=== PATIENT | female | born 1945 | race Caucasian/White ===

== ENCOUNTER → 2019-08-27 08:02 | Outpatient (BNVA) | payer MEDICARE, SELFPAY | PROVIDERS: Family Provider Family Medicine; PCP Family Medicine; Visit Provider Nurse Practitioner | DX: M54.9 Dorsalgia, unspecified (principal); M54.2 Cervicalgia; G90.50 Complex regional pain syndrome I, unspecified; F40.231 Fear of injections and transfusions; M96.1 Postlaminectomy syndrome, not elsewhere classified; G62.9 Polyneuropathy, unspecified; M79.651 Pain in right thigh; M79.652 Pain in left thigh; Z79.891 Long term (current) use of opiate analgesic | CPT/HCPCS: 99214 ==

== ENCOUNTER → 2019-09-23 08:16 | Outpatient (BNVA) | payer MEDICARE, SELFPAY | PROVIDERS: Family Provider Family Medicine; PCP Family Medicine; Referring Provider Licensed Practical Nurse; Visit Provider Psychiatry & Neurology Neurology | DX: M54.2 Cervicalgia (principal); M79.601 Pain in right arm; M79.602 Pain in left arm; Z87.891 Personal history of nicotine dependence | CPT/HCPCS: 95910 ==

== ENCOUNTER 2019-09-24 09:04 | Outpatient (CLI) | payer MEDICARE, SELFPAY ==
--- NOTE | 2019-09-24 09:25 | CT_ITS ---
WS: [id number] CT CERVICAL SPINE TECHNIQUE: Noncontrast CT of the cervical spine with coronal and sagittal reformatted images. 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 FINDINGS: Straightening of the normal cervical lordosis. Moderate spondylitic changes. Normal C1-C2 articulatio n. Disc space narrowing worse at C5-C6, C6-C7, and C7-T1. Prominent anterior hypertrophic changes at C5-6. C3-4: Mild disc osteophyte complex. Mild left and no significant right foraminal narrowing. Mild/mode rate facet arthropathy. Spinal canal is patent. C4-C5: Slight anterolisthesis. Tiny central disc osteophyte protrusion. Spinal canal is patent. Mild to moderate left and no significant right foraminal narrowing. Moderate left facet arthropathy. C5-6: Disc osteophyte complex with endplate ridging. Mild central canal stenosis. Moderate left and n o significant right foraminal narrowing. C6-7: Disc osteophyte complex eccentric to the left. Moderate to severe left bony foraminal narrowing . Right foramen is patent. Mild central canal stenosis. C7-T1: No significant disc bulging. Mild left and no significant right foraminal narrowing. Spinal ca nal is patent. Visualized posterior nasopharynx: Normal. Prevertebral soft tissues: Normal. CT/CT cervical spin wo con* [id number] IMPRESSION: 1. Straightening of the normal cervical lordosis with moderate spondylitic fide nges. 2. Mild central canal stenosis C5-C6 and C6-C7 due to disc osteophyte protrusi ons. 3. Multilevel bony foraminal narrowing worse at left C4-C5, left C5-C6, and le ft C6-C7. This is moderate to severe at left C6-7.
--- NOTE | 2019-09-24 09:25 | CT_ITS ---
WS: [id number] CT LUMBAR SPINE TECHNIQUE: Noncontrast CT of the lumbar spine with coronal and sagittal reformatted images. CLINICAL INFORMATION: S/P LUMBAR SPINAL FUSION COMPARISON: MRI February 18, 2015 DLP: 2533.[address] scans at [facility] use at least one of these dose optimization techniques: automat ed exposure control; mA and/or kV adjustment per patient size (includes targeted exams where dose is matched to clinical indication); or iterative reconstruction. FINDINGS: Mild lumbar curve. No acute compression. Prior postoperative changes interbody fusion hardware at L3- 4. Vacuum disc phenomenon T12-L1 and L1-L2. L1-L2: Central disc osteophyte complex with mild to moderate central canal stenosis. Narrowing of the right subarticular recess. Foramen are patent. Left L1-2 hemilaminectomy L2-L3: Disc osteophyte complex with endplate ridging. Moderate central canal stenosis. Moderate facet arthropathy. Mild left and no significant right foraminal narrowing. L3-L4: Prior postoperative changes interbody fusion. Disc osteophytic ridging with effacement of vent ral thecal sac. Laminectomy defects. Spinal canal is been decompressed. Foramen are patent. L4-L5: No significant disc bulging. Solid appearing dorsal lateral bony fusion. Spinal canal and fora men are patent. L5-S1: Dorsal lateral bony fusion appears solid. Mild disc bulging with osteophytic ridging. Spinal c anal and foramen are patent. Adrenal glands are normal. Visualized pelvic bony structures: Normal. Paravertebral soft tissues: Normal. CT/CT lumbar spine wo con* [id number] IMPRESSION: 1. Prior postoperative changes interbody fusion device L3-4 appears in good po sition. Subsidence along the fusion device. No apparent bridging bony fusion be tween the confines of the graft. 2. Solid appearing dorsal lateral bony fusion L4-L5 and L5-S1. 3. Laminectomy defects L3-4. Spinal canal has been decompressed. 4. Mild to moderate central canal stenosis L1-2 and moderate central canal fabiola nosis L2-3. 5. Prior left hemilaminectomy left L1-2.
--- NOTE | 2019-09-24 10:00 | XR_ITS ---
WS: [id number] XR cervical spine fl/ex [id number] REASON FOR EXAM: neck pain FINDINGS: Ankylosing changes anteriorly C5-C6. There is loss of the disc space C6-7, C7-T1. Limited f lexion changes are noted. XR/XR cervical spine fl/ex [id number] IMPRESSION: Ankylosing changes anteriorly C5-C6 Degenerated disc changes C6-7, C7-T1. Limited flexion changes noted.
== END 2019-09-24 09:05 | disposition home or self-care (01) ==
LOC: RAD 09:10
PROVIDERS: Family Provider Family Medicine; PCP Family Medicine; Visit Provider Licensed Practical Nurse
DX: M50.020 Cervical disc disorder with myelopathy, mid-cervical region, unspecified level (principal); M47.892 Other spondylosis, cervical region; M47.893 Other spondylosis, cervicothoracic region; Z98.1 Arthrodesis status; M48.061 Spinal stenosis, lumbar region without neurogenic claudication
CPT/HCPCS: 72040; 72125; 72131

== ENCOUNTER → 2019-10-29 08:31 | Outpatient (BNVA) | payer MEDICARE, SELFPAY | PROVIDERS: Family Provider Family Medicine; PCP Family Medicine; Visit Provider Nurse Practitioner | DX: Z76.89 Persons encountering health services in other specified circumstances (principal) | CPT/HCPCS: 99213 ==

== ENCOUNTER → 2020-01-21 07:55 | Outpatient (BNVA) | payer MEDICARE, SELFPAY | PROVIDERS: Family Provider Family Medicine; PCP Family Medicine; Visit Provider Anesthesiology | DX: M54.41 Lumbago with sciatica, right side (principal); M54.42 Lumbago with sciatica, left side; M51.26 Other intervertebral disc displacement, lumbar region; M96.1 Postlaminectomy syndrome, not elsewhere classified; M48.02 Spinal stenosis, cervical region; G62.9 Polyneuropathy, unspecified; G99.2 Myelopathy in diseases classified elsewhere; Z98.1 Arthrodesis status; Z79.891 Long term (current) use of opiate analgesic | CPT/HCPCS: 99214 ==

== ENCOUNTER → 2020-03-24 08:23 | Outpatient (BNVA) | payer MEDICARE, SELFPAY | PROVIDERS: Family Provider Family Medicine; PCP Family Medicine; Visit Provider Anesthesiology | DX: M51.26 Other intervertebral disc displacement, lumbar region (principal); M48.02 Spinal stenosis, cervical region; M50.020 Cervical disc disorder with myelopathy, mid-cervical region, unspecified level; M96.1 Postlaminectomy syndrome, not elsewhere classified; G62.9 Polyneuropathy, unspecified; Z98.1 Arthrodesis status; Z79.891 Long term (current) use of opiate analgesic | CPT/HCPCS: 99214 ==

== ENCOUNTER → 2020-05-26 08:49 | Outpatient (BNVA) | payer MEDICARE, SELFPAY | PROVIDERS: Family Provider Family Medicine; PCP Family Medicine; Visit Provider Anesthesiology | DX: M51.26 Other intervertebral disc displacement, lumbar region (principal); M96.1 Postlaminectomy syndrome, not elsewhere classified; M48.02 Spinal stenosis, cervical region; M50.020 Cervical disc disorder with myelopathy, mid-cervical region, unspecified level; Z98.1 Arthrodesis status; Z79.891 Long term (current) use of opiate analgesic | CPT/HCPCS: 99213; 99214 ==

== ENCOUNTER 2020-06-09 16:09 | Observation (INO) | payer MEDICARE, SELFPAY ==
[2020-06-09] VITALS (9 sets, daily range): BP systolic 130–198; BP diastolic 69–120; PULSE 66–93; RESP 14–20; TEMP 36.6–36.8; O2SAT 95–98; BMI 26.2
--- NOTE | 2020-06-09 16:43 | CTR_ITS ---
PROCEDURE INFORMATION: Exam: CT Abdomen And Pelvis With Contrast Exam date and time: 06/09/2020 5:52 PM Age: 74 years old Clinical indication: Abdominal pain; Acute; Prior surgery; Surgery date: 6+ months; Surgery type: Hyst tubal back bladder TECHNIQUE: Imaging protocol: Computed tomography of the abdomen and pelvis with intravenous contrast. Radiation optimization: All CT scans at this facility use at least one of these dose optimization techniques: automated exposure control; mA and/or kV adjustment per patient size (includes targeted exams where dose is matched to clinical indication); or iterative reconstruction. Contrast material: OMNI; Contrast volume: 95 ml; Contrast route: INTRAVENOUS (IV); COMPARISON: [facility] Abdomen 1 view 12/18/2018 9:38 AM RADIATION DOSE METRICS: Total DLP (mGy-cm): 657.71 FINDINGS: Lungs: Mild atelectasis versus fibrosis noted at the lung bases. Mediastinal space: There is a small hiatal hernia present. Liver: Decreased hepatic density is noted, consistent with hepatic steatosis. Gallbladder and bile ducts: Gallbladder is mildly distended. Multiple noncalcified gallstones are seen in the gallbladder. The gallbladder wall is not thickened. No pericholecystic fluid. No biliary dilatation. No calcified common duct calculus. Pancreas: The pancreas is normal in appearance. Spleen: Unremarkable. No splenomegaly. Adrenal glands: Unremarkable. No mass. Kidneys and ureters: 10 mm simple appearing left renal cyst. The kidneys are otherwise unremarkable. No hydronephrosis. Ureters are unremarkable. Stomach and bowel: No acute gastric abnormality demonstrated. The small bowel is unremarkable as demonstrated. Moderate retained stool in the colon. Mild diverticulosis. No inflammatory change of the colon. Appendix: No evidence of appendicitis. Normal appendix identified. Intraperitoneal space: No pneumoperitoneum. No significant fluid collection. Vasculature: The aorta is atherosclerotic. No aortic aneurysm. Lymph nodes: No pathologically enlarged lymph nodes. Urinary bladder: The urinary bladder is unremarkable in appearance. Reproductive: The uterus is not visualized, consistent with hysterectomy. Bones/joints: Bilateral hip prostheses noted. Postop and degenerative changes of the lumbar spine. Soft tissues: Unremarkable. CT/CT abdomen pelvis w con* [id number] IMPRESSION: 1. Decreased hepatic density is noted, consistent with hepatic steatosis. 2. Gallbladder is mildly distended. Multiple noncalcified gallstones are seen in the gallbladder. The gallbladder wall is not thickened. No pericholecystic fluid. No biliary dilatation. No calcified common duct calculus. Consider gallbladder/biliary ultrasound to further assess. COMMENTS: Consistent with the [place]'s Incidental Findings Committee white paper (J Am Brandee Radiol 2018): Any incidental renal lesion less than 1 cm or classified as too small to characterize, or any incidental cystic renal lesion characterized as simple-appearing, is likely benign. No follow-up imaging is recommended for these lesions per consensus recommendations based on imaging criteria. Radiation Dose CTDIVOL = (mGy): DLP = 657.71 (mGy-cm)
--- NOTE | 2020-06-09 16:44 | ECG_ITS ---
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
[2020-06-09] MEDS: sodium chloride 0.9% 1,000 ML 999 ML IV (16:53)
[2020-06-09 16:54] LABS: Basophils # 0.1 10^3/uL (0.0-0.1); Basophils % 0.6 %; Eosinophils # 0.2 10^3/uL (0.0-0.8); Eosinophils % 2.3 %; Hematocrit 50.4 % (37.0-47.0); Hemoglobin 16.5 g/dL (11.5-15.3); Lymphocytes # 2.1 10^3/uL (0.8-4.8); Lymphocytes % 26.9 %; Mean Corpuscular HGB Conc 32.7 g/dL (30.0-36.0); Mean Corpuscular Hemoglobin 28.6 pg (28.0-34.0); Mean Corpuscular Volume 87.3 fL (81-99); Mean Platelet Volume 10.9 fL (7.4-10.4); Monocytes # 0.5 10^3/uL (0.2-0.9); Monocytes % 6.7 %; Neutrophils % 63.2 %; Nucleated Red Blood Cells % 0 %; Platelet Count 331 10^3/cmm (130-400); Red Blood Count 5.77 10^6/uL (4.1-5.3); Red Cell Distribution Width 11.7 % (12.1-15.1); White Blood Count 7.9 10^3/uL (4.0-10.0)
[2020-06-09] MEDS: ondansetron 2 mg/ML SDV 2 mL 4 MG IVP ×2 (16:54→21:10)
[2020-06-09] MEDS: morphine 4 mg/mL SDV 1 mL IVP ×2 (16:54→21:10)
[2020-06-09 16:56] LABS: Add Urine Microscopic? NO
[2020-06-09 17:03] LABS: Bilirubin Urine Neg (Negative); Blood Urine Neg (Negative); Glucose Urine UA Norm (Normal); Ketones Urine Negative (Negative); Leukocyte Esterase Urine Negative (Negative); Nitrate Urine Negative (Negative); Protein Urine Neg (Negative); Specific Gravity, Urine 1.015 (1.005-1.030); Urine Appearance Clear (CLEAR); Urine Color Yellow (Yellow); Urobilinogen Urine Norm (Negative); pH Urine 7 (5-7)
[2020-06-09 17:19] LABS: Alanine Aminotransferase 17 U/L (0-33); Alkaline Phosphatase 99 IU/L (35-105); Anion Gap 15.8 (5-19); Aspartate Amino Transferase 24 U/L (0-32); Blood Urea Nitrogen 10 mg/dL (8-23); Calcium 9.6 mg/dL (8.5-10.5); Carbon Dioxide 26 mmol/L (22-29); Chloride 101 mmol/L (98-107); Globulin 3.2 g/dL (1.3-4.6); Glucose 121 mg/dL (65-115); Lipase 14 U/L (13-60); Osmolality Calculated 288 mOsm/kg (285-295); Potassium 3.8 mmol/L (3.5-5.1); Sodium 139 mmol/L (136-145); Total Bilirubin 0.8 mg/dL (0.15-1.2); Total Protein 8.2 g/dL (6.6-8.7)
--- NOTE | 2020-06-09 17:36 | W.ED.ABDPA2 ---
Documented by User: Lashanda Workman MD 06/19/20 17:09 HPI - Abdominal Pain General: Chief Complaint: Abdominal Pain Stated Complaint: N/V, WEAKNESS Time Seen by Provider: 06/09/20 16:30 History of Present Illness: HPI narrative: This patient is a 74-year-old female who presents with abdominal pain and vomiting. She reports that her pain started yesterday evening after dinner. It bothered her all night long. She started throwing up at about 4 AM. She threw up bile which she describes as green and terrible tasting. She has had a hysterectomy but no other abdominal surgeries. Most of her pain is on the right side. She does have chronic pain with neck and back problems. She takes oxycodone for pain but has not taken any since this morning because she was afraid she would throw it up. MD elicited complaint: abdominal pain Pertinent past history: none Onset (ago): day(s) (1) Pain Consistency: constant Location: Epigastric (Burning sensation), RUQ and RLQ Severity: moderate Quality: fullness, sharp and burning Radiation: R flank and chest Migration to: no migration Exacerbating factors: nothing Relieving factors: nothing Associated Symptoms: Reports nausea and vomiting; Denies chills and fever(s) Review of Systems General: Reports: 10 or more systems reviewed and unremarkable except in HPI and below Const: Denies: fever(s), chills, fatigue or malaise Eyes: Denies: change in vision ENMT: Denies: odynophagia Card: Denies: chest pain or swelling of feet/ankles Resp: Denies: dyspnea, productive cough or non-productive cough GI: Reports: abdominal pain, nausea and vomiting : Denies: flank pain or difficulty voiding Musc: Denies: neck pain or back pain Skin/Breast: Denies: rash Neuro: Denies: headache(s), numbness in extremities or weakness in extremities Darryn/Lymph: Denies: easy bruising or easy bleeding PFSH ED PFSH: Medical History (Updated 06/12/20 @ 00:00 by ) Cervical disc disorder with myelopathy of mid-cervical region CRPS (complex regional pain syndrome type I) last stellate ganglion block was in 2012. 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 S/P hip replacement BILATERAL - TOTAL S/P hysterectomy PARTIAL FOR DYSMENORRHEA S/P lumbar spinal fusion 2001 [place]. L2-L3, L3-L4, L4-L5, and L5-S1 fusion/fixation 1986 [facility] L4-L5, L5-S1 decompression 05/1977 L5-S1 decompression S/P reduction mammoplasty S/P thymectomy 1983 AGE 15 MYASTHENIA GRAVIS S/P tubal ligation Status post colonoscopy Status post laparoscopic cholecystectomy (06/10/20) Family History Father Hypertension Heart disease age 60 Diabetes Mother Heart disease age 50 Cancer lung Stroke Denies family history of Anesthesia complication Bleeding disorder Social History Smoking and tobacco status: former smoker Second hand smoke exposure: No Alcohol intake: never Lives independently: Yes Household members: none Marital status: service: No Current occupational status: employed 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 History of recent travel: No Physical Exam Const: COMMON NORMALS: patient oriented x3, no limitations and alert GENERAL APPEARANCE: cooperative HENMT: HEAD & SCALP: normal to inspection FACE & SINUS: normal facial exam Eye: GENERAL EYE: appearance normal, both eyes and all related structures Neck/C-Spine: COMMON NORMALS: supple, no meningeal signs and no JVD Chest: COMMONS NORMALS: normal inspection of the chest Resp: COMMON NORMALS: normal respiratory effort, No use of accessory muscles and clear to auscultation bilaterally AUSCULTATION: clear to auscultation bilaterally Cardio: COMMON NORMALS: no JVD, regular rate, regular rhythm and No murmurs present (Cardio) RATE: regular rate RHYTHM: regular rhythm GI: COMMON NORMALS: Normal to inspection, nondistended, normoactive bowel sounds present INSPECTION: Yes normal to inspection AUSCULTATION: Yes normoactive bowel sounds PALPATION: Yes Tenderness to palpation present (GI) Details: RLQ and RUQ and Yes Guarding due to palpation present (GI) Back/Pelvis: COMMON NORMALS: thoracic and lumbar spine normal to inspection Extremity: COMMON NORMALS: normal to inspection Neuro: COMMON NORMALS: patient oriented x3, moves all extremities, no focal motor deficits and no sensory deficits noted SENSORIUM/ORIENTATION: Yes alert MENINGEAL SIGNS: Yes no meningeal signs Psych: COMMON NORMALS: mental status grossly normal, cooperative and normal affect Skin: COMMON NORMALS: no rashes or lesions noted and turgor normal GENERAL SKIN EXAM: no rashes or lesions noted and turgor normal Course Vital Signs: Vital signs: Vital Signs Temperature 98.3 F 06/11/20 09:08 Pulse Rate 72 06/11/20 09:08 Respiratory Rate 18 06/11/20 09:08 Blood Pressure 162/61 06/11/20 09:08 Pulse Oximetry 93 06/11/20 09:08 MDM - Abdominal Pain Lab Data: Labs: Lab Results 06/09/20 06/09/20 06/09/20 Range/Units 16:41 16:41 16:41 WBC 7.9 (4.0-10.0) 10^3/ uL RBC 5.77 H (4.1-5.3) 10^6/u L Hgb 16.5 H (11.5-15.3) g/dL Hct 50.4 H (37.0-47.0) % MCV 87.3 (81-99) fL MCH 28.6 (28.0-34.0) pg MCHC 32.7 (30.0-36.0) g/dL RDW 11.7 L (12.1-15.1) % Plt Count 331 (130-400) 10^3/c mm MPV 10.9 H (7.4-10.4) fL Neut % (Auto) 63.2 % Lymph % (Auto) 26.9 % Bennett % (Auto) 6.7 % Eos % (Auto) 2.3 % Baso % (Auto) 0.6 % Neut # (Auto) 5.00 (1.8-7.7) 10^3/u L Lymph # (Auto) 2.1 (0.8-4.8) 10^3/u L Bennett # (Auto) 0.5 (0.2-0.9) 10^3/u L Eos # (Auto) 0.2 (0.0-0.8) 10^3/u L Baso # (Auto) 0.1 (0.0-0.1) 10^3/u L Nucleated RBC % (a uto) 0 % Nucleated RBCs # 0.0 /100WBC Sodium 139 (136-145) mmol/L Potassium 3.8 (3.5-5.1) mmol/L Chloride 101 (98-107) mmol/L Carbon Dioxide 26 (22-29) mmol/L Anion Gap 15.8 (5-19) BUN 10 (8-23) mg/dL Creatinine 0.7 (0.5-0.9) mg/dL GFR Calculation Not Reportable Glucose 121 H (65-115) mg/dL Calculated Osmolal ity 288 (285-295) mOsm/k g Calcium 9.6 (8.5-10.5) mg/dL Total Bilirubin 0.8 (0.15-1.2) mg/dL AST 24 (0-32) U/L ALT 17 (0-33) U/L Alkaline Phosphata se 99 (35-105) IU/L Troponin T Baselin e (0-10) ng/L Troponin T 120 Min [place] (0-10) ng/L Delta Troponin T (0-10) ABS# Total Protein 8.2 (6.6-8.7) g/dL Albumin 5.0 (3.5-5.2) g/dL Globulin 3.2 (1.3-4.6) g/dL Lipase 14 (13-60) U/L Urine Color Yellow (Yellow) Urine Appearance Clear (CLEAR) Urine pH 7 (5-7) Ur Specific Gravit y 1.015 (1.005-1.030) Urine Protein Neg (Negative) Urine Glucose (UA) Norm (Normal) Urine Ketones Negative (Negative) Urine Blood Neg (Negative) Urine Nitrate Negative (Negative) Urine Bilirubin Neg (Negative) Urine Urobilinogen Norm (Negative) mg/dL Ur Leukocyte Carolyn ase Negative (Negative) 06/09/20 06/09/20 Range/Units 16:41 19:09 WBC (4.0-10.0) 10^3/ uL RBC (4.1-5.3) 10^6/u L Hgb (11.5-15.3) g/dL Hct (37.0-47.0) % MCV (81-99) fL MCH (28.0-34.0) pg MCHC (30.0-36.0) g/dL RDW (12.1-15.1) % Plt Count (130-400) 10^3/c mm MPV (7.4-10.4) fL Neut % (Auto) % Lymph % (Auto) % Bennett % (Auto) % Eos % (Auto) % Baso % (Auto) % Neut # (Auto) (1.8-7.7) 10^3/u L Lymph # (Auto) (0.8-4.8) 10^3/u L Bennett # (Auto) (0.2-0.9) 10^3/u L Eos # (Auto) (0.0-0.8) 10^3/u L Baso # (Auto) (0.0-0.1) 10^3/u L Nucleated RBC % (a uto) % Nucleated RBCs # /100WBC Sodium (136-145) mmol/L Potassium (3.5-5.1) mmol/L Chloride (98-107) mmol/L Carbon Dioxide (22-29) mmol/L Anion Gap (5-19) BUN (8-23) mg/dL Creatinine (0.5-0.9) mg/dL GFR Calculation Glucose (65-115) mg/dL Calculated Osmolal ity (285-295) mOsm/k g Calcium (8.5-10.5) mg/dL Total Bilirubin (0.15-1.2) mg/dL AST (0-32) U/L ALT (0-33) U/L Alkaline Phosphata se (35-105) IU/L Troponin T Baselin e 15 H (0-10) ng/L Troponin T 120 Min [place] 14.90 H (0-10) ng/L Delta Troponin T -0.10 L (0-10) ABS# Total Protein (6.6-8.7) g/dL Albumin (3.5-5.2) g/dL Globulin (1.3-4.6) g/dL Lipase (13-60) U/L Urine Color (Yellow) Urine Appearance (CLEAR) Urine pH (5-7) Ur Specific Gravit y (1.005-1.030) Urine Protein (Negative) Urine Glucose (UA) (Normal) Urine Ketones (Negative) Urine Blood (Negative) Urine Nitrate (Negative) Urine Bilirubin (Negative) Urine Urobilinogen (Negative) mg/dL Ur Leukocyte Carolyn ase (Negative) Discharge Plan Discharge Patient Disposition: Placed in Observation Admit Provider: Jacob Jamison Clinical Impression: Acute cholecystitis Discharge Diet: Advance as tolerated Coding Level of Care Code ED Edge Bander Hand for Chg Fwd Exam Comprehensive Documented by User: Winter Do 06/09/20 21:21 HPI - Abdominal Pain General: Chief Complaint: Abdominal Pain Stated Complaint: N/V, WEAKNESS Time Seen by Provider: 06/09/20 16:30 PFSH ED PFSH: Medical History (Updated 06/12/20 @ 00:00 by ) Cervical disc disorder with myelopathy of mid-cervical region CRPS (complex regional pain syndrome type I) last stellate ganglion block was in 2012. 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 S/P hip replacement BILATERAL - TOTAL S/P hysterectomy PARTIAL FOR DYSMENORRHEA S/P lumbar spinal fusion 2001 [facility], [place]. L2-L3, L3-L4, L4-L5, and L5-S1 fusion/fixation 1986 [facility] L4-L5, L5-S1 decompression 05/1977 L5-S1 decompression S/P reduction mammoplasty S/P thymectomy 1983 AGE 15 MYASTHENIA GRAVIS S/P tubal ligation Status post colonoscopy Status post laparoscopic cholecystectomy (06/10/20) Family History Father Hypertension Heart disease age 60 Diabetes Mother Heart disease age 50 Cancer lung Stroke Denies family history of Anesthesia complication Bleeding disorder Social History Smoking and tobacco status: former smoker Second hand smoke exposure: No Alcohol intake: never Lives independently: Yes Household members: none Marital status: service: No Current occupational status: employed 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 Workman. Please see her note for history, physical exam and medical decision-making notes. Patient tells me her pain is better but she still having some pain at this time. She now describes the pain is more diffuse throughout her abdomen. She is no longer nauseated. Patient's CT scan shows a fatty liver and a distended gallbladder. On exam she is not focally tender in any area and her abdomen is soft. She agrees to go ahead and have a ultrasound of her gallbladder which would better image this than CT. This time she feels better. Her labs are unremarkable at this time. 2017 -patient still has pain primarily right upper quadrant. CT scan does not show any evidence of appendicitis. Ultrasound shows multiple gallstones with pericholecystic fluid present. Common bile duct was normal. Because the patient has continued pain, intractable vomiting and the findings on ultrasound I believe this is likely developing cholecystitis. I reviewed the case in full with Dr. Jamison is agreeable to admission for likely cholecystectomy in the morning. Differential Diagnosis: Differential diagnosis abdominal pain: Likely abdominal pain, acute appendicitis, calculus of kidney, constipation, diverticulitis, gastroenteritis, pancreatitis and small bowel obstruction Lab Data: Attestation: I reviewed the patient's lab results. Labs: Lab Results 06/09/20 06/09/20 06/09/20 Range/Units 16:41 16:41 16:41 WBC 7.9 (4.0-10.0) 10^3/ uL RBC 5.77 H (4.1-5.3) 10^6/u L Hgb 16.5 H (11.5-15.3) g/dL Hct 50.4 H (37.0-47.0) % MCV 87.3 (81-99) fL MCH 28.6 (28.0-34.0) pg MCHC 32.7 (30.0-36.0) g/dL RDW 11.7 L (12.1-15.1) % Plt Count 331 (130-400) 10^3/c mm MPV 10.9 H (7.4-10.4) fL Neut % (Auto) 63.2 % Lymph % (Auto) 26.9 % Bennett % (Auto) 6.7 % Eos % (Auto) 2.3 % Baso % (Auto) 0.6 % Neut # (Auto) 5.00 (1.8-7.7) 10^3/u L Lymph # (Auto) 2.1 (0.8-4.8) 10^3/u L Bennett # (Auto) 0.5 (0.2-0.9) 10^3/u L Eos # (Auto) 0.2 (0.0-0.8) 10^3/u L Baso # (Auto) 0.1 (0.0-0.1) 10^3/u L Nucleated RBC % (a uto) 0 % Nucleated RBCs # 0.0 /100WBC Sodium 139 (136-145) mmol/L Potassium 3.8 (3.5-5.1) mmol/L Chloride 101 (98-107) mmol/L Carbon Dioxide 26 (22-29) mmol/L Anion Gap 15.8 (5-19) BUN 10 (8-23) mg/dL Creatinine 0.7 (0.5-0.9) mg/dL GFR Calculation Not Reportable Glucose 121 H (65-115) mg/dL Calculated Osmolal ity 288 (285-295) mOsm/k g Calcium 9.6 (8.5-10.5) mg/dL Total Bilirubin 0.8 (0.15-1.2) mg/dL AST 24 (0-32) U/L ALT 17 (0-33) U/L Alkaline Phosphata se 99 (35-105) IU/L Troponin T Baselin e (0-10) ng/L Troponin T 120 Min [place] (0-10) ng/L Delta Troponin T (0-10) ABS# Total Protein 8.2 (6.6-8.7) g/dL Albumin 5.0 (3.5-5.2) g/dL Globulin 3.2 (1.3-4.6) g/dL Lipase 14 (13-60) U/L Urine Color Yellow (Yellow) Urine Appearance Clear (CLEAR) Urine pH 7 (5-7) Ur Specific Gravit y 1.015 (1.005-1.030) Urine Protein Neg (Negative) Urine Glucose (UA) Norm (Normal) Urine Ketones Negative (Negative) Urine Blood Neg (Negative) Urine Nitrate Negative (Negative) Urine Bilirubin Neg (Negative) Urine Urobilinogen Norm (Negative) mg/dL Ur Leukocyte Carolyn ase Negative (Negative) 06/09/20 06/09/20 Range/Units 16:41 19:09 WBC (4.0-10.0) 10^3/ uL RBC (4.1-5.3) 10^6/u L Hgb (11.5-15.3) g/dL Hct (37.0-47.0) % MCV (81-99) fL MCH (28.0-34.0) pg MCHC (30.0-36.0) g/dL RDW (12.1-15.1) % Plt Count (130-400) 10^3/c mm MPV (7.4-10.4) fL Neut % (Auto) % Lymph % (Auto) % Bennett % (Auto) % Eos % (Auto) % Baso % (Auto) % Neut # (Auto) (1.8-7.7) 10^3/u L Lymph # (Auto) (0.8-4.8) 10^3/u L Bennett # (Auto) (0.2-0.9) 10^3/u L Eos # (Auto) (0.0-0.8) 10^3/u L Baso # (Auto) (0.0-0.1) 10^3/u L Nucleated RBC % (a uto) % Nucleated RBCs # /100WBC Sodium (136-145) mmol/L Potassium (3.5-5.1) mmol/L Chloride (98-107) mmol/L Carbon Dioxide (22-29) mmol/L Anion Gap (5-19) BUN (8-23) mg/dL Creatinine (0.5-0.9) mg/dL GFR Calculation Glucose (65-115) mg/dL Calculated Osmolal ity (285-295) mOsm/k g Calcium (8.5-10.5) mg/dL Total Bilirubin (0.15-1.2) mg/dL AST (0-32) U/L ALT (0-33) U/L Alkaline Phosphata se (35-105) IU/L Troponin T Baselin e 15 H (0-10) ng/L Troponin T 120 Min [place] 14.90 H (0-10) ng/L Delta Troponin T -0.10 L (0-10) ABS# Total Protein (6.6-8.7) g/dL Albumin (3.5-5.2) g/dL Globulin (1.3-4.6) g/dL Lipase (13-60) U/L Urine Color (Yellow) Urine Appearance (CLEAR) Urine pH (5-7) Ur Specific Gravit y (1.005-1.030) Urine Protein (Negative) Urine Glucose (UA) (Normal) Urine Ketones (Negative) Urine Blood (Negative) Urine Nitrate (Negative) Urine Bilirubin (Negative) Urine Urobilinogen (Negative) mg/dL Ur Leukocyte Carolyn ase (Negative) Imaging Data ^: CT Abd/Pel: Radiologist's impression: [place] [address] CT Scan Report Signed Patient: Emma Navarrete Unit #: [id number] : 1945 Age/Sex: 74 / F ADM Date: 06/09/20 Loc: ER Room/Bed: Attending Dr: Ordering Provider/Ordering MD: Lashanda Workman MD Date of Service: 06/09/20 Procedure(s): CT abdomen pelvis w con* [id number] Accession Number(s): [id number] Report Number: [id number] PROCEDURE INFORMATION: Exam: CT Abdomen And Pelvis With Contrast Exam date and time: 06/09/2020 5:52 PM Age: 74 years old Clinical indication: Abdominal pain; Acute; Prior surgery; Surgery date: 6+ months; Surgery type: Hyst tubal back bladder TECHNIQUE: Imaging protocol: Computed tomography of the abdomen and pelvis with intravenous contrast. Radiation optimization: All CT scans at this facility use at least one of these dose optimization techniques: automated exposure control; mA and/or kV adjustment per patient size (includes targeted exams where dose is matched to clinical indication); or iterative reconstruction. Contrast material: OMNI; Contrast volume: 95 ml; Contrast route: INTRAVENOUS (IV); COMPARISON: CR [facility] Abdomen 1 view 12/18/2018 9:38 AM RADIATION DOSE METRICS: Total DLP (mGy-cm): 657.71 FINDINGS: Lungs: Mild atelectasis versus fibrosis noted at the lung bases. Mediastinal space: There is a small hiatal hernia present. Liver: Decreased hepatic density is noted, consistent with hepatic steatosis. Gallbladder and bile ducts: Gallbladder is mildly distended. Multiple noncalcified gallstones are seen in the gallbladder. The gallbladder wall is not thickened. No pericholecystic fluid. No biliary dilatation. No calcified common duct calculus. Pancreas: The pancreas is normal in appearance. Spleen: Unremarkable. No splenomegaly. Adrenal glands: Unremarkable. No mass. Kidneys and ureters: 10 mm simple appearing left renal cyst. The kidneys are otherwise unremarkable. No hydronephrosis. Ureters are unremarkable. Stomach and bowel: No acute gastric abnormality demonstrated. The small bowel is unremarkable as demonstrated. Moderate retained stool in the colon. Mild diverticulosis. No inflammatory change of the colon. Appendix: No evidence of appendicitis. Normal appendix identified. Intraperitoneal space: No pneumoperitoneum. No significant fluid collection. Vasculature: The aorta is atherosclerotic. No aortic aneurysm. Lymph nodes: No pathologically enlarged lymph nodes. Urinary bladder: The urinary bladder is unremarkable in appearance. Reproductive: The uterus is not visualized, consistent with hysterectomy. Bones/joints: Bilateral hip prostheses noted. Postop and degenerative changes of the lumbar spine. Soft tissues: Unremarkable. CT/CT abdomen pelvis w con* [id number] IMPRESSION: 1. Decreased hepatic density is noted, consistent with hepatic steatosis. 2. Gallbladder is mildly distended. Multiple noncalcified gallstones are seen in the gallbladder. The gallbladder wall is not thickened. No pericholecystic fluid. No biliary dilatation. No calcified common duct calculus. Consider gallbladder/biliary ultrasound to further assess. COMMENTS: Consistent with the [place] [employer]'s Incidental Findings Committee white paper (J Am Brandee Radiol 2018): Any incidental renal lesion less than 1 cm or classified as too small to characterize, or any incidental cystic renal lesion characterized as simple-appearing, is likely benign. No follow-up imaging is recommended for these lesions per consensus recommendations based on imaging criteria. Radiation Dose CTDIVOL = (mGy): DLP = 657.71 (mGy-cm) Dictated By: Carson Farfan MD Signed By: Carson Farfan MD Signed Date/Time: 06/09/201822 DD/ 21 US: My impression: Ultrasound gallbladder, tech interpretation -multiple stones present. Borderline wall thickening. Pericholecystic fluid present. CBD normal. Discharge Plan Discharge Patient Disposition: Placed in Observation Admit Provider: Jacob Jamison Clinical Impression: Acute cholecystitis Discharge Diet: Advance as tolerated Coding Level of Care Code ED Edge Bander Hand for Chg Fwd Exam Comprehensive
[2020-06-09] MEDS: iohexol 300 mg/mL 100 mL Btl IV (18:03)
--- NOTE | 2020-06-09 18:41 | US_ITS ---
WS: [id number] ULTRASOUND ABDOMEN LIMITED CLINICAL INFORMATION: Abdominal Pain COMPARISON: None. FINDINGS: Liver Size: Normal. Craniocaudal length: 14.4 cm. Echogenicity: Coarse echogenicity Surface nodularity: None. Mass (size and location): None. Bile ducts Intrahepatic ducts: Normal. Common bile duct diameter: 0.5 cm. Gallbladder Cholelithiasis Gallstones: Present Gallbladder sludge: None. Gallbladder wall thickening: None. Pericholecystic fluid: None. Sonographic Rincon sign: Absent. Pancreas Not well seen Right kidney: Normal. Hydronephrosis: None. Size: 10.4 cm x 4.0 cm x 4.4 cm. Abdominal aorta and IVC Visualized portions are normal. Ascites: None. US/US gall bladder [id number] IMPRESSION: 1. Coarse hepatic liver echogenicity. 2. Cholelithiasis with mild gallbladder wall thickening and small amount of ga llbladder wall edema. Gallbladder function could be further evaluated with HIDA scan. 3. Normal common bile duct. 4. No hydronephrosis in right kidney.
--- NOTE | 2020-06-09 18:55 | ECG_ITS ---
[facility] Test Date: 2020-06-09 Pat Name: Emma Navarrete Department: Room: Gender: Female Keysmith: : 1945 Requested By: Winter Lennon Order Number: [id number] Mahendra MD: BASSEM DOUGLASS Measurements Intervals [place] Rate: 59 P: 29 [place]: 170 QRS: -34 QRSD: 153 T: 150 QT: 543 QTc: 542 Interpretive Statements SINUS BRADYCARDIA LEFT AXIS DEVIATION [QRS AXIS < -30] LEFT BUNDLE BRANCH BLOCK [120+ ms QRS DURATION, 80+ ms Q/S IN V1/V2, 85+ ms R IN I/aVL/V5/V6] Compared to ECG 06/09/2020 16:50:53 Sinus rhythm no longer present Electronically Signed On 06-10-2020 19:29:33 CLASS A LINEMAN by BASSEM DOUGLASS [id number]
[2020-06-09 19:35] LABS: Troponin(5th) Baseline 15 ng/L (0-10)
--- NOTE | 2020-06-09 20:55 | ECG_ITS ---
[facility] Test Date: 2020-06-09 Pat Name: Emma Navarrete Department: Room: Gender: Female Family Specialist: : 1945 Requested By: Winter Lennon Order Number: [id number] Mahendra MD: BASSEM DOUGLASS Measurements Intervals [place] Rate: 60 P: 37 [place]: 165 QRS: -36 QRSD: 156 T: 140 QT: 535 QTc: 539 Interpretive Statements SINUS RHYTHM LEFT AXIS DEVIATION [QRS AXIS < -30] LEFT BUNDLE BRANCH BLOCK [120+ ms QRS DURATION, 80+ ms Q/S IN V1/V2, 85+ ms R IN I/aVL/V5/V6] Compared to ECG 06/09/2020 19:02:56 Sinus bradycardia no longer present Electronically Signed On 06-10-2020 19:33:53 ZIGZAG STITCHER by BASSEM DOUGLASS [email or web address]. c. [email or web address] memorial hospitalSWEEPiO.Decisiv/store/[id number]
[2020-06-09] MEDS: piperacillin-tazobactam 3.375 GM in sodium chloride 0.9% (plus) 50 ML IV (21:10)
[2020-06-10] VITALS (42 sets, daily range): BP systolic 153–211; BP diastolic 64–113; PULSE 60–88; RESP 12–24; TEMP 36.6–37; O2SAT 91–99
[2020-06-10] MEDS: dextrose 5%-sod chloride 0.45% 1,000 ML 100 ML IV ×2 (00:11→11:21)
[2020-06-10] MEDS: ondansetron 2 mg/ML SDV 2 mL 4 MG IVP ×5 (00:24→17:27)
[2020-06-10] MEDS: morphine 4 mg/mL SDV 1 mL IVP ×3 (00:24→09:16)
--- NOTE | 2020-06-10 00:55 | ECG_ITS ---
[facility] Test Date: 2020-06-10 Pat Name: Emma Navarrete Department: Room: 251 Gender: Female Grief Counselor: : 1945 Requested By: Winter Lennon Order Number: [id number] Mahendra MD: BASSEM DOUGLASS Measurements Intervals [place] Rate: 58 P: 61 [place]: 167 QRS: -34 QRSD: 161 T: 164 QT: 560 QTc: 551 Interpretive Statements SINUS BRADYCARDIA MARKED LEFT AXIS DEVIATION [QRS AXIS < -30] LEFT BUNDLE BRANCH BLOCK [120+ ms QRS DURATION, 80+ ms Q/S IN V1/V2, 85+ ms R IN I/aVL/V5/V6] Compared to ECG 06/09/2020 20:57:54 Sinus rhythm no longer present Electronically Signed On 06-10-2020 19:33:29 AIRCRAFT PAINTER APPRENTICE by BASSEM DOUGLASS [id number]
[2020-06-10 02:39] LABS: Basophils % 0.5 %; Eosinophils # 0.2 10^3/uL (0.0-0.8); Eosinophils % 1.8 %; Hematocrit 44.8 % (37.0-47.0); Hemoglobin 14.6 g/dL (11.5-15.3); Lymphocytes # 2.3 10^3/uL (0.8-4.8); Lymphocytes % 26.6 %; Mean Corpuscular HGB Conc 32.6 g/dL (30.0-36.0); Mean Corpuscular Hemoglobin 28.7 pg (28.0-34.0); Mean Corpuscular Volume 88.2 fL (81-99); Monocytes # 0.8 10^3/uL (0.2-0.9); Monocytes % 9.3 %; Neutrophils % 61.4 %; Nucleated Red Blood Cells % 0 %; Platelet Count 287 10^3/cmm (130-400); Red Blood Count 5.08 10^6/uL (4.1-5.3); Red Cell Distribution Width 11.6 % (12.1-15.1); White Blood Count 8.5 10^3/uL (4.0-10.0)
[2020-06-10 02:45] LABS: Alanine Aminotransferase 15 U/L (0-33); Albumin Level 4.1 g/dL (3.5-5.2); Alkaline Phosphatase 77 IU/L (35-105); Anion Gap 15.5 (5-19); Aspartate Amino Transferase 21 U/L (0-32); Blood Urea Nitrogen 9 mg/dL (8-23); Calcium 8.8 mg/dL (8.5-10.5); Carbon Dioxide 23 mmol/L (22-29); Chloride 104 mmol/L (98-107); Globulin 2.8 g/dL (1.3-4.6); Glucose 125 mg/dL (65-115); Osmolality Calculated 288 mOsm/kg (285-295); Potassium 3.5 mmol/L (3.5-5.1); Sodium 139 mmol/L (136-145); Total Bilirubin 0.7 mg/dL (0.15-1.2); Total Protein 6.9 g/dL (6.6-8.7)
[2020-06-10 02:47] LABS: Troponin 5 6HR 14.37 ng/L (0-10)
--- NOTE | 2020-06-10 05:29 | NUR.SHIFT ---
Patient has had bouts of pain and nausea. Patient had not slept for most of the night. Patient had voided twice.
--- NOTE | 2020-06-10 08:03 | PM.HP ---
Providers/Chief Complaint Admitting Physician: Jacob Jamison MD Primary Care Provider: Raven Peres MD Chief Complaint: N/V, WEAKNESS History of Present Illness Emma Navarrete is a 74 year old female who presented to the ER last night with complaints of right upper quadrant and right lower quadrant pain associated nausea and vomiting of 48 hours duration. The patient states that the pain started after she had dinner 2 days ago and persisted. The pain does not radiate, no aggravating or relieving factors. The pain is constant, sharp. She had an EGD last year and was diagnosed with a hiatal hernia. Her last colonoscopy was 6 years ago. she denies any fevers chills or jaundice Review of Systems General: Reports: 10 or more systems reviewed and unremarkable except in HPI and below Medications/Allergies Home Medications Medication Instructions Recorded Confirmed Last Taken Type atorvastatin 20 mg tablet 20 mg PO .BEDTIME tab 08/13/19 06/09/20 06/07/20 History carvedilol 25 mg tablet 25 mg PO BID 08/13/19 06/09/20 06/08/20 History nitroglycerin 0.4 mg sublingual 0.4 mg SUBLINGUAL Q5M PRN 08/13/19 06/09/20 Unknown History tablet pantoprazole 40 mg tablet,delayed 40 mg PO DAILY 08/13/19 06/09/20 06/08/20 History release topiramate 50 mg capsule,extended 50 mg PO ONCE 08/13/19 06/09/20 06/09/20 History release 24 hr lisinopril 20 mg tablet 20 mg PO BID 08/27/19 06/09/20 06/08/20 History baclofen 10 mg tablet 5 - 10 mg PO QID PRN #120 tab 10/29/19 06/09/20 06/08/20 Rx oxycodone 30 mg tablet 30 mg PO TID PRN 30 Days #90 tab 05/26/20 06/09/20 06/09/20 Rx MDD 3 tablets Allergies Allergy/AdvReac Type Severity Reaction Status Date / Time No Known Allergies Allergy Verified 06/09/20 16:18 PFSH Acute PFSH: Medical History Cervical disc disorder with myelopathy of mid-cervical region CRPS (complex regional pain syndrome type I) last stellate ganglion block was in 2013. 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 S/P hip replacement BILATERAL - TOTAL S/P hysterectomy PARTIAL FOR DYSMENORRHEA S/P lumbar spinal fusion 2001 [place], [place]. L2-L3, L3-L4, L4-L5, and L5-S1 fusion/fixation 1986 [facility] L4-L5, L5-S1 decompression 05/1977 L5-S1 decompression S/P reduction mammoplasty S/P thymectomy 1983 AGE 15 MYASTHENIA GRAVIS S/P tubal ligation Status post colonoscopy Family History Father Hypertension Heart disease age 60 Diabetes Mother Heart disease age 50 Cancer lung Stroke Denies family history of Anesthesia complication Bleeding disorder Social History Smoking and tobacco status: former smoker Second hand smoke exposure: No Alcohol intake: never Lives independently: Yes Household members: none Marital status: service: No Current occupational status: employed 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 History of recent travel: No Vitals/I&O/Wt Last Vital Signs Temp 98.1 F 06/10/20 07:53 Pulse 64 06/10/20 07:53 Resp 16 06/10/20 07:53 BP 189/89 06/10/20 07:53 Pulse Ox 97 06/10/20 07:53 06/09/20 06/10/20 06/10/20 22:59 06:59 14:59 Intake Total 50 / 50 Output Total 100 / 100 Balance -50 / -50 Weight last 48 hrs Weight 148 lb Physical Exam Narrative: EXAM NARRATIVE: HEENT: Normocephalic Eye: Sclera /conjunctiva normal Abdomen: Soft to palpation, tender right upper quadrant, Rincon sign positive, no guarding or rigidity Neurological: Oriented to place person and time Skin: Intact, no lesions appreciated on gross exam Data : 06/10/20 02:11 06/10/20 02:11 A&P Assessment and plan (1) Acute cholecystitis: 74-year-old female with right upper quadrant pain, Rincon sign positive with ultrasound showing cholelithiasis without evidence of cholecystitis. Her white count and LFTs are normal. Plan for laparoscopic possible open cholecystectomy Procedure, risks, benefits and alternatives have been discussed with the patient who wishes to proceed with surgery. Status: Acute Attestations Medical Necessity Statement*: Acute cholecystitis Coding Level of Care Code Acute Internal Controls Specialist for [facility]n Diagnoses Acute cholecystitis K81.0
--- NOTE | 2020-06-10 12:18 | PC.CHAP ---
Pastoral Care Encounter/Spiritual Assessment Type of Contact [] Declined body builder visit [] Patient/Family/Request visit [] Outpatient visit [] Follow-up visit [] Physician referral [] Code/Alert [] Routine visit [] Staff referral [] Actively dying [] Patient sleeping [] Family support [] [] Out of room [] Palliative care [] [] Receiving care in room [] Pre-surgical visit [] Trauma [] Long length of stay [] ICU visit [xx] Other: out of room for testing Relational/Emotional Strength [] Patient feels connected with others/family/visitors/staff [] Distress [] Loneliness/isolation [] Abandonment Spirituality of Patient [] Person of Candis [] Attends Caodaism of their Candis [] Believes in Prayer [] Reads Bible or Catholic materials [] There are Spiritual issues to be addressed Filling And Packing Supervisor 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 [] Prayer [] Active listening [] Non-anxious presence [] Spiritual/emotional support [] Crisis/trauma care [] Spiritual counseling [] Bereavement support [] Provided bereavement packet [] Provided Bible/devotional materials [] Provided toy/stuffed animal, coloring book to patient or family member [] Provided Communion [] Anointing/[place] [] Salvation [] Completed spiritual assessment [] Other: Impact on Illness or Injury [] Angry [] Fearful [] Anxious [] Often cries [] Exhaustion [] Unable to work [] Unable to attend temple [] Unable to walk/stand [] Unable to read [] Unable to drive [] Unable to eat/drink [] Unable to sleep [] Unable to be with family [] Patient intubated [] Other: Summary Follow up needed Time spent with patient 2 minutes Filling And Packing Supervisor Isabel Marcial
--- NOTE | 2020-06-10 13:02 | ANES.PREANE2 ---
Pre-Anesthetic Assessment Pre-Anesthetic Assessment: Height/Weight: Height 1.6 m Weight 67.132 kg Temp Pulse Resp BP Pulse Ox 98.3 F 64 16 196/87 95 06/10/20 11:29 06/10/20 11:29 06/10/20 11:29 06/10/20 11:29 06/10/20 11:29 Preop Diagnosis: acute cholecystitis Proposed Procedure: Operation Date: 06/10/20 13:00 Proposed Procedures p Laparoscopic Cholecystectomy(Not Applicable) - Jacob Jamison MD Familial anesthetic complications: None Was Beta Dangelo taken within 24 hours: N/A Last intake: NPO > 8 hrs Social: Social History: No alcohol and No tobacco Exam: Pre-Anes Outpt Exam: alert, oriented x 3, clear to auscultation bilaterally and regular rate & rhythm Airway: Cervical ROM: WNL MP: 3 Dentition: False CV/HEM: CV/HEM: HTN GI: GI: GERD Comments: hx gastroparesis Metabolic: Metabolic: Hyperlipidemia Musc/skel: Comments: failed back syndrome Neuropsych: Comments: CPRPS Anesthetic Plan: ASA status: 2 Anesthesia: General Meds/Allergies Current Medications: Current Medications Generic Name Dose Route Start Last Admin Trade Name Freq PRN Reason Stop Dose Admin Dextrose/Sodium Ch loride 1,000 mls @ 100 m ls/hr 06/09/20 23:45 06/10/20 11:21 Dextrose 5%-Sod Chloride 0.45% IV 100 mls/hr .Q10H MARIA Administration Piperacillin Sod/T azobactam 50 mls @ 12.5 mls /hr 06/10/20 05:00 06/10/20 08:37 Sod 3.375 gm/ So dium Chloride IV Not Given Q8H MARIA Protocol Morphine Sulfate 4 mg 06/09/20 23:45 06/10/20 09:16 Morphine IVP 4 mg Q4H PRN Administration SEVERE PAIN Ondansetron HCl 4 mg 06/09/20 23:45 06/10/20 09:18 Zofran IVP 4 mg Q6H PRN Administration NAUSEA AND VOMITI NG PFSH Anesthesia PFSH: Medical History Cervical disc disorder with myelopathy of mid-cervical region CRPS (complex regional pain syndrome type I) last stellate ganglion block was in 2012. 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 S/P hip replacement BILATERAL - TOTAL S/P hysterectomy PARTIAL FOR DYSMENORRHEA S/P lumbar spinal fusion 2001 [place], [place]. L2-L3, L3-L4, L4-L5, and L5-S1 fusion/fixation 1986 [facility] L4-L5, L5-S1 decompression 05/1977 L5-S1 decompression S/P reduction mammoplasty S/P thymectomy 1983 AGE 15 MYASTHENIA GRAVIS S/P tubal ligation Status post colonoscopy Family History Father Hypertension Heart disease age 60 Diabetes Mother Heart disease age 50 Cancer lung Stroke Denies family history of Anesthesia complication Bleeding disorder Social History Smoking and tobacco status: former smoker Second hand smoke exposure: No Alcohol intake: never Lives independently: Yes Household members: none Marital status: service: No Current occupational status: employed 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 History of recent travel: No Data Anesthesia CBC & Chem 7: 06/10/20 02:11 06/10/20 02:11 Other Labs: Laboratory Results - last 48 hr 06/09/20 06/09/20 06/09/20 16:41 16:41 16:41 WBC 7.9 RBC 5.77 H Hgb 16.5 H Hct 50.4 H MCV 87.3 MCH 28.6 MCHC 32.7 RDW 11.7 L Plt Count 331 MPV 10.9 H Neut % (Auto) 63.2 Lymph % (Auto) 26.9 [place] % (Auto) 6.7 Eos % (Auto) 2.3 Baso % (Auto) 0.6 Neut # (Auto) 5.00 Lymph # (Auto) 2.1 [place] # (Auto) 0.5 Eos # (Auto) 0.2 Baso # (Auto) 0.1 Nucleated RBC % (auto) 0 Nucleated RBCs # 0.0 Sodium 139 Potassium 3.8 Chloride 101 Carbon Dioxide 26 Anion Gap 15.8 BUN 10 Creatinine 0.7 GFR Calculation Not Reportable Glucose 121 H Calculated Osmolality 288 Calcium 9.6 Total Bilirubin 0.8 AST 24 ALT 17 Alkaline Phosphatase 99 Troponin T Baseline Troponin T 120 Minute Delta Troponin T Troponin T Hi Sens 6Hr Troponin T Hi Sens 6Hr Delta Total Protein 8.2 Albumin 5.0 Globulin 3.2 Lipase 14 Urine Color Yellow Urine Appearance Clear Urine pH 7 Ur Specific [place] 1.015 Urine Protein Neg Urine Glucose (UA) Norm Urine Ketones Negative Urine Blood Neg Urine Nitrate Negative Urine Bilirubin Neg Urine Urobilinogen Norm Ur Leukocyte Esterase Negative 06/09/20 06/09/20 06/10/20 16:41 19:09 02:11 WBC 8.5 RBC 5.08 Hgb 14.6 Hct 44.8 MCV 88.2 MCH 28.7 MCHC 32.6 RDW 11.6 L Plt Count 287 MPV 11.0 H Neut % (Auto) 61.4 Lymph % (Auto) 26.6 [place] % (Auto) 9.3 Eos % (Auto) 1.8 Baso % (Auto) 0.5 Neut # (Auto) 5.20 Lymph # (Auto) 2.3 [place] # (Auto) 0.8 Eos # (Auto) 0.2 Baso # (Auto) 0.0 Nucleated RBC % (auto) 0 Nucleated RBCs # 0.0 Sodium Potassium Chloride Carbon Dioxide Anion Gap BUN Creatinine GFR Calculation Glucose Calculated Osmolality Calcium Total Bilirubin AST ALT Alkaline Phosphatase Troponin T Baseline 15 H Troponin T 120 Minute 14.90 H Delta Troponin T -0.10 L Troponin T Hi Sens 6Hr Troponin T Hi Sens 6Hr Delta Total Protein Albumin Globulin Lipase Urine Color Urine Appearance Urine pH Ur Specific [place] Urine Protein Urine Glucose (UA) Urine Ketones Urine Blood Urine Nitrate Urine Bilirubin Urine Urobilinogen Ur Leukocyte Esterase 06/10/20 06/10/20 02:11 02:11 WBC RBC Hgb Hct MCV MCH MCHC RDW Plt Count MPV Neut % (Auto) Lymph % (Auto) [place] % (Auto) Eos % (Auto) Baso % (Auto) Neut # (Auto) Lymph # (Auto) [place] # (Auto) Eos # (Auto) Baso # (Auto) Nucleated RBC % (auto) Nucleated RBCs # Sodium 139 Potassium 3.5 Chloride 104 Carbon Dioxide 23 Anion Gap 15.5 BUN 9 Creatinine 0.5 GFR Calculation Not Reportable Glucose 125 H Calculated Osmolality 288 Calcium 8.8 Total Bilirubin 0.7 AST 21 ALT 15 Alkaline Phosphatase 77 Troponin T Baseline Troponin T 120 Minute Delta Troponin T Troponin T Hi Sens 6Hr 14.37 H Troponin T Hi Sens 6Hr Delta Not Reportable Total Protein 6.9 Albumin 4.1 Globulin 2.8 Lipase Urine Color Urine Appearance Urine pH Ur Specific [place] Urine Protein Urine Glucose (UA) Urine Ketones Urine Blood Urine Nitrate Urine Bilirubin Urine Urobilinogen Ur Leukocyte Esterase Cardiac Studies: No Data to Display
[2020-06-10] MEDS: sodium chloride 0.9% 1,000 ML 30 ML IV (13:32)
--- NOTE | 2020-06-10 15:50 | PM.OP ---
Operative Report Date of procedure: June 10, 2020 Pre-op Diagnosis: acute cholecystitis Post-op Diagnosis: Acute calculus cholecystitis Procedure Done: Laparoscopic cholecystectomy Specimens removed/disposition: Gallbladder Surgeon: Jacob Jamison Anesthesia: General Condition: stable Disposition: PACU Procedure: The patient was taken to the operating room and was intubated under general anesthesia. After the antibiotic had been administered, the abdomen was prepped and draped in a sterile manner. Using a #15 blade, a 1 centimeter infraumbilical curvilinear incision was made and using an open Corinne technique the peritoneal cavity was entered. A 10 millimeter port was placed and 15 millimeters of pneumoperitoneum was created. A 10 millimeter, 30 degrees scope was then introduced. Three 5 millimeter ports were placed in the epigastric, midclavicular and the anterior axillary line two fingerbreadths below the costal margin on the right side under the direct visualization. The gallbladder was acutely inflamed and decompressed using an aspirating needle. Ratcheted forceps were introduced into the lateral most port and was used to retract the fundus of the gallbladder cephalad and using forceps the infundibulum of the gallbladder was retracted laterally. Using L-hook cautery the peritoneum overlying the Calot's triangle was opened medially and laterally until the cystic duct and the cystic artery were skeletonized. Dissection was carried along the body of the gallbladder and after ensuring critical view of safety, 4 clips applied on the cystic duct and 3 clips applied on the cystic artery and cut leaving, 3 clips on the remaining portion of the duct and 2 clips on the remaining portion of the artery. The rest of the gallbladder was dissected off the liver using L-hook cautery. There was no bleeding or bile leaking noted from the gallbladder fossa and the clips appeared to be in place. An EndoCatch bag was introduced to remove the gallbladder. All the ports were removed under direct visualization and there was no bleeding noted from the port sites. The fascia of the umbilicus was closed using [id number] Vicryl sutures and the subcutaneous tissue was approximated using 3-0 Vicryl sutures. The skin at all four ports were closed using 4-0 Monocryl and Dermabond. A total of 10 millimeters of 0.5% Marcaine was infiltrated around the port sites. The patient was stable throughout the procedure.
--- NOTE | 2020-06-10 15:52 | PM.DCS ---
Discharge Providers Date of Admission: 06/09/20 20:15 Date of Discharge: June 10, 2020 Attending Provider at Admission: Jacob Jamison MD Attending Provider at Discharge: Jacob Jamison MD Primary Care Provider: Raven Peres MD Diagnoses at Discharge Discharge Diagnosis (1) Acute cholecystitis: Status: Resolved Reason for Visit Reason for Visit: N/V, WEAKNESS Hospital Course Discharge Summary: This is a 74-year-old female who presented to the ER yesterday with right-sided abdominal pain associated with nausea and vomiting with CT scan showing acute calculus cholecystitis. Patient was admitted overnight, received IV antibiotics and underwent laparoscopic cholecystectomy. At time of discharge patient was tolerating a clear liquid diet, vital signs are stable and she was ambulating. Discharge Data Data Completed and Pending: Completed Studies During Hospitalization Category Date Time Status CT abdomen pelvis w con* [id number] Urge nt Cat Scan 06/09/20 16:43 Completed US gall bladder 7 [id number] Urgent Ultrasound 06/09/20 18:41 Completed Pending at discharge Category Date Time Status ES surgery / GI i mages Routine Exams 06/10/20 14:41 Taken Pathology: Surgic al [PTH] Routine Pth 06/10/20 15:38 Ordered Labs from last 24 hours 06/10/20 06/10/20 06/10/20 02:11 02:11 02:11 WBC 8.5 RBC 5.08 Hgb 14.6 Hct 44.8 MCV 88.2 MCH 28.7 MCHC 32.6 RDW 11.6 L Plt Count 287 MPV 11.0 H Neut % (Auto) 61.4 Lymph % (Auto) 26.6 [place] % (Auto) 9.3 Eos % (Auto) 1.8 Baso % (Auto) 0.5 Neut # (Auto) 5.20 Lymph # (Auto) 2.3 [place] # (Auto) 0.8 Eos # (Auto) 0.2 Baso # (Auto) 0.0 Nucleated RBC % (a uto) 0 Nucleated RBCs # 0.0 Sodium 139 Potassium 3.5 Chloride 104 Carbon Dioxide 23 Anion Gap 15.5 BUN 9 Creatinine 0.5 GFR Calculation Not Reportable Glucose 125 H Calculated Osmolal ity 288 Calcium 8.8 Total Bilirubin 0.7 AST 21 ALT 15 Alkaline Phosphata se 77 Troponin T Baselin e Troponin T 120 Min luna Delta Troponin T Troponin T Hi Sens 6Hr 14.37 H Troponin T Hi Sens 6Hr Delta Not Reportable Total Protein 6.9 Albumin 4.1 Globulin 2.8 Lipase Urine Color Urine Appearance Urine pH Ur Specific Gravit y Urine Protein Urine Glucose (UA) Urine Ketones Urine Blood Urine Nitrate Urine Bilirubin Urine Urobilinogen Ur Leukocyte Carolyn ase 06/09/20 06/09/20 06/09/20 19:09 16:41 16:41 WBC RBC Hgb Hct MCV MCH MCHC RDW Plt Count MPV Neut % (Auto) Lymph % (Auto) [place] % (Auto) Eos % (Auto) Baso % (Auto) Neut # (Auto) Lymph # (Auto) [place] # (Auto) Eos # (Auto) Baso # (Auto) Nucleated RBC % (a uto) Nucleated RBCs # Sodium Potassium Chloride Carbon Dioxide Anion Gap BUN Creatinine GFR Calculation Glucose Calculated Osmolal ity Calcium Total Bilirubin AST ALT Alkaline Phosphata se Troponin T Baselin e 15 H Troponin T 120 Min luna 14.90 H Delta Troponin T -0.10 L Troponin T Hi Sens 6Hr Troponin T Hi Sens 6Hr Delta Total Protein Albumin Globulin Lipase Urine Color Yellow Urine Appearance Clear Urine pH 7 Ur Specific Gravit y 1.015 Urine Protein Neg Urine Glucose (UA) Norm Urine Ketones Negative Urine Blood Neg Urine Nitrate Negative Urine Bilirubin Neg Urine Urobilinogen Norm Ur Leukocyte Carolyn ase Negative 06/09/20 06/09/20 16:41 16:41 WBC 7.9 RBC 5.77 H Hgb 16.5 H Hct 50.4 H MCV 87.3 MCH 28.6 MCHC 32.7 RDW 11.7 L Plt Count 331 MPV 10.9 H Neut % (Auto) 63.2 Lymph % (Auto) 26.9 [place] % (Auto) 6.7 Eos % (Auto) 2.3 Baso % (Auto) 0.6 Neut # (Auto) 5.00 Lymph # (Auto) 2.1 [place] # (Auto) 0.5 Eos # (Auto) 0.2 Baso # (Auto) 0.1 Nucleated RBC % (a uto) 0 Nucleated RBCs # 0.0 Sodium 139 Potassium 3.8 Chloride 101 Carbon Dioxide 26 Anion Gap 15.8 BUN 10 Creatinine 0.7 GFR Calculation Not Reportable Glucose 121 H Calculated Osmolal ity 288 Calcium 9.6 Total Bilirubin 0.8 AST 24 ALT 17 Alkaline Phosphata se 99 Troponin T Baselin e Troponin T 120 Min luna Delta Troponin T Troponin T Hi Sens 6Hr Troponin T Hi Sens 6Hr Delta Total Protein 8.2 Albumin 5.0 Globulin 3.2 Lipase 14 Urine Color Urine Appearance Urine pH Ur Specific Gravit y Urine Protein Urine Glucose (UA) Urine Ketones Urine Blood Urine Nitrate Urine Bilirubin Urine Urobilinogen Ur Leukocyte Carolyn ase Vitals: Last Vital Signs Temp 98.1 F 06/10/20 13:09 Pulse 71 06/10/20 13:09 Resp 18 06/10/20 13:09 BP 198/67 06/10/20 13:09 Pulse Ox 95 06/10/20 13:09 Discharge Plan Discharge Patient Disposition: Home Condition: Stable Prescriptions: New ondansetron HCl [Zofran] 4 mg tablet 4 mg PO Q6H PRN (Reason: nausea and vomiting) Qty: 20 RF: 0 docusate sodium [Colace] 100 mg capsule 100 mg PO BID Qty: 30 RF: 0 Continued lisinopril 20 mg tablet 20 mg PO BID RF: 0 nitroglycerin 0.4 mg tablet, sublingual 0.4 mg SUBLINGUAL Q5M PRN (Reason: CHEST PAINS) RF: 0 topiramate 50 mg capsule,extended release 24hr 50 mg PO ONCE RF: 0 atorvastatin 20 mg tablet 20 mg PO .BEDTIME RF: 0 carvedilol 25 mg tablet 25 mg PO BID RF: 0 pantoprazole [Protonix] 40 mg tablet,delayed release (DR/EC) 40 mg PO DAILY RF: 0 baclofen 10 mg tablet 5 - 10 mg PO QID PRN (Reason: muscle spasm) Qty: 120 RF: 0 oxycodone 30 mg tablet 30 mg PO TID MDD 3 tablets PRN (Reason: pain) 30 Days Qty: 90 RF: 0 Discharge Orders: Discharge Order (Routine); Ordered 06/10/20 Ordered By: Jacob Jamison Referrals: Raven Peres MD [Primary Care Provider] - Jacob Jamison MD [Physician] - 2 weeks Discharge Diet: Advance as tolerated Activity Restrictions/Additional Instructions: 1. Up and walking as tolerated. 2. Ok to shower in 48 hours after surgery. 3. Remove Dermabond dressing in 7-10 days. 4. Do not lift more than 10 pounds. 5. Do not operate heavy machinery or drive while using pain medications. 6. Advised to return to ER or contact my office if there are any signs of infection like, increasing pain, fevers, chills, redness or drainage of pus. Discharge Attestations Time Spent in Discharge Care*: less than 30 min Quality Metrics Clinical Quality Measures During this hospital stay, did patient experience: None Coding Level of Care Code Acute Drafter Heating And Ventilating for [facility]dy Diagnoses Acute cholecystitis K81.0
[2020-06-10] MEDS: fentaNYL 50 mcg/mL INJ 2mL IVP ×2 (15:57→16:02)
[2020-06-10] MEDS: morphine 4 mg/mL SDV 1 mL 2 MG IVP ×2 (16:07→16:09)
[2020-06-10] MEDS: labetalol 5 mg/mL SDV 20mL IVP (16:08)
[2020-06-10] MEDS: HYDROmorphone 1 mg/mL INJ 1 mL 0.5 MG IVP ×2 (16:37→16:47)
[2020-06-10] MEDS: HYDROmorphone 1 mg/mL INJ 1 mL 0.25 MG IVP ×3 (17:08→17:28)
[2020-06-10] MEDS: hyDRALAzine 20 mg/mL INJ 1 mL 5 MG IVP ×3 (17:38→17:58)
--- NOTE | 2020-06-10 18:20 | PM.PACU ---
PACU note Post-Anesthesia Exam: awake and vital signs stable Disposition: back to floor
[2020-06-10] MEDS: HYDROcodone-acetaminophen 5-325 mg Tablet 1 TAB PO (20:35)
[2020-06-10] MEDS: lactated ringers 1,000 ML 100 ML IV (23:00)
[2020-06-11 01:55] VITALS: BP 177/76; PULSE 74; RESP 16; TEMP 36.8; O2SAT 96
[2020-06-11] MEDS: hyDRALAzine 20 mg/mL INJ 1 mL 5 MG IVP (02:18)
[2020-06-11] MEDS: ondansetron 2 mg/ML SDV 2 mL 4 MG IVP (02:27)
[2020-06-11 02:29] VITALS: BP 167/64; PULSE 78; RESP 17; TEMP 36.7; O2SAT 96
[2020-06-11] MEDS: HYDROcodone-acetaminophen 5-325 mg Tablet 1 TAB PO (06:26)
[2020-06-11] MEDS: lactated ringers 1,000 ML 100 ML IV (06:46)
[2020-06-11 07:10] VITALS: BP 162/61; PULSE 72; RESP 18; TEMP 36.8; O2SAT 93
--- NOTE | 2020-06-11 08:06 | ANE.PACU2 ---
Inpatient post-anesthesia follow up: Airway intact: Yes Vital signs: Temperature 98.3 F Pulse Rate [Monito r] 90 Pulse Rate 72 Respiratory Rate 18 Blood Pressure [Ri ght Arm] 184/120 Blood Pressure 162/61 Pulse Oximetry 93 Oxygen Delivery Me thod [ Nasal Cannula Current Rate & Del omid] Oxygen Delivery Me thod Room Air Oxygen Flow Rate [ Current Rate 2 & Delivery] Oxygen Flow Rate 1 Fraction of Inspir ed Oxygen Hydration adequate: Yes Nausea and vomiting: No Pain level: 2 Mental status: Baseline
[2020-06-11 09:08] VITALS: BP 162/61; PULSE 72; RESP 18; TEMP 36.8; O2SAT 93
--- NOTE | 2020-06-11 09:26 | PM.PN ---
Subjective Subjective: Interval history: Patient is admitted overnight due to hypertension after surgery this morning she feels a lot better and she is tolerating clear liquid diet though she is keen to go home Vitals/I&O/Wt Last Vital Signs Temp 98.3 F 06/11/20 09:08 Pulse 72 06/11/20 09:08 Resp 18 06/11/20 09:08 BP 162/61 06/11/20 09:08 Pulse Ox 93 06/11/20 09:08 06/10/20 06/11/20 06/11/20 22:59 06:59 14:59 Intake Total 50 / 1826.667 776.667 / 1826.667 Output Total 820 / 1620 800 / 1620 Balance -770 / 206.667 -23.333 / 206.667 Weight last 48 hrs Weight 148 lb Physical Exam Narrative: EXAM NARRATIVE: Abdomen: Soft, tender, nondistended, incision clean dry and intact Data : 06/10/20 02:11 06/10/20 02:11 A&P Assessment and plan (1) Status post laparoscopic cholecystectomy: Doing well DC home today Follow-up in 2 weeks Status: Acute Attestations Medical Necessity Statement*: Status post laparoscopic cholecystectomy Coding Level of Care Code Acute Clinical Rehabilitation Liaison for [facility] Diagnoses Status post laparoscopic cholecystectomy Z90.49
--- NOTE | 2020-06-11 10:19 | PC.NURSE ---
Discharge instructions given to patient voiced full understanding, IV DC'd cath intact bleeding controlled with 2x2 and coban, patient to main entrance via wheelchair to private vehicle with zero difficulties
== END 2020-06-11 09:20 | disposition home or self-care (01) ==
LOC: ER 21:31 → MEDSURG 22:54
PROVIDERS: Emergency Medicine; Admitting Provider Surgery; Emergency Provider Emergency Medicine; Family Provider Family Medicine; PCP Family Medicine; Visit Provider Surgery
PROC: 0FT44ZZ Resection of Gallbladder, Percutaneous Endoscopic Approach (ICD-10-PCS; CPT 47562; principal; 2020-06-10 13:00)
DX: K81.0 Acute cholecystitis (principal); K21.9 Gastro-esophageal reflux disease without esophagitis; I10 Essential (primary) hypertension; E78.5 Hyperlipidemia, unspecified; Z87.891 Personal history of nicotine dependence
CPT/HCPCS: 47562; 12345; 36415; 74177; 76705; 80053; 81003; 83690; 84484; 85025; 88304; 93005; 96361; 96365; 96366; 96375; 96376; 99283; 99285; G0378; J0131; J0330; J0360; J0690; J1100; J1170; J2270; J2370; J2405; J2543; J2704; J2710; J3010; J3490; J7030; J7799; Q9967

== ENCOUNTER → 2020-07-21 08:46 | Outpatient (BNVA) | payer MEDICARE, SELFPAY | PROVIDERS: Family Provider Family Medicine; PCP Family Medicine; Visit Provider Anesthesiology | DX: M48.02 Spinal stenosis, cervical region (principal); M50.020 Cervical disc disorder with myelopathy, mid-cervical region, unspecified level; M51.26 Other intervertebral disc displacement, lumbar region; M96.1 Postlaminectomy syndrome, not elsewhere classified; G62.9 Polyneuropathy, unspecified; Z98.1 Arthrodesis status; Z79.891 Long term (current) use of opiate analgesic; Z79.899 Other long term (current) drug therapy | CPT/HCPCS: 99214 ==

== ENCOUNTER 2020-08-03 10:42 | Emergency (ER) | payer MEDICARE, SELFPAY ==
[2020-08-03 11:04] VITALS: BP 119/76; PULSE 77; RESP 16; TEMP 36.7; O2SAT 95; BMI 25.7
--- NOTE | 2020-08-03 11:45 | ED_ITS ---
HPI - Neck Pain/Injury General: Chief Complaint: Neck Pain/Injury Stated Complaint: acute on chronic neck pain Time Seen by Provider: 08/03/20 10:47 History of Present Illness: HPI Narrative: 74-year-old female complaining of neck pain with left arm radicular pain radiating to the shoulder down to the hand. She denies any recent trauma. She has seen Dr. Ma in the past and had an MRI has been following through pain management as well has not had anyone to follow with since Dr. Ma left his practice. MD complaint: neck pain Onset (ago): day(s) Place: home Radiation: left shoulder and left upper extremity Severity: severe Duration: constant and progressively worsening Relieving factors: none Exacerbating factors: movement of extremity, movement of neck and swallowing Associated symptoms: Reports dysphagia and weakness; Denies difficulty walking, dizziness, fevers/chills, headache(s), nausea, swollen glands or tingling Treatments prior to arrival: none and prescription analgesic Review of Systems Const: Denies: fever(s), chills, body aches, change in appetite, fatigue or malaise ENMT: Denies: throat pain, ear or mastoid pain, nasal discharge or nasal congestion Card: Denies: chest pain, edema, dyspnea on exertion or orthopnea Resp: Denies: dyspnea, productive cough or non-productive cough GI: Reports: dysphagia; Denies: nausea : Denies: flank pain, difficulty voiding, dysuria, urinary frequency or urinary urgency Skin/Breast: Denies: rash or pruritus Neuro: Denies: headache(s), difficulty walking or dizziness PFSH ED PFSH: Medical History Cervical disc disorder with myelopathy of mid-cervical region CRPS (complex regional pain syndrome type I) last stellate ganglion block was in 2012. 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. S/P hip replacement BILATERAL - TOTAL S/P hysterectomy PARTIAL FOR DYSMENORRHEA S/P lumbar spinal fusion 2001 [facility], [place]. L2-L3, L3-L4, L4-L5, and L5-S1 fusion/fixation 1986 [facility] L4-L5, L5-S1 decompression 05/1977 L5-S1 decompression S/P reduction mammoplasty S/P thymectomy 1983 AGE 15 MYASTHENIA GRAVIS S/P tubal ligation Status post colonoscopy Status post laparoscopic cholecystectomy (06/10/20) Family History Father Hypertension Heart disease age 60 Diabetes Mother Heart disease age 50 Cancer lung Stroke Denies family history of Anesthesia complication Bleeding disorder Social History Smoking and tobacco status: former smoker Second hand smoke exposure: No Alcohol intake: never Substance/Drug Use: never Lives independently: Yes Household members: none Marital status: service: No Current occupational status: employed 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 [employer] History of recent travel: No Physical Exam Const: COMMON NORMALS: no acute distress ORIENTATION/CONSCIOUSNESS: Yes awake, Yes oriented to person, Yes oriented to place and Yes oriented to time HENMT: COMMON NORMALS: normocephalic, atraumatic and hearing grossly normal bilaterally HEAD & SCALP: normocephalic and atraumatic Neck/C-Spine: COMMON NORMALS: no JVD Resp: COMMON NORMALS: normal respiratory effort, No retractions, No use of accessory muscles and clear to auscultation bilaterally AUSCULTATION: clear to auscultation bilaterally Cardio: COMMON NORMALS: no JVD, regular rate, regular rhythm and No murmurs present (Cardio) RATE: regular rate RHYTHM: regular rhythm GI: COMMON NORMALS: Soft to palpation and No hepatosplenomegaly present AUSCULTATION: Yes normoactive bowel sounds PALPATION: Yes Soft to palpation, No Tenderness to palpation present (GI), No Guarding due to palpation present (GI) and Yes No hepatosplenomegaly present Extremity: COMMON NORMALS: normal to inspection, capillary refill normal, no clubbing, cyanosis or edema, no calf tenderness and no pedal edema Neuro: SENSORIUM/ORIENTATION: Yes oriented to person, Yes oriented to place and Yes oriented to time Skin: COMMON NORMALS: no rashes or lesions noted GENERAL SKIN EXAM: no rashes or lesions noted Course Vital Signs: Vital signs: Vital Signs Temperature 98.1 F 08/03/20 11:04 Pulse Rate 77 08/03/20 11:04 Respiratory Rate 16 08/03/20 11:04 Blood Pressure 119/76 08/03/20 11:04 Pulse Oximetry 95 08/03/20 11:04 MDM - Neck Pain/Injury MDM Narrative: Medical decision making narrative: Proved was injected medicines given here. Continue regular home meds stop the baclofen and replaced with tizanidine also gave her diclofenac Medrol Dosepak and Lyrica. We will get her referred for an outpatient MRI of the neck and referral to Dr. Barahona. Discharge Plan Discharge Patient Disposition: Home Clinical Impression: Cervical disc disorder with myelopathy of mid-cervical region Condition: Stable Prescriptions: New tizanidine 2 mg capsule 2 mg PO Q8H PRN (Reason: muscle spasticity) Qty: 20 RF: 0 Medrol (Aron) 4 mg tablets,dose pack See Rx Instructions PO .COMPLEX Qty: 21 RF: 0 Lyrica 75 mg capsule 75 mg PO BID Qty: 60 RF: 0 Held baclofen 10 mg tablet 5 - 10 mg PO QID PRN (Reason: muscle spasm) Qty: 120 RF: 0 Hold Instructions: Resume on 08/13/20. No Action lisinopril 20 mg tablet 20 mg PO BID RF: 0 nitroglycerin 0.4 mg tablet, sublingual 0.4 mg SUBLINGUAL Q5M PRN (Reason: CHEST PAINS) RF: 0 topiramate 50 mg capsule,extended release 24hr 50 mg PO ONCE RF: 0 atorvastatin 20 mg tablet 20 mg PO .BEDTIME RF: 0 carvedilol 25 mg tablet 25 mg PO BID RF: 0 pantoprazole [Protonix] 40 mg tablet,delayed release (DR/EC) 40 mg PO DAILY RF: 0 hydrocortisone 1 % cream 1 applic topical BID PRN (Reason: skin irritation) Qty: 30 RF: 1 oxycodone 30 mg tablet 30 mg PO TID PRN (Reason: pain) 30 Days Qty: 90 RF: 0 oxycodone 30 mg tablet 30 mg PO TID MDD 3 tablets PRN (Reason: pain) 30 Days Qty: 90 RF: 0 Zofran 4 mg tablet 4 mg PO Q6H PRN (Reason: nausea and vomiting) Qty: 20 RF: 0 Colace 100 mg capsule 100 mg PO BID Qty: 30 RF: 0 Discharge Orders: Discharge ED (Routine); Ordered 08/03/20 Ordered By: Adonay Arrington Referrals: Raven Peres MD [Primary Care Provider] - Discharge Diet: Usual diet Discharge Activity: Increase activity as tolerated Coding Level of Care Code ED Flame Hardener for Chg Fwd Exam Comprehensive
[2020-08-03] MEDS: morphine 4 mg/mL SDV 1 mL IM (12:33)
[2020-08-03] MEDS: ketorolac 30 mg/mL INJ IM (12:33)
[2020-08-03] MEDS: dexamethasone 4 mg/mL INJ 10 MG IM (12:34)
[2020-08-03] MEDS: orphenadrine 30 mg/mL Inj 2 mL 60 MG IM (12:34)
[2020-08-03 13:15] VITALS: BP 133/57; PULSE 67; RESP 16; O2SAT 94
--- NOTE | 2020-08-04 15:40 | DCPLANNER ---
dealer development manager had message to schedule an out patient MRI for patient. dealer development manager faxed order to centralized scheduling. dealer development manager will call for appointment information.
--- NOTE | 2020-08-23 07:41 | DCPLANNER ---
Addendum entered by Nicole Burrell 08/23/20 09:49: printing manager called the ortho clinic to refer patient to the clinic, a follow up appointment needs to be scheduled for patient with Dr. Barahona. printing manager spoke with Candi, gave clinic patients information, and the date of the MRI so a follow up appointment could be scheduled. Original Note: Patient has an outpatient MRI scheduled for Sunday, August 23, 2020 at 1:00. printing manager will call the ortho clinic and get a follow up appointment after the MRI with Dr. Barahona.
--- NOTE | 2020-08-24 09:47 | DCPLANNER ---
Patient has a follow up appointment scheduled for , August 25, 2020 at 1:[address] Barahona at [facility]. Clinic will call patient with appointment information.
--- NOTE | 2020-09-08 14:28 | DCPLANNER ---
Patient had a follow up appointment scheduled for 08.23.20 for an MRI - patient did attend appointment. Patient had a follow up appointment scheduled for 08.25.20 with ortho - patient did attend appointment.
== END 2020-08-03 13:15 | disposition home or self-care (01) ==
PROVIDERS: Emergency Provider Family Medicine; PCP Family Medicine
DX: M50.020 Cervical disc disorder with myelopathy, mid-cervical region, unspecified level (principal); I10 Essential (primary) hypertension; E78.5 Hyperlipidemia, unspecified; Z87.891 Personal history of nicotine dependence
CPT/HCPCS: 12345; 96372; 99281; 99283; J1100; J1885; J2270; J2360

== ENCOUNTER 2020-08-23 12:44 | Outpatient (CLI) | payer MEDICARE, SELFPAY ==
--- NOTE | 2020-08-23 12:52 | MR_ITS ---
WS: [id number] MRI CERVICAL SPINE HISTORY: NECK Pain; cervical RADICULOPATHY COMPARISON: 06/18/[address] 09/24/2019 Straightening of the normal cervical lordosis. Focal reversal centered at C5-6. Multilevel disc osteo phyte disease throughout the cervical spine. No significant contact on the cord is at C3-4 and C5-6. Mild anterior wedging of C5. No acute fracture. No cord atrophy or enlargement. No definite edema or myelomalacia seen. Craniocervical junction, C1 and C2 relationship, odontoid process and soft tissues are normal. C2-C3: Normal. C3-C4: Mild osteophytic ridging with mild bilateral foraminal stenosis. Mild contact on the ventral t hecal sac by a annular disc bulging. C4-C5: Central disc protrusion with mild osteophytic ridging. Mild contact on the ventral cervical co rd but no displacement. Mild central and bilateral foraminal stenosis. C5-C6: Mild annular disc bulging and osteophytic ridging. Moderate-sized disc osteophyte complex in t he LEFT foramen causing moderate stenosis. Mild central stenosis. C6-C7: Diffuse annular disc bulging with osteophyte ridging is most significant into the LEFT foramen but there is moderate stenosis. C7-T1: Mild annular disc bulging and osteophytic ridging. Disc osteophyte extending into the foramen. Mild bilateral foraminal stenosis. Paraspinal soft tissue are normal. MR/MR cervical spin wo con* [id number] IMPRESSION: 1. Mild progression of spondylitic changes in the cervical spine since the young or MRI of 06/18/2019. 2. Moderate multilevel spondylitic changes with reversal the normal cervical l ordosis. 3. Moderate bilateral foraminal stenosis on the LEFT at C5-6 and C6-7 due to d isc osteophyte disease. 4. Mild central and bilateral foraminal stenosis at C3-4 and C4-5.
== END 2020-08-23 12:45 | disposition home or self-care (01) ==
PROVIDERS: PCP Family Medicine; Visit Provider Family Medicine
DX: M54.12 Radiculopathy, cervical region (principal); M48.02 Spinal stenosis, cervical region
CPT/HCPCS: 72141

== ENCOUNTER → 2020-09-15 08:12 | Outpatient (BNVA) | payer MEDICARE, SELFPAY | PROVIDERS: PCP Family Medicine; Visit Provider Anesthesiology | DX: G89.29 Other chronic pain (principal); M96.1 Postlaminectomy syndrome, not elsewhere classified; M48.02 Spinal stenosis, cervical region; M50.020 Cervical disc disorder with myelopathy, mid-cervical region, unspecified level; M51.26 Other intervertebral disc displacement, lumbar region; Z98.1 Arthrodesis status; Z79.891 Long term (current) use of opiate analgesic; Z79.899 Other long term (current) drug therapy | CPT/HCPCS: 99214 ==

== ENCOUNTER 2020-10-11 06:55 | Outpatient (CLI) | payer MEDICARE, SELFPAY ==
--- NOTE | 2020-10-11 07:15 | USCV_ITS ---
Emma Navarrete Age: 74 Gender: F : 1945 Exam Date: 10/11/2020 07:32 Ordering Phys: Jennifer Edwards MD ([email or web address]) Technologist: Brandy Hidalgo Exam Location: [facility] [place] Indication: SOB BP: / HR: 62 Rhythm: Sinus Technical Quality: Fair MEASUREMENTS (Male / Female) Normal Values 2D ECHO LV Diastolic Diameter PLAX 4.7 cm 4.2 - 5.9 / 3.9 - 5.3 cm LV Systolic Diameter PLAX 3.7 cm LV Chamber Size 5.7 cm IVS Diastolic Thickness 1.6 cm 0.6 - 1.0 / 0.6 - 0.9 cm IVS Systolic Thickness 2.0 cm LVPW Diastolic Thickness 1.1 cm 0.6 - 1.0 / 0.6 - 0.9 cm LVPW Systolic Thickness 1.2 cm RV Chamber Size 4.0 cm LVOT Diameter 2.0 cm LV Ejection Fraction 2D Teich 41.7 % LA Diameter 3.9 cm LA Width 3.6 cm LA Height 5.0 cm RA Width 3.8 cm RA Height 3.8 cm M-MODE LV Diastolic Diameter MM 6.5 cm 4.2 - 5.9 / 3.9 - 5.3 cm LV Systolic Diameter MM 4.8 cm LV Ejection Fraction MM Teich 49.6 % IVS Diastolic Thickness MM 1.0 cm 0.6 - 1.0 / 0.6 - 0.9 cm IVS Systolic Thickness MM 1.3 cm LVPW Diastolic Thickness MM 1.0 cm 0.6 - 1.0 / 0.6 - 0.9 cm LVPW Systolic Thickness MM 1.4 cm Aortic Annulus Diameter 3.1 cm LA Ao Ratio MM 1.3 MV E Point Septal Separation 0.3 cm DOPPLER AV Peak Velocity 126.0 cm/s LVOT Peak Velocity 82.7 cm/s AV Area Cont Eq vti 2.1 cm squared AV Area Cont Eq pk 2.1 cm squared MV Area PHT 5.0 cm squared Mitral E to A Ratio 0.5 MV E' Velocity 24.0 cm/s Mitral E to MV E' Ratio 8.8 Mitral E to LV E' Lateral Ratio 9.4 Mitral E to LV E' Septal Ratio 8.3 TR Peak Velocity 206.0 cm/s TR Peak Gradient 17.0 mmHg TV Peak E Velocity 46.0 cm/s Right Atrial Pressure 3.0 mmHg Pulmonary Artery Systolic Pressu 20.0 mmHg PV Peak Velocity 76.0 cm/s FINDINGS Left Ventricle Mildly increased left ventricular cavity size. Moderately decreased left ventricular systolic function. Left ventricular ejection fraction is estimated at 49 %. Global left ventricular hypokinesis. Right Ventricle The right ventricle is normal in size and function. Right Atrium The right atrium is normal in size. Left Atrium Moderately increased left atrial size. Mitral Valve Moderately thickened mitral valve. No mitral valve stenosis. Mild mitral valve regurgitation. Aortic Valve Aortic valve sclerosis without stenosis. Trace aortic valve regurgitation. Tricuspid Valve Structurally normal tricuspid valve without significant stenosis or regurgitation. Pulmonary artery systolic pressure is normal. Pulmonic Valve Structurally normal pulmonic valve without significant stenosis. There is no pulmonic regurgitation. Pericardium Normal pericardium without effusion. Aorta Normal ascending aorta dimension. CONCLUSIONS 1-Mildly increased left ventricular cavity size. Moderately decreased left ventricular systolic function. Left ventricular ejection fraction is estimated at 49 %. Global left ventricular hypokinesis. 2-Moderately increased left atrial size. 4-Aortic valve sclerosis without stenosis. Trace aortic valve regurgitation. 5-There is no pericardial effusion. 6-Right atrial pressure is around 5 mm of mercury. 7-When compared to the prior echocardiogram dated 18 January 2016 left neck ejection fraction has reduced from normal 60% to mild 50% now Jennifer Edwards MD (Electronically Signed) Final Date: 12 October 2020 18:26 S
== END 2020-10-11 06:56 | disposition home or self-care (01) ==
LOC: RAD 06:58
PROVIDERS: PCP Family Medicine; Visit Provider Internal Medicine Cardiovascular Disease
DX: I35.8 Other nonrheumatic aortic valve disorders (principal); I35.1 Nonrheumatic aortic (valve) insufficiency; R06.02 Shortness of breath; I51.7 Cardiomegaly; R07.9 Chest pain, unspecified
CPT/HCPCS: 93306

== ENCOUNTER → 2020-11-01 10:51 | Outpatient (BNVA) | payer MEDICARE, SELFPAY | PROVIDERS: PCP Family Medicine; Visit Provider Nurse Practitioner | DX: M50.020 Cervical disc disorder with myelopathy, mid-cervical region, unspecified level (principal); M48.02 Spinal stenosis, cervical region; M96.1 Postlaminectomy syndrome, not elsewhere classified; G56.21 Lesion of ulnar nerve, right upper limb; G90.50 Complex regional pain syndrome I, unspecified; Z98.1 Arthrodesis status; Z79.891 Long term (current) use of opiate analgesic | CPT/HCPCS: 99214 ==

== ENCOUNTER → 2021-01-17 08:27 | Outpatient (BNVA) | payer MEDICARE, SELFPAY | PROVIDERS: PCP Family Medicine; Visit Provider Nurse Practitioner | DX: M51.26 Other intervertebral disc displacement, lumbar region (principal); M48.02 Spinal stenosis, cervical region; M50.020 Cervical disc disorder with myelopathy, mid-cervical region, unspecified level; G56.21 Lesion of ulnar nerve, right upper limb; G90.50 Complex regional pain syndrome I, unspecified; M96.1 Postlaminectomy syndrome, not elsewhere classified; G62.9 Polyneuropathy, unspecified; Z98.1 Arthrodesis status; Z79.891 Long term (current) use of opiate analgesic; Z87.891 Personal history of nicotine dependence | CPT/HCPCS: 99214 ==

== ENCOUNTER → 2021-02-14 08:56 | Outpatient (BNVA) | payer MEDICARE, SELFPAY | PROVIDERS: PCP Family Medicine; Visit Provider Nurse Practitioner | DX: M51.26 Other intervertebral disc displacement, lumbar region (principal); M50.020 Cervical disc disorder with myelopathy, mid-cervical region, unspecified level; M48.02 Spinal stenosis, cervical region; M96.1 Postlaminectomy syndrome, not elsewhere classified; G62.9 Polyneuropathy, unspecified; G56.21 Lesion of ulnar nerve, right upper limb; G90.50 Complex regional pain syndrome I, unspecified; Z98.1 Arthrodesis status; Z87.891 Personal history of nicotine dependence; Z79.891 Long term (current) use of opiate analgesic | CPT/HCPCS: 99213 ==

== ENCOUNTER → 2021-04-11 09:17 | Outpatient (BNVA) | payer MEDICARE, SELFPAY | PROVIDERS: PCP Family Medicine; Visit Provider Nurse Practitioner | DX: M48.02 Spinal stenosis, cervical region (principal); M50.020 Cervical disc disorder with myelopathy, mid-cervical region, unspecified level; M96.1 Postlaminectomy syndrome, not elsewhere classified; G90.50 Complex regional pain syndrome I, unspecified; G62.9 Polyneuropathy, unspecified; Z98.1 Arthrodesis status; Z79.891 Long term (current) use of opiate analgesic | CPT/HCPCS: 99213 ==

== ENCOUNTER 2021-05-09 09:38 | Outpatient (CLI) | payer MEDICARE, SELFPAY ==
--- NOTE | 2021-05-09 09:45 | FL_ITS ---
WS: [id number] Barium swallow and esophagram, upper GI series with air, 05/09/2021 Clinical Data: R13.10 - Dysphagia, unspecified Comparison: Upper GI series, 12/16/2018. Fluoroscopy time: 1.3 minutes. Findings: The patient swallowed the thick and thin barium, and it flowed to the hypopharynx without hesitation. No stricture, mass, polyp or erosion was seen. The barium into the esophagus and there were tertiary contractions in the distal esophagus. There is a sliding hiatal hernia with narrowing of the junction between the distal esophagus and superior aspe ct of the hiatal hernia. No erosion, polyp, mass, stricture or polyp was seen. There was gastroesopha geal reflux which extended to the junction of the hypopharynx and esophagus.. The barium passed into the stomach which was well distended. No erosion, polyp, mass or deformity cou ld be seen. No gastric ulcer was present. Barium then passed into the duodenal bulb which distended normally without ulceration. The proximal small bowel is normal. FL/FL upper GI w air* [id number] Impression: 1. Moderate sliding hiatal hernia with gastroesophageal reflux unchanged from b efore. 2. Negative stomach and proximal small bowel.
== END 2021-05-09 09:39 | disposition home or self-care (01) ==
PROVIDERS: PCP Family Medicine; Visit Provider Surgery
DX: R13.10 Dysphagia, unspecified (principal); K44.9 Diaphragmatic hernia without obstruction or gangrene
CPT/HCPCS: 74246

== ENCOUNTER → 2021-06-15 08:36 | Outpatient (BNVA) | payer MEDICARE, SELFPAY | PROVIDERS: PCP Family Medicine; Visit Provider Anesthesiology | DX: G89.29 Other chronic pain (principal); M51.26 Other intervertebral disc displacement, lumbar region; M96.1 Postlaminectomy syndrome, not elsewhere classified; M48.02 Spinal stenosis, cervical region; M50.020 Cervical disc disorder with myelopathy, mid-cervical region, unspecified level; Z98.1 Arthrodesis status; Z79.891 Long term (current) use of opiate analgesic; Z79.899 Other long term (current) drug therapy | CPT/HCPCS: 99214 ==

== ENCOUNTER → 2021-08-17 08:45 | Outpatient (BNVA) | payer MEDICARE, SELFPAY | PROVIDERS: PCP Family Medicine; Visit Provider Anesthesiology | DX: M51.26 Other intervertebral disc displacement, lumbar region (principal); M96.1 Postlaminectomy syndrome, not elsewhere classified; M48.02 Spinal stenosis, cervical region; M50.020 Cervical disc disorder with myelopathy, mid-cervical region, unspecified level; G62.9 Polyneuropathy, unspecified; Z98.1 Arthrodesis status; Z79.899 Other long term (current) drug therapy; Z79.891 Long term (current) use of opiate analgesic; Z87.891 Personal history of nicotine dependence | CPT/HCPCS: 99214 ==

== ENCOUNTER 2021-09-17 21:16 | Emergency (ER) | payer MEDICARE, SELFPAY ==
[2021-09-17 21:29] VITALS: BP 177/96; PULSE 97; RESP 18; TEMP 36.3; O2SAT 95; BMI 25.3
--- NOTE | 2021-09-17 22:27 | ED_ITS ---
Documented by User: JAYA Rosa 09/18/21 00:45 HPI - Back Pain/Injury General: Chief Complaint: Back Pain/Injury Stated Complaint: low back pain Time Seen by Provider: 09/17/21 21:21 History of Present Illness: Patient is a 75-year-old female who comes to the ED with lower back pain. Patient has chronic back pain and is currently on oxycodone 30 mg at home to help with pain. She sees pain management for pain. Denies any falls or trauma to cause worsening back pain. She states that she has had this back pain for many years and every now and then it flares up gets a little worse like the episode she is currently having. Pain starts and lower back and then radiates down both right and left legs. Pain going down right leg is worse than going down left leg. Patient also has some peripheral neuropathy in her legs bilaterally and says that it is flaring up worse now as well. Denies any bladder or bowel incontinence, pelvic anesthesia or any weakness to lower extremities. She is also having some spasms in her right leg because of worsening pain rating up into the lower back. She rates her pain currently a 7 out of 10. Patient has appointment with pain management clinic this coming Saturday, September 20. Associated symptoms: Deny abdominal pain, chills, dysuria, fatigue, fever(s), hematuria, nausea or vomiting Review of Systems Const: Denies: fever(s), chills or fatigue Eyes: Denies: change in vision or eye discomfort ENMT: Denies: throat pain, odynophagia, nasal discharge or nasal congestion Card: Denies: chest pain, palpitations, edema, swelling of feet/ankles, dyspnea on exertion or orthopnea Resp: Denies: dyspnea, productive cough or non-productive cough GI: Denies: abdominal pain, nausea, vomiting, diarrhea, constipation or hematochezia : Denies: flank pain, dysuria or hematuria Musc: Reports: back pain; Denies: neck pain or extremity swelling Skin/Breast: Denies: rash or new lesions Neuro: Denies: headache(s), numbness in extremities or weakness in extremities PFS ED PFSH: Medical History Cervical disc disorder with myelopathy of mid-cervical region CRPS (complex regional pain syndrome type I) last stellate ganglion block was in 2012. 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 S/P hip replacement BILATERAL - TOTAL S/P hysterectomy PARTIAL FOR DYSMENORRHEA S/P lumbar spinal fusion 2001 [place]. L2-L3, L3-L4, L4-L5, and L5-S1 fusion/fixation 1986 [facility] L4-L5, L5-S1 decompression 05/1977 L5-S1 decompression S/P reduction mammoplasty S/P thymectomy 1983 AGE 15 MYASTHENIA GRAVIS S/P tubal ligation Status post colonoscopy Status post laparoscopic cholecystectomy (06/10/20) Family History Father Hypertension Heart disease age 60 Diabetes Mother Heart disease age 50 Cancer lung Stroke Denies family history of Anesthesia complication Bleeding disorder Social History Smoking and tobacco status: former smoker Second hand smoke exposure: No Alcohol intake: never Lives independently: Yes Household members: none Marital status: service: No Current occupational status: employed 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 [employer] History of recent travel: No Physical Exam Const: COMMON NORMALS: no acute distress, patient oriented x3 and alert GENERAL APPEARANCE: cooperative HENMT: COMMON NORMALS: normocephalic HEAD & SCALP: normocephalic MOUTH: Normal oral and palatal mucosa present THROAT: posterior oropharynx normal and uvula midline Eye: COMMON NORMALS: Equal, round and reactive pupils present PUPIL: Yes Equal, round and reactive pupils present Neck/C-Spine: COMMON NORMALS: supple GENERAL: Yes normal visual inspection Resp: COMMON NORMALS: normal respiratory effort, No retractions, No use of accessory muscles and clear to auscultation bilaterally AUSCULTATION: clear to auscultation bilaterally Cardio: COMMON NORMALS: regular rate, regular rhythm, S1 normal heart sound present, S2 normal heart sound present, No gallops present (Cardio), No clicks present (Cardio), No murmurs present (Cardio) and Peripheral pulses 2+ throughout RATE: regular rate RHYTHM: regular rhythm HEART SOUNDS: S1 normal heart sound present and S2 normal heart sound present PERIPHERAL PULSES: Peripheral pulses 2+ throughout GI: COMMON NORMALS: Normal to inspection, nondistended, normoactive bowel sounds present, Soft to palpation, non-tender and no masses PALPATION: Yes Soft to palpation : COMMON NORMALS: Yes no CVA tenderness BLADDER/KIDNEY EXAM: Yes no CVA tenderness Back/Pelvis: COMMON NORMALS: no CVA tenderness LUMBAR SPINE/LOWER BACK: Yes paraspinal muscle tenderness Lumbar paraspinal muscle tenderness: bilateral, Yes straight leg raise positive right and Yes straight leg raise positive left Extremity: COMMON NORMALS: normal to inspection OTHER: Patient is having episodes of spasms in right leg. Neuro: COMMON NORMALS: patient oriented x3 and moves all extremities SENSORIUM/ORIENTATION: Yes alert Skin: GENERAL SKIN EXAM: dry skin Course Vital Signs: Vital signs: Vital Signs Temperature 97.4 F L 09/17/21 21:29 Pulse Rate 85 09/17/21 23:32 Respiratory Rate 18 09/17/21 23:32 Blood Pressure 177/96 09/17/21 21:29 Pulse Oximetry 97 09/17/21 23:32 MDM - Back Pain/Injury Medical Decision Making Patient is a 75-year-old female comes to the ED with chronic lower back pain and bilateral radiculopathy. Patient sees pain management clinic and currently is on oxycodone at home. She is having worsening lower back pain that radiates down into her legs and denies any injury or trauma to cause worsening pain. She says she has had these episodes before. Denies any cauda equina symptoms. Vitals are stable. Patient was given Dilaudid, Norflex and then discharged home with tab of Valium to use for muscle spasms later tonight and a prescription for prednisone. Patient has an appointment with pain management on Saturday, September 20 for follow-up and further pain management. Return to ED precautions given. Patient understood agree with plan. Discharge Plan Discharge Patient Disposition: Home Clinical Impression: Chronic lower back pain Qualifiers: Back pain laterality: bilateral Sciatica presence: with sciatica Sciatica laterality: bilateral sciatica Qualified Code(s): M54.42 - Lumbago with sciatica, left side Condition: Stable Prescriptions: New prednisone 20 mg tablet 20 mg PO BID 5 Days Qty: 10 0RF No Action lisinopril 20 mg tablet 20 mg PO DIRECTED 0RF Rx Instructions: 30mg in AM and 20mg in PM atorvastatin 20 mg tablet 20 mg PO .BEDTIME 0RF topiramate 50 mg capsule,extended release 24hr 50 mg PO DAILY 0RF carvedilol 25 mg tablet 25 mg PO DIRECTED 0RF Rx Instructions: 1/2 TAB IN THE AM AND 1 TAB IN THE PM hydrocortisone 1 % cream 1 applic topical BID PRN (Reason: skin irritation) Qty: 30 1RF Colace 100 mg capsule 100 mg PO BID PRN0RF nitroglycerin 0.4 mg tablet, sublingual 0.4 mg SUBLINGUAL Q5M PRN (Reason: CHEST PAINS) Qty: 25 3RF oxycodone 30 mg tablet 30 mg PO TID PRN (Reason: pain) 30 Days Qty: 90 0RF Rx Instructions: fill on or after 08/20/21 oxycodone 30 mg tablet 30 mg PO TID PRN (Reason: pain) 30 Days Qty: 90 0RF Rx Instructions: fill on or after 09/19/21 isosorbide mononitrate 30 mg tablet extended release 24 hr 15 mg PO BID Qty: 90 3RF Discharge Orders: Discharge ED (Routine); Ordered 09/17/21 Ordered By: Axel Kat Referrals: Raven Peres MD [Primary Care Provider] - Discharge Diet: Regular Discharge Activity: Increase activity as tolerated Patient Instructions: Chronic Back Pain (DC), Opioid Safety Activity Restrictions/Additional Instructions: Follow-up with Pain Management Clinic at your next scheduled appointment on this coming September 20. Continue taking all home meds as previously prescribed. Return to the ER or your medical provider if condition worsens. Please read and understand discharge instructions. Thank you for choosing [facility] for your healthcare needs today. Please realize this is an emergency room and that we are providing you with a medical screening exam and this may not be complete and all inclusive of all the testing and or work up that you may need to determine your ailment or severity of your illness. It is very important that you follow up as instructed or that you return to the Emergency Department should you have concerns or if your condition changes or worsens in any way. Coding Level of Care Code ED Computer Networking Instructor for Chg Fwd Exam Comprehensive Documented by User: Bird Bennett DO 09/18/21 01:11 HPI - Back Pain/Injury General: Chief Complaint: Back Pain/Injury Stated Complaint: low back pain Time Seen by Provider: 09/17/21 21:21 PFSH ED PFSH: Medical History Cervical disc disorder with myelopathy of mid-cervical region CRPS (complex regional pain syndrome type I) last stellate ganglion block was in 2012. 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 S/P hip replacement BILATERAL - TOTAL S/P hysterectomy PARTIAL FOR DYSMENORRHEA S/P lumbar spinal fusion 2001 [place], [place]. L2-L3, L3-L4, L4-L5, and L5-S1 fusion/fixation 1986 [facility] L4-L5, L5-S1 decompression 05/1977 L5-S1 decompression S/P reduction mammoplasty S/P thymectomy 1984 AGE 15 MYASTHENIA GRAVIS S/P tubal ligation Status post colonoscopy Status post laparoscopic cholecystectomy (06/10/20) Family History Father Hypertension Heart disease age 60 Diabetes Mother Heart disease age 50 Cancer lung Stroke Denies family history of Anesthesia complication Bleeding disorder Social History Smoking and tobacco status: former smoker Second hand smoke exposure: No Alcohol intake: never Lives independently: Yes Household members: none Marital status: service: No Current occupational status: employed 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 Patient sees pain management clinic and currently is on oxycodone at home. She is having worsening lower back pain that radiates down into her legs and denies any injury or trauma to cause worsening pain. She says she has had these episodes before. Denies any cauda equina symptoms. Vitals are stable. Patient was given Dilaudid, Norflex and then discharged home with tab of Valium to use for muscle spasms later tonight and a prescription for prednisone. Patient has an appointment with pain management on Saturday, September 20 for follow-up and further pain management. Return to ED precautions given. Patient understood agree with plan. This patient was originally seen by Mr. Shey PA-C.? I agree with his history, evaluation, and treatment. Discharge Plan Discharge Patient Disposition: Home Clinical Impression: Chronic lower back pain Qualifiers: Back pain laterality: bilateral Sciatica presence: with sciatica Sciatica laterality: bilateral sciatica Qualified Code(s): M54.42 - Lumbago with sciatica, left side Condition: Stable Prescriptions: New prednisone 20 mg tablet 20 mg PO BID 5 Days Qty: 10 0RF No Action lisinopril 20 mg tablet 20 mg PO DIRECTED 0RF Rx Instructions: 30mg in AM and 20mg in PM atorvastatin 20 mg tablet 20 mg PO .BEDTIME 0RF topiramate 50 mg capsule,extended release 24hr 50 mg PO DAILY 0RF carvedilol 25 mg tablet 25 mg PO DIRECTED 0RF Rx Instructions: 1/2 TAB IN THE AM AND 1 TAB IN THE PM hydrocortisone 1 % cream 1 applic topical BID PRN (Reason: skin irritation) Qty: 30 1RF Colace 100 mg capsule 100 mg PO BID PRN0RF nitroglycerin 0.4 mg tablet, sublingual 0.4 mg SUBLINGUAL Q5M PRN (Reason: CHEST PAINS) Qty: 25 3RF oxycodone 30 mg tablet 30 mg PO TID PRN (Reason: pain) 30 Days Qty: 90 0RF Rx Instructions: fill on or after 08/20/21 oxycodone 30 mg tablet 30 mg PO TID PRN (Reason: pain) 30 Days Qty: 90 0RF Rx Instructions: fill on or after 09/19/21 isosorbide mononitrate 30 mg tablet extended release 24 hr 15 mg PO BID Qty: 90 3RF Discharge Orders: Discharge ED (Routine); Ordered 09/17/21 Ordered By: Axel Kat Referrals: Raven Peres MD [Primary Care Provider] - Discharge Diet: Regular Discharge Activity: Increase activity as tolerated Patient Instructions: Chronic Back Pain (DC), Opioid Safety Activity Restrictions/Additional Instructions: Follow-up with Pain Management Clinic at your next scheduled appointment on this coming September 20. Continue taking all home meds as previously prescribed. Return to the ER or your medical provider if condition worsens. Please read and understand discharge instructions. Thank you for choosing [facility] for your healthcare needs today. Please realize this is an emergency room and that we are providing you with a medical screening exam and this may not be complete and all inclusive of all the testing and or work up that you may need to determine your ailment or severity of your illness. It is very important that you follow up as instructed or that you return to the Emergency Department should you have concerns or if your condition changes or worsens in any way. Coding Level of Care Code ED Computer Networking Instructor for Michaelg Fwd Exam Comprehensive
[2021-09-17 22:46] VITALS: RESP 18
[2021-09-17] MEDS: orphenadrine 30 mg/mL Inj 2 mL 60 MG IVP (22:46)
[2021-09-17] MEDS: HYDROmorphone 1 mg/mL INJ 1 mL IVP (22:46)
[2021-09-17 23:32] VITALS: PULSE 85; RESP 18; O2SAT 97
== END 2021-09-17 23:32 | disposition home or self-care (01) ==
PROVIDERS: Emergency Provider Physician Assistant; PCP Family Medicine
DX: M54.42 Lumbago with sciatica, left side (principal); G89.29 Other chronic pain; I10 Essential (primary) hypertension; E78.5 Hyperlipidemia, unspecified; Z87.891 Personal history of nicotine dependence
CPT/HCPCS: 96374; 96375; 99283; J1170; J2360

== ENCOUNTER → 2021-10-05 09:09 | Outpatient (BNVA) | payer MEDICARE, SELFPAY | PROVIDERS: PCP Family Medicine; Visit Provider Orthopaedic Surgery | DX: M19.012 Primary osteoarthritis, left shoulder (principal); Z98.1 Arthrodesis status; M47.816 Spondylosis without myelopathy or radiculopathy, lumbar region | CPT/HCPCS: 72110; 73030 ==

== ENCOUNTER 2021-10-12 15:13 | Outpatient (RCR) | payer MEDICARE, SELFPAY | END 2021-11-02 23:59 | disposition home or self-care (01) | LOC: SPT 15:13 | PROVIDERS: PCP Family Medicine; Referring Provider Orthopaedic Surgery; Visit Provider Orthopaedic Surgery | DX: M54.50 Low back pain, unspecified (principal); M54.2 Cervicalgia; M25.512 Pain in left shoulder | CPT/HCPCS: 97161 ==

== ENCOUNTER → 2021-10-16 14:11 | Outpatient (BNVA) | payer MEDICARE, SELFPAY | PROVIDERS: PCP Family Medicine; Visit Provider Nurse Practitioner Family | DX: R07.2 Precordial pain (principal); I10 Essential (primary) hypertension; Z87.891 Personal history of nicotine dependence | CPT/HCPCS: 99214 ==

== ENCOUNTER 2021-11-16 10:00 | Outpatient (RCR) | payer MEDICARE, SELFPAY | END 2021-12-02 23:59 | disposition home or self-care (01) | LOC: SPT 10:00 | PROVIDERS: PCP Family Medicine; Referring Provider Orthopaedic Surgery; Visit Provider Orthopaedic Surgery | DX: M54.50 Low back pain, unspecified (principal); M54.2 Cervicalgia; M25.512 Pain in left shoulder | CPT/HCPCS: 97110 ==

== ENCOUNTER 2021-11-23 07:58 | Outpatient (CLI) | payer MEDICARE, SELFPAY ==
--- NOTE | 2021-11-23 08:45 | MR_ITS ---
WS: [id number] MRI LEFT SHOULDER HISTORY: M25.512 - Pain in left shoulder COMPARISON: Radiograph 10/05/2021 TECHNIQUE: Multiplanar sequences of the shoulder joint are submitted. Mild AC joint arthritis. Hypertrophic osteophytes with mild joint capsule thickening. Osteophyte from the distal undersurface of the acromion causing mild subacromial impingement. Biceps tendon remains at the bicipital groove. No os acromion. Advanced degenerative changes at the glenohumeral joint. Hypertrophic osteophytic ridging around the humeral head extending into the joint space. Mild atrophy of the supraspinatus muscle. Tendinopathy in the distal 3 to 4 cm of the supraspinatus t endon. No full-thickness tear is identified. No retraction of the tendon. Infraspinatus and subscapul suri tendons are intact. No tear. Increased fluid noted at the rotator cuff interval. There is marked fraying and intrasubstance degeneration within the labrum. MR/MR shoulder LT wo con* [id number] IMPRESSION: 1. Moderate tendinopathy distal supraspinatus tendon without tear. 2. Mild atrophy supraspinatus muscle. 3. Advanced degenerative changes in the internal derangement throughout the la mitchell. 4. AC joint arthritis with mild encroachment upon the supraspinatus. 5. Distal undersurface acromial osteophyte causing mild subacromial impingemen t. The subacromial impingement is at the site of greatest supraspinatus tendino mar. 6. Osteophytic ridging surrounding the humeral head with moderate glenohumeral joint space narrowing and arthritis.
--- NOTE | 2021-11-23 09:30 | MR_ITS ---
WS: [id number] MRI LUMBAR SPINE NONCONTRAST HISTORY: Z98.1 - Arthrodesis status COMPARISON: 02/18/2015 TECHNIQUE: Sagittal and axial multisequence imaging is submitted. Cervical osteophyte at C5 encroaching upon the cervical cord. Marked straightening of the normal lumbar lordosis. Slight reversal at L1-2. Disc spaces are moderately narrowed and desiccated throughout. Most significant disc desiccation at L 1-2 and L2-3. Conus terminates normally at L1. No fracture or marrow edema. L1-L2: Mild osteophytic ridging and annular disc bulging. There is encroachment upon the ventral thec al sac and deformity. Central disc protrusion with osteophytes causing mild central and bilateral sub articular recess and foraminal narrowing. Slightly greater narrowing and encroachment upon the RIGHT traversing L2 nerve root. L2-L3: Diffuse annular disc bulging and osteophytic ridging. Mild ligamentum flavum hypertrophy. Disc and osteophyte encroachment into the lateral recesses and foramina and central canal. Most significa nt stenosis involves the RIGHT subarticular recess and traversing L3 nerve root. L3-L4: Marked diffuse osteophytic ridging and annular disc bulging. Mild central, bilateral subarticu lar recess and foraminal stenosis. Posterior laminectomies with bone grafting. Disc cage causing mild artifact in the vertebral bodies. L4-L5: No significant stenosis. Posterior laminectomy with bone grafting. L5-S1: No significant stenosis. Cortical cyst LEFT kidney measures 7 mm. MR/MR lumbar spine wo con* [id number] IMPRESSION: 1. Status post laminectomies with bone grafting from L3 to L5. Bone grafting a ppears fused. No signal abnormality. 2. Moderate multilevel lumbar spondylosis. 3. Encroachment and stenosis most significant on the RIGHT involving the L2 an d L3 traversing nerve roots. 4. Mild central, bilateral subarticular recess and foraminal stenosis at L1-2 and L3-4. 5. L3-4 disc space or maintaining the disc space. No retropulsion.
== END 2021-11-23 07:59 | disposition home or self-care (01) ==
PROVIDERS: PCP Family Medicine; Visit Provider Orthopaedic Surgery
DX: M25.512 Pain in left shoulder (principal); Z98.1 Arthrodesis status; M96.1 Postlaminectomy syndrome, not elsewhere classified; M47.816 Spondylosis without myelopathy or radiculopathy, lumbar region; M48.061 Spinal stenosis, lumbar region without neurogenic claudication; M62.512 Muscle wasting and atrophy, not elsewhere classified, left shoulder
CPT/HCPCS: 72148; 73221

== ENCOUNTER → 2021-11-30 13:01 | Outpatient (BNVA) | payer MEDICARE, SELFPAY | PROVIDERS: PCP Family Medicine; Visit Provider Orthopaedic Surgery | DX: M48.062 Spinal stenosis, lumbar region with neurogenic claudication (principal); N28.1 Cyst of kidney, acquired | CPT/HCPCS: 99214 ==

== ENCOUNTER 2021-12-03 | Outpatient (RCR) | payer MEDICARE, SELFPAY | END 2022-01-02 23:59 | disposition home or self-care (01) | LOC: SPT | PROVIDERS: PCP Family Medicine; Referring Provider Orthopaedic Surgery; Visit Provider Orthopaedic Surgery | DX: M54.50 Low back pain, unspecified (principal); M54.2 Cervicalgia; M25.512 Pain in left shoulder | CPT/HCPCS: 97110; L0174 ==

== ENCOUNTER → 2021-12-11 13:25 | Outpatient (BNVA) | payer MEDICARE, SELFPAY | PROVIDERS: PCP Family Medicine; Visit Provider Internal Medicine Cardiovascular Disease | DX: R07.2 Precordial pain (principal); I10 Essential (primary) hypertension; Z87.891 Personal history of nicotine dependence | CPT/HCPCS: 99214 ==

== ENCOUNTER 2022-01-03 06:00 | Outpatient (RCR) | payer MEDICARE, SELFPAY | END 2022-02-01 23:59 | disposition home or self-care (01) | LOC: SPT 06:00 | PROVIDERS: PCP Family Medicine; Referring Provider Orthopaedic Surgery; Visit Provider Orthopaedic Surgery | DX: M54.50 Low back pain, unspecified (principal); M54.2 Cervicalgia; M25.512 Pain in left shoulder | CPT/HCPCS: 97110 ==

== ENCOUNTER 2022-02-02 06:00 | Outpatient (RCR) | payer MEDICARE, SELFPAY | END 2022-03-04 23:59 | disposition home or self-care (01) | LOC: SPT 06:00 | PROVIDERS: PCP Family Medicine; Referring Provider Orthopaedic Surgery; Visit Provider Orthopaedic Surgery | DX: M54.50 Low back pain, unspecified (principal); M54.2 Cervicalgia; M25.512 Pain in left shoulder | CPT/HCPCS: 97110 ==

== ENCOUNTER → 2022-02-06 08:28 | Outpatient (BNVA) | payer MEDICARE, SELFPAY | PROVIDERS: PCP Family Medicine; Visit Provider Urology | DX: N28.1 Cyst of kidney, acquired (principal) | CPT/HCPCS: 81003; 99202 ==

== ENCOUNTER 2022-03-22 09:33 | Outpatient (CLI) | payer MEDICARE, SELFPAY ==
--- NOTE | 2022-03-22 09:51 | CT_ITS ---
WS: [id number] CT HEAD TECHNIQUE: Noncontrast CT of the head obtained from the skullbase to the vertex. CLINICAL INFORMATION: WORSENING HEADACHE COMPARISON: None. DLP: 1138.[address] scans at [facility] use at least one of these dose optimization techniques: automated e xposure control; mA and/or kV adjustment per patient size (includes targeted exams where dose is matc hed to clinical indication); or iterative reconstruction. FINDINGS: No evidence of intracranial hemorrhage or mass effect. Ventricular system and basal cisterns are carnes nt. Mild small vessel changes with mild parenchymal volume loss. No extra-axial fluid collections. No evidence of mass or mass effect. Cavernous carotid calcification. Paranasal sinuses and mastoid air cells are well aerated. .Normal visualized soft tissues. CT/CT head wo con* [id number] IMPRESSION: 1. No evidence of intracranial hemorrhage or mass effect. 2. Mild small vessel changes with mild parenchymal volume loss 3. No acute intracranial findings.
== END 2022-03-22 09:34 | disposition home or self-care (01) ==
PROVIDERS: PCP Family Medicine; Visit Provider Family Medicine
DX: R51.9 Headache, unspecified (principal)
CPT/HCPCS: 70450

== ENCOUNTER 2022-04-08 17:00 | Emergency (ER) | payer MEDICARE, SELFPAY ==
[2022-04-08 18:07] VITALS: BP 198/109; PULSE 79; RESP 16; TEMP 36.8; O2SAT 97; BMI 23.9
[2022-04-08 18:11] VITALS: BP 198/91; PULSE 89; RESP 20; O2SAT 98
[2022-04-08 18:38] LABS: Add Urine Microscopic? NO; Charge for UA Resulting for Rev
[2022-04-08 18:47] LABS: Bilirubin Urine Neg (Negative); Blood Urine Neg (Negative); Glucose Urine UA Norm (Normal); Ketones Urine Negative (Negative); Leukocyte Esterase Urine Negative (Negative); Nitrate Urine Negative (Negative); Protein Urine Neg (Negative); Specific Gravity, Urine 1.015 (1.005-1.030); Urine Appearance Clear (CLEAR); Urine Color Yellow (Yellow); Urobilinogen Urine Norm (Negative); pH Urine 5 (5-7)
--- NOTE | 2022-04-08 21:47 | CTR_ITS ---
PROCEDURE INFORMATION: Exam: CT Lumbar Spine Without Contrast Exam date and time: 04/08/2022 9:54 PM Age: 76 years old Clinical indication: Low back pain; Prior surgery; Surgery date: 6+ months; Surgery type: 3 separate lumbar surgeries, both hips TECHNIQUE: Imaging protocol: Computed tomography of the lumbar spine without contrast. Radiation optimization: All CT scans at this facility use at least one of these dose optimization techniques: automated exposure control; mA and/or kV adjustment per patient size (includes targeted exams where dose is matched to clinical indication); or iterative reconstruction. COMPARISON: MR lumbar spine wo con* [id number] 11/23/2021 8:26 AM RADIATION DOSE METRICS: Total DLP (mGy-cm): 675.55 FINDINGS: Bones/joints: There are marked degenerative changes present. Surgical changes consistent with lower lumbosacral fusion, bilateral L3 and left L1 decompressive laminectomies, and L3-L4 intervertebral spacers. Normal alignment. No acute fractures. There are disc osteophyte complexes and bilateral facet hypertrophy at L1-L2, L2-L3 which cause severe spinal canal narrowing Gallbladder and bile ducts: The patient has had a cholecystectomy. Vasculature: There is severe aortoiliac atherosclerosis. Soft tissues: Unremarkable. CT/CT lumbar spine wo con* [id number] IMPRESSION: Severe degenerative changes and surgical changes as described above. No acute injury.
[2022-04-08 22:11] VITALS: RESP 19
[2022-04-08] MEDS: HYDROmorphone 1 mg/mL INJ 1 mL 0.5 MG IM (22:11)
[2022-04-08 23:31] VITALS: RESP 19; O2SAT 98
[2022-04-08] MEDS: gabapentin 100 mg Capsule 200 MG PO (23:31)
--- NOTE | 2022-04-10 09:59 | ED_ITS ---
HPI - Back Pain/Injury General: Chief Complaint: Back Pain/Injury Stated Complaint: Lower back pain Time Seen by Provider: 04/08/22 20:40 History of Present Illness: 76-year-old female patient presents to the emergency department with right sciatica pain. Patient states this is been ongoing. Patient states she was put on steroids and muscle relaxer with no relief. Patient has had an MRI and other imaging of back with no acute findings. Patient states her sciatica remains flared up and she is unable to sleep. Patient denies any red flag findings such as loss of bowel or bladder perianal numbness or tingling decreased motor patient denies any fever. Patient denies any history of IV drug abuse or cancer Associated symptoms: Deny abdominal pain, chills, change in bowel habits, difficulty walking, dysuria, fatigue, fever(s), hematuria, nausea, syncope, urinary urgency or vomiting Review of Systems Const: Denies: fever(s), chills, body aches, change in appetite, change in weight, fatigue, malaise or diaphoresis Eyes: Denies: change in vision, blurry vision, blind spots, photophobia, eye discomfort, eye discharge, eye redness, floaters or seeing flashes ENMT: Denies: throat pain, uvular edema, enlarged tonsils, odynophagia, hoarseness, mouth pain, swelling of lips/tongue, oral sores, bleeding gums, dental pain, dry mouth, ear or mastoid pain, ear discharge, change in hearing, tinnitus, disequilibrium, nasal discharge, nasal congestion, post nasal drip or sinus pain Card: Denies: chest pain, palpitations, irregular heart rhythm, edema, swelling of feet/ankles, lightheadedness, syncope, pre-syncope, dyspnea on exertion, orthopnea, leg pain with exertion or acrocyanosis Resp: Denies: dyspnea, productive cough, non-productive cough, wheezing, stridor, pain on inspiration, change in phlegm color, hemoptysis or chest congestion GI: Denies: abdominal pain, nausea, vomiting, hematemesis, dysphagia, diarrhea, constipation, GI cramping, change in bowel habits or rectal pain : Denies: flank pain, difficulty voiding, dysuria, urinary frequency, urinary urgency, urinary hesitancy or hematuria Musc: Reports: extremity pain; Denies: neck pain, back pain, extremity swelling, joint pain, joint swelling, joint redness, joint warmth or deformity Skin/Breast: Denies: rash, pruritus, erythema, sores, new lesions, changes in skin color or dry skin Neuro: Denies: headache(s), numbness in extremities, weakness in extremities, sensory changes, lack of coordination, difficulty walking, frequent falls, dizziness, vertigo, confusion, behavioral changes, Slurred speech present, difficulty communicating thoughts or seizure-like activity Psych: Denies: anxiety, depression, suicidal ideation or homicidal ideation Endo: Denies: polyuria, polydipsia, tired all the time, cold intolerance, excessive sweating, flushing, hot flashes or heat intolerance Darryn/Lymph: Denies: easy bruising, easy bleeding, petechiae, purpura, enlarged lymph nodes or tender lymph nodes All/Imm: Denies: urticaria, throat swelling, tongue swelling, facial swelling, acute wheezing or itchy eyes PFSH ED PFSH: Medical History Cervical disc disorder with myelopathy of mid-cervical region CRPS (complex regional pain syndrome type I) last stellate ganglion block was in 2012. 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. S/P hip replacement BILATERAL - TOTAL S/P hysterectomy PARTIAL FOR DYSMENORRHEA S/P lumbar spinal fusion 2001 [place], [place]. L2-L3, L3-L4, L4-L5, and L5-S1 fusion/fixation 1986 [facility] L4-L5, L5-S1 decompression 05/1977 L5-S1 decompression S/P reduction mammoplasty S/P thymectomy 1983 AGE 15 MYASTHENIA GRAVIS S/P tubal ligation Status post colonoscopy Status post laparoscopic cholecystectomy (06/10/20) Family History Father Hypertension Heart disease age 60 Diabetes Mother Heart disease age 50 Cancer lung Stroke Denies family history of Anesthesia complication Bleeding disorder Social History (Updated 02/06/22 @ 08:44 by Reema Mcgill LPN) Smoking and tobacco status: former smoker Alcohol intake: never Marital status: Current occupational status: employed 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 [employer] History of recent travel: No Physical Exam Const: COMMON NORMALS: no acute distress, patient oriented x3, healthy appearing, alert and well nourished GENERAL APPEARANCE: cooperative, comfortable, well kempt and well developed; not ill appearing ORIENTATION/CONSCIOUSNESS: Yes awake, Yes oriented to person, Yes oriented to place and Yes oriented to time HENMT: COMMON NORMALS: normocephalic, atraumatic, hearing grossly normal bilaterally, external ears normal, EAC's normal, TM's normal bilaterally, Normal external nose present, Normal nasal mucous membranes and turbinates present and moist oral mucous membranes HEAD & SCALP: normal to inspection, normocephalic and atraumatic FACE & SINUS: normal facial exam, sinuses nontender and face symmetric NOSE: Normal external nose present, Normal nares present, Normal nasal mucous membranes and turbinates present, No nasal discharge present and Abnormal external nose present EXTERNAL EAR: Yes external ears normal and Yes mastoids normal EXTERNAL AUDITORY CANAL: EAC's normal TYMPANIC MEMBRANE: TM's normal bilaterally MOUTH: Normal oral and palatal mucosa present, lip normal, tongue normal and Normal salivary glands and ducts present THROAT: no uvular edema Eye: GENERAL EYE: appearance normal, both eyes and all related structures EYELID: eyelids normal SCLERA: sclerae normal CORNEA: Yes corneas normal Neck/C-Spine: COMMON NORMALS: full ROM, no lymphadenopathy, supple, no meningeal signs, no JVD and Thyroid normal GENERAL: Yes normal visual inspection and Yes trachea midline THYROID: Thyroid normal CERVICAL SPINE: Yes cervical ROM normal Lymph: LYMPHATIC: no lymphadenopathy noted and no lymphedema noted Chest: COMMONS NORMALS: normal inspection of the chest and normal palpation of entire chest wall Resp: COMMON NORMALS: normal respiratory effort, No retractions, No use of accessory muscles and clear to auscultation bilaterally EFFORT & INSPECTION: Yes able to speak in complete sentences and Yes symmetric chest movement AUSCULTATION: clear to auscultation bilaterally Cardio: COMMON NORMALS: no JVD, regular rate and regular rhythm RATE: regular rate RHYTHM: regular rhythm GI: COMMON NORMALS: Normal to inspection, nondistended, normoactive bowel sounds present, Soft to palpation, non-tender, No hepatosplenomegaly present, no masses and no bruits INSPECTION: Yes normal to inspection AUSCULTATION: Yes normoactive bowel sounds PALPATION: Yes Soft to palpation and Yes No hepatosplenomegaly present PERCUSSION: normal to percussion RECTAL EXAM: deferred : COMMON NORMALS: Yes no CVA tenderness, Yes normal external appearance, Yes normal appearance of the vagina, Yes normal appearance of the cervix, Yes No adnexal tenderness and Yes no masses BLADDER/KIDNEY EXAM: Yes no CVA tenderness Back/Pelvis: COMMON NORMALS: no CVA tenderness, thoracic and lumbar spine normal to inspection, no thoracic nor lumbar tenderness, thoraco-lumbar ROM normal and straight leg raise negative bilaterally THORACIC SPINE/UPPER BACK: Yes normal to inspection LUMBAR SPINE/LOWER BACK: Yes normal to inspection Extremity: COMMON NORMALS: normal to inspection, full ROM and capillary refill normal GENERAL: Yes normal exam except as noted Neuro: COMMON NORMALS: patient oriented x3, CN's II-XII intact bilaterally, moves all extremities, no focal motor deficits, no sensory deficits noted, deep tendon reflexes 2+ bilaterally and gait normal SENSORIUM/ORIENTATION: Yes alert, Yes oriented to person, Yes oriented to place and Yes oriented to time MENINGEAL SIGNS: Yes no meningeal signs CRANIAL NERVES: Yes CN normal except as noted SPEECH: speech normal GAIT: Yes Normal gait present SENSORY EXAM: Yes extremities MOTOR EXAM: 5/5 motor strength present throughout Psych: COMMON NORMALS: mental status grossly normal, Normal thought process present, cooperative, normal affect, speech normal, activity/motor behavior normal, denies hallucinations, denies homicidal ideation and denies suicidal ideation APPEARANCE: Yes grossly normal and Yes well kempt ATTITUDE: Yes calm ACTIVITY/MOTOR BEHAVIOR: Yes appropriate eye contact SPEECH: Yes normal speech THOUGHT PROCESS: Normal thought process present THOUGHT CONTENT: Yes Normal thought content present ATTENTION/CONCENTRATION: Yes attention grossly intact MEMORY/COGNITION: Yes memory grossly intact INSIGHT: Good insight present (Psych) JUDGEMENT: Good judgement present (Psych) Skin: COMMON NORMALS: no rashes or lesions noted, no wounds, turgor normal, no jaundice, no petechiae and no mottling GENERAL SKIN EXAM: no rashes or lesions noted and turgor normal Course Vital Signs: Vital signs: Vital Signs Temperature 98.2 F 04/08/22 18:07 Pulse Rate 89 04/08/22 18:11 Respiratory Rate 19 H 04/08/22 23:31 Blood Pressure 198/91 04/08/22 18:11 Pulse Oximetry 98 04/08/22 23:31 Oxygen Delivery Me thod 04/08/22 18:07 MDM - Back Pain/Injury Medical Decision Making Patient is well-appearing nontoxic and in no acute distress. Patient ambulates without difficulty. Patient was given pain meds while here in the emergency departmentto sleep. Patient denies any red flag findings such as loss of bowel or bladder perianal numbness or tingling decreased motor patient denies any fever. Patient denies any history of IV drug abuse or cancer Patient's findings are consistent with sciatica I discussed with patient stretches that will help relieve the pain. Given patient's lack of response to pain meds and steroids I will give patient a short supply of gabapentin for nerve pain. Patient is neurovascularly intact. Patient does not have any decreased motor sensation DTRs are intact bilaterally patient does not have any new loss of bowel or bladder. Patient sees pain management for therapy. Patient is scheduled to see physician this week for follow-up Labs Radiology Impressions Lumbar Spine CT 04/08/22 21:47 IMPRESSION: Severe degenerative changes and surgical changes as described above. No acute injury. Laboratory Results Urine Color Yellow (Yellow) 04/08/22 18:30 Urine Appearance Clear (CLEAR) 04/08/22 18:30 Urine pH 5 (5-7) 04/08/22 18:30 Ur Specific Caret 1.015 (1.005-1.030) 04/08/22 18:30 Urine Protein Neg (Negative) 04/08/22 18:30 Urine Glucose (UA) Norm (Normal) 04/08/22 18:30 Urine Ketones Negative (Negative) 04/08/22 18:30 Urine Blood Neg (Negative) 04/08/22 18:30 Urine Nitrate Negative (Negative) 04/08/22 18:30 Urine Bilirubin Neg (Negative) 04/08/22 18:30 Urine Urobilinogen Norm mg/dL (Negative) 04/08/22 18:30 Ur Leukocyte Esterase Negative (Negative) 04/08/22 18:30 Discharge Plan Discharge Patient Disposition: Home Clinical Impression: Sciatica Condition: Stable Prescriptions: New gabapentin 100 mg capsule 100 mg PO Q8H Qty: 20 0RF No Action atorvastatin 20 mg tablet 20 mg PO .BEDTIME topiramate 50 mg capsule,extended release 24hr 50 mg PO DAILY carvedilol 25 mg tablet 25 mg PO DIRECTED Rx Instructions: 1/2 TAB IN THE AM AND 1 TAB IN THE PM hydrocortisone 1 % cream 1 applic topical BID PRN (Reason: skin irritation) Qty: 30 1RF Colace 100 mg capsule 100 mg PO BID PRN nitroglycerin 0.4 mg tablet, sublingual 0.4 mg SUBLINGUAL Q5M PRN (Reason: CHEST PAINS) Qty: 25 3RF valsartan-hydrochlorothiazide 160-25 mg tablet 0.5 tab PO DAILY Qty: 45 3RF oxycodone 15 mg tablet 15 mg PO QID PRN (DME) Tricia Joy See Rx Instructions .Route .MEDSUPPLY Qty: 1 0RF Rx Instructions: As directed isosorbide mononitrate 30 mg tablet extended release 24 hr 30 mg PO BID Qty: 180 3RF Discharge Orders: Discharge ED (Routine); Ordered 04/08/22 Ordered By: Berna Baeza Referrals: Raven Peres MD [Primary Care Provider] - Discharge Diet: Advance as tolerated Discharge Activity: Increase activity as tolerated Patient Instructions: Opioid Safety Activity Restrictions/Additional Instructions: Take medications as prescribed Please perform stretches as demonstrated Return to ER with any worsening of symptoms or loss of bowel or bladder or fever Coding Level of Care Code ED Motion Picture Scene 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
== END 2022-04-08 23:37 | disposition home or self-care (01) ==
PROVIDERS: Emergency Provider Registered Nurse; PCP Family Medicine
DX: M54.30 Sciatica, unspecified side (principal); Z87.891 Personal history of nicotine dependence; I10 Essential (primary) hypertension; E78.5 Hyperlipidemia, unspecified
CPT/HCPCS: 72131; 81003; 96372; 99285; J1170

== ENCOUNTER 2022-05-24 12:58 | Outpatient (CLI) | payer MEDICARE, SELFPAY ==
--- NOTE | 2022-05-24 13:11 | MM_ITS ---
WS: [email or web address] BILATERAL 3D TOMOSYNTHESIS DIGITAL SCREENING MAMMOGRAPHY WITH CAD CLINICAL INFORMATION: SCREENING HISTORY: Screening mammogram. No current complaints. COMPARISON: 2019 TECHNIQUE: Bilateral CC and MLO views. FINDINGS: History of breast reduction. Scattered fibroglandular densities bilaterally. No suspicious focal mass, asymmetry, calcifications, or architectural distortion. No evidence of malignancy. Vascular calcifications. A few incidental panda cifications. MM/[place] [id number] IMPRESSION: BI-RADS: 2-Benign FOLLOW UP: 1 Year Follow-up Recommend return to annual screening mammography.
== END 2022-05-24 12:59 | disposition home or self-care (01) ==
LOC: RAD 12:59
PROVIDERS: PCP Family Medicine; Visit Provider Family Medicine
DX: Z12.31 Encounter for screening mammogram for malignant neoplasm of breast (principal)
CPT/HCPCS: 77063; 77067

== ENCOUNTER → 2022-06-11 15:04 | Outpatient (BNVA) | payer MEDICARE, SELFPAY | PROVIDERS: PCP Family Medicine; Visit Provider Internal Medicine Cardiovascular Disease | DX: I10 Essential (primary) hypertension (principal); I34.0 Nonrheumatic mitral (valve) insufficiency; I36.1 Nonrheumatic tricuspid (valve) insufficiency; E78.5 Hyperlipidemia, unspecified; M48.062 Spinal stenosis, lumbar region with neurogenic claudication; Z87.891 Personal history of nicotine dependence | CPT/HCPCS: 99214 ==

== ENCOUNTER 2023-09-13 14:04 | Outpatient (CLI) | payer MEDICARE, SELFPAY ==
--- NOTE | 2023-09-13 14:23 | MR_ITS ---
WS: [id number] MRI RIGHT SHOULDER, with and without contrast. HISTORY: R SHOULDER PAIN COMPARISON: None available. TECHNIQUE: Multiplanar sequences of the shoulder joint are submitted. Mild AC joint arthritis with encroachment upon the myotendinous supraspinatus. Moderate amount of flu id in the subacromial and subdeltoid bursa. There is subacromial encroachment upon the supraspinatus by an osteophyte. No os acromion. Biceps tendon is positioned in the bicipital groove with a small am ount of increased fluid in the tendon sheath. Additional osteophytes with loss of cortex surrounding the humeral head. Mild atrophy of the supraspinatus muscle. No edema. There is marked fraying and thinning of the dista l supraspinatus tendon. No rotator cuff tendon tear is identified although there is significant frayi ng along the surfaces. There is mild tendinopathy in the distal tendons. Small amount of fluid in the axillary pouch. Intrasubstance degeneration throughout the labrum. No labral tears. On the postcontrast imaging there is no enhancing mass. Mild thickening of the synovium. There are sm all osteophytes encasing the humeral head encroaching into the joint effusion. IMPRESSION: 1. Mild AC joint arthritis. 2. Marked subacromial impingement by an osteophyte upon the supraspinatus tendon. 3. Thinning and fraying of the supraspinatus tendon but no full-thickness tear. 4. Mild supraspinatus muscle atrophy. 5. Glenohumeral joint arthritis with loss of cartilage surrounding the humeral head and osteophytosi s. 6. No enhancing mass. 7. Moderate subacromial and subdeltoid bursal fluid.
[2023-09-13] MEDS: gadobenate dimeglumine 20 mL vial IV (15:20)
== END 2023-09-13 14:05 | disposition home or self-care (01) ==
LOC: RAD 14:05
PROVIDERS: PCP Family Medicine; Visit Provider Family Medicine
DX: M25.511 Pain in right shoulder (principal); M19.011 Primary osteoarthritis, right shoulder
CPT/HCPCS: 73223; A9577

== ENCOUNTER 2023-09-20 12:12 | Outpatient (CLI) | payer MEDICARE, SELFPAY ==
--- NOTE | 2023-09-20 12:19 | MR_ITS ---
WS: [id number] MRI SOFT TISSUE NECK WITH CONTRAST TECHNIQUE: Noncontrast axial T1, axial T2 FSE fat sat, coronal T2 fat sat, coronal T1, coronal T1 fat sat, sagittal T2 fat sat, plus contrast enhanced coronal, sagittal, and axial T1 fat sat images obta ined. CLINICAL INFORMATION: NECK PAIN COMPARISON: None. FINDINGS: Normal visualized posterior fossa. Parotid glands and submandibular glands are normal where visualize d. Normal posterior nasopharynx. Normal parapharyngeal fat. No evidence of supraglottic or glottic ma ss. Normal subglottic airway. No cervical lymphadenopathy. Tongue base appears normal. Straightening of the normal cervical lordosis with moderate spondylitic changes. Small disc protrusio ns C3-C4 C4-C5 C5-C6 and C6-C7 with mild central canal stenosis. This could be further evaluated with cervical spine MRI. A few small disc protrusions in the upper thoracic spine. Multilevel facet arthr opathy. Thyroid gland appears normal. No other acute findings. IMPRESSION: 1. Visualized salivary glands are normal in appearance. 2. No evidence of supraglottic or glottic mass. Normal tongue base. Normal subglottic airway. 3. No cervical lymphadenopathy. 4. No evidence of soft tissue cystic or solid mass. 5. Moderate spondylitic changes with small disc protrusions in the cervical and upper thoracic spine described above. This be further evaluated with dedicated cervical and thoracic spine MRI.
--- NOTE | 2023-09-20 12:19 | XR_ITS ---
WS: [email or web address] SCREENING DEXA SCAN [employer] CLINICAL INFORMATION: POSTMENOPAUSAL COMPARISON: 2019 FINDINGS: The LEFT forearm bone mineral density measures 0.63. This corresponds to a T score score of -2.7 and Z score of -0.3. RIGHT forearm bone mineral density measures 0.63. This corresponds to a T score of -2.7 and Z score o f -0.3. IMPRESSION: Osteoporosis LEFT forearm. Osteoporosis RIGHT forearm. Bone mineral density LEFT forearm decreased -7.2% Bone mineral density RIGHT forearm decreased -2.2%
[2023-09-20] MEDS: gadobenate dimeglumine 20 mL vial IV (12:58)
== END 2023-09-20 12:13 | disposition home or self-care (01) ==
LOC: RAD 12:14
PROVIDERS: PCP Family Medicine; Visit Provider Family Medicine
DX: Z13.820 Encounter for screening for osteoporosis (principal); Z78.0 Asymptomatic menopausal state; M50.23 Other cervical disc displacement, cervicothoracic region
CPT/HCPCS: 70543; 77080; A9577

== ENCOUNTER 2023-10-24 14:53 | Outpatient (CLI) | payer MEDICARE, SELFPAY ==
--- NOTE | 2023-10-24 15:03 | MR_ITS ---
WS: [id number] MRI THORACIC SPINE WITH CONTRAST TECHNIQUE: Sagittal T1, T2 and STIR imaging. Axial T2 imaging. Post gadolinium imaging was obtained. CLINICAL INFORMATION: CHRONIC BACK PAIN COMPARISON: None. FINDINGS: Mild thoracic curve. No acute compression fractures. No high-grade central canal stenosis. No abnorma l gadolinium enhancement. Small disc protrusions in the mid and lower thoracic spine. A few Schmorl's nodes in the midthoracic spine. Adrenal glands are normal. Normal caliber thoracic aorta. Shallow disc protrusions worse at T8-T9 ,T9-T10, T10-T11 and L1-2. Mild central canal stenosis at T9- 10 and T10-11 with slight contact of the thoracic cord. Mild central canal stenosis L1-L2. Moderate f acet arthropathy lower thoracic spine. IMPRESSION: 1. Mild thoracic curve. No acute compression fractures. 2. Cord signal is normal. 3. No abnormal gadolinium enhancement. 4. Shallow disc protrusions more prominent at T9-T10 and T10-11 with mild central canal stenosis. Sl ight indentation on the thoracic cord at these levels. 5. Prominent central protrusion L1-2 with mild central canal stenosis. 6. Moderate facet arthropathy lower thoracic spine.
--- NOTE | 2023-10-24 15:03 | MR_ITS ---
WS: [email or web address] MRI CERVICAL SPINE NONCONTRAST AND CONTRAST TECHNIQUE: Sagittal T1, T2 and STIR imaging. Axial T2, gradient, and fiesta imaging. Post gadolinium imaging was obtained. CLINICAL INFORMATION: NECK PAIN COMPARISON: MRI 2020. FINDINGS: Straightening of the normal cervical lordosis. Slight anterolisthesis C4 on C5. Disc space narrowing worse at C5-C6 and C6-C7. Cord signal is normal. No abnormal gadolinium enhancement. C2-C3: Mild facet arthropathy. Spinal canal and foramen are patent. C3-C4: Mild disc osteophytic ridging. Mild facet arthropathy. Spinal canal and foramen are patent. C4-C5: Mild disc osteophyte complex with endplate ridging. Moderate facet arthropathy. Mild LEFT fora eric narrowing. Spinal canal is patent. C5-C6: Disc osteophyte complex with endplate ridging. Uncovertebral joint hypertrophy. Moderate LEFT and mild RIGHT bony foraminal narrowing. Slight indentation on the cervical cord with mild central ca nal stenosis. C6-C7: Disc osteophyte complex with endplate ridging eccentric to the LEFT. Slight contact of the LEF T ventral cervical cord. Spinal canal is patent. Moderate LEFT bony foraminal narrowing. Moderate fac et arthropathy. C7-T1: Mild LEFT and no significant RIGHT foraminal narrowing. Mild facet arthropathy. Visualized brain stem structures: Normal. Prevertebral soft tissues: Normal. IMPRESSION: Overall no significant changes since 08/23/2020. 1. Straightening of the normal cervical lordosis with moderate spondylitic changes. 2. Disc osteophyte complex worse at C5-C6 with slight contact of the cervical cord and mild central canal stenosis. 3. Moderate LEFT C5-C6 and LEFT C6-C7 bony foraminal narrowing. 4. No abnormal gadolinium enhancement. 5. Moderate facet arthropathy worse at bilateral C3-4, LEFT C4-C5, and bilateral C5-C6. 6. Otherwise mild foraminal narrowing described above.
[2023-10-24] MEDS: gadobenate dimeglumine 20 mL vial IV (16:07)
== END 2023-10-24 14:54 | disposition home or self-care (01) ==
LOC: RAD 14:54
PROVIDERS: PCP Family Medicine; Visit Provider Family Medicine
DX: M54.2 Cervicalgia (principal); M48.02 Spinal stenosis, cervical region; M47.812 Spondylosis without myelopathy or radiculopathy, cervical region; M48.07 Spinal stenosis, lumbosacral region; M47.814 Spondylosis without myelopathy or radiculopathy, thoracic region
CPT/HCPCS: 72156; 72157; A9577

== ENCOUNTER → 2023-10-31 08:00 | Outpatient (BNVA) | payer MEDICARE, SELFPAY | PROVIDERS: PCP Family Medicine; Referring Provider Family Medicine; Visit Provider Orthopaedic Surgery | DX: M54.2 Cervicalgia (principal) | CPT/HCPCS: 72050; 99214 ==

== ENCOUNTER 2024-01-17 07:58 | Emergency (ER) | payer MEDICARE, SELFPAY ==
[2024-01-17 08:07] VITALS: BP 183/83; PULSE 89; RESP 18; TEMP 36.9; O2SAT 93
[2024-01-17] MEDS: ketorolac 30 mg/mL INJ IVP (08:29)
[2024-01-17] MEDS: dexamethasone 10 mg/mL INJ IM (08:29)
[2024-01-17] MEDS: orphenadrine 30 mg/mL Inj 2 mL 60 MG IM (08:30)
--- NOTE | 2024-01-17 08:37 | ED_ITS ---
HPI - Neck Pain/Injury General: Chief Complaint: Neck Pain/Injury Stated Complaint: neck pain Time Seen by Provider: 01/17/24 08:14 Source: patient Mode of arrival: ambulatory History of Present Illness: 78-year-old female presents emergency ro om complaining of neck pain. She has a history of chronic neck pain she has seen pain clinic she is also seen orthopedic spine surgery she has had MRI there is some stenosis foraminal stenosis and central canal stenosis but not thought to be at the level that would require surgical intervention at this time she has had follow-ups at pain clinic they are considering injections. She has pain directly in the neck no radicular arm pain at this time. No difficulty with speech swallowing vision balance no lateralizing symptoms. complaint: neck pain Onset (ago): day(s) Place: home Severity scale (1-10): 6 Quality: sharp and spasming Relieving factors: none Exacerbating factors: none Associated symptoms: Denies dysphagia, difficulty walking, dizziness, fevers/chills, headache(s), nausea, swollen glands, tingling or weakness Treatments prior to arrival: none Review of Systems Const: Denies: fever(s) or chills Card: Denies: chest pain Resp: Denies: dyspnea GI: Denies: nausea or dysphagia : Denies: dysuria, urinary frequency or urinary urgency Musc: Denies: neck pain or back pain Skin/Breast: Denies: rash Neuro: Denies: headache(s), difficulty walking or dizziness PFSH ED PFSH: Medical History Cervical disc disorder with myelopathy of mid-cervical region CRPS (complex regional pain syndrome type I) last stellate ganglion block was in 2012. 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 S/P hip replacement BILATERAL - TOTAL S/P hysterectomy PARTIAL FOR DYSMENORRHEA S/P lumbar spinal [place] L2-L3, L3-L4, L4-L5, and L5-S1 fusion/fixation 1986 [facility] L4-L5, L5-S1 decompression 05/1977 L5-S1 decompression S/P reduction mammoplasty S/P thymectomy 1984 AGE 15 MYASTHENIA GRAVIS S/P tubal ligation Status post colonoscopy Status post laparoscopic cholecystectomy (06/10/20) Family History Father Hypertension Heart disease age 60 Diabetes Mother Heart disease age 50 Cancer lung Stroke Denies family history of Anesthesia complication Bleeding disorder Social History Smoking and tobacco/nicotine status: former use of tobacco/nicotine Alcohol intake: never Substance/Drug Use: never Marital status: Current occupational status: employed 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 Physical Exam Const: GENERAL APPEARANCE: cooperative and comfortable ORIENTATION/CONSCIOUSNESS: Yes awake, Yes oriented to person, Yes oriented to place and Yes oriented to time HENMT: COMMON NORMALS: normocephalic, atraumatic and hearing grossly normal bilaterally HEAD & SCALP: normocephalic and atraumatic Resp: COMMON NORMALS: normal respiratory effort, No retractions, No use of accessory muscles and clear to auscultation bilaterally AUSCULTATION: clear to auscultation bilaterally Cardio: COMMON NORMALS: regular rate, regular rhythm and No murmurs present (Cardio) RATE: regular rate RHYTHM: regular rhythm Extremity: COMMON NORMALS: normal to inspection, capillary refill normal, no clubbing, cyanosis or edema, no calf tenderness and no pedal edema OTHER: Neurovascular intact in both upper extremities sensation strength normal Neuro: SENSORIUM/ORIENTATION: Yes oriented to person, Yes oriented to place and Yes oriented to time Skin: COMMON NORMALS: no rashes or lesions noted GENERAL SKIN EXAM: no rashes or lesions noted Course Vital Signs: Vital signs: Vital Signs Temperature 98.5 F 01/17/24 08:07 Pulse Rate 85 01/17/24 10:31 Respiratory Rate 17 01/17/24 10:20 Blood Pressure 159/76 01/17/24 10:31 Pulse Oximetry 93 01/17/24 10:31 Oxygen Delivery Me thod Room Air 01/17/24 08:07 MDM - Neck Pain/Injury Medical Decision Making No acute trauma no red flag symptoms. Patient given steroids muscle relaxer and NSAIDs along with morphine did have improvement of pain continue oxycodone at home discharged home with steroid taper to begin tomorrow as well as tizanidine and diclofenac. Follow-up with her pain clinic. Medical Records I reviewed the patient's medical records. Lab Data I reviewed the patient's lab results. No radiology studies performed this visit Discharge Plan Discharge Patient Disposition: Home Clinical Impression: Chronic neck pain Condition: Stable Prescriptions: New tizanidine 4 mg tablet 4 mg PO Q6H PRN (Reason: muscle spasticity) Qty: 20 0RF Rx Instructions: do not exceed 3 doses per 24 hrs prednisone 20 mg tablet 20 mg PO TID Qty: 15 0RF Rx Instructions: 1 p.o. 3 times daily x3 days, 1 p.o. twice daily x2 days, 1 p.o. daily x2 days diclofenac sodium 75 mg tablet,delayed release (DR/EC) 75 mg PO Q12H PRN (Reason: pain) Qty: 20 0RF No Action atorvastatin 20 mg tablet 20 mg PO .BEDTIME topiramate 50 mg capsule,extended release 24hr 50 mg PO DAILY carvedilol 25 mg tablet 25 mg PO DIRECTED Rx Instructions: 1/2 TAB IN THE AM AND 1 TAB IN THE PM Colace 100 mg capsule 100 mg PO BID PRN nitroglycerin 0.4 mg tablet, sublingual 0.4 mg SUBLINGUAL Q5M PRN (Reason: CHEST PAINS) Qty: 25 3RF oxycodone 15 mg tablet 15 mg PO QID PRN (DME) Tricia Joy See Rx Instructions .Route .MEDSUPPLY Rx Instructions: As directed lisinopril 20 mg tablet 20 mg PO BID amlodipine 5 mg tablet 5 mg PO DAILY Qty: 90 3RF isosorbide mononitrate 30 mg tablet extended release 24 hr 30 mg PO BID Qty: 180 3RF Discharge Orders: Discharge ED (Routine); Ordered 01/17/24 Ordered By: Adonay Arrington Referrals: Raven Peres MD [Primary Care Provider] - Discharge Diet: Usual diet Discharge Activity: Limit activity as instructed Patient Instructions: Opioid Safety, Pain Management Activity Restrictions/Additional Instructions: Thank you for choosing [facility] for your healthcare needs today. It is very important that you follow up as instructed or that you return to the Emergency Department should you have concerns or if your condition changes or worsens in any way. You are seen today for worsening of your chronic neck pain. Recommend you continue the prescription medications you have been given by the pain clinic in addition to this you are given a shot of steroids in the emergency room you can start the oral steroid taper tomorrow. You were also given tizanidine to use as needed and diclofenac to use as needed. Do not take any ibuprofen or Aleve whi le taking the diclofenac as they are very similar medications. Follow-up with your pain clinic for further treatment options for long-term management of your chronic neck pain Coding Level of Care Code ED Helicopter Specialist for Papi Brody
[2024-01-17 09:45] VITALS: RESP 20; O2SAT 93
[2024-01-17] MEDS: morphine 4 mg/mL SDV 1 mL IVP (09:45)
[2024-01-17 10:20] VITALS: RESP 17; O2SAT 92
[2024-01-17] MEDS: morphine 4 mg/mL SDV 1 mL 2 MG IVP (10:20)
[2024-01-17 10:31] VITALS: BP 159/76; PULSE 85; O2SAT 93
== END 2024-01-17 10:33 | disposition home or self-care (01) ==
PROVIDERS: Emergency Provider Family Medicine; PCP Family Medicine
DX: G89.29 Other chronic pain (principal); M54.2 Cervicalgia; Z87.891 Personal history of nicotine dependence; I10 Essential (primary) hypertension; E78.5 Hyperlipidemia, unspecified
CPT/HCPCS: 96372; 96374; 96375; 96376; 99284; J1100; J1885; J2270; J2360

== ENCOUNTER 2024-01-19 01:44 | Inpatient (IN) | payer MEDICARE, SELFPAY ==
[2024-01-19] VITALS (20 sets, daily range): BP systolic 92–205; BP diastolic 48–105; PULSE 66–120; RESP 16–34; TEMP 36.5–36.7; O2SAT 91–99; BMI 26.7
--- NOTE | 2024-01-19 02:04 | ECG_ITS ---
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 Measurements Intervals [place] Rate: 111 P: 52 TX: 132 QRS: 10 QRSD: 152 T: 112 QT: 342 QTc: 467 Interpretive Statements SINUS TACHYCARDIA WITH OCCASIONAL VENTRICULAR PREMATURE COMPLEXES POSSIBLE LEFT ATRIAL ENLARGEMENT [-0.1mV P-WAVE IN V1/V2] LEFT BUNDLE BRANCH BLOCK [120+ ms QRS DURATION, 80+ ms Q/S IN V1/V2, 85+ ms R IN I/aVL/V5/V6] Compared to ECG 06/10/2020 02:18:02 Ventricular premature complex(es) now present Sinus bradycardia no longer present Left-axis deviation no longer present Electronically Signed On 01-19-2024 15:25:04 CDT by Linwood Chung M.D. [email or web address]
--- NOTE | 2024-01-19 02:32 | XRR_ITS ---
PROCEDURE INFORMATION: Exam: XR Chest Exam date and time: 01/19/2024 2:44 AM Age: 78 years old Clinical indication: Shortness of breath and other: Tachycardia; Patient HX: SOB with tachycardia TECHNIQUE: Imaging protocol: Radiologic exam of the chest. Views: 1 view. COMPARISON: CR XR ribs RT mn 3V w CXR1V [id number] 12/24/2022 9:17 AM FINDINGS: Lungs: Unremarkable. No consolidation. Pleural spaces: Unremarkable. No pleural effusion. No pneumothorax. Heart/Mediastinum: Unremarkable. No cardiomegaly. Bones/joints: Median sternotomy wires are present. Negative for thoracic fracture. XR/XR chest 1V portable [id number] IMPRESSION: Negative for focal acute pulmonary disease.
[2024-01-19 02:40] LABS: Basophils % 0.1 %; Hematocrit 43.9 % (36-47); Lymphocytes # 0.7 10^3/uL (0.8-4.8); Lymphocytes % 7.7 %; Mean Corpuscular HGB Conc 32.6 g/dL (30-55); Mean Platelet Volume 11.6 fL (7.4-10.4); Monocytes # 0.3 10^3/uL (0.2-0.9); Monocytes % 3.3 %; Neutrophils # 8.23 10^3/uL (1.8-7.7); Neutrophils % 88.6 %; Nucleated Red Blood Cells % 0 %; Platelet Count 172 10^3/cmm (157-399); Red Blood Count 4.93 10^6/uL (3.85-5.65); Red Cell Distribution Width 12.1 % (12.1-15.1)
[2024-01-19] MEDS: orphenadrine 30 mg/mL Inj 2 mL 60 MG IVP (02:41)
[2024-01-19] MEDS: ondansetron 2 mg/ML SDV 2 mL 4 MG IVP (02:41)
[2024-01-19] MEDS: metoprolol tartrate 1 mg/1 mL SDV 5 mL 5 MG IVP (02:41)
[2024-01-19] MEDS: HYDROmorphone 1 mg/mL INJ 1 mL IVP ×2 (02:41→06:22)
[2024-01-19 03:02] LABS: Troponin(5th) Baseline 26 ng/L (0-10)
[2024-01-19 03:03] LABS: D Dimer 8.79 ug/mLFEU (0-0.59)
--- NOTE | 2024-01-19 03:06 | CTR_ITS ---
PROCEDURE INFORMATION: Exam: CTA Head With Contrast, Arteriography Exam date and time: 01/19/2024 3:46 AM Age: 78 years old Clinical indication: Other: Hypertensive; Patient HX: C/O severe neck pain with hypertension over 200 systolic. ; Additional info: Neck pain, tachycardia, elevated d dimer. TECHNIQUE: Imaging protocol: Computed tomographic angiography of the head with contrast. Exam focused on the arteries. 3D rendering (Not supervised by radiologist): MIP and/or 3D reconstructed images were created by the technologist. Radiation optimization: All CT scans at this facility use at least one of these dose optimization techniques: automated exposure control; mA and/or kV adjustment per patient size (includes targeted exams where dose is matched to clinical indication); or iterative reconstruction. Contrast material: OMNI 350; Contrast volume: 100 ml; Contrast route: INTRAVENOUS (IV); COMPARISON: CT head wo con* [id number] 03/22/2022 10:10 AM RADIATION DOSE METRICS: Total DLP (mGy-cm): 1045.29 FINDINGS: ANTERIOR CIRCULATION: Right internal carotid artery: Intracranial segment is patent with no significant stenosis. No aneurysm. Right middle cerebral artery: No occlusion or significant stenosis. No aneurysm. Right anterior cerebral artery: No occlusion or significant stenosis. No aneurysm. Left internal carotid artery: Intracranial segment is patent with no significant stenosis. No aneurysm. Left middle cerebral artery: No occlusion or significant stenosis. No aneurysm. Left anterior cerebral artery: No occlusion or significant stenosis. No aneurysm. POSTERIOR CIRCULATION: Right vertebral artery: No occlusion or significant stenosis. No aneurysm. Left vertebral artery: No occlusion or significant stenosis. No aneurysm. Basilar artery: No occlusion or significant stenosis. No aneurysm. Right posterior cerebral artery: No occlusion or significant stenosis. No aneurysm. Left posterior cerebral artery: No occlusion or significant stenosis. No aneurysm. Brain: There is mild cerebral atrophy. There is moderate diffuse heterogeneity of the white matter attenuation, consistent with chronic white matter ischemic changes. Negative for intracranial hemorrhage. Negative for intracranial mass. No visible acute brain ischemia. Negative for midline shift of the brain. Negative for mass effect on the brain. Cerebral ventricles: No ventriculomegaly. Bones/joints: Unremarkable. No acute fracture. Soft tissues: Unremarkable. PROCEDURE INFORMATION: Exam: CTA Neck With Contrast Exam date and time: 01/19/2024 3:46 AM Age: 78 years old Clinical indication: Other: Hypertensive; Patient HX: C/O severe neck pain with hypertension over 200 systolic. ; Additional info: Neck pain, tachycardia, elevated d dimer. TECHNIQUE: Imaging protocol: Computed tomographic angiography of the neck with contrast. Exam focused on the cervical segments of the vasculature. 3D rendering (Not supervised by radiologist): MIP and/or 3D reconstructed images were created by the technologist. Radiation optimization: All CT scans at this facility use at least one of these dose optimization techniques: automated exposure control; mA and/or kV adjustment per patient size (includes targeted exams where dose is matched to clinical indication); or iterative reconstruction. Contrast material: OMNI 350; Contrast volume: 100 ml; Contrast route: INTRAVENOUS (IV); COMPARISON: MR orbit face neck wo/w* [id number] 09/20/2023 12:26 PM RADIATION DOSE METRICS: Total DLP (mGy-cm): 1045.29 FINDINGS: Right common carotid artery: No stenosis. No dissection or occlusion. Right internal carotid artery: Small volume focal mixed plaque proximal right ICA. Minimal stenosis. Right external carotid artery: No occlusion or stenosis of the origin. Left common carotid artery: No stenosis. No dissection or occlusion. Left internal carotid artery: Moderate to large volume calcified plaque left ICA origin. Mild severity stenosis. Left external carotid artery: No occlusion or stenosis of the origin. Right vertebral artery: No stenosis. No dissection or occlusion. Left vertebral artery: No stenosis. No dissection or occlusion. Soft tissues: Normal. No significant soft tissue swelling. Bones/joints: No acute fracture. CT/CT angio headneck* [id number] IMPRESSION: 1. Negative for intracranial large arterial vessel occlusion. 2. Negative for acute intracranial pathology. IMPRESSION: 1. Mild severity bilateral carotid artery stenosis estimated less than 50%. 2. Negative for vascular occlusion in the neck. REFERENCES: NASCET CRITERIA. The degree of stenosis in the cervical segment of the internal carotid artery is based on NASCET criteria. Normal is no stenosis. Mild is less than 50% stenosis. Moderate is 50-69% stenosis. Severe is 70% to 99% stenosis. Total occlusion is no detectable patent lumen.
--- NOTE | 2024-01-19 03:06 | CTR_ITS ---
PROCEDURE INFORMATION: Exam: CTA Chest With Contrast Exam date and time: 01/19/2024 3:53 AM Age: 78 years old Clinical indication: Abnormal findings; Abnormal diagnostic tests; Elevated d-dimer; Shortness of breath and other: Tachycardia; Prior surgery; Surgery date: 6+ months; Surgery type: Thymectomy. Gb; Patient HX: SOB with tachycardia. Dimer 8.8; Additional info: Chest pain, neck pain, tachycardia, elevated d dimer TECHNIQUE: Imaging protocol: Computed tomographic angiography of the chest with contrast. Exam focused on the arteries. 3D rendering (Not supervised by radiologist): MIP and/or 3D reconstructed images were created by the technologist. Radiation optimization: All CT scans at this facility use at least one of these dose optimization techniques: automated exposure control; mA and/or kV adjustment per patient size (includes targeted exams where dose is matched to clinical indication); or iterative reconstruction. Contrast material: OMNI 350; Contrast volume: 63 ml; Contrast route: INTRAVENOUS (IV); COMPARISON: CR (CHEST, ) 01/19/2024 2:44 AM RADIATION DOSE METRICS: Total DLP (mGy-cm): 344.06 FINDINGS: Pulmonary arteries: There are small scattered subsegmental emboli present. Thrombus burden is very low. Aorta: Unremarkable. No aortic aneurysm. No aortic dissection. Lungs: Unremarkable. No consolidation. No masses. Pleural spaces: Unremarkable. No pneumothorax. No pleural effusion. Heart: Unremarkable. No cardiomegaly. No pericardial effusion. Heart RV/LV ratio: RV LV ratio is less than 1. Lymph nodes: Visible central lymph nodes are not pathologically enlarged. Diaphragm: Small hiatal hernia. Bones/joints: Unremarkable. No acute fracture. Soft tissues: Unremarkable. Other findings: Small calcified granuloma on the right side. CT/CT angio chest PE protcl [id number] IMPRESSION: Small scattered bilateral pulmonary emboli.
[2024-01-19 03:11] LABS: NT Pro B Type Natriuretic Pept 4818 pg/mL (0-450)
--- NOTE | 2024-01-19 03:22 | ED_ITS ---
HPI - Neck Pain/Injury 2 General: Chief Complaint: Neck Pain/Injury Stated Complaint: neck pain Time Seen by Provider: 01/19/24 02:24 History of Present Illness: 78-year-old female with chronic neck chaparro n. She presents with worsening of her chronic neck pain for the last 3 to 4 days. She was seen once at urgent care, and wants 2 days ago here in the emergency department for the same neck pain. She experiences significant pain with turning her head. She has headache. This is despite pain medication, muscle relaxers, and anti-inflammatories. She is also complaining of the pain radiating into the top of her chest, with some shortness of breath as well. She is noted in triage to be tachycardic, and requiring oxygen. Associated symptoms: Reports nausea; Denies dizziness or headache(s) Review of Systems 2 Const: Denies: fever(s), chills or body aches Eyes: Denies: change in vision Card: Reports: chest pain and palpitations Resp: Reports: dyspnea; Denies: productive cough, non-productive cough or wheezing GI: Reports: nausea; Denies: abdominal pain, vomiting, diarrhea or hematochezia : Denies: difficulty voiding Musc: Reports: neck pain Skin/Breast: Denies: rash Neuro: Denies: headache(s), weakness in extremities, dizziness or confusion PFSH ED 2 PFSH: Medical History Renal cyst, left Tricuspid valve regurgitation Mitral valve regurgitation Shortness of breath HTN (hypertension), benign Hyperlipidemia GERD (gastroesophageal reflux disease) Cervical disc disorder with myelopathy of mid-cervical region CRPS (complex regional pain syndrome type I) last stellate ganglion block was in 2012. 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. S/P hip replacement BILATERAL - TOTAL S/P hysterectomy PARTIAL FOR DYSMENORRHEA S/P lumbar spinal fusion 2001 [place], [place] L2-L3, L3-L4, L4-L5, and L5-S1 fusion/fixation 1986 [facility] L4-L5, L5-S1 decompression 05/1977 L5-S1 decompression S/P reduction mammoplasty S/P thymectomy 1984 AGE 15 MYASTHENIA GRAVIS S/P tubal ligation Status post colonoscopy Status post laparoscopic cholecystectomy (06/10/20) Family History Father Hypertension Heart disease age 60 Diabetes Mother Heart disease age 50 Cancer lung Stroke Denies family history of Anesthesia complication Bleeding disorder Social History Smoking and tobacco/nicotine status: former use of tobacco/nicotine Alcohol intake: never Substance/Drug Use: never Marital status: Current occupational status: employed 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 No significant muscle spasm or torticollis. She does have increased pain with head turn. No deformity. Pain is nonradicular. Chest: CHEST: Yes Symmetrical chest wall rise Resp: COMMON NORMALS: clear to auscultation bilaterally EFFORT & INSPECTION: Yes tachypneic AUSCULTATION: clear to auscultation bilaterally Cardio: COMMON NORMALS: regular rhythm RATE: tachycardic RHYTHM: regular rhythm GI: COMMON NORMALS: Normal to inspection, nondistended, normoactive bowel sounds present Extremity: COMMON NORMALS: no pedal edema Neuro: [place]OOD COMA SCALE: document GCS findings [place] coma scale eye opening: Spontaneous Masood coma scale verbal response: Orientated [place] coma scale motor response: Obey commands [place] coma scale total score: 15 S ENSORY EXAM: Yes extremities (intact) Psych: COMMON NORMALS: speech normal SPEECH: Yes normal speech Skin: COMMON NORMALS: no rashes or lesions noted GENERAL SKIN EXAM: no rashes or lesions noted Course 2 Vital Signs: Vital signs: Vital Signs Temperature 98 F 01/19/24 01:58 Pulse Rate 73 01/19/24 05:32 Respiratory Rate 17 01/19/24 05:32 Blood Pressure 125/66 01/19/24 05:19 Pulse Oximetry 97 01/19/24 05:32 Oxygen Delivery Me thod Nasal Cannula 01/19/24 05:19 Oxygen Flow Rate 3 01/19/24 05:19 MDM - Neck Pain/Injury Medical Decision Making 78-year-old female with neck pain, now in her upper chest, shortness of breath. She is tachycardic and requiring oxygen on arrival. On 2 L, saturations are 98%. She is no longer tachycardic after metoprolol. She was quite hypertensive on arrival, normotensive now. Chest x-ray is negative. CBC is normal. EKG showed tachycardia without acute ST wave changes. Sodium is 130. BUN is 28. Her first troponin is elevated, delta troponin is 39. D-dimer is 8.8, so CTA of the chest was ordered along with CTA of the head and neck. There is no arterial dissection present in the neck. There is however subsegmental small PEs bilaterally in this patient. She has been given Lovenox. She will go to the [facility]. Hospitalist agrees to admit. Lab Data 01/19/24 02:14 01/19/24 04:06 Radiology Impressions Chest X-Ray 01/19/24 02:32 IMPRESSION: Negative for focal acute pulmonary disease. Chest CTA 01/19/24 03:06 IMPRESSION: Small scattered bilateral pulmonary emboli. ADDENDUM: 01/19/24 0556 THIS REPORT CONTAINS FINDINGS THAT MAY BE CRITICAL TO PATIENT CARE. The findings were verbally communicated via telephone conference with BIRD REYES at 5:54 AM CDT on 01/19/2024. The findings were acknowledged and understood. Head/Neck CTA 01/19/24 03:06 IMPRESSION: 1. Negative for intracranial large arterial vessel occlusion. 2. Negative for acute intracranial pathology. IMPRESSION: 1. Mild severity bilateral carotid artery stenosis estimated less than 50%. 2. Negative for vascular occlusion in the neck. REFERENCES: NASCET CRITERIA. The degree of stenosis in the cervical segment of the internal carotid artery is based on NASCET criteria. Normal is no stenosis. Mild is less than 50% stenosis. Moderate is 50-69% stenosis. Severe is 70% to 99% stenosis. Total occlusion is no detectable patent lumen. Laboratory Results WBC 9.30 10^3/uL (3.29-11.43) 01/19/24 02:14 RBC 4.93 10^6/uL (3.85-5.65) 01/19/24 02:14 Hgb 14.30 g/dL (11.27-16.99) 01/19/24 02:14 Hct 43.9 % (36-47) 01/19/24 02:14 MCV 89.0 fl (85-98) 01/19/24 02:14 MCH 29.0 pg (27-33) 01/19/24 02:14 MCHC 32.6 g/dL (30-55) 01/19/24 02:14 RDW 12.1 % (12.1-15.1) 01/19/24 02:14 Plt Count 172 10^3/cmm (157-399) 01/19/24 02:14 MPV 11.6 fL (7.4-10.4) H 01/19/24 02:14 Neut % (Auto) 88.6 % 01/19/24 02:14 Lymph % (Auto) 7.7 % 01/19/24 02:14 Lewis % (Auto) 3.3 % 01/19/24 02:14 Eos % (Auto) 0.0 % 01/19/24 02:14 Baso % (Auto) 0.1 % 01/19/24 02:14 Neut # (Auto) 8.23 10^3/uL (1.8-7.7) H 01/19/24 02:14 Lymph # (Auto) 0.7 10^3/uL (0.8-4.8) L 01/19/24 02:14 Lewis # (Auto) 0.3 10^3/uL (0.2-0.9) 01/19/24 02:14 Eos # (Auto) 0.0 10^3/uL (0.0-0.8) 01/19/24 02:14 Baso # (Auto) 0.0 10^3/uL (0.0-0.1) 01/19/24 02:14 Nucleated RBC % (auto) 0 % 01/19/24 02:14 Nucleated RBCs # 0.0 /100WBC 01/19/24 02:14 D-Dimer 8.79 ug/mLFEU (0-0.59) H 01/19/24 02:14 Sodium 130 mmol/L (136-145) L 01/19/24 04:06 Potassium 3.6 mmol/L (3.5-5.1) 01/19/24 04:06 Chloride 96 mmol/L (98-107) L 01/19/24 04:06 Carbon Dioxide 23 mmol/L (22-29) 01/19/24 04:06 Anion Gap 14.6 (5-19) 01/19/24 04:06 BUN 28 mg/dL (8-23) H 01/19/24 04:06 Creatinine 0.7 mg/dL (0.5-0.9) 01/19/24 04:06 GFR Calculation Not Reportable 01/19/24 04:06 Glucose 97 mg/dL (65-115) 01/19/24 04:06 Calculated Osmolality 275 mOsm/kg (285-295) L 01/19/24 04:06 Calcium 7.5 mg/dL (8.5-10.5) L 01/19/24 04:06 Total Bilirubin 0.5 mg/dL (0.15-1.2) 01/19/24 04:06 AST 15 U/L (0-32) 01/19/24 04:06 ALT 13 U/L (0-33) 01/19/24 04:06 Alkaline Phosphatase 56 U/L (35-105) 01/19/24 04:06 Troponin T Baseline 26 ng/L (0-10) H 01/19/24 02:14 Troponin T 120 Minute 64.67 ng/L (0-10) H 01/19/24 04:06 Delta Troponin T 38.67 ABS# (0-10) H* 01/19/24 04:06 NT-Pro-B Natriuret Pep 4818 pg/mL (0-450) H 01/19/24 02:14 Total Protein 5.1 g/dL (6.6-8.7) L 01/19/24 04:06 Albumin 2.7 g/dL (3.5-5.2) L 01/19/24 04:06 Globulin 2.4 g/dL (1.3-4.6) 01/19/24 04:06 All radiology interpretation(s) finalized by discharge Discharge Plan Discharge Patient Disposition: Admitted As Inpatient Clinical Impression: Pulmonary embolism, Chest pain, Chronic neck pain, Non-STEMI (non-ST elevated myocardial infarction) Condition: Fair Prescriptions: No Action atorvastatin 20 mg tablet 20 mg PO .BEDTIME topiramate 50 mg capsule,extended release 24hr 50 mg PO DAILY carvedilol 25 mg tablet 25 mg PO DIRECTED Rx Instructions: 1/2 TAB IN THE AM AND 1 TAB IN THE PM Colace 100 mg capsule 100 mg PO BID PRN nitroglycerin 0.4 mg tablet, sublingual 0.4 mg SUBLINGUAL Q5M PRN (Reason: CHEST PAINS) Qty: 25 3RF oxycodone 15 mg tablet 15 mg PO QID PRN (DME) Tricia Joy See Rx Instructions .Route .MEDSUPPLY Rx Instructions: As directed lisinopril 20 mg tablet 20 mg PO BID amlodipine 5 mg tablet 5 mg PO DAILY Qty: 90 3RF isosorbide mononitrate 30 mg tablet extended release 24 hr 30 mg PO BID Qty: 180 3RF tizanidine 4 mg tablet 4 mg PO Q6H PRN (Reason: muscle spasticity) Qty: 20 0RF Rx Instructions: do not exceed 3 doses per 24 hrs prednisone 20 mg tablet 20 mg PO TID Qty: 15 0RF Rx Instructions: 1 p.o. 3 times daily x3 days, 1 p.o. twice daily x2 days, 1 p.o. daily x2 days diclofenac sodium 75 mg tablet,delayed release (DR/EC) 75 mg PO Q12H PRN (Reason: pain) Qty: 20 0RF Referrals: Raven Peres MD [Primary Care Provider] - Coding Level of Care Code ED Breeding Technician for Papi Brody
[2024-01-19] MEDS: iohexol 350 mg/mL 500 mL Btl (per mL) IV (04:05)
--- NOTE | 2024-01-19 04:32 | ECG_ITS ---
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 Measurements Intervals [place] Rate: 63 P: 40 IA: 166 QRS: 44 QRSD: 153 T: 241 QT: 477 QTc: 489 Interpretive Statements SINUS RHYTHM LEFT BUNDLE BRANCH BLOCK [120+ ms QRS DURATION, 80+ ms Q/S IN V1/V2, 85+ ms R IN I/aVL/V5/V6] Compared to ECG 01/19/2024 09:10:29 No significant changes Electronically Signed On 01-19-2024 15:25:24 CDT by Linwood Chung M.D. [id number]
[2024-01-19 04:55] LABS: Troponin 5 2HR 64.67 ng/L (0-10)
[2024-01-19 04:57] LABS: Alanine Aminotransferase 13 U/L (0-33); Albumin Level 2.7 g/dL (3.5-5.2); Alkaline Phosphatase 56 U/L (35-105); Anion Gap 14.6 (5-19); Aspartate Amino Transferase 15 U/L (0-32); Blood Urea Nitrogen 28 mg/dL (8-23); Calcium 7.5 mg/dL (8.5-10.5); Carbon Dioxide 23 mmol/L (22-29); Chloride 96 mmol/L (98-107); Creatinine Clr Calc Pharmacy 54.6998; Globulin 2.4 g/dL (1.3-4.6); Glucose 97 mg/dL (65-115); Osmolality Calculated 275 mOsm/kg (285-295); Potassium 3.6 mmol/L (3.5-5.1); Sodium 130 mmol/L (136-145); Total Bilirubin 0.5 mg/dL (0.15-1.2); Total Protein 5.1 g/dL (6.6-8.7)
[2024-01-19 05:00] LABS: Troponin 5 2HR Delta 38.67 ABS# (0-10)
[2024-01-19] MEDS: enoxaparin 80 mg/0.8 mL Syringe 70 MG SUBCUT (06:22)
--- NOTE | 2024-01-19 07:26 | USCV_ITS ---
Emma Navarrete Age: 78 Gender: F : 1945 Exam Date: 01/19/2024 11:53 Ordering Phys: Geovanna Cheung MD Technologist: Renzo Smyth Exam Location: [facility] – [place] Indication: PE BP: 177 / 88 HR: 63 Rhythm: Sinus Technical Quality: Adequate MEASUREMENTS (Male / Female) Normal Values 2D ECHO LV Diastolic Diameter PLAX 4.0 cm 4.2 - 5.9 / 3.9 - 5.3 cm IVS Diastolic Thickness 1.4 cm 0.6 - 1.0 / 0.6 - 0.9 cm IVS Systolic Thickness 1.6 cm LVPW Diastolic Thickness 2.0 cm 0.6 - 1.0 / 0.6 - 0.9 cm LVPW Systolic Thickness 2.3 cm LVOT Diameter 2.0 cm LV Ejection Fraction 2D Teich 62.5 % LV Ejection Fraction MOD 2C 47.9 % LV Ejection Fraction 2C AL 50.6 % LA Diameter 3.5 cm RA Systolic Volume 4C AL 36.2 ml RA Systolic Volume 4C MOD 37.9 ml LA Sys Volume AL 49.8 cm cubed LA Sys Volume Index AL 28.3 cm cubed/m squared Aorta at Sinotubular Diameter 1.9 cm IVC Diameter 1.9 cm M-MODE LA Ao Ratio MM 1.6 AV Cusp Separation MM 1.9 cm DOPPLER AV Peak Velocity 142.0 cm/s LVOT Peak Velocity 92.0 cm/s AV Area Cont Eq vti 2.8 cm squared AV Area Cont Eq pk 2.1 cm squared MV Peak Velocity 120.0 cm/s MV Area PHT 3.8 cm squared Mitral E to A Ratio 0.6 TV Peak Velocity 285.0 cm/s TR Peak Velocity 290.0 cm/s TR Peak Gradient 33.6 mmHg TR Mean Velocity 227.0 cm/s TR Mean Gradient 22.5 mmHg TR Velocity Time Integral 70.5 cm PV Peak Velocity 100.3 cm/s RV Ejection Time 0.3 s FINDINGS Left Ventricle Left ventricle is normal in size. LV systolic function is mildly reduced with EF of 45 to 50%. Mild global hypokinesis. Grade 1 diastolic dysfunction. Right Ventricle Normal in size and function Right Atrium Normal in size Left Atrium Normal in size Mitral Valve Mild mitral annular calcification. Mild to moderate mitral regurgitation. Aortic Valve Grossly normal. No significant stenosis or regurgitation. Tricuspid Valve Mild tricuspid regurgitation. Pulmonary artery systolic pressure is normal. Pulmonic Valve Not well visualized Pericardium Normal Aorta Normal in size IVC Appears to be normal CONCLUSIONS LV systolic fucntion is normal with EF of 45-50% Grade 1 diastolic dysfunction Mild to moderate mitral regurgitation Mild tricuspid regurgitation Compared to prior echocardiogram from 2020, patient now has mild to moderate mitral regurgitation. LV systolic function is the same as before. Linwood Chung MD (Electronically Signed) Final Date: 19 January 2024 21:49 S
--- NOTE | 2024-01-19 09:10 | ECG_ITS ---
[facility] Test Date: 2024-01-19 Pat Name: Emma Navarrete Department: Room: 104 Gender: Female Designer Writer: : 1945 Requested By: Bird Reyna Order Number: [id number] Mahendra MD: Linwood Chung M.D. Measurements Intervals [place] Rate: 72 P: 64 WV: 162 QRS: 14 QRSD: 158 T: 124 QT: 468 QTc: 513 Interpretive Statements SINUS RHYTHM POSSIBLE LEFT ATRIAL ENLARGEMENT [-0.1mV P-WAVE IN V1/V2] LEFT BUNDLE BRANCH BLOCK [120+ ms QRS DURATION, 80+ ms Q/S IN V1/V2, 85+ ms R IN I/aVL/V5/V6] Compared to ECG 01/19/2024 02:03:52 Sinus tachycardia no longer present Ventricular premature complex(es) no longer present Electronically Signed On 01-19-2024 15:25:31 CDT by Linwood Chung M.D. [id number]
[2024-01-19] MEDS: aspirin 81 mg Chew Tablet 324 MG PO (09:22)
[2024-01-19] MEDS: morphine 4 mg/mL SDV 1 mL 2 MG IVP (09:57)
[2024-01-19] MEDS: enoxaparin 40 mg/0.4 mL Syringe 70 MG SUBCUT ×2 (10:00→21:39)
[2024-01-19] MEDS: acetaminophen 325 mg Tablet 650 MG PO (10:03)
[2024-01-19] MEDS: pantoprazole DR 40 mg Tablet PO (10:03)
--- NOTE | 2024-01-19 10:04 | PM.HP ---
Providers/Chief Complaint Admitting Physician: Geovanna Cheung MD Primary Care Provider: Raven Peres MD Chief Complaint: neck pain History of Present Illness Emma Navarrete is a 78 year old female with past medical history of hypertension, hyperlipidemia, moderate mitral valve regurgitation, mild to moderate tricuspid regurgitation, history of blood clot in the past, being followed up with orthopedic surgery for neck pain initially came to the ER because of neck pain along with difficulty in breathing which has been getting worse over last 2 to 3 days. In the ER she was found to have scattered pulmonary embolism hence hospital service was consulted for further management. Patient currently denies any difficulty in breathing, nausea or vomiting. Saturating more than 95% on 1.5 L of oxygen supplementation. She also complains of chest pressure and chest pain on exertion which gets better with rest. Review of Systems General: Reports: 10 or more systems reviewed and unremarkable except in HPI and below Const: Denies: fever(s), chills, body aches, change in appetite, change in weight, malaise, night sweats, diaphoresis, change in sleep pattern, daytime sleepiness or snoring Eyes: Denies: change in vision, blurry vision, photophobia, eye discomfort or eye discharge ENMT: Denies: throat pain, enlarged tonsils, hoarseness, mouth pain, oral sores, dry mouth, tinnitus, nasal congestion or post nasal drip Card: Denies: chest pain, palpitations, irregular heart rhythm, edema, swelling of feet/ankles, lightheadedness, syncope, pre-syncope, dyspnea on exertion, orthopnea, leg pain with exertion or acrocyanosis Resp: Denies: dyspnea, productive cough, non-productive cough, wheezing, stridor, pain on inspiration, change in phlegm color, hemoptysis or chest congestion GI: Denies: abdominal pain, nausea, vomiting, hematemesis, coffee ground emesis, dysphagia, heartburn, diarrhea, constipation, bloating, GI cramping, change in bowel habits, pain on defecation, hematochezia or melena : Denies: flank pain, dysuria, urinary frequency, urinary urgency, urinary hesitancy, nocturia or hematuria Musc: Denies: neck pain, back pain, extremity pain, joint pain, joint swelling, joint redness, joint stiffness or limited range of motion Neuro: Denies: headache(s), numbness in extremities, weakness in extremities, sensory changes, lack of coordination, difficulty walking, frequent falls, dizziness, vertigo, confusion, Slurred speech present, difficulty communicating thoughts or seizure-like activity Psych: Denies: anxiety, depression, mood swings, panic attacks, hopelessness or irritability Endo: Denies: polyuria, polydipsia, tired all the time, cold intolerance, excessive sweating, flushing or heat intolerance Darryn/Lymph: Denies: easy bruising or easy bleeding All/Imm: Denies: tongue swelling, facial swelling or acute wheezing Medications/Allergies Home Medications Medication Instructions Recorded Confirmed Last Taken Type atorvastatin 20 mg tablet 20 mg PO .BEDTIME 08/13/19 10/31/23 06/07/20 History docusate sodium 100 mg capsule 100 mg PO BID PRN 09/09/20 10/31/23 Unknown History (Colace) nitroglycerin 0.4 mg sublingual 0.4 mg sublingual Q5M PRN CHEST 09/09/20 10/31/23 Unknown Rx tablet PAINS #25 tabs topiramate 50 mg capsule,extended 50 mg PO DAILY 09/09/20 10/31/23 Unknown History release 24 hr carvedilol 25 mg tablet 25 mg PO DIRECTED 03/10/21 10/31/23 Unknown History oxycodone 15 mg tablet 15 mg PO QID PRN 11/30/21 02/06/22 Unknown History Winslow J 06/11/22 Unknown History amlodipine 5 mg tablet 5 mg PO DAILY #90 tabs 06/11/22 10/31/23 Unknown Rx lisinopril 20 mg tablet 20 mg PO BID 06/11/22 10/31/23 Unknown History isosorbide mononitrate 30 mg 30 mg PO BID #180 tabs 10/29/22 10/31/23 Unknown Rx tablet,extended release 24 hr diclofenac sodium 75 mg 75 mg PO Q12H PRN pain #20 tabs 01/17/24 Unknown Rx tablet,delayed release prednisone 20 mg tablet 20 mg PO TID #15 tabs 01/17/24 Unknown Rx tizanidine 4 mg tablet 4 mg PO Q6H PRN muscle spasticity 01/17/24 Unknown Rx #20 tabs Allergies Allergy/AdvReac Type Severity Reaction Status Date / Time oxycodone [From [facility] ER] Allergy bad taste Verified 01/17/24 08:14 in mouth PFSH Acute PFSH: Medical History (Updated 01/19/24 @ 13:27 by Mateus Hart MD) Stenosis of cervical spine with myelopathy Renal cyst, left Tricuspid valve regurgitation Mitral valve regurgitation Shortness of breath HTN (hypertension), benign Hyperlipidemia GERD (gastroesophageal reflux disease) Cervical disc disorder with myelopathy of mid-cervical region CRPS (complex regional pain syndrome type I) last stellate ganglion block was in 2012. 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 L2-L3, L3-L4, L4-L5, and L5-S1 fusion/fixation 1986 [facility] L4-L5, L5-S1 decompression 05/1977 L5-S1 decompression S/P thymectomy 1983 AGE 15 MYASTHENIA GRAVIS S/P bladder repair ANTERIOR VAG REPAIR WITH ELEVATE VAG MESH, POSTERIOR REPAIR AND CYSTOSCOPY DR SYLVIA HOWELL [facility]. 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 [employer] Vitals/I&O/Wt Last Vital Signs Temp 98.0 F 01/19/24 09:41 Pulse 71 01/19/24 09:41 Resp 20 H 01/19/24 09:57 BP 177/88 01/19/24 09:41 Pulse Ox 99 01/19/24 09:57 O2 Del Method Nasal Cannula 01/19/24 09:41 O2 Flow Rate 3 01/19/24 06:28 Weight last 48 hrs Weight 68.492 kg Physical Exam Narrative: General: No acute distress, AO x3, anxious, in mild distress because of neck pain on nasal cannula HEENT: PERRLA, pupils bilaterally equal and reactive Chest: Normal vesicular breath sounds, no added sounds, equal good air entry bilaterally CVS: S1-S2 regular, soft pansystolic murmur at apex radiating to anterior midline, fourth intercostal space left retrosternal radiating to pericardium 2/6, no tachycardia, no gallops, no rubs Abdomen: Soft, nontender, no organomegaly, bowel sounds present Neuro: No focal deficits, no facial deformity, AO x3, power 5/5 in all limbs Data 01/19/24 02:14 01/19/24 04:06 A&P Assessment and plan (1) Pulmonary embolism: Seen on CTA. Bilateral scattered. Check echocardiogram to rule out right heart strain. Start on anticoagulation with Lovenox 1 mg/kg body weight every 12 hourly. Oxygen supplementation keeping saturation over 92%. (2) Chest pain: Does complain of exertional chest pain in the past. Currently chest heaviness. Found to have elevated cycle of troponin. Already on full dose Lovenox as above. 325 mg aspirin one-time followed by 81 mg daily. Continue with home dose of atorvastatin. Check lipid panel and A1c. Echocardiogram as above. Patient is chest pain-free for now. Patient would benefit from further ACS workup with cardiac stress test. She is agreeable. (3) Non-STEMI (non-ST elevated myocardial infarction): (4) Mitral valve regurgitation: Past history. Currently euvolemic. Echocardiogram as above. Qualifiers: Cardiac valve disease etiology: nonrheumatic Qualified Code(s): I34.0 - Nonrheumatic mitral (valve) insufficiency (5) HTN (hypertension), benign: Goal blood pressure less than 140/90 mmHg. Continue with home dose of amlodipine, Coreg, Imdur, lisinopril. Uptitrate as for goal blood pressure. (6) Cervical disc disorder with myelopathy of mid-cervical region: Follows up with orthopedic surgery as an outpatient. Was recommended surgical correction but patient has been hesitant. Continue with home pain medication of oral morphine. Add fentanyl patch. Patient would benefit with outpatient physical therapy. Plan Full code Cardiac diet, n.p.o. after midnight. Full dose Lovenox will be sufficient for DVT prophylaxis Protonix for PUD prophylaxis Attestations Medical Necessity Statement*: Admission for more than 2 midnights for management of pulmonary embolism, non-ST elevation [place] Diagnoses Pulmonary embolism I26.99 Chest pain R07.9 Non-STEMI (non-ST elevated myocardial infarction) I21.4 Nonrheumatic mitral valve regurgitation I34.0 Cardiac valve disease etiology: nonrheumatic HTN (hypertension), benign I10 Cervical disc disorder with myelopathy of mid-cervical region M50.020
[2024-01-19 10:50] LABS: Estmated Average Glucose 123; Hemoglobin A1C 5.9 % (4.0-6.0)
[2024-01-19 11:03] LABS: Procalcitonin 0.29 ng/mL (0-0.5); Thyroid Stimulating Hormone 3.32 uIU/mL (0.27-4.20); Vitamin B12 202 pg/mL (232-1245)
[2024-01-19] MEDS: cyclobenzaprine 10 mg Tablet 5 MG PO (11:03)
[2024-01-19] MEDS: lisinopril 20 mg Tablet PO (11:04)
[2024-01-19 11:15] LABS: Iron 15 ug/dL (37-145); Percent Saturation 8.6 % (20-50); Total Iron Binding Capacity 174 mcg/dl; Unsaturated Iron Binding 159 ug/dL (112-347)
[2024-01-19] MEDS: fentaNYL 25 mcg Patch 1 PATCH TRANSDERMA (12:11)
[2024-01-19] MEDS: carvedilol 12.5 mg Tablet PO (12:16)
--- NOTE | 2024-01-19 13:31 | ECG_ITS ---
[facility] Test Date: 2024-01-20 Pat Name: Emma Navarrete Department: Room: 104 Gender: Female [place]: : 1945 Requested By: Mateus Hart Order Number: [id number] Mahendra MD: BASSEM DOUGLASS Interpretive Statements NAME OF STUDY: LEXISCAN SESTAMIBI STRESS TEST INDICATION: Chest Pain NOTE: Please note that this is the electrocardiogram portion of the Lexiscan/Sestamibi stress test. The perfusion scan will be documented separately. DATA: Baseline heart rate was 87 beats per minute. Baseline blood pressure was 82/37 millimeters of mercury. Maximum heart rate achieved was 80. which was 57% of the predicted target heart rate. Maximum blood pressure was 86/44 millimeters of mercury. The reason for ending the test was completion of the protocol. The patient did not experience any symptoms. ELECTROCARDIOGRAM: BASELINE: Sinus rhythm. Left axis. Left bundle branch block. EXERCISE: After Lexiscan injection, no ST-T changes suggestive of ischemic noted. No arrhythmia noted. CONCLUSION: Please note due to baseline abnormality of the EKG specificity and sensitivity of the EKG portion of LexiScan MIBI stress test will be low 1. EKG not suggestive of ischemia 2. Lexiscan injection unremarkable. 3. Perfusion scan will be documented separately. Electronically Signed On 01-21-2024 21:51:51 CDT by BASSEM DOUGLASS [id number]
[2024-01-19] MEDS: morphine IR 15 mg Tablet PO (16:17)
[2024-01-19] MEDS: cyanocobalamin 1,000 mcg/mL SDV 1000 MCG IM (16:22)
[2024-01-19] MEDS: tizanidine 4 mg Tablet PO (17:27)
--- NOTE | 2024-01-19 18:16 | PC.NURSE ---
Addendum entered by Tony Brennan RN 01/19/24 18:19: Shift summary: patient rested in bed for most of the day. up occasionally to use the restroom. Continues to complain of severe pain to the right shoulder and neck. Fentanyl patch applied to right shoulder with tegaderm overtop to secure, home morphine dose started, prn muscle relaxants available. NPO at midnight. Stress test tommorow Original Note: Shift summary: patient rested in bed for most of the day. up occasionally to use the restroom. Continues to complain of severe pain to the right shoulder and neck. Fentanyl patch applied to right shoulder with tegaderm overtop to secure, home morphine dose started, prn muscle relaxants available.
[2024-01-19] MEDS: carvedilol 25 mg Tablet PO (21:42)
[2024-01-19] MEDS: atorvastatin 40 mg Tablet 20 MG PO (21:42)
[2024-01-20] VITALS (90 sets, daily range): BP systolic 72–137; BP diastolic 36–70; PULSE 60–91; RESP 10–75; TEMP 36.4–38.1; O2SAT 86–96
[2024-01-20] MEDS: oxyCODONE 5 mg IR Tab/Cap 15 MG PO ×2 (03:43→09:27)
[2024-01-20] MEDS: tizanidine 4 mg Tablet PO (03:43)
[2024-01-20 05:32] LABS: Basophils % 0.2 %; Hematocrit 38.2 % (36-47); Lymphocytes # 0.5 10^3/uL (0.8-4.8); Lymphocytes % 5.5 %; Mean Corpuscular HGB Conc 31.7 g/dL (30-55); Mean Corpuscular Hemoglobin 28.8 pg (27-33); Mean Platelet Volume 12.1 fL (7.4-10.4); Monocytes # 0.5 10^3/uL (0.2-0.9); Monocytes % 5.9 %; Neutrophils # 7.76 10^3/uL (1.8-7.7); Neutrophils % 87.8 %; Nucleated Red Blood Cells % 0 %; Platelet Count 147 10^3/cmm (157-399); Red Cell Distribution Width 12.6 % (12.1-15.1); White Blood Count 8.84 10^3/uL (3.29-11.43)
[2024-01-20 05:52] LABS: Alanine Aminotransferase 19 U/L (0-33); Albumin Level 2.9 g/dL (3.5-5.2); Alkaline Phosphatase 70 U/L (35-105); Aspartate Amino Transferase 22 U/L (0-32); Blood Urea Nitrogen 36 mg/dL (8-23); Calcium 8.2 mg/dL (8.5-10.5); Carbon Dioxide 23 mmol/L (22-29); Chloride 100 mmol/L (98-107); Creatinine Clr Calc Pharmacy 39.9659; Glucose 131 mg/dL (65-115); Osmolality Calculated 288 mOsm/kg (285-295); Sodium 134 mmol/L (136-145); Total Bilirubin 0.6 mg/dL (0.15-1.2); Total Protein 5.9 g/dL (6.6-8.7)
[2024-01-20 05:55] LABS: Chol HDL Ratio 4.13 mg/dL (0.0-4.40); Cholesterol 128 mg/dL (0-200); HDL Cholesterol 31 mg/dL (60-100); LDL Cholesterol Calculated 73 mg/dL (50-129); Triglycerides 118 mg/dL (0-150); VLDL Cholestrol Calculation 24 mg/dL (0-30)
[2024-01-20] MEDS: morphine 4 mg/mL SDV 1 mL 2 MG IVP (07:11)
[2024-01-20] MEDS: regadenoson 0.4 Mg/5 ml Syringe 0.400000000000000022 MG IVP (08:15)
[2024-01-20] MEDS: cyclobenzaprine 10 mg Tablet 5 MG PO (09:28)
[2024-01-20] MEDS: lisinopril 20 mg Tablet PO (09:36)
[2024-01-20] MEDS: carvedilol 12.5 mg Tablet PO (09:36)
[2024-01-20] MEDS: isosorbide mononitrate ER 30 mg Tablet PO (09:38)
[2024-01-20] MEDS: cyanocobalamin 1,000 mcg/mL SDV 1000 MCG IM (09:39)
[2024-01-20] MEDS: pantoprazole DR 40 mg Tablet PO (09:39)
[2024-01-20] MEDS: enoxaparin 40 mg/0.4 mL Syringe 70 MG SUBCUT ×2 (09:41→20:46)
--- NOTE | 2024-01-20 09:55 | PC.PHAR ---
PT ADMITTED TO [facility] SATURDAY AFTER DISCHARGE FROM HOSPITAL. PT LEFT AMA AND THEY ONLY HAVE PT HOSPITAL LIST. PHONED PHARMACY TO VERIFY CURRENT MEDICATIONS. 01/20/24
--- NOTE | 2024-01-20 10:00 | PC.PHAR ---
VERIFIED MEDICATIONS WITH [facility].
[2024-01-20] MEDS: acetaminophen 325 mg Tablet 650 MG PO ×2 (12:14→19:54)
--- NOTE | 2024-01-20 12:37 | P.PN_ITS ---
Subjective 2 Subjective: complains of neck pain has known cervical disease, was offered surgical management which pt declined. Pain injections were declined as well however pt now interested if possible Her concerns are having blood clots when stopping blood thinners, she says this has happened in past would like to discuss with spine surgery for other possible options says she is very weak and cannot walk currently on fentanyl patch Vitals/I&O/Wt Last Vital Signs Temp 100.5 F H 01/20/24 11:51 Pulse 76 01/20/24 11:51 Resp 21 H 01/20/24 11:51 BP 124/49 01/20/24 11:51 Pulse Ox 93 01/20/24 11:51 O2 Del Method Nasal Cannula 01/20/24 11:51 O2 Flow Rate 2 01/20/24 09:00 01/19/24 01/20/24 01/20/24 22:59 06:59 14:59 Intake Total 222 / 222 630 / 852 Balance 222 / 222 630 / 852 Weight last 48 hrs Weight 69.173 kg Weight 69.4 kg Weight 68.492 kg Physical Exam 2 Narrative: General: No acute distress, AO x3, anxious, in mild distress because of neck pain on nasal cannula HEENT: PERRLA, pupils bilaterally equal and reactive Chest: Normal vesicular breath sounds, no added sounds, equal good air entry bilaterally CVS: S1-S2 regular, soft pansystolic murmur at apex radiating to anterior midline, fourth intercostal space left retrosternal radiating to pericardium 2/6, no tachycardia, no gallops, no rubs Abdomen: Soft, nontender, no organomegaly, bowel sounds present Neuro: No focal deficits Data 01/20/24 04:48 01/20/24 04:48 A&P Assessment and plan (1) Pulmonary embolism: Seen on CTA. Bilateral scattered. Check echocardiogram to rule out right heart strain. Start on anticoagulation with Lovenox 1 mg/kg body weight every 12 hourly. Oxygen supplementation keeping saturation over 92%. (2) Chest pain: Does complain of exertional chest pain in the past. Currently chest heaviness. Found to have elevated cycle of troponin. Already on full dose Lovenox as above. 325 mg aspirin one-time followed by 81 mg daily. Continue with home dose of atorvastatin. Check lipid panel and A1c. Echocardiogram as above. Patient is chest pain-free for now. Patient would benefit from further ACS workup with cardiac stress test. She is agreeable. (3) Non-STEMI (non-ST elevated myocardial infarction): (4) Mitral valve regurgitation: Past history. Currently euvolemic. Echocardiogram as above. Qualifiers: Cardiac valve disease etiology: nonrheumatic Qualified Code(s): I34.0 - Nonrheumatic mitral (valve) insufficiency (5) HTN (hypertension), benign: Goal blood pressure less than 140/90 mmHg. Continue with home dose of amlodipine, Coreg, Imdur, lisinopril. Uptitrate as for goal blood pressure. (6) Cervical disc disorder with myelopathy of mid-cervical region: Follows up with orthopedic surgery as an outpatient. Was recommended surgical correction but patient has been hesitant. Continue with home pain medication of oral morphine. Add fentanyl patch. Patient would benefit with outpatient physical therapy. Plan Full code Cardiac diet, n.p.o. after midnight. Full dose Lovenox will be sufficient for DVT prophylaxis Protonix for PUD prophylaxis Todays plan 01/19 - check ct cervical spine, will discuss with dr. perez after results available - continue pain management - ortho referral outpatient - continue home moprhine, fentanyl patch - Will try dexamethasone 6 mg IV q8H - continue lovenox for PE. At nd transition to eliquis. - Stress this am, results pending. - lives alone at home. order PT, OT Attestations 2 Medical Necessity Statement*: Admission for more than 2 midnights for management of pulmonary embolism, non-ST elevation DE Diagnoses Pulmonary embolism I26.99 Chest pain R07.9 Non-STEMI (non-ST elevated myocardial infarction) I21.4 Nonrheumatic mitral valve regurgitation I34.0 Cardiac valve disease etiology: nonrheumatic HTN (hypertension), benign I10 Cervical disc disorder with myelopathy of mid-cervical region M50.020
--- NOTE | 2024-01-20 13:18 | CT_ITS ---
WS: [id number] CT CERVICAL SPINE HISTORY: neck pain TECHNIQUE: Contiguous 2.0 mm axial imaging performed through the entire cervical spine. Sagittal and coronal reformats also performed. All CT scans at [facility] use at least one of these dose o ptimization techniques: automated exposure control; mA and/or kV adjustment per patient size (include s targeted exams where dose is matched to clinical indication); or iterative reconstruction. DLP: 184.37 mGy.cm COMPARISON: 09/24/2019 Straightening of the normal cervical lordosis. C4 anterolisthesis by 2 mm. Advanced degenerative disc disease at C5-6, C6-7 and C7-T1. No fractures. Marked narrowing of the predental space. Lateral mass es of C1 and C2 are aligned. The odontoid is intact. C2-C3: No stenosis. Moderate RIGHT facet arthritis. C3-C4: Osteophytic ridging and bilateral facet arthritis. C4-C5: Bilateral osteophytic ridging and facet joint arthritis. Moderate LEFT foraminal stenosis. C5-C6: Osteophytic ridging encroaching upon the ventral thecal sac and the foramina. Moderate central and bilateral foraminal stenosis. C6-C7: Moderate LEFT foraminal stenosis due to osteophyte disease. C7-T1: Mild bilateral facet arthritis and foraminal narrowing. Severe emphysematous changes and scarring at the lung apices. Small bilateral cervical chain lymph no shila. CT/CT cervical spin wo con* [id number] IMPRESSION: 1. No cervical spine fracture. 2. Multilevel facet joint arthropathy and foraminal stenoses. Most significant stenosis at C4-5 through C6-7. 3. Mild straightening of the normal cervical lordosis. 4. Mild progression of degenerative spondylosis since 2019.
[2024-01-20] MEDS: sodium chloride 0.9% 500 ML IV (13:25)
--- NOTE | 2024-01-20 13:31 | NMCV_ITS ---
NM bryson perf SPECT r/s* [id number] Emma Navarrete Age: 78 Gender: F : 1945 Exam Date: 01/20/2024 07:04 Ordering Phys: Mateus Hart MD Technologist: BETO Giron Exam Location: [facility] Indications: Back and neck pain STRESS TEST [facility] IMAGE PROTOCOL Rest/Stress 1 Day Radiopharmaceutical Dose (mCi) Administration Site Administered by Rest: Tc-99m 10.8 IV BETO Giron Sestamibi Stress:Tc-99m 32.6 IV BETO Giron Sestamibi Rest: 20-Jan-2024 60 Discovery 630 Stress: 20-Jan-2024 30 Discovery 630 0.4mg Lexiscan. Supine position only as patient was unable to lay prone. SPECT RESULTS Technical Quality: Good Raw Data Analysis: Subdiaphragmatic activity Image Corrections: No attenuation or motion correction applied Summed Stress Score: 14 Summed Rest Score: 17 Summed Difference Score: 2 PERFUSION FINDINGS There is a large sized, mostly fixed perfusion defect noted in the apical, inferior and inferolateral alford. 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 Small area of prior infarct seen in LAD territory. FUNCTIONAL RESULTS (calculated via Gated SPECT) Stress Image LV EF (%): 45 Stress EDV (mL):85 TID: 1.02 Stress ESV (mL):47 FUNCTIONAL FINDINGS: LV systolic function is mildly reduced with EF of 45% IMPRESSIONS 1. 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 2. Small sized area of prior infarct in the LAD territory. 3. LV systolic function is mildly reduced with EF of 45% Linwood Chung MD (Electronically Signed) Final Date: 20 January 2024 13:08 S
[2024-01-20] MEDS: dexamethasone 10 mg/mL INJ 6 MG IVP ×2 (14:15→19:54)
[2024-01-20] MEDS: norepinephrine 4 MG/250 ML BAG 7.5 MG IV (15:25)
[2024-01-20 15:39] LABS: C Reactive Protein 324.9 mg/L (0.0-4.9)
--- NOTE | 2024-01-20 16:10 | P.CONIM_ITS ---
Providers/Reason For Consult 2 Consulting Physician/Specialty*: Hospitalist Reason for Consult*: Neck pain Attending Physician: Jasmyne Best MD Primary Care Provider: Raven Peres MD History of Present Illness History of Present Illness Emma Navarrete is a 78 year old female seen in the clinic is having right arm pain. In neck pain. She is to see Dr. Prince this week. At this point she does not want to have surgery. I recommended that she continues her plan to see Dr. Prince if she can get out of the hospital by then. Review of Systems 2 General: Reports: 10 or more systems reviewed and unremarkable except in HPI and below Const: Denies: fever(s), chills, body aches, change in appetite, change in weight, malaise, night sweats, diaphoresis, change in sleep pattern, daytime sleepiness or snoring Eyes: Denies: change in vision, blurry vision, photophobia, eye discomfort or eye discharge ENMT: Denies: throat pain, enlarged tonsils, hoarseness, mouth pain, oral sores, dry mouth, tinnitus, nasal congestion or post nasal drip Card: Denies: chest pain, palpitations, irregular heart rhythm, edema, swelling of feet/ankles, lightheadedness, syncope, pre-syncope, dyspnea on exertion, orthopnea, leg pain with exertion or acrocyanosis Resp: Denies: dyspnea, productive cough, non-productive cough, wheezing, stridor, pain on inspiration, change in phlegm color, hemoptysis or chest congestion GI: Denies: abdominal pain, nausea, vomiting, hematemesis, coffee ground emesis, dysphagia, heartburn, diarrhea, constipation, bloating, GI cramping, change in bowel habits, pain on defecation, hematochezia or melena : Denies: flank pain, dysuria, urinary frequency, urinary urgency, urinary hesitancy, nocturia or hematuria Musc: Denies: neck pain, back pain, extremity pain, joint pain, joint swelling, joint redness, joint stiffness or limited range of motion Neuro: Denies: headache(s), numbness in extremities, weakness in extremities, sensory changes, lack of coordination, difficulty walking, frequent falls, dizziness, vertigo, confusion, Slurred speech present, difficulty communicating thoughts or seizure-like activity Psych: Denies: anxiety, depression, mood swings, panic attacks, hopelessness or irritability Endo: Denies: polyuria, polydipsia, tired all the time, cold intolerance, excessive sweating, flushing or heat intolerance Darryn/Lymph: Denies: easy bruising or easy bleeding All/Imm: Denies: tongue swelling, facial swelling or acute wheezing Medications/Allergies Home Medications Medication Instructions Recorded Confirmed Last Taken Type docusate sodium 100 mg capsule 100 mg PO BID PRN Constipation 09/09/20 01/20/24 Unknown History (Colace) [place] 06/11/22 01/20/24 Unknown History isosorbide mononitrate 30 mg 30 mg PO BID #180 tabs 10/29/22 01/20/24 Unknown Rx tablet,extended release 24 hr diclofenac sodium 75 mg 75 mg PO Q12H PRN pain #20 tabs 01/17/24 01/20/24 Unknown Rx tablet,delayed release prednisone 20 mg tablet 20 mg PO TID #15 tabs 01/17/24 01/20/24 Unknown Rx tizanidine 4 mg tablet 4 mg PO Q6H PRN muscle spasticity 01/17/24 01/20/24 Unknown Rx #20 tabs morphine 15 mg immediate release 15 mg PO Q8H PRN Pain 01/19/24 01/19/24 Unknown History tablet cyclobenzaprine 5 mg tablet 5 mg PO TID PRN MUSCLE SPASMS 01/20/24 01/20/24 Unknown History Allergies Allergy/AdvReac Type Severity Reaction Status Date / Time oxycodone [From Xtampza ER] Allergy bad taste Verified 01/17/24 08:14 in mouth Current Medications Generic Name Dose Route Start Last Admin Trade Name Gabrielq PRN Reason Stop Dose Admin Acetaminophen 650 mg 01/19/24 09:41 01/20/24 12:14 Acetaminophen 325 Mg Tablet PO 650 mg Q6H PRN Administration Mild/Mod Pain Or Temp >/= 101 Atorvastatin Calcium 20 mg 01/19/24 21:00 01/19/24 21:42 Atorvastatin 40 Mg Tablet PO 20 mg BEDTIME MARIA Administration Carvedilol 12.5 mg 01/19/24 10:30 01/20/24 09:36 Carvedilol 12.5 Mg Tablet PO 12.5 mg DAILY MARIA Administration Carvedilol 25 mg 01/19/24 21:00 01/19/24 21:42 Carvedilol 25 Mg Tablet PO 25 mg BEDTIME MARIA Administration Cyanocobalamin 1,000 mcg 01/19/24 13:40 01/20/24 09:39 Cyanocobalamin 1,000 Mcg/Ml Sdv IM 1,000 mcg DAILY MARIA Administration Cyclobenzaprine HCl 5 mg 01/19/24 10:49 01/20/24 09:28 Cyclobenzaprine 10 Mg Tablet PO 5 mg TID PRN Administration MUSCLE SPASMS Dexamethasone 6 mg 01/20/24 12:45 01/20/24 14:15 Dexamethasone 10 Mg/Ml Inj IVP 6 mg Q8H MARIA Administration Enoxaparin Sodium 70 mg 01/19/24 09:41 01/20/24 09:41 Enoxaparin 40 Mg/0.4 Ml Syringe SUBCUT 70 mg Q12H MARIA Administration Fentanyl 1 patch 01/19/24 11:00 01/19/24 12:11 Fentanyl 25 Mcg Patch TRANSDERMA 1 patch Q72H MARIA Administration Norepinephrine Bitartrate 4 mg in 250 mls @ 0 mls/hr 01/20/24 14:45 01/20/24 15:50 Levophed IV 4 mcg/min .Q0M MARIA 15 mls/hr Titration Protocol Per Protocol Isosorbide Mononitrate 30 mg 01/19/24 18:00 01/20/24 09:38 Isosorbide Mononitrate Er 30 Mg Tablet PO 30 mg BID MARIA Administration Lisinopril 20 mg 01/19/24 10:05 01/20/24 09:36 Lisinopril 20 Mg Tablet PO 20 mg DAILY MARIA Administration Morphine Sulfate 2 mg 01/19/24 09:41 01/20/24 07:11 Morphine 4 Mg/Ml Sdv 1 Ml IVP 2 mg Q4H PRN Administration SEVERE PAIN Morphine Sulfate 15 mg 01/19/24 13:25 01/19/24 16:17 Morphine Ir 15 Mg Tablet PO 15 mg Q8H PRN Administration SEVERE PAIN Non-Formulary Medication 50 mg 01/20/24 09:00 01/20/24 09:50 Topiramate PO Not Given DAILY MARIA Oxycodone HCl 15 mg 01/19/24 10:22 01/20/24 09:27 Oxycodone 5 Mg Ir Tab/Cap PO 15 mg QID PRN Administration pain scale 6-10 Pantoprazole Sodium 40 mg 01/19/24 09:41 01/20/24 09:[address] 40 Mg Tablet PO 40 mg DAILY MARIA Administration Tizanidine HCl 4 mg 01/19/24 10:04 01/20/24 03:43 Tizanidine 4 Mg Tablet PO 4 mg Q6H PRN Administration muscle spasticity PFSH Acute 2 PFSH: Medical History (Updated 01/20/24 @ 16:12 by Musa Barahona DO) Stenosis of cervical spine with myelopathy Renal cyst, left Tricuspid valve regurgitation Mitral valve regurgitation Shortness of breath HTN (hypertension), benign Hyperlipidemia GERD (gastroesophageal reflux disease) Cervical disc disorder with myelopathy of mid-cervical region CRPS (complex regional pain syndrome type I) last stellate ganglion block was in 2012. 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 L2-L3, L3-L4, L4-L5, and L5-S1 fusion/fixation 1986 [facility] L4-L5, L5-S1 decompression 05/1977 L5-S1 decompression S/P thymectomy 1983 AGE 15 MYASTHENIA GRAVIS S/P bladder repair ANTERIOR VAG REPAIR WITH ELEVATE VAG MESH, POSTERIOR REPAIR AND CYSTOSCOPY DR SYLVIA [facility]. 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 Data 01/20/24 04:48 01/20/24 04:48 A&P Assessment and plan (1) Cervical spondylosis with radiculopathy: At this point patient does not want to have any surgery. Recommend that she follows up with Dr. Prince if she can get there this week. Coding Level of Care Code Acute Code for g Fwd Diagnoses Cervical spondylosis with radiculopathy M47.22
[2024-01-20 16:22] LABS: Erythrocyte Sedimentation Rate 33 mm/hr (0-15)
[2024-01-20 16:28] LABS: Lactic Sepsis W/Reflex 1.3 mmol/L (0.5-2.2)
--- NOTE | 2024-01-20 17:01 | PC.NURSE ---
Both Velvet dhillon and Annie were called and informed patient was transferred to ICU. Annie did not answer. Also spoke with Aly, a nephew, to let him know patient had been transferred to ICU.
--- NOTE | 2024-01-20 18:04 | PC.NURSE ---
Evening dose of isosorbide held. Patient transferred to ICU for low blood pressure.
[2024-01-20] MEDS: atorvastatin 40 mg Tablet 20 MG PO (20:02)
[2024-01-20] MEDS: piperacillin-tazobactam 3.375 GM in sodium chloride 0.9% (plus) 50 ML IV (22:56)
[2024-01-20] MEDS: vancomycin 1,500 MG/300 ML PIGGYBACK 200 MG IV (22:56)
[2024-01-21] VITALS (83 sets, daily range): BP systolic 116–178; BP diastolic 55–108; PULSE 61–92; RESP 13–27; TEMP 36.4–36.6; O2SAT 85–95; BMI 29.0
[2024-01-21] MEDS: cyclobenzaprine 10 mg Tablet 5 MG PO ×2 (02:39→20:46)
[2024-01-21] MEDS: morphine IR 15 mg Tablet PO ×3 (02:40→18:33)
[2024-01-21] MEDS: acetaminophen 325 mg Tablet 650 MG PO ×4 (03:18→23:08)
[2024-01-21] MEDS: dexamethasone 10 mg/mL INJ 6 MG IVP ×3 (04:17→19:48)
[2024-01-21 04:51] LABS: Basophils % 0.5 %; Eosinophils % 0.1 %; Hematocrit 38.6 % (36-47); Lymphocytes # 0.6 10^3/uL (0.8-4.8); Mean Corpuscular HGB Conc 31.9 g/dL (30-55); Mean Corpuscular Hemoglobin 28.9 pg (27-33); Mean Corpuscular Volume 90.6 fl (85-98); Mean Platelet Volume 11.7 fL (7.4-10.4); Monocytes # 0.4 10^3/uL (0.2-0.9); Monocytes % 4.4 %; Neutrophils # 7.39 10^3/uL (1.8-7.7); Nucleated Red Blood Cells % 0 %; Platelet Count 156 10^3/cmm (157-399); Red Blood Count 4.26 10^6/uL (3.85-5.65); Red Cell Distribution Width 12.5 % (12.1-15.1)
[2024-01-21 05:16] LABS: Anion Gap 17.9 (5-19); Blood Urea Nitrogen 49 mg/dL (8-23); Calcium 8.5 mg/dL (8.5-10.5); Carbon Dioxide 24 mmol/L (22-29); Chloride 93 mmol/L (98-107); Glucose 145 mg/dL (65-115); Osmolality Calculated 286 mOsm/kg (285-295); Potassium 4.9 mmol/L (3.5-5.1); Sodium 130 mmol/L (136-145)
[2024-01-21 05:19] LABS: Magnesium 2.3 mg/dL (1.7-2.3)
[2024-01-21 05:23] LABS: Creatinine Clr Calc Pharmacy 29.3083
[2024-01-21 05:32] LABS: Slide Review Slide Review Perform
[2024-01-21] MEDS: piperacillin-tazobactam 3.375 GM in sodium chloride 0.9% (plus) 50 ML IV ×3 (06:44→23:09)
--- NOTE | 2024-01-21 08:00 | XRR_ITS ---
PROCEDURE INFORMATION: Exam: XR Chest Exam date and time: 01/21/2024 8:01 AM Age: 78 years old Clinical indication: Condition or disease; Lung condition and disease; Pulmonary edema; Status not specified; Additional info: F/u pulm edema TECHNIQUE: Imaging protocol: Radiologic exam of the chest. Views: 1 view. COMPARISON: CT angio chest PE protcl [id number] 01/19/2024 3:53 AM FINDINGS: Lungs: Right basilar subsegmental atelectasis with corresponding elevation of the right hemidiaphragm. Pleural spaces: Questionable right pleural effusion. No distinct pneumothorax. Heart/Mediastinum: Cardiomediastinal silhouette is midline and stable in size. Bones/joints: Osseous structures are unchanged. Faint median sternotomy wires, unchanged. XR/XR chest 1V portable [id number] IMPRESSION: 1. Right basilar subsegmental atelectasis with corresponding elevation of the right hemidiaphragm. 2. Questionable right pleural effusion.
[2024-01-21] MEDS: pantoprazole DR 40 mg Tablet PO (09:11)
[2024-01-21] MEDS: aspirin 81 mg EC Tablet PO (09:11)
[2024-01-21] MEDS: cyanocobalamin 1,000 mcg/mL SDV 1000 MCG IM (09:12)
[2024-01-21] MEDS: enoxaparin 40 mg/0.4 mL Syringe 70 MG SUBCUT (09:12)
[2024-01-21] MEDS: morphine 4 mg/mL SDV 1 mL 2 MG IVP ×2 (12:02→16:42)
--- NOTE | 2024-01-21 12:02 | MR_ITS ---
WS: [id number] MRI LUMBAR SPINE NONCONTRAST TECHNIQUE: Sagittal T1, T2 and STIR imaging. Axial T1 and T2 imaging. CLINICAL INFORMATION: [facility]EREM[facility] COMPARISON: 2021 CT and MRI FINDINGS: Straightening of the normal cervical lordosis. Mild cervical curve. Disc bulging worse at L1-L2 and L 2-L3. Prior interbody fusion L3-4. No evidence of discitis or osteomyelitis. No evidence of epidural abscess. Visualized psoas normal in appearance. L1-L2: Mild disc bulge with mild central canal stenosis. Impingement RIGHT subarticular recess. Mild RIGHT and no significant LEFT foraminal narrowing. Mild facet arthropathy. L2-L3: Disc osteophyte complex with endplate ridging. Mild to moderate central canal stenosis. Narrow ing of the RIGHT greater than LEFT subarticular recess. Moderate facet arthropathy. Mild foraminal na rrowing. L3-L4: Prior interbody fusion. Spinal canal and foramen are patent. Laminectomy defects. L4-L5: No significant disc bulging. Dorsal bone graft fusion. Spinal canal and foramen are patent. L5-S1: Dorsal bone graft fusion. Spinal canal is patent. Partial ankylosis across the disc space. For amen are patent. Visualized pelvic bony structures: Normal. Paravertebral soft tissues: Normal. MR/MR lumbar spine wo con* [id number] IMPRESSION: 1. No evidence of epidural abscess. 2. No evidence of discitis or osteomyelitis. 3. Chronic spondylitic changes described above similar to the prior studies.
--- NOTE | 2024-01-21 12:02 | MR_ITS ---
WS: [id number] MRI CERVICAL SPINE NONCONTRAST TECHNIQUE: Sagittal T1, T2 and STIR imaging. Axial T2, gradient, and fiesta imaging. CLINICAL INFORMATION: [facility] COMPARISON: MRI 10/24/2023 FINDINGS: Some images degraded by patient motion. Straightening of the normal cervical lordosis with moderate spondylitic changes. Disc bulging worse a t C4-C6. This is similar to previous. Cord signal is normal. Soft tissue edema in the upper cervical paravertebral and intraspinous soft tissues. Suspected RIGHT C2-3 RIGHT C3-C4 and RIGHT C4-5 facet sy novitis with facet effusions and periarticular edema. No visualized epidural abscess or drainable flu id collection. No evidence of discitis. C2-C3: RIGHT facet synovitis with periarticular edema. Moderate facet arthropathy. Moderate RIGHT for aminal narrowing. Spinal canal is patent. C3-C4: RIGHT facet synovitis with moderate RIGHT facet arthropathy. Periarticular edema. Mild bilater al foraminal narrowing. Minimal disc bulging. C4-C5: Mild disc osteophyte complex. Slight RIGHT facet synovitis with facet edema. Mild LEFT greater than RIGHT foraminal narrowing. Spinal canal is patent. C5-C6: Moderate to severe LEFT and mild RIGHT bony foraminal narrowing. Uncovertebral joint hypertrop hy. Mild disc osteophyte complex. C6-C7: Disc osteophyte complex with endplate ridging. Moderate to severe LEFT and no significant RIGH T foraminal narrowing. Tiny LEFT paracentral protrusion with slight contact of the cervical cord. C7-T1: Mild to moderate LEFT and no significant RIGHT foraminal narrowing. Moderate facet arthropathy . MR/MR cervical spin wo con* [id number] IMPRESSION: Some images are limited due to patient motion 1. RIGHT C2-3, RIGHT C3-C4 and RIGHT C4-C5 facet synovitis with jesenia-articular edema. This is likely infectious or inflammatory. 2. Additional edema in the dorsal interspinous soft tissues in the upper cervi panda spine. Recommend correlation with recent trauma. 3. No evidence of epidural abscess however recommend short interval follow-up with gadolinium to exclude developing abscess or fluid collection. 4. No evidence of discitis or osteomyelitis. 5. Moderate stable spondylitic changes
[2024-01-21] MEDS: polyethylene glycol 3350 Pkt 17 gm PO (12:03)
--- NOTE | 2024-01-21 12:07 | CTR_ITS ---
PROCEDURE INFORMATION: Exam: CT Abdomen And Pelvis Without Contrast Exam date and time: 01/21/2024 6:03 PM Age: 78 years old Clinical indication: Condition or disease; Other: Staph bacteremia TECHNIQUE: Imaging protocol: Computed tomography of the abdomen and pelvis without contrast. Radiation optimization: All CT scans at this facility use at least one of these dose optimization techniques: automated exposure control; mA and/or kV adjustment per patient size (includes targeted exams where dose is matched to clinical indication); or iterative reconstruction. COMPARISON: CT abdomen pelvis w con* [id number] 12/14/2019 18:00 RADIATION DOSE METRICS: Total DLP (mGy-cm): 752 FINDINGS: Lungs: Right lower lobe consolidation that may represent atelectasis or in the appropriate clinical setting, pneumonia. Pleural spaces: There are small bilateral pleural fluid collections. Diaphragm: There is a small sliding hiatal hernia. Liver: Normal size and homogeneous density. No liver mass is seen. Gallbladder and bile ducts: There has been a cholecystectomy. There is a mild, expected degree of common bile duct and intrahepatic ductal dilation. Pancreas: Normal size and homogeneous density. No ductal dilation. Spleen: Normal. No splenomegaly. Adrenal glands: Normal. No mass. Kidneys and ureters: No hydronephrosis. There are vascular calcifications in the bilateral renal alesia. A small nonobstructive renal calculus would be difficult to exclude. Stomach and bowel: There is no evidence of small bowel or colonic obstruction. Appendix: The appendix is not identified. There are no pericecal inflammatory changes. Intraperitoneal space: No free air. No significant fluid collection. Vasculature: There is moderate atherosclerotic calcification of the abdominal aorta and its branches without aneurysm. Lymph nodes: No enlarged retroperitoneal or mesenteric lymph nodes. Urinary bladder: The bladder is decompressed by Lovett catheter. Reproductive: Unremarkable as visualized. Bones/joints: No acute fracture. Postoperative changes of discectomy at L3-L4, laminectomy at L3 and posterior fusion. Soft tissues: Small gas bubbles are seen scattered through the subcutaneous adipose tissue of the ventral abdominal wall suggestive of injection sites. CT/CT abdomen pelvis wo con [id number] IMPRESSION: 1. Right lower lobe consolidation that may represent atelectasis or in the appropriate clinical setting, pneumonia. 2. Small bilateral pleural fluid collections. 3. No acute intra-abdominal finding. 4. Small gas bubbles scattered through the subcutaneous adipose tissue of the ventral abdominal wall suggestive of injection sites.
[2024-01-21 12:24] LABS: Anti-Double Strand DNA AB <1 IU/mL; Jo-1 Antibody <1.0 NEG AI (<1.0 NEG); SS-B/LA IGG <1.0 NEG AI (<1.0 NEG); Scleroderma Ab(Scl-70) Ab <1.0 NEG AI (<1.0 NEG); Ss-A/Ro Igg <1.0 NEG AI (<1.0 NEG)
[2024-01-21] MEDS: sodium chloride 0.9% 1,000 ML 100 ML IV ×2 (12:36→23:09)
--- NOTE | 2024-01-21 13:13 | P.PN_ITS ---
Subjective 2 Subjective: seen this morning no skin rashes BCX positive 2/4 bottles staph aureus urine culture positive for staph aureus complains of acute on chronic right lower back pain prior to admission. 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 complains of neck pain as well talked with radiology for diff imaging modalities cr 1.5 this am, baseline 0.7 Vitals/I&O/Wt Last Vital Signs Temp 97.7 F 01/21/24 03:26 Pulse 77 01/21/24 12:15 Resp 19 H 01/21/24 12:15 BP 162/75 01/21/24 12:15 Pulse Ox 91 01/21/24 12:00 O2 Del Method Nasal Cannula 01/21/24 09:53 O2 Flow Rate 2 01/21/24 09:53 01/20/24 01/21/24 01/21/24 22:59 06:59 14:59 Intake Total 226.125 / 726.125 550 / 1276.125 350 / 350 Output Total 400 / 400 500 / 900 Balance -173.875 / 326.125 50 / 376.125 350 / 350 Weight last 48 hrs Weight 74.446 kg Weight 69.173 kg Physical Exam 2 Narrative: General: No acute distress, AO x3, on 2L NC HEENT: PERRLA, pupils bilaterally equal and reactive Chest: Normal vesicular breath sounds, no added sounds, equal good air entry bilaterally CVS: S1-S2 regular, soft pansystolic murmur at apex radiating to anterior midline, fourth intercostal space left retrosternal radiating to pericardium 2/6, Abdomen: Soft, nontender, no organomegaly, bowel sounds present Neuro: No focal deficits MSK: no paraspinal muscle tenderness, ROM back limited to pain, no pain on palpation of neck, c-spine c4 area tender to palpation, no fluctuance noted on spine, skin: no visible skin lesions, no rashes Data 01/21/24 04:17 01/21/24 04:17 Micro: Microbiology 01/21/24 12:40 Blood Culture - Preliminary Blood SPECIMEN COLLECTED 01/21/24 12:35 Blood Culture - Preliminary Blood SPECIMEN COLLECTED 01/20/24 15:38 Blood Culture - Preliminary Blood 01/20/24 15:30 Urine Culture - Preliminary Urine Catheterized Coag positive Staphylococcus 01/20/24 15:38 Blood Culture - Preliminary Blood A&P Assessment and plan (1) Pulmonary embolism: Seen on CTA. Bilateral scattered. Check echocardiogram to rule out right heart strain. Start on anticoagulation with Lovenox 1 mg/kg body weight every 12 hourly. Oxygen supplementation keeping saturation over 92%. (2) Chest pain: Does complain of exertional chest pain in the past. Currently chest heaviness. Found to have elevated cycle of troponin. Already on full dose Lovenox as above. 325 mg aspirin one-time followed by 81 mg daily. Continue with home dose of atorvastatin. Check lipid panel and A1c. Echocardiogram as above. Patient is chest pain-free for now. Patient would benefit from further ACS workup with cardiac stress test. She is agreeable. (3) Non-STEMI (non-ST elevated myocardial infarction): (4) Mitral valve regurgitation: Past history. Currently euvolemic. Echocardiogram as above. Qualifiers: Cardiac valve disease etiology: nonrheumatic Qualified Code(s): I34.0 - Nonrheumatic mitral (valve) insufficiency (5) HTN (hypertension), benign: Goal blood pressure less than 140/90 mmHg. Continue with home dose of amlodipine, Coreg, Imdur, lisinopril. Uptitrate as for goal blood pressure. (6) Cervical disc disorder with myelopathy of mid-cervical region: Follows up with orthopedic surgery as an outpatient. Was recommended surgical correction but patient has been hesitant. Continue with home pain medication of oral morphine. Add fentanyl patch. Patient would benefit with outpatient physical therapy. Plan Full code Cardiac diet, n.p.o. after midnight. Full dose Lovenox will be sufficient for DVT prophylaxis Protonix for PUD prophylaxis Todays plan 01/20 reviewed - continue pain management - ortho recs appreciated - continue home moprhine, fentanyl patch - Will try dexamethasone 6 mg IV q8H - continue lovenox for PE. [facility]. - Stresstest done this admit shows jesenia-infarct ischemia, no active chest pain - lives alone at home. order PT, OT - off pressors now - check mri c-spine, lumbar to r/o infection - ns @100 cc /hr - cr 1.5 today, baseline normal - staph aureus bacteremia. ucx positive staph ureus - repeat bcx today - tte reviewed - will consider yandy if no clear source - source unclear at this point Attestations 2 Medical Necessity Statement*: Admission for more than 2 midnights for management of pulmonary embolism, non-ST elevation [place] Diagnoses Pulmonary embolism I26.99 Chest pain R07.9 Non-STEMI (non-ST elevated myocardial infarction) I21.4 Nonrheumatic mitral valve regurgitation I34.0 Cardiac valve disease etiology: nonrheumatic HTN (hypertension), benign I10 Cervical disc disorder with myelopathy of mid-cervical region M50.020
--- NOTE | 2024-01-21 16:18 | P.PN_ITS ---
Subjective 2 Subjective: Patient is currently in the ICU. She was transferred there for blood pressure issues. At this point sure to discuss surgery I discussed with her what anterior cervical discectomy and fusion was. And how long to take and how long she would be down. Vitals/I&O/Wt Last Vital Signs Temp 97.7 F 01/21/24 03:26 Pulse 79 01/21/24 14:00 Resp 19 H 01/21/24 12:15 BP 162/75 01/21/24 12:15 Pulse Ox 91 01/21/24 12:00 O2 Del Method Nasal Cannula 01/21/24 09:53 O2 Flow Rate 2 01/21/24 09:53 01/21/24 01/21/24 01/21/24 06:59 14:59 22:59 Intake Total 550 / 1276.125 350 / 350 Output Total 500 / 900 925 / 925 Balance 50 / 376.125 350 / 350 -925 / -575 Weight last 48 hrs Weight 164 lb 2 oz Weight 152 lb 8 oz Physical Exam 2 Narrative: Patient is currently in pain in bed with pain rating down her arms. Data 01/21/24 04:17 01/21/24 04:17 Micro: Microbiology 01/20/24 15:38 Blood Culture - Preliminary Blood 01/20/24 15:38 Blood Culture - Preliminary Blood 01/21/24 12:40 Blood Culture - Preliminary Blood SPECIMEN COLLECTED 01/21/24 12:35 Blood Culture - Preliminary Blood SPECIMEN COLLECTED 01/20/24 15:30 Urine Culture - Preliminary Urine Catheterized Coag positive Staphylococcus A&P Assessment and plan (1) Cervical spondylosis with radiculopathy: Patient is possible wanting surgery. This point with her blood pressure history at this time will wait till she is more stable to consider any type of surgery. She does have an MRI of the cervical spine ordered. Attestations 2 Medical Necessity Statement*: Per primary service Coding Level of Care Code Acute Code for [facility] Diagnoses Cervical spondylosis with radiculopathy M47.22
[2024-01-21] MEDS: sennosides-docusate Tablet 1 TAB PO (18:30)
[2024-01-21] MEDS: enoxaparin 80 mg/0.8 mL Syringe 70 MG SUBCUT (20:46)
[2024-01-21] MEDS: atorvastatin 40 mg Tablet 20 MG PO (20:46)
[2024-01-21] MEDS: vancomycin 1,000 MG in sodium chloride 0.9% 250 ML 250 MG IV (23:08)
[2024-01-22] VITALS (34 sets, daily range): BP systolic 138–197; BP diastolic 67–117; PULSE 70–99; RESP 13–25; TEMP 36.2–36.8; O2SAT 90–93
[2024-01-22] MEDS: dexamethasone 10 mg/mL INJ 6 MG IVP ×2 (04:16→14:03)
[2024-01-22 06:16] LABS: Basophils # 0.1 10^3/uL (0.0-0.1); Basophils % 0.8 %; Eosinophils % 0.3 %; Lymphocytes # 0.8 10^3/uL (0.8-4.8); Lymphocytes % 6.1 %; Mean Corpuscular HGB Conc 32.6 g/dL (30-55); Mean Corpuscular Hemoglobin 29.5 pg (27-33); Mean Corpuscular Volume 90.3 fl (85-98); Mean Platelet Volume 12.2 fL (7.4-10.4); Monocytes # 0.5 10^3/uL (0.2-0.9); Monocytes % 3.6 %; Neutrophils # 11.37 10^3/uL (1.8-7.7); Nucleated Red Blood Cells % 0 %; Platelet Count 135 10^3/cmm (157-399); Red Blood Count 4.21 10^6/uL (3.85-5.65); Red Cell Distribution Width 12.7 % (12.1-15.1); White Blood Count 12.92 10^3/uL (3.29-11.43)
[2024-01-22 06:45] LABS: Alanine Aminotransferase 19 U/L (0-33); Albumin Level 2.6 g/dL (3.5-5.2); Alkaline Phosphatase 81 U/L (35-105); Blood Urea Nitrogen 45 mg/dL (8-23); Calcium 8.2 mg/dL (8.5-10.5); Carbon Dioxide 23 mmol/L (22-29); Chloride 100 mmol/L (98-107); Creatinine Clr Calc Pharmacy 50.4815; Globulin 3.3 g/dL (1.3-4.6); Glucose 142 mg/dL (65-115); Magnesium 2.5 mg/dL (1.7-2.3); Osmolality Calculated 294 mOsm/kg (285-295); Sodium 135 mmol/L (136-145); Total Bilirubin 0.4 mg/dL (0.15-1.2); Total Protein 5.9 g/dL (6.6-8.7)
[2024-01-22 07:07] LABS: Anion Gap 16.5 (5-19); Aspartate Amino Transferase 24 U/L (0-32); Potassium 4.5 mmol/L (3.5-5.1)
[2024-01-22 07:21] LABS: Slide Review Slide Review Perform
[2024-01-22] MEDS: piperacillin-tazobactam 3.375 GM in sodium chloride 0.9% (plus) 50 ML IV ×3 (07:40→23:27)
[2024-01-22] MEDS: sennosides-docusate Tablet 1 TAB PO ×2 (08:07→17:13)
[2024-01-22] MEDS: aspirin 81 mg EC Tablet PO (08:07)
[2024-01-22] MEDS: pantoprazole DR 40 mg Tablet PO (08:07)
[2024-01-22] MEDS: isosorbide mononitrate ER 30 mg Tablet PO ×2 (08:07→17:13)
[2024-01-22] MEDS: cyanocobalamin 1,000 mcg/mL SDV 1000 MCG IM (08:07)
[2024-01-22] MEDS: polyethylene glycol 3350 Pkt 17 gm PO (08:07)
[2024-01-22] MEDS: morphine IR 15 mg Tablet PO ×2 (08:08→19:32)
[2024-01-22] MEDS: enoxaparin 80 mg/0.8 mL Syringe 70 MG SUBCUT ×2 (09:37→21:10)
[2024-01-22] MEDS: cyclobenzaprine 10 mg Tablet 5 MG PO ×2 (09:38→21:09)
[2024-01-22] MEDS: fentaNYL 25 mcg Patch 1 PATCH TRANSDERMA (10:10)
[2024-01-22] MEDS: morphine 4 mg/mL SDV 1 mL 2 MG IVP ×2 (10:13→16:11)
[2024-01-22] MEDS: sodium chloride 0.9% 1,000 ML 100 ML IV ×2 (10:15→21:07)
--- NOTE | 2024-01-22 12:23 | P.PN_ITS ---
Subjective 2 Subjective: seen today vitals stable Vitals/I&O/Wt Last Vital Signs Temp 97.5 F L 01/22/24 07:55 Pulse 83 01/22/24 10:04 Resp 14 01/22/24 08:08 BP 169/75 01/22/24 05:00 Pulse Ox 90 01/22/24 10:04 O2 Del Method Nasal Cannula 01/22/24 10:04 O2 Flow Rate 2 01/22/24 10:04 01/21/24 01/22/24 01/22/24 22:59 06:59 14:59 Intake Total 1050 / 1400 300 / 1700 1240 / 1240 Output Total 925 / 925 700 / 1625 Balance 125 / 475 -400 / 75 1240 / 1240 Weight last 48 hrs Weight 74.117 kg Weight 74.446 kg Physical Exam 2 Narrative: General: No acute distress, AO x3, on 2L NC HEENT: PERRLA, pupils bilaterally equal and reactive Chest: Normal vesicular breath sounds, no added sounds, equal good air entry bilaterally CVS: S1-S2 regular, soft pansystolic murmur at apex radiating to anterior midline, fourth intercostal space left retrosternal radiating to pericardium /, Abdomen: Soft, nontender, no organomegaly, bowel sounds present Neuro: No focal deficits MSK: no paraspinal muscle tenderness, ROM back limited to pain, no pain on palpation of neck, c-spine c4 area tender to palpation, no fluctuance noted on spine, skin: no visible skin lesions, no rashes Data 01/22/24 05:45 01/22/24 05:45 Micro: Microbiology 01/20/24 15:38 Blood Culture - Preliminary Blood 01/20/24 15:38 Blood Culture - Preliminary Blood 01/21/24 12:40 Blood Culture - Preliminary Blood SPECIMEN COLLECTED 01/21/24 12:35 Blood Culture - Preliminary Blood SPECIMEN COLLECTED 01/20/24 15:30 Urine Culture - Preliminary Urine Catheterized Coag positive Staphylococcus A&P Assessment and plan (1) Pulmonary embolism: Seen on CTA. Bilateral scattered. Check echocardiogram to rule out right heart strain. Start on anticoagulation with Lovenox 1 mg/kg body weight every 12 hourly. Oxygen supplementation keeping saturation over 92%. (2) Chest pain: Does complain of exertional chest pain in the past. Currently chest heaviness. Found to have elevated cycle of troponin. Already on full dose Lovenox as above. 325 mg aspirin one-time followed by 81 mg daily. Continue with home dose of atorvastatin. Check lipid panel and A1c. Echocardiogram as above. Patient is chest pain-free for now. Patient would benefit from further ACS workup with cardiac stress test. She is agreeable. (3) Non-STEMI (non-ST elevated myocardial infarction): (4) Mitral valve regurgitation: Past history. Currently euvolemic. Echocardiogram as above. Qualifiers: Cardiac valve disease etiology: nonrheumatic Qualified Code(s): I34.0 - Nonrheumatic mitral (valve) insufficiency (5) HTN (hypertension), benign: Goal blood pressure less than 140/90 mmHg. Continue with home dose of amlodipine, Coreg, Imdur, lisinopril. Uptitrate as for goal blood pressure. (6) Cervical disc disorder with myelopathy of mid-cervical region: Follows up with orthopedic surgery as an outpatient. Was recommended surgical correction but patient has been hesitant. Continue with home pain medication of oral morphine. Add fentanyl patch. Patient would benefit with outpatient physical therapy. Plan Full code Cardiac diet, n.p.o. after midnight. Full dose Lovenox will be sufficient for DVT prophylaxis Protonix for PUD prophylaxis Todays plan 01/21 - continue pain management - ortho recs appreciated - continue home moprhine, fentanyl patch - continue lovenox for PE. [facility]. - Stresstest done this admit shows jesenia-infarct ischemia, no active chest pain - lives alone at home. order PT, OT - check mri c-spine, lumbar to r/o infection - ns @100 cc /hr - staph aureus bacteremia. ucx positive staph aureus - repeat bcx 01/20 - tte reviewed - will consider yandy if no clear source - 1. RIGHT C2-3, RIGHT C3-C4 and RIGHT C4-C5 facet synovitis with jesenia- articular edema. This is likely infectious or inflammatory. 2. Additional edema in the dorsal interspinous soft tissues in the upper cervical spine. Recommend correlation with recent trauma. 3. No evidence of epidural abscess however recommend short interval follow-up with gadolinium to exclude developing abscess or fluid collection. 4. No evidence of discitis or osteomyelitis. 5. Moderate stable spondylitic changes. - Discussed with radiology in detail. There may be a developing abscess. They recommend to repeat MRI with contrast in the next 48 hours. Discussed with the patient and she is okay with it. She would like to be a full code She would like to appoint her granddaughter for DPOA. YOLETTE has resolved. Creatinine back to baseline 0.7. Initial blood culture still pending. Preliminarily positive for Staph aureus. Cut down dexamethasone to 6 daily. Complete 7 days of Zosyn at this time. Continue vancomycin. Patient will need 6 weeks of IV antibiotics from last negative blood culture. Discussed with Dr. Barahona. Patient does have an abscess in C-spine area, most likely will have to drain Continue to monitor in ICU for another day. Patient complains of mild swelling in neck area. Patient may benefit from senior care facility at discharge. Attestations 2 Medical Necessity Statement*: Admission for more than 2 midnights for management of pulmonary embolism, non-ST elevation [place] Diagnoses Pulmonary embolism I26.99 Chest pain R07.9 Non-STEMI (non-ST elevated myocardial infarction) I21.4 Nonrheumatic mitral valve regurgitation I34.0 Cardiac valve disease etiology: nonrheumatic HTN (hypertension), benign I10 Cervical disc disorder with myelopathy of mid-cervical region M50.020
--- NOTE | 2024-01-22 13:14 | PC.SOCIAL ---
IMM Updated Updated pt on IMM. No questions voiced. Provided pt a copy. Initialed, dated, & timed copy in chart.
--- NOTE | 2024-01-22 13:20 | P.PN_ITS ---
Subjective 2 Subjective: Patient was sleeping when I walked in the room. Vitals/I&O/Wt Last Vital Signs Temp 97.1 F L 01/22/24 12:00 Pulse 83 01/22/24 10:04 Resp 14 01/22/24 08:08 BP 169/75 01/22/24 05:00 Pulse Ox 90 01/22/24 10:04 O2 Del Method Nasal Cannula 01/22/24 10:04 O2 Flow Rate 2 01/22/24 10:04 01/21/24 01/22/24 01/22/24 22:59 06:59 14:59 Intake Total 1050 / 1400 300 / 1700 1290 / 1290 Output Total 925 / 925 700 / 1625 Balance 125 / 475 -400 / 75 1290 / 1290 Weight last 48 hrs Weight 163 lb 6.4 oz Weight 164 lb 2 oz Physical Exam 2 Narrative: Resting comfortably Data 01/22/24 05:45 01/22/24 05:45 Micro: Microbiology 01/21/24 12:40 Blood Culture - Preliminary Blood NEGATIVE TO DATE 01/21/24 12:35 Blood Culture - Preliminary Blood NEGATIVE TO DATE 01/20/24 15:38 Blood Culture - Preliminary Blood Coag positive Staphylococcus 01/20/24 15:38 Blood Culture - Preliminary Blood Coag positive Staphylococcus A&P Assessment and plan (1) Neck pain: Patient is MRI is reviewed looks like she has facet inflammation. Discussed with Dr. Best. Discussed the case with radiology. At this point we will continue to monitor and get a new MRI in a couple days to see if there is any progression of the inflammation. Attestations 2 Medical Necessity Statement*: Per primary service Coding Level of Care Code Acute Code for [facility] Diagnoses Neck pain M54.2
--- NOTE | 2024-01-22 20:58 | PC.NURSE ---
Increased BP: Notified Dr. Reddy of increased BP @2053. New order for Hydralazine 10mg IVP ONCE NOW and Hydralazine 10mg IVP Q6H PRN for SBP greater than 160, DBP greater than 100.
[2024-01-22] MEDS: atorvastatin 40 mg Tablet 20 MG PO (21:09)
[2024-01-22] MEDS: hyDRALAzine 20 mg/mL INJ 1 mL 10 MG IVP (21:25)
[2024-01-22] MEDS: vancomycin 1,000 MG in sodium chloride 0.9% 250 ML 250 MG IV (21:44)
[2024-01-23] VITALS (62 sets, daily range): BP systolic 135–244; BP diastolic 66–123; PULSE 79–120; RESP 13–35; TEMP 36.6–37; O2SAT 90–97
[2024-01-23] MEDS: hyDRALAzine 20 mg/mL INJ 1 mL 10 MG IVP (00:11)
--- NOTE | 2024-01-23 00:59 | PC.NURSE ---
Elevated BP: Notified Dr. Reddy of elevated BP/current vitals @7355. New order for Labetalol 10mg IVP ONCE NOW.
[2024-01-23] MEDS: labetalol 5 mg/mL SDV 20mL 10 MG IVP (01:14)
[2024-01-23] MEDS: nicardipine 20 MG/200 ML PREMIX 50 MG IV (04:00)
[2024-01-23] MEDS: polyethylene glycol 3350 Pkt 17 gm PO ×2 (04:07→09:25)
--- NOTE | 2024-01-23 04:08 | PC.NURSE ---
Addendum entered by Liz Leiva RN 01/23/24 04:25: Notified Dr. Reddy of SOB and change in lung sounds- new order for RT assess and treat. Original Note: Increased BP: Notified Dr. Reddy of BP 244/126, New order for Nicardipine titratable drip and Miralax 17g ONCE NOW.
[2024-01-23] MEDS: albuterol 2.5 mg/3 mL Neb INHALATION (05:09)
[2024-01-23] MEDS: morphine IR 15 mg Tablet PO (05:27)
[2024-01-23] MEDS: nicardipine 20 MG/200 ML PREMIX 125 MG IV (06:02)
--- NOTE | 2024-01-23 06:13 | PC.NURSE ---
Enema: Pt reporting abdominal pain that she believes is related to constipation. Pt is insistent that she needs an enema. Dr. Reddy notified, new order for tap water enema- fluid instilled as tolerated.
[2024-01-23] MEDS: sodium chloride 0.9% 1,000 ML 100 ML IV (07:47)
[2024-01-23] MEDS: piperacillin-tazobactam 3.375 GM in sodium chloride 0.9% (plus) 50 ML IV ×2 (07:48→16:08)
[2024-01-23 08:32] LABS: Basophils # 0.1 10^3/uL (0.0-0.1); Basophils % 0.4 %; Eosinophils % 0.1 %; Hematocrit 40.4 % (36-47); Lymphocytes # 1.3 10^3/uL (0.8-4.8); Lymphocytes % 6.3 %; Mean Corpuscular HGB Conc 32.7 g/dL (30-55); Mean Corpuscular Hemoglobin 28.9 pg (27-33); Mean Corpuscular Volume 88.4 fl (85-98); Mean Platelet Volume 11.5 fL (7.4-10.4); Monocytes # 1.2 10^3/uL (0.2-0.9); Monocytes % 5.8 %; Neutrophils # 16.84 10^3/uL (1.8-7.7); Neutrophils % 82.4 %; Nucleated Red Blood Cells % 0.1 %; Platelet Count 145 10^3/cmm (157-399); Red Blood Count 4.57 10^6/uL (3.85-5.65); White Blood Count 20.45 10^3/uL (3.29-11.43)
[2024-01-23 08:48] LABS: Blood Urea Nitrogen 28 mg/dL (8-23); Carbon Dioxide 25 mmol/L (22-29); Chloride 105 mmol/L (98-107); Creatinine Clr Calc Pharmacy 55.2904; Glucose 130 mg/dL (65-115); Magnesium 1.9 mg/dL (1.7-2.3); Osmolality Calculated 297 mOsm/kg (285-295); Sodium 140 mmol/L (136-145)
[2024-01-23 08:55] LABS: Anion Gap 13.9 (5-19); Potassium 3.9 mmol/L (3.5-5.1)
[2024-01-23] MEDS: nicardipine 20 MG/200 ML PREMIX 75 MG IV (09:13)
[2024-01-23] MEDS: sennosides-docusate Tablet 1 TAB PO ×2 (09:21→18:20)
[2024-01-23] MEDS: isosorbide mononitrate ER 30 mg Tablet PO ×2 (09:21→18:20)
[2024-01-23] MEDS: pantoprazole DR 40 mg Tablet PO (09:21)
[2024-01-23] MEDS: aspirin 81 mg EC Tablet PO (09:22)
[2024-01-23] MEDS: cyanocobalamin 1,000 mcg/mL SDV 1000 MCG IM (09:29)
--- NOTE | 2024-01-23 09:46 | XR_ITS ---
WS: [id number] Exam: XR chest 1V portable [id number] Date/Time of Exam: 01/23/2024 10:25 AM Reason For Exam: shortness of breath Comparison 01/21/2024. There is cardiac enlargement with increased pulmonary vascularity. Chronic plaque atelectasis in the RIGHT base with chronic elevation of the RIGHT diaphragm. No pneumothorax or pleural effusion. Bony s tructures are intact. Monitoring leads superimpose the chest. Signs of median sternotomy. XR/XR chest 1V portable [id number] IMPRESSION: 1. Cardiac enlargement with increased pulmonary vascularity. 2. Chronic plaque atelectasis in the RIGHT base.
--- NOTE | 2024-01-23 09:50 | PC.NURSE ---
per Dr. Estephania pollock to admin Oxycodone for pain, this nurse asked pt if she wanted Oxycodone despite allergy on chart, pt confirmed she wanted to take it.
[2024-01-23] MEDS: oxyCODONE 5 mg IR Tab/Cap 15 MG PO ×2 (09:57→23:23)
[2024-01-23] MEDS: enoxaparin 80 mg/0.8 mL Syringe 70 MG SUBCUT ×2 (09:58→21:47)
[2024-01-23] MEDS: amlodipine 10 mg Tablet PO (09:58)
--- NOTE | 2024-01-23 10:27 | PC.CHAP ---
Pastoral Care Encounter/Spiritual Assessment Type of Contact [] Declined birth certificate clerk visit [] Patient/Family/Request visit [] Outpatient visit [] Follow-up visit [] Physician referral [] Code/Alert [x] Routine visit [] Staff referral [] Actively dying [] Patient sleeping [] Family support [] [] Out of room [] Palliative care [] [] Receiving care in room [] Pre-surgical visit [] Trauma [] Long length of stay [x] ICU visit [] Other: Relational/Emotional Strength [] Patient feels connected with others/family/visitors/staff [] Distress [] Loneliness/isolation [] Abandonment Spirituality of Patient [] Person of Candis [] Attends Jew of their Candis [] Believes in Prayer [] Reads Bible or Religion materials [] There are Spiritual issues to be addressed 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 [] Prayer [] Active listening [] Non-anxious presence [] Spiritual/emotional support [] Crisis/trauma care [] Spiritual counseling [] Bereavement support [] Provided bereavement packet [] Provided Bible/devotional materials [] Provided toy/stuffed animal, coloring book to patient or family member [] Provided Communion [] Anointing/[place] [] Salvation [] Completed spiritual assessment [] Other: Impact on Illness or Injury [] Angry [] Fearful [] Anxious [] Often cries [] Exhaustion [] Unable to work [] Unable to attend confucianism [] Unable to walk/stand [] Unable to read [] Unable to drive [] Unable to eat/drink [] Unable to sleep [] Unable to be with family [] Patient intubated [] Other: Summary Time spent with patient
--- NOTE | 2024-01-23 12:41 | PM.PN ---
Subjective Subjective: Since this morning. White count 20,000 today. Patient complains of neck pain. Does not think that she is better at all. Afebrile overnight. On 3 L nasal cannula. Also says she had some difficulty breathing this morning. Chest x-ray shows cardiac enlargement with increased pulmonary vascularity, chronic plaque atelectasis in right base. Overnight blood pressure was quite high and she was started on nicardipine drip. Currently on drip blood pressure 130s over 80s. Vitals/I&O/Wt Last Vital Signs Temp 98.1 F 01/23/24 05:28 Pulse 93 01/23/24 12:30 Resp 25 H 01/23/24 12:30 BP 136/75 01/23/24 12:36 Pulse Ox 92 01/23/24 12:30 O2 Del Method Nasal Cannula 01/23/24 10:00 O2 Flow Rate 3 01/23/24 10:00 01/22/24 01/23/24 01/23/24 22:59 06:59 14:59 Intake Total 1300 / 2590 1162.084 / 3752.084 723.749 / 723.749 Output Total 1250 / 1250 1550 / 2800 600 / 600 Balance 50 / 1340 -387.916 / 952.084 123.749 / 123.749 Weight last 48 hrs Weight 70.08 kg Weight 74.117 kg Physical Exam Narrative: General: No acute distress, AO x3, on 3L NC HEENT: PERRLA, pupils bilaterally equal and reactive Chest: Normal vesicular breath sounds, no added sounds, equal good air entry bilaterally CVS: S1-S2 regular, soft pansystolic murmur at apex Abdomen: Soft, nontender, no organomegaly, bowel sounds present Neuro: No focal deficits MSK: no paraspinal muscle tenderness, ROM back limited to pain, no pain on palpation of neck, c-spine c4 area tender to palpation, no fluctuance noted on spine, skin: no visible skin lesions, no rashes Data 01/23/24 08:21 01/23/24 08:21 Micro: Microbiology 01/20/24 15:38 Blood Culture - Final Blood Staphylococcus aureus 01/20/24 15:30 Urine Culture - Final Urine Catheterized Staphylococcus aureus 01/21/24 12:40 Blood Culture - Preliminary Blood NEGATIVE TO DATE 01/21/24 12:35 Blood Culture - Preliminary Blood NEGATIVE TO DATE 01/20/24 15:38 Blood Culture - Preliminary Blood Coag positive Staphylococcus A&P Assessment and plan (1) Pulmonary embolism: Seen on CTA. Bilateral scattered. Check echocardiogram to rule out right heart strain. Start on anticoagulation with Lovenox 1 mg/kg body weight every 12 hourly. Oxygen supplementation keeping saturation over 92%. (2) Chest pain: Does complain of exertional chest pain in the past. Currently chest heaviness. Found to have elevated cycle of troponin. Already on full dose Lovenox as above. 325 mg aspirin one-time followed by 81 mg daily. Continue with home dose of atorvastatin. Check lipid panel and A1c. Echocardiogram as above. Patient is chest pain-free for now. Patient would benefit from further ACS workup with cardiac stress test. She is agreeable. (3) Non-STEMI (non-ST elevated myocardial infarction): (4) Mitral valve regurgitation: Past history. Currently euvolemic. Echocardiogram as above. Qualifiers: Cardiac valve disease etiology: nonrheumatic Qualified Code(s): I34.0 - Nonrheumatic mitral (valve) insufficiency (5) HTN (hypertension), benign: Goal blood pressure less than 140/90 mmHg. Continue with home dose of amlodipine, Coreg, Imdur, lisinopril. Uptitrate as for goal blood pressure. (6) Cervical disc disorder with myelopathy of mid-cervical region: Follows up with orthopedic surgery as an outpatient. Was recommended surgical correction but patient has been hesitant. Continue with home pain medication of oral morphine. Add fentanyl patch. Patient would benefit with outpatient physical therapy. (7) Systolic and diastolic CHF, acute: (8) Hypertension: Plan Full code Cardiac diet, n.p.o. after midnight. Full dose Lovenox will be sufficient for DVT prophylaxis Protonix for PUD prophylaxis Todays plan 01/21 - continue pain management - ortho recs appreciated - continue home moprhine, fentanyl patch - continue lovenox for PE. [facility] [place] [facility] - Stresstest done this admit shows jesenia-infarct ischemia, no active chest pain - lives alone at home. order PT, OT - check mri c-spine, lumbar to r/o infection?complete - ns @100 cc /hr - staph aureus bacteremia. ucx positive staph aureus - repeat bcx 01/20 - tte reviewed - will consider yandy if no clear source - 1. RIGHT C2-3, RIGHT C3-C4 and RIGHT C4-C5 facet synovitis with jesenia-articular edema. This is likely infectious or inflammatory. 2. Additional edema in the dorsal interspinous soft tissues in the upper cervical spine. Recommend correlation with recent trauma. 3. No evidence of epidural abscess however recommend short interval follow-up with gadolinium to exclude developing abscess or fluid collection. 4. No evidence of discitis or osteomyelitis. 5. Moderate stable spondylitic changes. - Discussed with radiology in detail. There may be a developing abscess. They recommend to repeat MRI with contrast in the next 48 hours. Discussed with the patient and she is okay with it. She would like to be a full code She would like to appoint her granddaughter for DPOA. YOLETTE has resolved. Creatinine back to baseline 0.7. Initial blood culture still pending. Preliminarily positive for Staph aureus. Cut down dexamethasone to 6 daily. Complete 7 days of Zosyn at this time. Continue vancomycin. Patient will need 6 weeks of IV antibiotics from last negative blood culture. Discussed with Dr. Barahona. Patient does have an abscess in C-spine area, most likely will have to drain Continue to monitor in ICU for another day. Patient complains of mild swelling in neck area. Patient may benefit from half-way facility at discharge. Today's plan 01/22 -Order repeat MRI with contrast C-spine in a.m. ? Chest x-ray today shows increased pulmonary vascularity. Will stop IV fluids. Will give Lasix 20 IV x 1. Patient does complain of mild shortness of breath. She is on 3 L nasal cannula and previously was on 2 L. - wean off cardene drip - add amlodipine 10 daily ? Repeat cultures so far negative have not finalized yet. ? Cultures from admission 4 out of 4 bottles positive for Staph aureus methicillin sensitive ? Complete 7 days of Zosyn at this time. Continue vancomycin. Sensitivity on culture from admission has not resulted completely therefore we will continue on vancomycin for now. If completely methicillin sensitive we will switch to oxacillin. ? Orthopedic surgery following ? Will attempt to reach out to ID, service not available till Saturday. -Patient will require ID consultation. Plan for discharge Saturday versus Saturday. -Chest pain has resolved. Stress test results reviewed. Jesenia-infarct ischemia. Aspirin, therapeutic Lovenox, atorvastatin. Add metoprolol 12.5 twice daily today. - Consult cardiology. EF mildly reduced 45%. - Continue lovenox for b/l PE. Will need lifelong AC. Transition to eliquis at discharge. Attestations Medical Necessity Statement*: Admission for more than 2 midnights for management of pulmonary embolism, non-ST elevation DC Diagnoses Pulmonary embolism I26.99 Chest pain R07.9 Non-STEMI (non-ST elevated myocardial infarction) I21.4 Nonrheumatic mitral valve regurgitation I34.0 Cardiac valve disease etiology: nonrheumatic HTN (hypertension), benign I10 Cervical disc disorder with myelopathy of mid-cervical region M50.020 Systolic and diastolic CHF, acute I50.41 Hypertension I10
[2024-01-23] MEDS: dexamethasone 10 mg/mL INJ 6 MG IVP (13:36)
[2024-01-23] MEDS: FUROsemide 10 mg/mL SDV 2mL 20 MG IVP (13:36)
[2024-01-23] MEDS: hyDRALAzine 25 mg Tablet PO ×2 (14:11→20:47)
--- NOTE | 2024-01-23 17:27 | PC.NURSE ---
report called to Kat[facility] on Med-Surg, no further questions or concerns addressed upon end of report.
--- NOTE | 2024-01-23 18:03 | PM.CONSULT ---
Providers/Reason For Consult Consulting Physician/Specialty*: Cardiology Reason for Consult*: Persistent bacteremia rule out endocarditis Abnormal stress test Pulmonary embolism Requesting Physician: Hugo Best Attending Physician: Jasmyne Best MD Primary Care Provider: Raven Peres MD History of Present Illness History of Present Illness Emma Navarrete is a 78 year old female past medical history significant for history of non-ST elevation DE coronary artery disease mitral valve regurgitation cervical spondylosis and CHeEF with moderately depressed left ventricle ejection fraction was admitted and diagnosed with pulmonary embolism neck pain and cervical possible infection with persistent bacteremia. She underwent stress test for atypical chest pain which showed old inferior lateral anterior myocardial infarction with mild jesenia-infarct ischemia. Due to gram-positive bacteremia we have been asked to assist for transfers electrocardiogram. Currently chest pain-free denies shortness of breath PND orthopnea. Medications/Allergies Home Medications Medication Instructions Recorded Confirmed Last Taken Type docusate sodium 100 mg capsule 100 mg PO BID PRN Constipation 09/09/20 01/20/24 Unknown History (Colace) [facility]amount J 06/11/22 01/20/24 Unknown History isosorbide mononitrate 30 mg 30 mg PO BID #180 tabs 10/29/22 01/20/24 Unknown Rx tablet,extended release 24 hr diclofenac sodium 75 mg 75 mg PO Q12H PRN pain #20 tabs 01/17/24 01/20/24 Unknown Rx tablet,delayed release prednisone 20 mg tablet 20 mg PO TID #15 tabs 01/17/24 01/20/24 Unknown Rx tizanidine 4 mg tablet 4 mg PO Q6H PRN muscle spasticity 01/17/24 01/20/24 Unknown Rx #20 tabs morphine 15 mg immediate release 15 mg PO Q8H PRN Pain 01/19/24 01/19/24 Unknown History tablet cyclobenzaprine 5 mg tablet 5 mg PO TID PRN MUSCLE SPASMS 01/20/24 01/20/24 Unknown History Allergies Allergy/AdvReac Type Severity Reaction Status Date / Time oxycodone [From Xt[facility]] Allergy bad taste Verified 01/17/24 08:14 in mouth Current Medications Generic Name Dose Route Start Last Admin Trade Name Freq PRN Reason Stop Dose Admin Acetaminophen 650 mg 01/19/24 09:41 01/21/24 23:08 Acetaminophen 325 Mg Tablet PO 650 mg Q6H PRN Administration Mild/Mod Pain Or Temp >/= 101 Albuterol Sulfate 2.5 mg 01/23/24 04:45 01/23/24 05:09 Albuterol 2.5 Mg/3 Ml Neb INHALATION 2.5 mg Q6H.RESP PRN Administration SHORTNESS OF BREATH Amlodipine Besylate 10 mg 01/23/24 09:45 01/23/24 09:58 Amlodipine 10 Mg Tablet PO 10 mg DAILY MARIA Administration Aspirin 81 mg 01/21/24 09:00 01/23/24 09:22 Aspirin 81 Mg Ec Tablet PO 81 mg DAILY MARIA Administration Atorvastatin Calcium 20 mg 01/19/24 21:00 01/22/24 21:09 Atorvastatin 40 Mg Tablet PO 20 mg BEDTIME MARIA Administration Cyanocobalamin 1,000 mcg 01/19/24 13:40 01/23/24 09:29 Cyanocobalamin 1,000 Mcg/Ml Sdv IM 1,000 mcg DAILY MARIA Administration Cyclobenzaprine HCl 5 mg 01/19/24 10:49 01/22/24 21:09 Cyclobenzaprine 10 Mg Tablet PO 5 mg TID PRN Administration MUSCLE SPASMS Dexamethasone 6 mg 01/22/24 12:31 01/23/24 13:36 Dexamethasone 10 Mg/Ml Inj IVP 6 mg Q24H MARIA Administration Enoxaparin Sodium 70 mg 01/21/24 21:41 01/23/24 09:58 Enoxaparin 80 Mg/0.8 Ml Syringe SUBCUT 70 mg Q12H MARIA Administration Hydralazine HCl 25 mg 01/23/24 14:15 01/23/24 14:11 Hydralazine 25 Mg Tablet PO 25 mg TID MARIA Administration Piperacillin Sod/Tazobactam 50 mls @ 12.5 mls/hr 01/20/24 23:30 01/23/24 16:08 Sod 3.375 gm/ Sodium Chloride IV 12.5 mls/hr Q8H MARIA Administration Vancomycin HCl 1,000 mg/ 250 mls @ 250 mls/hr 01/21/24 22:30 01/22/24 22:45 Sodium Chloride IV Infused Q24H MARIA Infusion Isosorbide Mononitrate 30 mg 01/19/24 18:00 01/23/24 09:21 Isosorbide Mononitrate Er 30 Mg Tablet PO 30 mg BID MARIA Administration Lisinopril 20 mg 01/19/24 10:05 01/21/24 09:28 Lisinopril 20 Mg Tablet PO Not Given DAILY [facility] Non-Formulary Medication 50 mg 01/20/24 09:00 01/23/24 10:04 Topiramate PO Not Given DAILY MARIA Oxycodone HCl 15 mg 01/19/24 10:22 01/23/24 09:57 Oxycodone 5 Mg Ir Tab/Cap PO 15 mg QID PRN Administration pain scale 6-10 Pantoprazole Sodium 40 mg 01/19/24 09:41 01/23/24 09:[address] 40 Mg Tablet PO 40 mg DAILY MARIA Administration Polyethylene Glycol 17 gm 01/21/24 11:00 01/23/24 09:25 Polyethylene Glycol 3350 Pkt 17 Gm PO 17 gm DAILY MARIA Administration Senna/Docusate Sodium 1 tab 01/21/24 18:00 01/23/24 09:21 Sennosides-Docusate Tablet PO 1 tab BID MARIA Administration Tizanidine HCl 4 mg 01/19/24 10:04 01/20/24 03:43 Tizanidine 4 Mg Tablet PO 4 mg Q6H PRN Administration muscle spasticity PFSH Acute PFSH: Medical History (Updated 01/23/24 @ 18:12 by Jennifer Edwards MD) Stenosis of cervical spine with myelopathy Renal cyst, left Tricuspid valve regurgitation Mitral valve regurgitation Shortness of breath HTN (hypertension), benign Hyperlipidemia GERD (gastroesophageal reflux disease) Cervical disc disorder with myelopathy of mid-cervical region CRPS (complex regional pain syndrome type I) last stellate ganglion block was in 2012. 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 L2-L3, L3-L4, L4-L5, and L5-S1 fusion/fixation 1986 [facility] L4-L5, L5-S1 decompression 05/1977 L5-S1 decompression S/P thymectomy 1984 AGE 15 MYASTHENIA GRAVIS S/P bladder repair ANTERIOR VAG REPAIR WITH ELEVATE VAG MESH, POSTERIOR REPAIR AND CYSTOSCOPY DR SYLVIA CORREA - [facility]. 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 HEART: Regular S1 and S2. No murmur, rub or gallop. LUNGS: Decreased breath sounds bilaterally. CENTRAL NERVOUS SYSTEM: Grossly nonfocal. Data 01/23/24 08:21 01/23/24 08:21 Micro: Microbiology 01/20/24 15:38 Blood Culture - Final Blood Staphylococcus aureus 01/20/24 15:30 Urine Culture - Final Urine Catheterized Staphylococcus aureus A&P Assessment and plan (1) Systolic and diastolic CHF, acute: Patient appears doing well compensated continue current regimen, if needed patient can be diuresed currently does not appear to be volume overloaded (2) Pulmonary embolism: On anticoagulation, echocardiogram did not reveal right heart strain. Left ventricular ejection fraction appeared to be moderate at 45%. (3) Hypertension: Well-controlled continue medicine (4) Chest pain: Stress test shows mild jesenia-infarct ischemia which in the presence of prior coronary artery disease and in the absence of typical chest pain does not warrant any invasive strategy (5) Bacteremia: Transthoracic echo did not reveal any obvious source for bacteremia, MRI was suggested for the spine however if needed transesophageal echocardiogram is a better modality to rule out endocarditis which may can happen early next week due to logistics or in urgent care scenario over the weekend, cardiology can be contacted at that time provided anesthesia available. Continue antibiotics. Coding Level of Care Code Acute Code for [facility] Diagnoses Systolic and diastolic CHF, acute I50.41 Pulmonary embolism I26.99 Hypertension I10 Chest pain R07.9 Bacteremia R78.81
[2024-01-23] MEDS: atorvastatin 40 mg Tablet 20 MG PO (20:47)
[2024-01-23] MEDS: metoprolol tartrate 25 mg Tablet 12.5 MG PO (20:48)
[2024-01-23] MEDS: vancomycin 1,000 MG in sodium chloride 0.9% 250 ML 250 MG IV (23:47)
[2024-01-24] VITALS (9 sets, daily range): BP systolic 138–181; BP diastolic 63–91; PULSE 66–86; RESP 16–20; TEMP 36.3–37.2; O2SAT 93–97
[2024-01-24] MEDS: piperacillin-tazobactam 3.375 GM in sodium chloride 0.9% (plus) 50 ML IV ×3 (01:01→17:43)
[2024-01-24] MEDS: tizanidine 4 mg Tablet PO ×2 (01:07→13:18)
[2024-01-24 05:23] LABS: Basophils # 0.1 10^3/uL (0.0-0.1); Basophils % 0.4 %; Hematocrit 37.2 % (36-47); Lymphocytes # 1.4 10^3/uL (0.8-4.8); Mean Corpuscular HGB Conc 32.5 g/dL (30-55); Mean Corpuscular Hemoglobin 28.9 pg (27-33); Mean Platelet Volume 11.7 fL (7.4-10.4); Monocytes # 0.9 10^3/uL (0.2-0.9); Monocytes % 6.3 %; Neutrophils # 10.74 10^3/uL (1.8-7.7); Neutrophils % 78.6 %; Nucleated Red Blood Cells % 0 %; Platelet Count 158 10^3/cmm (157-399); Red Blood Count 4.18 10^6/uL (3.85-5.65); White Blood Count 13.65 10^3/uL (3.29-11.43)
[2024-01-24 05:41] LABS: Alanine Aminotransferase 29 U/L (0-33); Albumin Level 2.4 g/dL (3.5-5.2); Alkaline Phosphatase 78 U/L (35-105); Anion Gap 14.1 (5-19); Aspartate Amino Transferase 36 U/L (0-32); Blood Urea Nitrogen 27 mg/dL (8-23); Calcium 7.8 mg/dL (8.5-10.5); Carbon Dioxide 31 mmol/L (22-29); Chloride 98 mmol/L (98-107); Creatinine Clr Calc Pharmacy 56.4499; Globulin 2.8 g/dL (1.3-4.6); Glucose 126 mg/dL (65-115); Magnesium 1.7 mg/dL (1.7-2.3); Osmolality Calculated 295 mOsm/kg (285-295); Potassium 4.1 mmol/L (3.5-5.1); Sodium 139 mmol/L (136-145); Total Bilirubin 0.4 mg/dL (0.15-1.2); Total Protein 5.2 g/dL (6.6-8.7)
[2024-01-24] MEDS: oxyCODONE 5 mg IR Tab/Cap 15 MG PO ×2 (07:57→16:34)
--- NOTE | 2024-01-24 08:00 | MR_ITS ---
WS: [id number] MR CERVICAL SPINE WITH GADOLINIUM ENHANCEMENT ONLY COMPARISON: MRI 01/21/2024 HISTORY: staph aureus bacteremia - check for abscess TECHNIQUE: Post gadolinium only with sagittal and axial T1 imaging with fat saturation technique. Tung e images degraded by motion. FINDINGS: Follow-up cervical spine MRI with gadolinium only. Comparison recent MRI 01/21/2024 No evidence of epidural abscess or drainable fluid collection. Periarticular and soft tissue enhancem ent about the RIGHT C2-3, C3-4, and C4-5 facets compatible with infectious or inflammatory synovitis as seen on the recent MRI. Small amount of associated epidural enhancement. No drainable fluid collec tions. No evidence of discitis. No other significant changes. MR/MR cervical spine w con [id number] IMPRESSION: Some images are limited due to motion. 1. No evidence of drainable abscess or fluid collection. No evidence of epidur al abscess. Small amount of epidural enhancement in the upper cervical spine. R ecommend continued surveillance. 2. No evidence of discitis. 3. Alicia-articular enhancement about the RIGHT C2-3 C3-4 and C4-5 facets compat ible with infectious or inflammatory synovitis as seen on the recent MRI. 4. No other new findings.
[2024-01-24] MEDS: hyDRALAzine 25 mg Tablet PO (09:40)
[2024-01-24] MEDS: sennosides-docusate Tablet 1 TAB PO ×2 (09:40→17:44)
[2024-01-24] MEDS: cyanocobalamin 1,000 mcg/mL SDV 1000 MCG IM (09:40)
[2024-01-24] MEDS: amlodipine 10 mg Tablet PO (09:40)
[2024-01-24] MEDS: polyethylene glycol 3350 Pkt 17 gm PO (09:40)
[2024-01-24] MEDS: aspirin 81 mg EC Tablet PO (09:40)
[2024-01-24] MEDS: isosorbide mononitrate ER 30 mg Tablet PO ×2 (09:40→17:44)
[2024-01-24] MEDS: pantoprazole DR 40 mg Tablet PO (09:40)
[2024-01-24] MEDS: enoxaparin 80 mg/0.8 mL Syringe 70 MG SUBCUT ×2 (09:49→21:11)
[2024-01-24] MEDS: metoprolol tartrate 25 mg Tablet 12.5 MG PO ×2 (09:49→21:12)
[2024-01-24] MEDS: cyclobenzaprine 10 mg Tablet 5 MG PO ×2 (10:34→18:51)
--- NOTE | 2024-01-24 12:49 | P.PN_ITS ---
Subjective 2 Subjective: Seen this morning. Patient awaiting MRI. White count down to 13,000. She says she is starting to feel better in terms of neck pain. Therefore she was able to get out of bed today and use the bathroom and had a bowel movement. Vitals/I&O/Wt Last Vital Signs Temp 97.5 F L 01/24/24 12:22 Pulse 70 01/24/24 12:22 Resp 19 H 01/24/24 12:22 BP 181/91 01/24/24 12:22 Pulse Ox 95 01/24/24 12:22 O2 Del Method Nasal Cannula 01/24/24 12:22 O2 Flow Rate 3 01/24/24 07:53 01/23/24 01/24/24 01/24/24 22:59 06:59 14:59 Intake Total 170 / 1080.249 420 / 1500.249 360 / 360 Output Total 2800 / 4400 1400 / 5800 575 / 575 Balance -2630 / -3319.751 -980 / -4299.751 -215 / -215 Weight last 48 hrs Weight 73.198 kg Weight 70.08 kg Physical Exam 2 Narrative: General: No acute distress, AO x3, on 3L NC HEENT: PERRLA, pupils bilaterally equal and reactive Chest: Normal vesicular breath sounds, no added sounds, equal good air entry bilaterally CVS: S1-S2 regular, soft pansystolic murmur at apex Abdomen: Soft, nontender, no organomegaly, bowel sounds present Neuro: No focal deficits Data 01/24/24 04:42 01/24/24 04:42 Micro: Microbiology 01/20/24 15:38 Blood Culture - Final Blood Staphylococcus aureus A&P Assessment and plan (1) Pulmonary embolism: Seen on CTA. Bilateral scattered. Check echocardiogram to rule out right heart strain. Start on anticoagulation with Lovenox 1 mg/kg body weight every 12 hourly. Oxygen supplementation keeping saturation over 92%. (2) Chest pain: Does complain of exertional chest pain in the past. Currently chest heaviness. Found to have elevated cycle of troponin. Already on full dose Lovenox as above. 325 mg aspirin one-time followed by 81 mg daily. Continue with home dose of atorvastatin. Check lipid panel and A1c. Echocardiogram as above. Patient is chest pain-free for now. Patient would benefit from further ACS workup with cardiac stress test. She is agreeable. (3) Non-STEMI (non-ST elevated myocardial infarction): (4) Mitral valve regurgitation: Past history. Currently euvolemic. Echocardiogram as above. Qualifiers: Cardiac valve disease etiology: nonrheumatic Qualified Code(s): I34.0 - Nonrheumatic mitral (valve) insufficiency (5) HTN (hypertension), benign: Goal blood pressure less than 140/90 mmHg. Continue with home dose of amlodipine, Coreg, Imdur, lisinopril. Uptitrate as for goal blood pressure. (6) Cervical disc disorder with myelopathy of mid-cervical region: Follows up with orthopedic surgery as an outpatient. Was recommended surgical correction but patient has been hesitant. Continue with home pain medication of oral morphine. Add fentanyl patch. Patient would benefit with outpatient physical therapy. (7) Systolic and diastolic CHF, acute: (8) Hypertension: Plan Full code Cardiac diet, n.p.o. after midnight. Full dose Lovenox will be sufficient for DVT prophylaxis Protonix for PUD prophylaxis Todays plan 01/21 - continue pain management - ortho recs appreciated - continue home moprhine, fentanyl patch - continue lovenox for PE. At dc transition to eliquis. - Stresstest done this admit shows alicia-infarct ischemia, no active chest pain - lives alone at home. order PT, OT - check mri c-spine, lumbar to r/o infection?complete - ns @100 cc /hr - staph aureus bacteremia. ucx positive staph aureus - repeat bcx 01/20 - tte reviewed - will consider yandy if no clear source - 1. RIGHT C2-3, RIGHT C3-C4 and RIGHT C4-C5 facet synovitis with alicia- articular edema. This is likely infectious or inflammatory. 2. Additional edema in the dorsal interspinous soft tissues in the upper cervical spine. Recommend correlation with recent trauma. 3. No evidence of epidural abscess however recommend short interval follow-up with gadolinium to exclude developing abscess or fluid collection. 4. No evidence of discitis or osteomyelitis. 5. Moderate stable spondylitic changes. - Discussed with radiology in detail. There may be a developing abscess. They recommend to repeat MRI with contrast in the next 48 hours. Discussed with the patient and she is okay with it. She would like to be a full code She would like to appoint her granddaughter for DPOA. YOLETTE has resolved. Creatinine back to baseline 0.7. Initial blood culture still pending. Preliminarily positive for Staph aureus. Cut down dexamethasone to 6 daily. Complete 7 days of Zosyn at this time. Continue vancomycin. Patient will need 6 weeks of IV antibiotics from last negative blood culture. Discussed with Dr. Barahona. Patient does have an abscess in C-spine area, most likely will have to drain Continue to monitor in ICU for another day. Patient complains of mild swelling in neck area. Patient may benefit from senior care facility at discharge. Today's plan 01/22 -Order repeat MRI with contrast C-spine in a.m. ? Chest x-ray today shows increased pulmonary vascularity. Will stop IV fluids. Will give Lasix 20 IV x 1. Patient does complain of mild shortness of breath. She is on 3 L nasal cannula and previously was on 2 L. - wean off cardene drip - add amlodipine 10 daily ? Repeat cultures so far negative have not finalized yet. ? Cultures from admission 4 out of 4 bottles positive for Staph aureus methicillin sensitive ? Complete 7 days of Zosyn at this time. Continue vancomycin. Sensitivity on culture from admission has not resulted completely therefore we will continue on vancomycin for now. If completely methicillin sensitive we will switch to oxacillin. ? Orthopedic surgery following ? Will attempt to reach out to ID, service not available till Saturday. -Patient will require ID consultation. Plan for discharge Saturday versus Saturday. -Chest pain has resolved. Stress test results reviewed. Alicia-infarct ischemia. Aspirin, therapeutic Lovenox, atorvastatin. Add metoprolol 12.5 twice daily today. - Consult cardiology. EF mildly reduced 45%. - Continue lovenox for b/l PE. Will need lifelong AC. Transition to eliquis at discharge. 01/23 ?Awaiting C-spine MRI ? Continue amlodipine 10 daily ? Increase hydralazine to 75 3 times daily ? Repeat blood cultures negative so far ? Plan for cefazolin 2 g every 8 hours x 4-6 weeks at discharge ? Continue Vanco and Zosyn for now. ? Will consult ID. ? Continue metoprolol 12.5 twice daily ? Cardiology recommendations appreciated. ? Plan for [facility] on Saturday. ? Continue therapeutic Lovenox for now will transition to Eliquis at discharge ? Continue dexamethasone 6 every 24 hours for now Attestations 2 Medical Necessity Statement*: Admission for more than 2 midnights for management of pulmonary embolism, non-ST elevation OR, Staph aureus bacteremia Diagnoses Pulmonary embolism I26.99 Chest pain R07.9 Non-STEMI (non-ST elevated myocardial infarction) I21.4 Nonrheumatic mitral valve regurgitation I34.0 Cardiac valve disease etiology: nonrheumatic HTN (hypertension), benign I10 Cervical disc disorder with myelopathy of mid-cervical region M50.020 Systolic and diastolic CHF, acute I50.41 Hypertension I10
[2024-01-24] MEDS: acetaminophen 325 mg Tablet 650 MG PO (13:18)
[2024-01-24] MEDS: dexamethasone 10 mg/mL INJ 6 MG IVP (13:18)
[2024-01-24] MEDS: hyDRALAzine 25 mg Tablet 75 MG PO ×2 (16:33→21:12)
[2024-01-24] MEDS: vancomycin 1,250 MG/250 ML PIGGYBACK 250 MG IV (16:34)
[2024-01-24] MEDS: atorvastatin 40 mg Tablet 20 MG PO (21:12)
[2024-01-25] VITALS (16 sets, daily range): BP systolic 105–170; BP diastolic 21–89; PULSE 56–91; RESP 16–22; TEMP 36.3–37.6; O2SAT 93–97; BMI 27.6
[2024-01-25] MEDS: oxyCODONE 5 mg IR Tab/Cap 15 MG PO ×5 (00:18→22:02)
[2024-01-25] MEDS: piperacillin-tazobactam 3.375 GM in sodium chloride 0.9% (plus) 50 ML IV ×3 (00:21→16:33)
[2024-01-25] MEDS: acetaminophen 325 mg Tablet 650 MG PO (01:15)
[2024-01-25] MEDS: tizanidine 4 mg Tablet PO ×2 (01:16→22:47)
[2024-01-25] MEDS: polyethylene glycol 3350 Pkt 17 gm PO (09:50)
[2024-01-25] MEDS: hyDRALAzine 25 mg Tablet 75 MG PO ×3 (09:50→20:51)
[2024-01-25] MEDS: pantoprazole DR 40 mg Tablet PO (09:51)
[2024-01-25] MEDS: cyanocobalamin 1,000 mcg/mL SDV 1000 MCG IM (09:51)
[2024-01-25] MEDS: isosorbide mononitrate ER 30 mg Tablet PO ×2 (09:51→17:31)
[2024-01-25] MEDS: amlodipine 10 mg Tablet PO (09:51)
[2024-01-25] MEDS: aspirin 81 mg EC Tablet PO (09:51)
[2024-01-25] MEDS: sennosides-docusate Tablet 1 TAB PO ×2 (09:51→17:31)
[2024-01-25] MEDS: enoxaparin 80 mg/0.8 mL Syringe 70 MG SUBCUT (09:52)
[2024-01-25] MEDS: vancomycin 1,250 MG/250 ML PIGGYBACK 250 MG IV (09:53)
[2024-01-25] MEDS: metoprolol tartrate 25 mg Tablet 12.5 MG PO ×2 (10:11→20:51)
--- NOTE | 2024-01-25 11:50 | PC.NURSE ---
Provider is notified that patient is still in 9/10 pain, she had her last pain medication at 1009. Provider ordered morphine 2mg IVP once. Order entered.
[2024-01-25] MEDS: morphine 4 mg/mL SDV 1 mL 2 MG IVP (11:55)
[2024-01-25] MEDS: dexamethasone 10 mg/mL INJ 6 MG IVP (12:50)
--- NOTE | 2024-01-25 15:20 | P.PN_ITS ---
Subjective 2 Subjective: seen this am pt lost IV access morning labs unable to be obtained mri cervical spine reviewed, no defined abscess Vitals/I&O/Wt Last Vital Signs Temp 99.6 F 01/25/24 12:00 Pulse 91 01/25/24 12:00 Resp 17 01/25/24 12:00 BP 159/65 01/25/24 12:00 Pulse Ox 96 01/25/24 12:00 O2 Del Method Nasal Cannula 01/25/24 07:30 O2 Flow Rate 3 01/25/24 07:30 01/25/24 01/25/24 01/25/24 06:59 14:59 22:59 Intake Total 290 / 1240 540 / 540 Output Total 650 / 2625 950 / 950 Balance -360 / -1385 -410 / -410 Weight last 48 hrs Weight 70.931 kg Weight 73.198 kg Physical Exam 2 Narrative: General: No acute distress, AO x3, on 3L NC HEENT: PERRLA, pupils bilaterally equal and reactive Chest: Normal vesicular breath sounds, no added sounds, equal good air entry bilaterally CVS: S1-S2 regular, soft pansystolic murmur at apex Abdomen: Soft, nontender, no organomegaly, bowel sounds present Neuro: No focal deficits Data 01/24/24 04:42 01/24/24 04:42 A&P Assessment and plan (1) Pulmonary embolism: Seen on CTA. Bilateral scattered. Check echocardiogram to rule out right heart strain. Start on anticoagulation with Lovenox 1 mg/kg body weight every 12 hourly. Oxygen supplementation keeping saturation over 92%. (2) Chest pain: Does complain of exertional chest pain in the past. Currently chest heaviness. Found to have elevated cycle of troponin. Already on full dose Lovenox as above. 325 mg aspirin one-time followed by 81 mg daily. Continue with home dose of atorvastatin. Check lipid panel and A1c. Echocardiogram as above. Patient is chest pain-free for now. Patient would benefit from further ACS workup with cardiac stress test. She is agreeable. (3) Non-STEMI (non-ST elevated myocardial infarction): (4) Mitral valve regurgitation: Past history. Currently euvolemic. Echocardiogram as above. Qualifiers: Cardiac valve disease etiology: nonrheumatic Qualified Code(s): I34.0 - Nonrheumatic mitral (valve) insufficiency (5) HTN (hypertension), benign: Goal blood pressure less than 140/90 mmHg. Continue with home dose of amlodipine, Coreg, Imdur, lisinopril. Uptitrate as for goal blood pressure. (6) Cervical disc disorder with myelopathy of mid-cervical region: Follows up with orthopedic surgery as an outpatient. Was recommended surgical correction but patient has been hesitant. Continue with home pain medication of oral morphine. Add fentanyl patch. Patient would benefit with outpatient physical therapy. (7) Systolic and diastolic CHF, acute: (8) Hypertension: Plan Full code Cardiac diet, n.p.o. after midnight. Full dose Lovenox will be sufficient for DVT prophylaxis Protonix for PUD prophylaxis Todays plan 01/21 - continue pain management - ortho recs appreciated - continue home moprhine, fentanyl patch - continue lovenox for PE. At dc transition to eliquis. - Stresstest done this admit shows alicia-infarct ischemia, no active chest pain - lives alone at home. order PT, OT - check mri c-spine, lumbar to r/o infection?complete - ns @100 cc /hr - staph aureus bacteremia. ucx positive staph aureus - repeat bcx 01/20 - tte reviewed - will consider yandy if no clear source - 1. RIGHT C2-3, RIGHT C3-C4 and RIGHT C4-C5 facet synovitis with alicia- articular edema. This is likely infectious or inflammatory. 2. Additional edema in the dorsal interspinous soft tissues in the upper cervical spine. Recommend correlation with recent trauma. 3. No evidence of epidural abscess however recommend short interval follow-up with gadolinium to exclude developing abscess or fluid collection. 4. No evidence of discitis or osteomyelitis. 5. Moderate stable spondylitic changes. - Discussed with radiology in detail. There may be a developing abscess. They recommend to repeat MRI with contrast in the next 48 hours. Discussed with the patient and she is okay with it. She would like to be a full code She would like to appoint her granddaughter for DPOA. YOLETTE has resolved. Creatinine back to baseline 0.7. Initial blood culture still pending. Preliminarily positive for Staph aureus. Cut down dexamethasone to 6 daily. Complete 7 days of Zosyn at this time. Continue vancomycin. Patient will need 6 weeks of IV antibiotics from last negative blood culture. Discussed with Dr. Barahona. Patient does have an abscess in C-spine area, most likely will have to drain Continue to monitor in ICU for another day. Patient complains of mild swelling in neck area. Patient may benefit from nursing home facility at discharge. Today's plan 01/22 -Order repeat MRI with contrast C-spine in a.m. ? Chest x-ray today shows increased pulmonary vascularity. Will stop IV fluids. Will give Lasix 20 IV x 1. Patient does complain of mild shortness of breath. She is on 3 L nasal cannula and previously was on 2 L. - wean off cardene drip - add amlodipine 10 daily ? Repeat cultures so far negative have not finalized yet. ? Cultures from admission 4 out of 4 bottles positive for Staph aureus methicillin sensitive ? Complete 7 days of Zosyn at this time. Continue vancomycin. Sensitivity on culture from admission has not resulted completely therefore we will continue on vancomycin for now. If completely methicillin sensitive we will switch to oxacillin. ? Orthopedic surgery following ? Will attempt to reach out to ID, service not available till Saturday. -Patient will require ID consultation. Plan for discharge Saturday versus Saturday. -Chest pain has resolved. Stress test results reviewed. Alicia-infarct ischemia. Aspirin, therapeutic Lovenox, atorvastatin. Add metoprolol 12.5 twice daily today. - Consult cardiology. EF mildly reduced 45%. - Continue lovenox for b/l PE. Will need lifelong AC. Transition to eliquis at discharge. 01/24 ? C-spine MRI reviewed. ? Continue amlodipine 10 daily ? Increase hydralazine to 75 3 times daily ? Repeat blood cultures negative so far ? Plan for cefazolin 2 g every 8 hours x 4-6 weeks at discharge ? Continue Vanco and Zosyn for now. ? Will consult ID. ? Continue metoprolol 12.5 twice daily ? Cardiology recommendations appreciated. ? Plan for [facility] on Saturday. ? Continue therapeutic Lovenox for now will transition to Eliquis at discharge ? Continue dexamethasone 6 every 24 hours for now Attestations 2 Medical Necessity Statement*: Admission for more than 2 midnights for management of pulmonary embolism, non-ST elevation PR, Staph aureus bacteremia Diagnoses Pulmonary embolism I26.99 Chest pain R07.9 Non-STEMI (non-ST elevated myocardial infarction) I21.4 Nonrheumatic mitral valve regurgitation I34.0 Cardiac valve disease etiology: nonrheumatic HTN (hypertension), benign I10 Cervical disc disorder with myelopathy of mid-cervical region M50.020 Systolic and diastolic CHF, acute I50.41 Hypertension I10
[2024-01-25 19:03] LABS: Basophils # 0.1 10^3/uL (0.0-0.1); Basophils % 0.3 %; Eosinophils % 0.1 %; Hematocrit 43.3 % (36-47); Lymphocytes % 4.7 %; Mean Corpuscular HGB Conc 31.4 g/dL (30-55); Mean Corpuscular Hemoglobin 28.8 pg (27-33); Mean Corpuscular Volume 91.5 fl (85-98); Monocytes # 0.7 10^3/uL (0.2-0.9); Monocytes % 3.3 %; Neutrophils # 17.85 10^3/uL (1.8-7.7); Neutrophils % 87.2 %; Nucleated Red Blood Cells % 0 %; Platelet Count 139 10^3/cmm (157-399); Red Blood Count 4.73 10^6/uL (3.85-5.65); Red Cell Distribution Width 13.1 % (12.1-15.1); White Blood Count 20.49 10^3/uL (3.29-11.43)
[2024-01-25 19:19] LABS: Blood Urea Nitrogen 22 mg/dL (8-23); Calcium 7.9 mg/dL (8.5-10.5); Carbon Dioxide 28 mmol/L (22-29); Chloride 95 mmol/L (98-107); Creatinine Clr Calc Pharmacy 55.6068; Glucose 165 mg/dL (65-115); Magnesium 1.7 mg/dL (1.7-2.3); Osmolality Calculated 285 mOsm/kg (285-295); Sodium 134 mmol/L (136-145)
[2024-01-25 19:22] LABS: Anion Gap 15.4 (5-19); Potassium 4.4 mmol/L (3.5-5.1)
[2024-01-25] MEDS: apixaban 5 mg Tablet PO (20:51)
[2024-01-25] MEDS: atorvastatin 40 mg Tablet 20 MG PO (20:52)
[2024-01-25] MEDS: morphine 4 mg/mL SDV 1 mL 1 MG IVP (22:05)
--- NOTE | 2024-01-25 22:40 | PM.CONSULT ---
Providers/Reason For Consult Consulting Physician/Specialty*: MD Skye/Infectious Disease Reason for Consult*: MSSA bactermia Requesting Physician: Dr. Best Attending Physician: Jasmyne Best MD Primary Care Provider: Raven Peres MD History of Present Illness History of Present Illness Emma Navarrete is a 78 year old female with past medical history of hypertension, hyperlipidemia, moderate mitral valve regurgitation, mild to moderate tricuspid regurgitation, history of blood clot in the past, currently admitted to the hospital since 01/19/24 with c/o worsening neck pain and new dyspnea. She had new 02 requirement. She was found to have B/L scattered PE and elevated troponins. Echocardiogram showed known MR and dimished EF for which she underwent stress test for ischemic evaluation. She has long standing cervical neck pain from known cervical stenosis, has declined surgical intervention. She also has a h/o lumbar decompression surgeries with instrumentation several years ago. During admission she has been found to have MSSA bacteremia. Currently on treatment with Zosyn + vancomycin. MRi of the spine initially on 01/20 w/o contrast showed RIGHT C2-3, RIGHT C3-C4 and RIGHT C4-C5 facet synovitis with jesenia-articular edema. This is likely infectious or inflammatory. Additional edema in the dorsal interspinous soft tissues in the upper cervical spine. Repeat MRI with contrast on 01/23 : No evidence of drainable abscess or fluid collection. No evidence of epidural abscess. Small amount of epidural enhancement in the upper cervical spine.Jesenia-articular enhancement about the RIGHT C2-3 C3-4 and C4-5 facets compatible with infectious or inflammatory synovitis. CRP elevated at 324. Review of Systems General: Reports: 10 or more systems reviewed and unremarkable except in HPI and below Const: Denies: fever(s), chills or body aches Eyes: Denies: change in vision, blurry vision or photophobia ENMT: Reports: hoarseness; Denies: throat pain, enlarged tonsils, odynophagia or nasal congestion Card: Denies: chest pain, palpitations, irregular heart rhythm, edema, swelling of feet/ankles, lightheadedness, pre-syncope, dyspnea on exertion or orthopnea Resp: Denies: dyspnea, productive cough, non-productive cough, wheezing, stridor, pain on inspiration, change in phlegm color, hemoptysis or chest congestion GI: Denies: abdominal pain, nausea, vomiting, hematemesis, coffee ground emesis, dysphagia, heartburn, diarrhea, constipation, GI cramping, change in stool character, hematochezia or melena : Denies: flank pain, difficulty voiding, dysuria, urinary frequency, urinary urgency, urinary hesitancy or hematuria Musc: Denies: neck pain, back pain, extremity pain, joint swelling, joint warmth or deformity Neuro: Denies: headache(s), numbness in extremities, weakness in extremities, sensory changes, difficulty walking, frequent falls, dizziness, vertigo, behavioral changes, Slurred speech present or seizure-like activity Psych: Denies: anxiety, depression, suicidal ideation or homicidal ideation Endo: Denies: polyuria, polydipsia, tired all the time, cold intolerance or hot flashes Darryn/Lymph: Denies: easy bruising or easy bleeding Medications/Allergies Home Medications Medication Instructions Recorded Confirmed Last Taken Type docusate sodium 100 mg capsule 100 mg PO BID PRN Constipation 09/09/20 01/20/24 Unknown History (Colace) [place] J 06/11/22 01/20/24 Unknown History isosorbide mononitrate 30 mg 30 mg PO BID #180 tabs 10/29/22 01/20/24 Unknown Rx tablet,extended release 24 hr diclofenac sodium 75 mg 75 mg PO Q12H PRN pain #20 tabs 01/17/24 01/20/24 Unknown Rx tablet,delayed release prednisone 20 mg tablet 20 mg PO TID #15 tabs 01/17/24 01/20/24 Unknown Rx tizanidine 4 mg tablet 4 mg PO Q6H PRN muscle spasticity 01/17/24 01/20/24 Unknown Rx #20 tabs morphine 15 mg immediate release 15 mg PO Q8H PRN Pain 01/19/24 01/19/24 Unknown History tablet cyclobenzaprine 5 mg tablet 5 mg PO TID PRN MUSCLE SPASMS 01/20/24 01/20/24 Unknown History Allergies Allergy/AdvReac Type Severity Reaction Status Date / Time oxycodone [From Xtamp[facility] ER] Allergy bad taste Verified 01/17/24 08:14 in mouth Current Medications Generic Name Dose Route Start Last Admin Trade Name Freq PRN Reason Stop Dose Admin Acetaminophen 650 mg 01/19/24 09:41 01/25/24 01:15 Acetaminophen 325 Mg Tablet PO 650 mg Q6H PRN Administration Mild/Mod Pain Or Temp >/= 101 Albuterol Sulfate 2.5 mg 01/23/24 04:45 01/23/24 05:09 Albuterol 2.5 Mg/3 Ml Neb INHALATION 2.5 mg Q6H.RESP PRN Administration SHORTNESS OF BREATH Amlodipine Besylate 10 mg 01/23/24 09:45 01/25/24 09:51 Amlodipine 10 Mg Tablet PO 10 mg DAILY MARIA Administration Apixaban 5 mg 01/25/24 21:00 01/25/24 20:51 Apixaban 5 Mg Tablet PO 5 mg BID@0900,2100 MARIA Administration Aspirin 81 mg 01/21/24 09:00 01/25/24 09:51 Aspirin 81 Mg Ec Tablet PO 81 mg DAILY MARIA Administration Atorvastatin Calcium 20 mg 01/19/24 21:00 01/25/24 20:52 Atorvastatin 40 Mg Tablet PO 20 mg BEDTIME MARIA Administration Cyanocobalamin 1,000 mcg 01/19/24 13:40 01/25/24 09:51 Cyanocobalamin 1,000 Mcg/Ml Sdv IM 1,000 mcg DAILY MARIA Administration Cyclobenzaprine HCl 5 mg 01/19/24 10:49 01/24/24 18:51 Cyclobenzaprine 10 Mg Tablet PO 5 mg TID PRN Administration MUSCLE SPASMS Dexamethasone 6 mg 01/22/24 12:31 01/25/24 12:50 Dexamethasone 10 Mg/Ml Inj IVP 6 mg Q24H MARIA Administration Hydralazine HCl 75 mg 01/24/24 15:00 01/25/24 20:51 Hydralazine 25 Mg Tablet PO 75 mg TID MARIA Administration Piperacillin Sod/Tazobactam 50 mls @ 12.5 mls/hr 01/20/24 23:30 01/25/24 20:13 Sod 3.375 gm/ Sodium Chloride IV Infused Q8H MARIA Infusion Vancomycin/PEG/NADA/Lysine/Water 1,250 mg in 250 mls @ 250 mls/hr 01/24/24 16:00 01/25/24 11:35 Vancocin IV Infused Q18H MARIA Infusion Isosorbide Mononitrate 30 mg 01/19/24 18:00 01/25/24 17:31 Isosorbide Mononitrate Er 30 Mg Tablet PO 30 mg BID MARIA Administration Lisinopril 20 mg 01/19/24 10:05 01/21/24 09:28 Lisinopril 20 Mg Tablet PO Not Given DAILY MARIA Metoprolol Tartrate 12.5 mg 01/23/24 21:00 01/25/24 20:51 Metoprolol Tartrate 25 Mg Tablet PO 12.5 mg BID@0900,2100 MARIA Administration Morphine Sulfate 1 mg 01/25/24 21:17 01/25/24 22:05 Morphine 4 Mg/Ml Sdv 1 Ml IVP 1 mg Q3H PRN Administration SEVERE PAIN Non-Formulary Medication 50 mg 01/20/24 09:00 01/25/24 10:15 Topiramate PO Not Given DAILY [facility] Oxycodone HCl 15 mg 01/19/24 10:22 01/25/24 22:02 Oxycodone 5 Mg Ir Tab/Cap PO 15 mg QID PRN Administration pain scale 6-10 Pantoprazole Sodium 40 mg 01/19/24 09:41 01/25/24 09:[address] 40 Mg Tablet PO 40 mg DAILY MARAI Administration Polyethylene Glycol 17 gm 01/21/24 11:00 01/25/24 09:50 Polyethylene Glycol 3350 Pkt 17 Gm PO 17 gm DAILY MARIA Administration Senna/Docusate Sodium 1 tab 01/21/24 18:00 01/25/24 17:31 Sennosides-Docusate Tablet PO 1 tab BID MARIA Administration Tizanidine HCl 4 mg 01/19/24 10:04 01/25/24 01:16 Tizanidine 4 Mg Tablet PO 4 mg Q6H PRN Administration muscle spasticity PFSH Acute PFSH: Medical History Stenosis of cervical spine with myelopathy Renal cyst, left Tricuspid valve regurgitation Mitral valve regurgitation Shortness of breath HTN (hypertension), benign Hyperlipidemia GERD (gastroesophageal reflux disease) Cervical disc disorder with myelopathy of mid-cervical region CRPS (complex regional pain syndrome type I) last stellate ganglion block was in 2012. 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 L2-L3, L3-L4, L4-L5, and L5-S1 fusion/fixation 1986 [facility] L4-L5, L5-S1 decompression 05/1977 L5-S1 decompression S/P thymectomy 1983 AGE 15 MYASTHENIA GRAVIS S/P bladder repair ANTERIOR VAG REPAIR WITH ELEVATE VAG MESH, POSTERIOR REPAIR AND CYSTOSCOPY DR SYLVIA [facility]. 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 Vitals/I&O/Wt Last Vital Signs Temp 98.9 F 01/25/24 20:00 Pulse 88 01/25/24 20:00 Resp 16 01/25/24 22:05 BP 162/21 01/25/24 20:00 Pulse Ox 95 01/25/24 20:00 O2 Del Method Room Air 01/25/24 20:00 O2 Flow Rate 3 01/25/24 07:30 01/25/24 01/25/24 01/25/24 06:59 14:59 22:59 Intake Total 290 / 1240 540 / 540 570 / 1110 Output Total 650 / 2625 950 / 950 Balance -360 / -1385 -410 / -410 570 / 160 Weight last 48 hrs Weight 70.931 kg Weight 73.198 kg Physical Exam Narrative: Patient not examined today-I am away from the hospital not video production specialist currently- chart reviewed in entirety and case discussed with hospitalist in detail. Physical exam to follow upon return to hospital on Saturday. Data 01/25/24 18:52 01/25/24 18:52 Other Labs: Radiology Impressions Chest CTA 01/19/24 03:06 IMPRESSION: Small scattered bilateral pulmonary emboli. ADDENDUM: 01/19/24 0556 THIS REPORT CONTAINS FINDINGS THAT MAY BE CRITICAL TO PATIENT CARE. The findings were verbally communicated via telephone conference with NASEEM REYES at 5:54 AM CDT on 01/19/2024. The findings were acknowledged and understood. Head/Neck CTA 01/19/24 03:06 IMPRESSION: 1. Negative for intracranial large arterial vessel occlusion. 2. Negative for acute intracranial pathology. IMPRESSION: 1. Mild severity bilateral carotid artery stenosis estimated less than 50%. 2. Negative for vascular occlusion in the neck. REFERENCES: NASCET CRITERIA. The degree of stenosis in the cervical segment of the internal carotid artery is based on NASCET criteria. Normal is no stenosis. Mild is less than 50% stenosis. Moderate is 50-69% stenosis. Severe is 70% to 99% stenosis. Total occlusion is no detectable patent lumen. Cervical Spine CT 01/20/24 13:18 IMPRESSION: 1. No cervical spine fracture. 2. Multilevel facet joint arthropathy and foraminal stenoses. Most significant stenosis at C4-5 through C6-7. 3. Mild straightening of the normal cervical lordosis. 4. Mild progression of degenerative spondylosis since 2019. Lumbar Spine MRI 01/21/24 12:02 IMPRESSION: 1. No evidence of epidural abscess. 2. No evidence of discitis or osteomyelitis. 3. Chronic spondylitic changes described above similar to the prior studies. Abdomen/Pelvis CT 01/21/24 12:07 IMPRESSION: 1. Right lower lobe consolidation that may represent atelectasis or in the appropriate clinical setting, pneumonia. 2. Small bilateral pleural fluid collections. 3. No acute intra-abdominal finding. 4. Small gas bubbles scattered through the subcutaneous adipose tissue of the ventral abdominal wall suggestive of injection sites. ADDENDUM: 01/21/242020 Bilateral hip arthroplasties projects artifact over the lower pelvis. Chest X-Ray 01/23/24 09:46 IMPRESSION: 1. Cardiac enlargement with increased pulmonary vascularity. 2. Chronic plaque atelectasis in the RIGHT base. Cervical Spine MRI 01/24/24 08:00 IMPRESSION: Some images are limited due to motion. 1. No evidence of drainable abscess or fluid collection. No evidence of epidural abscess. Small amount of epidural enhancement in the upper cervical spine. Recommend continued surveillance. 2. No evidence of discitis. 3. Jesenia-articular enhancement about the RIGHT C2-3 C3-4 and C4-5 facets compatible with infectious or inflammatory synovitis as seen on the recent MRI. 4. No other new findings. Laboratory Results WBC 20.49 10^3/uL (3.29-11.43) H 01/25/24 18:52 RBC 4.73 10^6/uL (3.85-5.65) 01/25/24 18:52 Hgb 13.60 g/dL (11.27-16.99) 01/25/24 18:52 Hct 43.3 % (36-47) 01/25/24 18:52 MCV 91.5 fl (85-98) 01/25/24 18:52 MCH 28.8 pg (27-33) 01/25/24 18:52 MCHC 31.4 g/dL (30-55) 01/25/24 18:52 RDW 13.1 % (12.1-15.1) 01/25/24 18:52 Plt Count 139 10^3/cmm (157-399) L 01/25/24 18:52 MPV 12.0 fL (7.4-10.4) H 01/25/24 18:52 Neut % (Auto) 87.2 % 01/25/24 18:52 Lymph % (Auto) 4.7 % 01/25/24 18:52 [place] % (Auto) 3.3 % 01/25/24 18:52 Eos % (Auto) 0.1 % 01/25/24 18:52 Baso % (Auto) 0.3 % 01/25/24 18:52 Neut # (Auto) 17.85 10^3/uL (1.8-7.7) H 01/25/24 18:52 Lymph # (Auto) 1.0 10^3/uL (0.8-4.8) 01/25/24 18:52 [place] # (Auto) 0.7 10^3/uL (0.2-0.9) 01/25/24 18:52 Eos # (Auto) 0.0 10^3/uL (0.0-0.8) 01/25/24 18:52 Baso # (Auto) 0.1 10^3/uL (0.0-0.1) 01/25/24 18:52 Nucleated RBC % (auto) 0 % 01/25/24 18:52 Nucleated RBCs # 0.0 /100WBC 01/25/24 18:52 ESR 33 mm/hr (0-15) H 01/20/24 04:48 D-Dimer 8.79 ug/mLFEU (0-0.59) H 01/19/24 02:14 Sodium 134 mmol/L (136-145) L 01/25/24 18:52 Potassium 4.4 mmol/L (3.5-5.1) 01/25/24 18:52 Chloride 95 mmol/L (98-107) L 01/25/24 18:52 Carbon Dioxide 28 mmol/L (22-29) 01/25/24 18:52 Anion Gap 15.4 (5-19) 01/25/24 18:52 BUN 22 mg/dL (8-23) 01/25/24 18:52 Creatinine 0.5 mg/dL (0.5-0.9) 01/25/24 18:52 GFR Calculation Not Reportable 01/25/24 18:52 Glucose 165 mg/dL (65-115) H 01/25/24 18:52 Estimat Average Glucose 123 01/19/24 02:14 Hemoglobin A1c 5.9 % (4.0-6.0) 01/19/24 02:14 Calculated Osmolality 285 mOsm/kg (285-295) 01/25/24 18:52 Lactic Acid 1.3 mmol/L (0.5-2.2) 01/20/24 15:38 Calcium 7.9 mg/dL (8.5-10.5) L 01/25/24 18:52 Magnesium 1.7 mg/dL (1.7-2.3) 01/25/24 18:52 Iron 15 ug/dL (37-145) L 01/19/24 04:06 TIBC 174 mcg/dl 01/19/24 04:06 % Saturation 8.6 % (20-50) L 01/19/24 04:06 Unsat Iron Binding 159 ug/dL (112-347) 01/19/24 04:06 Total Bilirubin 0.4 mg/dL (0.15-1.2) 01/24/24 04:42 AST 36 U/L (0-32) H 01/24/24 04:42 ALT 29 U/L (0-33) 01/24/24 04:42 Alkaline Phosphatase 78 U/L (35-105) 01/24/24 04:42 Troponin T Baseline 26 ng/L (0-10) H 01/19/24 02:14 Troponin T 120 Minute 64.67 ng/L (0-10) H 01/19/24 04:06 Delta Troponin T 38.67 ABS# (0-10) H* 01/19/24 04:06 Troponin T Hi Sens 6Hr 105.0 ng/L (0-10) H 01/19/24 08:22 Troponin T Hi Sens 6Hr Delta 79.0 ng/L (0-12) H* 01/19/24 08:22 C-Reactive Protein 324.9 mg/L (0.0-4.9) H 01/20/24 04:48 NT-Pro-B Natriuret Pep 4818 pg/mL (0-450) H 01/19/24 02:14 Total Protein 5.2 g/dL (6.6-8.7) L 01/24/24 04:42 Albumin 2.4 g/dL (3.5-5.2) L 01/24/24 04:42 Globulin 2.8 g/dL (1.3-4.6) 01/24/24 04:42 Triglycerides 118 mg/dL (0-150) 01/20/24 04:48 Cholesterol 128 mg/dL (0-200) 01/20/24 04:48 LDL Cholesterol, Calc 73 mg/dL (50-129) 01/20/24 04:48 Total VLDL Cholesterol 24 mg/dL (0-30) 01/20/24 04:48 HDL Cholesterol 31 mg/dL (60-100) L 01/20/24 04:48 Cholesterol/HDL Ratio 4.13 mg/dL (0.0-4.40) 01/20/24 04:48 Vitamin B12 202 pg/mL (232-1245) L 01/19/24 04:06 Folate 2.0 ng/mL (4.8-37.3) L 01/20/24 04:48 Procalcitonin 0.29 ng/mL (0-0.5) 01/19/24 04:06 TSH 3.32 uIU/mL (0.27-4.20) 01/19/24 04:06 Vancomycin Trough 7.0 ug/mL (10-15) L 01/23/24 21:13 DARYL-1 Antibody <1.0 neg AI (<1.0 NEG) 01/20/24 04:48 SS-A/Ro IgG Antibody <1.0 neg AI (<1.0 NEG) 01/20/24 04:48 SS-B/La IgG Antibody <1.0 neg AI (<1.0 NEG) 01/20/24 04:48 Scl-70 Scleroderma Ab <1.0 neg AI (<1.0 NEG) 01/20/24 04:48 Anti-ds DNA IgG Ab <1 IU/mL 01/20/24 04:48 Micro: NAME: Emma Navarrete LOC: [facility] U #: [id number] AGE/SX: 78/F ROOM: 260 RE01/19/[address]: Jasmyne Best MD : 1945 BED: 1 DIS: FAX #: STATUS: ADM IN TLOC: Spec #: [id number] Brandee: 01/21/24-1240 Status: RES Req #: [id number] Recd: 01/21/24-[address]: Jasmyne Best MD Src: Blood SpDesc: Ordered: Bcult Procedure Result Verified Site Blood Culture Preliminary 01/22/24-1300 NEGATIVE TO DATE Blood Culture Preliminary (changed) 01/21/24-1306 SPECIMEN COLLECTED NAME: Emma Navarrete LOC: [facility] U #: [id number] AGE/SX: 78/F ROOM: 260 RE01/19/[address]: Jasmyne Best MD : 1945 BED: 1 DIS: FAX #: STATUS: ADM IN TLOC: Spec #: [id number] Brandee: 01/20/24-1538 Status: RES Req #: [id number] Recd: 01/20/24-[address]: Jasmyne Best MD Src: Blood SpDesc: Ordered: Bcult Procedure Result Verified Site Blood Culture Preliminary 01/22/24-1246 4 OF 4 BOTTLES POSITIVE DIRECT GRAM STAIN: GRAM POSITIVE COCCI IN CLUSTERS RESULTS TO FOLLOW Organism 1 Coag positive Staphylococcus Growth 4 BOTTLES CRITICAL RESULT YES/NO: YES CRITICAL CALLED BY: LM TO AND READ BACK BY: JOSIE DATE: 01/21/24 TIME: 601 Blood Culture Preliminary (changed) 01/21/24-1412 4 OF 4 BOTTLES POSITIVE DIRECT GRAM STAIN: GRAM POSITIVE COCCI IN CLUSTERS RESULTS TO FOLLOW CRITICAL RESULT YES/NO: YES CRITICAL CALLED BY: LM TO AND READ BACK BY: JOSIE DATE: 01/21/24 TIME: 601 Blood Culture Preliminary (changed) 01/21/24-1356 3 OF 4 BOTTLES POSITIVE DIRECT GRAM STAIN: GRAM POSITIVE COCCI IN CLUSTERS RESULTS TO FOLLOW CRITICAL RESULT YES/NO: YES CRITICAL CALLED BY: LISA TO AND READ BACK BY: JOSIE DATE: 01/21/24 TIME: 601 Blood Culture Preliminary (changed) 01/21/24-0837 2 OF 4 BOTTLES POSITIVE DIRECT GRAM STAIN: GRAM POSITIVE COCCI IN CLUSTERS RESULTS TO FOLLOW CRITICAL RESULT YES/NO: YES CRITICAL CALLED BY: LISA TO AND READ BACK BY: JOSIE DATE: 01/21/24 TIME: 601 Blood Culture Preliminary (changed) 01/20/24-1615 SPECIMEN COLLECTED NAME: Emma Navarrete LOC: [facility] #: [id number] AGE/SX: 78/F ROOM: [facility] RE01/19/[address]: Jasmyne Best MD : 1945 BED: 1 DIS: FAX #: STATUS: ADM IN TLOC: Spec #: [id number] Brandee: 01/20/24-1538 Status: COMP Req #: [id number] Recd: 01/20/24-[address]: Jasmyne Best MD Src: Blood SpDesc: Ordered: Bcult Procedure Result Verified Site Blood Culture Final 01/23/24-1059 4 OF 4 BOTTLES POSITIVE DIRECT GRAM STAIN: GRAM POSITIVE COCCI IN CLUSTERS RESULTS TO FOLLOW Organism 1 Staphylococcus aureus Growth 4 BOTTLES Gram Stain Charge Charge for Gram Stain CRITICAL RESULT YES/NO: YES CRITICAL CALLED BY: LM TO AND READ BACK BY: JOSIE DATE: 01/21/24 TIME: 601 S aureus M.I.C. RX --------- ------ * Amoxicillin/Clavulanate <=4/2 S * Ampicillin/Sulbactam <=8/4 S * Ceftriaxone <=8 S * Ciprofloxacin <=1 S * Clindamycin <=0.5 S * Erythromycin <=0.5 S * Gentamicin <=4 S * Levofloxacin <=1 S * Linezolid 4 S * Oxacillin <=0.25 S * Penicillin <=0.03 S * Rifampin <=1 S * Tetracycline <=4 S * Trimethoprim/Sulfamethoxazole <=0.5/9.5 S Vancomycin 2 S Daptomycin 1 S Blood Culture Preliminary (changed) 01/22/24-1246 4 OF 4 BOTTLES POSITIVE DIRECT GRAM STAIN: GRAM POSITIVE COCCI IN CLUSTERS RESULTS TO FOLLOW Organism 1 Coag positive Staphylococcus Growth 4 BOTTLES Gram Stain Charge Charge for Gram Stain CRITICAL RESULT YES/NO: YES CRITICAL CALLED BY: LISA TO AND READ BACK BY: JOSIE DATE: 01/21/24 TIME: 601 Blood Culture Preliminary (changed) 01/21/24-1412 4 OF 4 BOTTLES POSITIVE DIRECT GRAM STAIN: GRAM POSITIVE COCCI IN CLUSTERS RESULTS TO FOLLOW Gram Stain Charge Charge for Gram Stain CRITICAL RESULT YES/NO: YES CRITICAL CALLED BY: LISA TO AND READ BACK BY: JOSIE DATE: 01/21/24 TIME: 601 Blood Culture Preliminary (changed) 01/21/24-1355 3 OF 4 BOTTLES POSITIVE DIRECT GRAM STAIN: GRAM POSITIVE COCCI IN CLUSTERS RESULTS TO FOLLOW Gram Stain Charge Charge for Gram Stain CRITICAL RESULT YES/NO: YES CRITICAL CALLED BY: LISA TO AND READ BACK BY: JOSIE DATE: 01/21/24 TIME: 601 Blood Culture Preliminary (changed) 01/21/24-06 2 OF 4 BOTTLES POSITIVE DIRECT GRAM STAIN: GRAM POSITIVE COCCI IN CLUSTERS RESULTS TO FOLLOW CRITICAL RESULT YES/NO: YES CRITICAL CALLED BY: LISA TO AND READ BACK BY: JOSIE DATE: 01/21/24 TIME: 601 Blood Culture Preliminary (changed) 01/20/24-1615 SPECIMEN COLLECTED NAME: LandonEmma Barrera LOC: [facility] #: [id number] AGE/SX: 78/F ROOM: 260 RE01/19/[address]: Jasmyne Best MD : 1945 BED: 1 DIS: FAX #: STATUS: ADM IN TLOC: Spec #: [id number] Brandee: 01/20/24-1530 Status: COMP Req #: [id number] Recd: 01/20/24-[address]: Jsamyne Best MD Src: Urine Cath SpDesc: Ordered: UC Procedure Result Verified Site Urine Culture Final 01/22/24-1613 Organism 1 Staphylococcus aureus [place] Count >100,000 CFU/ml DAY 2 CRITICAL RESULT YES/NO: YES CRITICAL CALLED BY: JAMES TO AND READ BACK BY: SIS DATE: 01/22/24 TIME: 1612 S aureus M.I.C. RX --------- ------ * Amoxicillin/Clavulanate <=4/2 S * Ampicillin <=2 R * Ampicillin/Sulbactam <=8/4 S * Ceftriaxone <=8 S * Ciprofloxacin <=1 S * Gentamicin <=4 S * Levofloxacin <=1 S * Linezolid 4 S * Nitrofurantoin <=32 S * Oxacillin <=0.25 S * Penicillin <=0.03 R * Rifampin <=1 S * Tetracycline <=4 S * Trimethoprim/Sulfamethoxazole <=0.5/9.5 S Vancomycin 2 S Daptomycin 1 S Urine Culture Preliminary (changed) 01/21/24-0811 Organism 1 Coag positive Staphylococcus [place] Count >100,000 CFU/ml DAY 1, RESULTS TO FOLLOW A&P Assessment and plan (1) Bacteremia due to methicillin susceptible Staphylococcus aureus (MSSA): MSSA bacteremia of unclear primary source No h/o IVDU MRI c spine with synovitis as described above- infectious vs inflammatory - however given recovery of MSSA from Blood cx and surrounding epidural enhancement, favor infectious etiology MRI lumbar spine withoit dsigns of discitis or osteomyelitis CTA with PE - will discuss with radiologist if these may likely be septic embolization rather than PE H/o MVR and TVR- TTE withotu signs of gross vegetations recommend CHARLIE to evaluate for endocarditis with concern for septic embolization. Blood cx from 01/20 thus far negative to date Last T max 99.6 from 01/24, WBC count at 20K, increasing, may be related to high dose steroid- will closely monitor over the next 24 - 48 hrs prior to placing PICC line Plan: d/c Zosyn and vancomycin change treatment to organism directed therapy with Cefazolin 2 g iv every 8 hrs recommend CHARLIE anticipate treatment duration of at least 6 weeks- further dependent on results of pending studies, radiological improvement over the next 4-6 weeks, clinical response Steroids per primary and orthopedics Will follow (2) Mitral valve regurgitation: Qualifiers: Cardiac valve disease etiology: nonrheumatic Qualified Code(s): I34.0 - Nonrheumatic mitral (valve) insufficiency (3) Tricuspid valve regurgitation: Qualifiers: Cardiac valve disease etiology: nonrheumatic Qualified Code(s): I36.1 - Nonrheumatic tricuspid (valve) insufficiency (4) Pulmonary embolism: (5) S/P lumbar spinal fusion: (6) Cervical spondylosis with radiculopathy: (7) Infectious synovitis: Coding Level of Care Code Acute Code for Chg Fwd High MDM includes number and complexity of problems actively addressed during encounter and amount and/or complexity of data reviewed/ordered as documented Diagnoses Bacteremia due to methicillin susceptible Staphylococcus aureus (MSSA) R78.81; B95.61 Nonrheumatic mitral valve regurgitation I34.0 Cardiac valve disease etiology: nonrheumatic Nonrheumatic tricuspid valve regurgitation I36.1 Cardiac valve disease etiology: nonrheumatic Pulmonary embolism I26.99 S/P lumbar spinal fusion Z98.1 Cervical spondylosis with radiculopathy M47.22 Infectious synovitis M65.10
--- NOTE | 2024-01-25 22:43 | PC.NURSE ---
Dr. Reddy notified that patient is having a lot of back pain. Patient states that the Oxy helps, but it doesn't last very long. Patient upset that she can only have the Oxy every 6 hours. Patient has been repositioned three times since my arrival on shift. Ordered Morphine 1 mg q3 hours PRN.
[2024-01-26] VITALS (9 sets, daily range): BP systolic 110–171; BP diastolic 50–72; PULSE 60–77; RESP 15–19; TEMP 36.3–37.1; O2SAT 92–97
[2024-01-26] MEDS: piperacillin-tazobactam 3.375 GM in sodium chloride 0.9% (plus) 50 ML IV ×2 (01:08→08:34)
[2024-01-26] MEDS: oxyCODONE 5 mg IR Tab/Cap 15 MG PO ×3 (04:16→16:54)
[2024-01-26] MEDS: cyclobenzaprine 10 mg Tablet 5 MG PO ×3 (04:16→19:22)
[2024-01-26] MEDS: vancomycin 1,250 MG/250 ML PIGGYBACK 250 MG IV (04:17)
[2024-01-26] MEDS: tizanidine 4 mg Tablet PO ×3 (08:32→21:37)
[2024-01-26] MEDS: hyDRALAzine 25 mg Tablet 75 MG PO ×3 (08:32→20:40)
[2024-01-26] MEDS: metoprolol tartrate 25 mg Tablet 12.5 MG PO ×2 (08:33→20:40)
[2024-01-26] MEDS: amlodipine 10 mg Tablet PO (08:33)
[2024-01-26] MEDS: sennosides-docusate Tablet 1 TAB PO ×2 (08:33→16:54)
[2024-01-26] MEDS: aspirin 81 mg EC Tablet PO (08:33)
[2024-01-26] MEDS: isosorbide mononitrate ER 30 mg Tablet PO ×2 (08:33→16:54)
[2024-01-26] MEDS: pantoprazole DR 40 mg Tablet PO (08:33)
[2024-01-26] MEDS: polyethylene glycol 3350 Pkt 17 gm PO (08:33)
[2024-01-26] MEDS: morphine 4 mg/mL SDV 1 mL 1 MG IVP ×4 (08:35→20:42)
[2024-01-26] MEDS: apixaban 5 mg Tablet PO ×2 (08:36→20:40)
[2024-01-26] MEDS: cyanocobalamin 1,000 mcg/mL SDV 1000 MCG IM (08:36)
[2024-01-26] MEDS: ceFAZolin 2,000 MG in sodium chloride 0.9% (plus) 50 ML 100 MG IV ×2 (10:25→16:54)
--- NOTE | 2024-01-26 12:05 | P.PN_ITS ---
Subjective 2 Subjective: seen today complains of neck pain did have 99.2 temp overnight Vitals/I&O/Wt Last Vital Signs Temp 97.5 F L 01/26/24 08:00 Pulse 77 01/26/24 08:00 Resp 18 01/26/24 10:10 BP 171/72 01/26/24 08:00 Pulse Ox 97 01/26/24 08:00 O2 Del Method Nasal Cannula 01/26/24 08:00 O2 Flow Rate 3 01/25/24 07:30 01/25/24 01/26/24 01/26/24 22:59 06:59 14:59 Intake Total 570 / 1110 300 / 1410 290 / 290 Output Total 400 / 1350 Balance 570 / 160 -100 / 60 290 / 290 Weight last 48 hrs Weight 69.853 kg Weight 70.931 kg Physical Exam 2 Narrative: General: No acute distress, AO x3, on 3L NC HEENT: PERRLA, pupils bilaterally equal and reactive Chest: Normal vesicular breath sounds, no added sounds, equal good air entry bilaterally CVS: S1-S2 regular, soft pansystolic murmur at apex Abdomen: Soft, nontender, no organomegaly, bowel sounds present Neuro: No focal deficits Data 01/25/24 18:52 01/25/24 18:52 A&P Assessment and plan (1) Pulmonary embolism: Seen on CTA. Bilateral scattered. Check echocardiogram to rule out right heart strain. Start on anticoagulation with Lovenox 1 mg/kg body weight every 12 hourly. Oxygen supplementation keeping saturation over 92%. (2) Chest pain: Does complain of exertional chest pain in the past. Currently chest heaviness. Found to have elevated cycle of troponin. Already on full dose Lovenox as above. 325 mg aspirin one-time followed by 81 mg daily. Continue with home dose of atorvastatin. Check lipid panel and A1c. Echocardiogram as above. Patient is chest pain-free for now. Patient would benefit from further ACS workup with cardiac stress test. She is agreeable. (3) Non-STEMI (non-ST elevated myocardial infarction): (4) Mitral valve regurgitation: Past history. Currently euvolemic. Echocardiogram as above. Qualifiers: Cardiac valve disease etiology: nonrheumatic Qualified Code(s): I34.0 - Nonrheumatic mitral (valve) insufficiency (5) HTN (hypertension), benign: Goal blood pressure less than 140/90 mmHg. Continue with home dose of amlodipine, Coreg, Imdur, lisinopril. Uptitrate as for goal blood pressure. (6) Cervical disc disorder with myelopathy of mid-cervical region: Follows up with orthopedic surgery as an outpatient. Was recommended surgical correction but patient has been hesitant. Continue with home pain medication of oral morphine. Add fentanyl patch. Patient would benefit with outpatient physical therapy. (7) Systolic and diastolic CHF, acute: (8) Hypertension: Plan Full code Cardiac diet, n.p.o. after midnight. Full dose Lovenox will be sufficient for DVT prophylaxis Protonix for PUD prophylaxis Todays plan 01/21 - continue pain management - ortho recs appreciated - continue home moprhine, fentanyl patch - continue lovenox for PE. At dc transition to eliquis. - Stresstest done this admit shows alicia-infarct ischemia, no active chest pain - lives alone at home. order PT, OT - check mri c-spine, lumbar to r/o infection?complete - ns @100 cc /hr - staph aureus bacteremia. ucx positive staph aureus - repeat bcx 01/20 - tte reviewed - will consider yandy if no clear source - 1. RIGHT C2-3, RIGHT C3-C4 and RIGHT C4-C5 facet synovitis with alicia- articular edema. This is likely infectious or inflammatory. 2. Additional edema in the dorsal interspinous soft tissues in the upper cervical spine. Recommend correlation with recent trauma. 3. No evidence of epidural abscess however recommend short interval follow-up with gadolinium to exclude developing abscess or fluid collection. 4. No evidence of discitis or osteomyelitis. 5. Moderate stable spondylitic changes. - Discussed with radiology in detail. There may be a developing abscess. They recommend to repeat MRI with contrast in the next 48 hours. Discussed with the patient and she is okay with it. She would like to be a full code She would like to appoint her granddaughter for DPOA. YOLETTE has resolved. Creatinine back to baseline 0.7. Initial blood culture still pending. Preliminarily positive for Staph aureus. Cut down dexamethasone to 6 daily. Complete 7 days of Zosyn at this time. Continue vancomycin. Patient will need 6 weeks of IV antibiotics from last negative blood culture. Discussed with Dr. Barahona. Patient does have an abscess in C-spine area, most likely will have to drain Continue to monitor in ICU for another day. Patient complains of mild swelling in neck area. Patient may benefit from [facility] facility at discharge. Today's plan 01/22 -Order repeat MRI with contrast C-spine in a.m. ? Chest x-ray today shows increased pulmonary vascularity. Will stop IV fluids. Will give Lasix 20 IV x 1. Patient does complain of mild shortness of breath. She is on 3 L nasal cannula and previously was on 2 L. - wean off cardene drip - add amlodipine 10 daily ? Repeat cultures so far negative have not finalized yet. ? Cultures from admission 4 out of 4 bottles positive for Staph aureus methicillin sensitive ? Complete 7 days of Zosyn at this time. Continue vancomycin. Sensitivity on culture from admission has not resulted completely therefore we will continue on vancomycin for now. If completely methicillin sensitive we will switch to oxacillin. ? Orthopedic surgery following ? Will attempt to reach out to ID, service not available till Saturday. -Patient will require ID consultation. Plan for discharge Saturday versus Saturday. -Chest pain has resolved. Stress test results reviewed. Alicia-infarct ischemia. Aspirin, therapeutic Lovenox, atorvastatin. Add metoprolol 12.5 twice daily today. - Consult cardiology. EF mildly reduced 45%. - Continue lovenox for b/l PE. Will need lifelong AC. Transition to eliquis at discharge. 01/25 ? C-spine MRI reviewed. ? Continue amlodipine 10 daily ? Continue hydralazine to 75 3 times daily ? Repeat blood cultures negative so far ? Continue cefazolin 2 g every 8 hours x 4-6 weeks at discharge - If afebrile for 48 hours, place Picc line ? Will consult ID. Recommedations appreciated ? Continue metoprolol 12.5 twice daily ? Cardiology recommendations appreciated. ? Plan for YANDY on Saturday. ? Eliquis started 5 bid ? Stop dexamethasone. - NPO for YANDY in AM - Add humidifier to oxygen Attestations 2 Medical Necessity Statement*: Admission for more than 2 midnights for management of pulmonary embolism, non-ST elevation OR, Staph aureus bacteremia Diagnoses Pulmonary embolism I26.99 Chest pain R07.9 Non-STEMI (non-ST elevated myocardial infarction) I21.4 Nonrheumatic mitral valve regurgitation I34.0 Cardiac valve disease etiology: nonrheumatic HTN (hypertension), benign I10 Cervical disc disorder with myelopathy of mid-cervical region M50.020 Systolic and diastolic CHF, acute I50.41 Hypertension I10
[2024-01-26] MEDS: fentaNYL 25 mcg Patch 1 PATCH TRANSDERMA (15:22)
[2024-01-26] MEDS: atorvastatin 40 mg Tablet 20 MG PO (20:40)
[2024-01-27] VITALS (19 sets, daily range): BP systolic 109–185; BP diastolic 51–74; PULSE 60–106; RESP 15–20; TEMP 36.1–37.1; O2SAT 92–99
[2024-01-27] MEDS: oxyCODONE 5 mg IR Tab/Cap 15 MG PO ×3 (00:37→15:17)
[2024-01-27] MEDS: ceFAZolin 2,000 MG in sodium chloride 0.9% (plus) 50 ML 100 MG IV ×3 (01:41→17:27)
[2024-01-27] MEDS: morphine 4 mg/mL SDV 1 mL 1 MG IVP ×5 (02:33→23:59)
[2024-01-27] MEDS: tizanidine 4 mg Tablet PO ×2 (04:54→08:27)
[2024-01-27 07:21] LABS: Basophils % 0.1 %; Eosinophils # 0.3 10^3/uL (0.0-0.8); Eosinophils % 1.8 %; Hematocrit 36.9 % (36-47); Lymphocytes # 1.2 10^3/uL (0.8-4.8); Lymphocytes % 7.9 %; Mean Corpuscular HGB Conc 33.3 g/dL (30-55); Mean Corpuscular Hemoglobin 29.3 pg (27-33); Mean Corpuscular Volume 87.9 fl (85-98); Mean Platelet Volume 11.7 fL (7.4-10.4); Monocytes # 0.8 10^3/uL (0.2-0.9); Monocytes % 5.3 %; Neutrophils # 12.61 10^3/uL (1.8-7.7); Neutrophils % 82.1 %; Nucleated Red Blood Cells % 0 %; Platelet Count 151 10^3/cmm (157-399); Red Cell Distribution Width 13.2 % (12.1-15.1); White Blood Count 15.37 10^3/uL (3.29-11.43)
[2024-01-27 07:36] LABS: Blood Urea Nitrogen 26 mg/dL (8-23); Calcium 7.8 mg/dL (8.5-10.5); Carbon Dioxide 29 mmol/L (22-29); Chloride 94 mmol/L (98-107); Creatinine Clr Calc Pharmacy 56.7916; Glucose 91 mg/dL (65-115); Magnesium 1.7 mg/dL (1.7-2.3); Osmolality Calculated 280 mOsm/kg (285-295); Sodium 133 mmol/L (136-145)
[2024-01-27 07:37] LABS: Anion Gap 14.5 (5-19); Potassium 4.5 mmol/L (3.5-5.1)
[2024-01-27] MEDS: amlodipine 10 mg Tablet PO (08:21)
[2024-01-27] MEDS: sennosides-docusate Tablet 1 TAB PO ×2 (08:21→17:27)
[2024-01-27] MEDS: pantoprazole DR 40 mg Tablet PO (08:22)
[2024-01-27] MEDS: isosorbide mononitrate ER 30 mg Tablet PO ×2 (08:22→17:27)
[2024-01-27] MEDS: hyDRALAzine 25 mg Tablet 75 MG PO ×3 (08:22→20:38)
[2024-01-27] MEDS: aspirin 81 mg EC Tablet PO (08:22)
[2024-01-27] MEDS: metoprolol tartrate 25 mg Tablet 12.5 MG PO ×2 (08:22→20:37)
[2024-01-27] MEDS: cyanocobalamin 1,000 mcg/mL SDV 1000 MCG IM (08:23)
[2024-01-27] MEDS: apixaban 5 mg Tablet PO ×2 (08:23→20:38)
--- NOTE | 2024-01-27 08:55 | USCV_ITS ---
Emma Navarrete Age: 78 Gender: F : 1945 Exam Date: 01/27/2024 12:44 Ordering Phys: Chrissie Barker MD ([email or web address]) Technologist: Wilver Brown [place]am [place] [facility] [place]: ? veg BP: / HR: Rhythm: Sinus Technical Quality: Adequate MEASUREMENTS (Male / Female) Normal Values Medications IV sedation was administered by anesthesia service. Please see the anesthesia report Complications None Proc. Components The patient was brought to the CHARLIE examination room in a fasting state after obtaining an informed consent. The CHARLIE probe was passed into the posterior pharynx , mid-esophagus, distal esophagus, and gastric fundus. CHARLIE was performed at multiple levels. The patient tolerated the procedure well and there were no complications. FINDINGS Left Ventricle The patient with normal size and ejection fraction. No intracavitary masses. Right Ventricle Appears to be of normal size and ejection fraction. No intracavitary masses Right Atrium No intracavitary masses. Left Atrium No masses or vegetations noted LA Appendage Normal left atrial appendage. Normal flow velocities in the left atrial appendage. IA Septum Normal interatrial septum. No patent foramen ovale. No evidence for an atrial septal defect. Saline contrast injection revealed no evidence of shunt across the septum Mitral Valve No masses or vegetations. Mild to moderate mitral regurgitation Aortic Valve Minimally thickened with no masses or vegetations. Tricuspid Valve No masses or vegetations Pulmonic Valve No masses or vegetations Pericardium No pericardial effusion. Aorta Plaque seen in the ascending aorta. CONCLUSIONS 1. No intracavitary masses or vegetations 2. Mild to moderate mitral regurgitation 3. Minimal thickening of the aortic valve. 4. No intracardiac shunts by saline contrast injection 5. Normal left atrial appendage with normal contractility 6. Minimal plaques in the ascending aorta 7. Normal LV size and ejection fraction Dr Chrissie Barker MD [facility] (Electronically Signed) Final Date: 27 January 2024 22:43 S
--- NOTE | 2024-01-27 08:56 | P.PN_ITS ---
Subjective 2 Subjective: This patient has gram-positive bacteremia.A CHARLIE was requested to rule out endocarditis. Patient currently has no fever. No chest pain or shortness of breath. She has no history for any GI bleed. No difficulty in swallowing. No history for gastric ulcer. Medications: Medication Review Details: Current Medications Acetaminophen (Acetaminophen 325 Mg Tablet) 650 mg PO Q6H PRN PRN Reason: Mild/Mod Pain Or Temp >/= 101 Last Admin: 01/25/24 01:15 Dose: 650 mg Albuterol Sulfate (Albuterol 2.5 Mg/3 Ml Neb) 2.5 mg INHALATION Q6H.RESP PRN PRN Reason: SHORTNESS OF BREATH Last Admin: 01/23/24 05:09 Dose: 2.5 mg Amlodipine Besylate (Amlodipine 10 Mg Tablet) 10 mg PO DAILY [facility] Last Admin: 01/27/24 08:21 Dose: 10 mg Apixaban (Apixaban 5 Mg Tablet) 5 mg PO BID@0900,2100 [facility] Last Admin: 01/27/24 08:23 Dose: 5 mg Aspirin (Aspirin 81 Mg Ec Tablet) 81 mg PO DAILY [facility] Last Admin: 01/27/24 08:22 Dose: 81 mg Atorvastatin Calcium (Atorvastatin 40 Mg Tablet) 20 mg PO BEDTIME [facility] Last Admin: 01/26/24 20:40 Dose: 20 mg Cyanocobalamin (Cyanocobalamin 1,000 Mcg/Ml Sdv) 1,000 mcg IM DAILY [facility] Last Admin: 01/27/24 08:23 Dose: 1,000 mcg Cyclobenzaprine HCl (Cyclobenzaprine 10 Mg Tablet) 5 mg PO TID PRN PRN Reason: MUSCLE SPASMS Last Admin: 01/26/24 19:22 Dose: 5 mg Fentanyl (Fentanyl 25 Mcg Patch) 1 patch TRANSDERMA Q72H [facility] Last Admin: 01/26/24 15:22 Dose: 1 patch Hydralazine HCl (Hydralazine 25 Mg Tablet) 75 mg PO TID [facility] Last Admin: 01/27/24 08:22 Dose: 75 mg Cefazolin Sodium 2,000 mg/ (Sodium Chloride) 50 mls @ 100 mls/hr IV Q8H [facility]; Protocol Last Admin: 01/27/24 08:23 Dose: 100 mls/hr Isosorbide Mononitrate (Isosorbide Mononitrate Er 30 Mg Tablet) 30 mg PO BID [facility] Last Admin: 01/27/24 08:22 Dose: 30 mg Lisinopril (Lisinopril 20 Mg Tablet) 20 mg PO DAILY [facility] Last Admin: 01/21/24 09:28 Dose: Not Given Metoprolol Tartrate (Metoprolol Tartrate 25 Mg Tablet) 12.5 mg PO BID@0900,2100 [facility] Last Admin: 01/27/24 08:22 Dose: 12.5 mg Morphine Sulfate (Morphine 4 Mg/Ml Sdv 1 Ml) 1 mg IVP Q3H PRN PRN Reason: SEVERE PAIN Last Admin: 01/27/24 05:52 Dose: 1 mg Naloxone HCl (Naloxone 0.4 Mg/Ml Sdv) 0.1 mg IVP Q2M PRN PRN Reason: OPIATERV Non-Formulary Medication (Topiramate) 50 mg PO DAILY [facility] Last Admin: 01/26/24 08:36 Dose: Not Given Ondansetron HCl (Ondansetron 2 Mg/Ml Sdv 2 Ml) 4 mg IVP Q8H PRN PRN Reason: vomiting, or N/V if npo Oxycodone HCl (Oxycodone 5 Mg Ir Tab/Cap) 15 mg PO QID PRN PRN Reason: pain scale 6-10 Last Admin: 01/27/24 08:20 Dose: 15 mg Pantoprazole Sodium (Pantoprazole Dr 40 Mg Tablet) 40 mg PO DAILY [facility] Last Admin: 01/27/24 08:22 Dose: 40 mg Polyethylene Glycol (Polyethylene Glycol 3350 Pkt 17 Gm) 17 gm PO DAILY [facility] Last Admin: 01/27/24 08:32 Dose: Not Given Senna/Docusate Sodium (Sennosides-Docusate Tablet) 1 tab PO BID [facility] Last Admin: 01/27/24 08:21 Dose: 1 tab Tizanidine HCl (Tizanidine 4 Mg Tablet) 4 mg PO Q6H PRN PRN Reason: muscle spasticity Last Admin: 01/27/24 08:27 Dose: 4 mg Vitals/I&O/Wt Last Vital Signs Temp 97.2 F L 01/27/24 08:00 Pulse 77 01/27/24 08:42 Resp 18 01/27/24 08:42 BP 137/71 01/27/24 08:00 Pulse Ox 97 01/27/24 08:42 O2 Del Method Nasal Cannula 01/27/24 08:42 O2 Flow Rate 3 01/27/24 08:42 01/26/24 01/27/24 01/27/24 22:59 06:59 14:59 Intake Total 700 / 1350 290 / 1640 Output Total 1000 / 1000 750 / 1750 Balance -300 / 350 -460 / -110 Weight last 48 hrs Weight 163 lb 6.4 oz Weight 154 lb Physical Exam 2 Narrative: GENERAL: The patient is alert and oriented times three. Not in any acute distress. HEENT: No significant pallor, icterus or lymphadenopathy.Oral cavity: There are no mucous membrane lesions. NECK: Trachea appears to be central. No masses noted. No JVD or thyromegaly appreciated. RESPIRATORY: Chest is symmetrical. No intercostals muscle retraction or any accessory muscle activation. There is no chest wall tenderness. Breath sounds are heard bilaterally. No rales or rhonchi heard. No evidence of any consolidation. BREASTS: Deferred. HEART: The heart sounds are normal. No S3 or S4. No significant murmurs. No pericardial rub ABDOMEN: No vessel pulsations or distention. No tenderness. No organomegaly appreciated. Bowel sounds are normally heard. : Deferred. RECTAL: Deferred. LYMPHATIC: No lymphadenopathy noted in the neck. EXTREMITIES: No edema or cyanosis. No clubbing. MUSCULOSKELETAL: No acute joint deformities or swelling SKIN: There are no significant rashes or ecchymosis NEUROPSYCHIATRIC: The patient is alert and oriented x3. Appears to be in a good mood. No tremors or rigidity noted. Data 01/27/24 06:44 01/27/24 06:44 Other Labs: Laboratory Last Values WBC 15.37 10^3/uL (3.29-11.43) H 01/27/24 06:44 RBC 4.20 10^6/uL (3.85-5.65) 01/27/24 06:44 Hgb 12.30 g/dL (11.27-16.99) 01/27/24 06:44 Hct 36.9 % (36-47) 01/27/24 06:44 MCV 87.9 fl (85-98) 01/27/24 06:44 MCH 29.3 pg (27-33) 01/27/24 06:44 MCHC 33.3 g/dL (30-55) 01/27/24 06:44 RDW 13.2 % (12.1-15.1) 01/27/24 06:44 Plt Count 151 10^3/cmm (157-399) L 01/27/24 06:44 MPV 11.7 fL (7.4-10.4) H 01/27/24 06:44 Neut % (Auto) 82.1 % 01/27/24 06:44 Lymph % (Auto) 7.9 % 01/27/24 06:44 Armstrong % (Auto) 5.3 % 01/27/24 06:44 Eos % (Auto) 1.8 % 01/27/24 06:44 Baso % (Auto) 0.1 % 01/27/24 06:44 Neut # (Auto) 12.61 10^3/uL (1.8-7.7) H 01/27/24 06:44 Lymph # (Auto) 1.2 10^3/uL (0.8-4.8) 01/27/24 06:44 Armstrong # (Auto) 0.8 10^3/uL (0.2-0.9) 01/27/24 06:44 Eos # (Auto) 0.3 10^3/uL (0.0-0.8) 01/27/24 06:44 Baso # (Auto) 0.0 10^3/uL (0.0-0.1) 01/27/24 06:44 Nucleated RBC % (auto) 0 % 01/27/24 06:44 Nucleated RBCs # 0.0 /100WBC 01/27/24 06:44 ESR 33 mm/hr (0-15) H 01/20/24 04:48 D-Dimer 8.79 ug/mLFEU (0-0.59) H 01/19/24 02:14 Sodium 133 mmol/L (136-145) L 01/27/24 06:44 Potassium 4.5 mmol/L (3.5-5.1) 01/27/24 06:44 Chloride 94 mmol/L (98-107) L 01/27/24 06:44 Carbon Dioxide 29 mmol/L (22-29) 01/27/24 06:44 Anion Gap 14.5 (5-19) 01/27/24 06:44 BUN 26 mg/dL (8-23) H 01/27/24 06:44 Creatinine 0.6 mg/dL (0.5-0.9) 01/27/24 06:44 GFR Calculation Not Reportable 01/27/24 06:44 Glucose 91 mg/dL (65-115) 01/27/24 06:44 Estimat Average Glucose 123 01/19/24 02:14 Hemoglobin A1c 5.9 % (4.0-6.0) 01/19/24 02:14 Calculated Osmolality 280 mOsm/kg (285-295) L 01/27/24 06:44 Lactic Acid 1.3 mmol/L (0.5-2.2) 01/20/24 15:38 Calcium 7.8 mg/dL (8.5-10.5) L 01/27/24 06:44 Magnesium 1.7 mg/dL (1.7-2.3) 01/27/24 06:44 Iron 15 ug/dL (37-145) L 01/19/24 04:06 TIBC 174 mcg/dl 01/19/24 04:06 % Saturation 8.6 % (20-50) L 01/19/24 04:06 Unsat Iron Binding 159 ug/dL (112-347) 01/19/24 04:06 Total Bilirubin 0.4 mg/dL (0.15-1.2) 01/24/24 04:42 AST 36 U/L (0-32) H 01/24/24 04:42 ALT 29 U/L (0-33) 01/24/24 04:42 Alkaline Phosphatase 78 U/L (35-105) 01/24/24 04:42 Troponin T Baseline 26 ng/L (0-10) H 01/19/24 02:14 Troponin T 120 Minute 64.67 ng/L (0-10) H 01/19/24 04:06 Delta Troponin T 38.67 ABS# (0-10) H* 01/19/24 04:06 Troponin T Hi Sens 6Hr 105.0 ng/L (0-10) H 01/19/24 08:22 Troponin T Hi Sens 6Hr Delta 79.0 ng/L (0-12) H* 01/19/24 08:22 C-Reactive Protein 324.9 mg/L (0.0-4.9) H 01/20/24 04:48 NT-Pro-B Natriuret Pep 4818 pg/mL (0-450) H 01/19/24 02:14 Total Protein 5.2 g/dL (6.6-8.7) L 01/24/24 04:42 Albumin 2.4 g/dL (3.5-5.2) L 01/24/24 04:42 Globulin 2.8 g/dL (1.3-4.6) 01/24/24 04:42 Triglycerides 118 mg/dL (0-150) 01/20/24 04:48 Cholesterol 128 mg/dL (0-200) 01/20/24 04:48 LDL Cholesterol, Calc 73 mg/dL (50-129) 01/20/24 04:48 Total VLDL Cholesterol 24 mg/dL (0-30) 01/20/24 04:48 HDL Cholesterol 31 mg/dL (60-100) L 01/20/24 04:48 Cholesterol/HDL Ratio 4.13 mg/dL (0.0-4.40) 01/20/24 04:48 Vitamin B12 202 pg/mL (232-1245) L 01/19/24 04:06 Folate 2.0 ng/mL (4.8-37.3) L 01/20/24 04:48 Procalcitonin 0.29 ng/mL (0-0.5) 01/19/24 04:06 TSH 3.32 uIU/mL (0.27-4.20) 01/19/24 04:06 Vancomycin Trough 7.0 ug/mL (10-15) L 01/23/24 21:13 DARYL-1 Antibody <1.0 neg AI (<1.0 NEG) 01/20/24 04:48 SS-A/Ro IgG Antibody <1.0 neg AI (<1.0 NEG) 01/20/24 04:48 SS-B/La IgG Antibody <1.0 neg AI (<1.0 NEG) 01/20/24 04:48 Scl-70 Scleroderma Ab <1.0 neg AI (<1.0 NEG) 01/20/24 04:48 Anti-ds DNA IgG Ab <1 IU/mL 01/20/24 04:48 Micro: Microbiology 01/26/24 20:24 Blood Culture - Preliminary Blood SPECIMEN COLLECTED 01/26/24 20:20 Blood Culture - Preliminary Blood SPECIMEN COLLECTED 01/20/24 15:38 Blood Culture - Final Blood Staphylococcus aureus 01/21/24 12:40 Blood Culture - Final Blood NO GROWTH AFTER 5 DAYS 01/21/24 12:35 Blood Culture - Final Blood NO GROWTH AFTER 5 DAYS Other data: Echocardiogram on 01/19/2024 LV systolic fucntion is normal with EF of 45-50% Grade 1 diastolic dysfunction Mild to moderate mitral regurgitation Mild tricuspid regurgitation Compared to prior echocardiogram from 2020, patient now has mild to moderate mitral regurgitation. LV systolic function is the same as befoFORE A&P Assessment and plan (1) Gram-positive bacteremia: The source of infection is not clear. It may be appropriate at this time to do a CHARLIE to look for any evidence of endocarditis. Patient is currently afebrile. (2) Mitral valve regurgitation: The mitral regurgitation was found to be mild to moderate. Qualifiers: Cardiac valve disease etiology: nonrheumatic Qualified Code(s): I34.0 - Nonrheumatic mitral (valve) insufficiency (3) Hyperlipidemia: Continue on the current management. Follow-up evaluation as scheduled. Qualifiers: Hyperlipidemia type: mixed hyperlipidemia Qualified Code(s): E78.2 - Mixed hyperlipidemia (4) HTN (hypertension), benign: Fairly under control. (5) Pulmonary embolism: The patient is on oral anticoagulation. This may be continued. Qualifiers: Pulmonary embolism type: unspecified Acute cor pulmonale presence: u nspecified Chronicity: acute Qualified Code(s): I26.99 - Other pulmonary embolism without acute cor pulmonale Plan I discussed the patient about CHARLIE, risk and benefits of the procedure. The risk of aspiration, bleeding, soft tissue injury, perforation of the stomach/esophagus and other concomitant complications were explained to the patient in detail. The patient understood this well and consented to proceed. Will go ahead and schedule this at the GI lab around 1230 today Based on the CHARLIE findings, further recommendations will be made Attestations 2 Medical Necessity Statement*: Deferred to the primary Coding Level of Care Code Acute Code for Chg Fwd Diagnoses Gram-positive bacteremia R78.81 Nonrheumatic mitral valve regurgitation I34.0 Cardiac valve disease etiology: nonrheumatic Mixed hyperlipidemia E78.2 Hyperlipidemia type: mixed hyperlipidemia HTN (hypertension), benign I10 Acute pulmonary embolism, unspecified pulmonary embolism type, unspecified whether acute cor pulmonale present I26.99 Pulmonary embolism type: unspecified Acute cor pulmonale presence: unspecified Chronicity: acute
--- NOTE | 2024-01-27 10:38 | PC.NURSE ---
Report given to Vanessa in GI lab. Notified of NPO status, no sticks to right arm, oxygen necessity, metz, and pain management (fentanyl patch, morphine, oxy, and muscle relaxants). All questions answered at this time.
[2024-01-27] MEDS: sodium chloride 0.9% 1,000 ML 30 ML IV (12:01)
--- NOTE | 2024-01-27 12:07 | P.ANESASSM_ITS ---
Pre-Anesthetic Assessment Height/Weight: Height 1.6 m Weight 74.117 kg Temp Pulse Resp BP Pulse Ox O2 Del Method O2 Flow Rate 97.4 F L 60 16 122/54 98 Nasal Cannula 2 01/27/24 11:51 01/27/24 11:51 01/27/24 11:51 01/27/24 11:51 01/27/24 11:51 01/27/24 11:51 01/27/24 11:51 Operation Date: 01/27/24 12:30 Proposed Procedures p CHARLIE(Not Applicable) - Chrissie Barker MD Familial anesthetic complications: None Last intake: N/A Social 1 pack(s) per day Has not smoked for 20 years Exam alert, oriented x 3, clear to auscultation bilaterally and regular rate & rhythm Airway Submandibular: within normal limits Cervical ROM: within normal limits Mallampati: Class III Dentition: other Comments: Comments: Edentulous CV/HEM Coronary Artery Disease, Congestive Heart Failure and Hypertension Hepatic None reported Metabolic None reported Musc/skel None reported Neuropsych None reported Anesthetic Plan ASA status: 3 Anesthesia: MAC Risk of > 500 ml blood loss (7ml/kg in children): No Medications/Allergies Home Medications Medication Instructions Recorded Confirmed Last Taken Type docusate sodium 100 mg capsule 100 mg PO BID PRN Constipation 09/09/20 01/20/24 Unknown History (Colace) Brick J 06/11/22 01/20/24 Unknown History isosorbide mononitrate 30 mg 30 mg PO BID #180 tabs 10/29/22 01/20/24 Unknown Rx tablet,extended release 24 hr diclofenac sodium 75 mg 75 mg PO Q12H PRN pain #20 tabs 01/17/24 01/20/24 Unknown Rx tablet,delayed release prednisone 20 mg tablet 20 mg PO TID #15 tabs 01/17/24 01/20/24 Unknown Rx tizanidine 4 mg tablet 4 mg PO Q6H PRN muscle spasticity 01/17/24 01/20/24 Unknown Rx #20 tabs morphine 15 mg immediate release 15 mg PO Q8H PRN Pain 01/19/24 01/19/24 Unknown History tablet cyclobenzaprine 5 mg tablet 5 mg PO TID PRN MUSCLE SPASMS 01/20/24 01/20/24 Unknown History Allergies Allergy/AdvReac Type Severity Reaction Status Date / Time oxycodone [From Xtampza ER] Allergy bad taste Verified 01/17/24 08:14 in mouth Current Medications Generic Name Dose Route Start Last Admin Trade Name Brittani PRN Reason Stop Dose Admin Acetaminophen 650 mg 01/19/24 09:41 01/25/24 01:15 Acetaminophen 325 Mg Tablet PO 650 mg Q6H PRN Administration Mild/Mod Pain Or Temp >/= 101 Albuterol Sulfate 2.5 mg 01/23/24 04:45 01/23/24 05:09 Albuterol 2.5 Mg/3 Ml Neb INHALATION 2.5 mg Q6H.RESP PRN Administration SHORTNESS OF BREATH Amlodipine Besylate 10 mg 01/23/24 09:45 01/27/24 08:21 Amlodipine 10 Mg Tablet PO 10 mg DAILY MARIA Administration Apixaban 5 mg 01/25/24 21:00 01/27/24 08:23 Apixaban 5 Mg Tablet PO 5 mg BID@0900,2100 MARIA Administration Aspirin 81 mg 01/21/24 09:00 01/27/24 08:22 Aspirin 81 Mg Ec Tablet PO 81 mg DAILY MARIA Administration Atorvastatin Calcium 20 mg 01/19/24 21:00 01/26/24 20:40 Atorvastatin 40 Mg Tablet PO 20 mg BEDTIME MARIA Administration Cyanocobalamin 1,000 mcg 01/19/24 13:40 01/27/24 08:23 Cyanocobalamin 1,000 Mcg/Ml Sdv IM 1,000 mcg DAILY MARIA Administration Cyclobenzaprine HCl 5 mg 01/19/24 10:49 01/26/24 19:22 Cyclobenzaprine 10 Mg Tablet PO 5 mg TID PRN Administration MUSCLE SPASMS Fentanyl 1 patch 01/26/24 15:15 01/26/24 15:22 Fentanyl 25 Mcg Patch TRANSDERMA 1 patch Q72H [facility]IA Administration Hydralazine HCl 75 mg 01/24/24 15:00 01/27/24 08:22 Hydralazine 25 Mg Tablet PO 75 mg TID MARIA Administration Cefazolin Sodium 2,000 mg/ 50 mls @ 100 mls/hr 01/26/24 09:45 01/27/24 10:40 Sodium Chloride IV Infused Q8H MARIA Infusion Protocol Sodium Chloride 1,000 mls @ 30 mls/hr 01/27/24 12:00 01/27/24 12:01 Sodium Chloride 0.9% IV 01/28/24 11:59 30 mls/hr .Q24H MARIA Administration Isosorbide Mononitrate 30 mg 01/19/24 18:00 01/27/24 08:22 Isosorbide Mononitrate Er 30 Mg Tablet PO 30 mg BID MARIA Administration Lisinopril 20 mg 01/19/24 10:05 01/21/24 09:28 Lisinopril 20 Mg Tablet PO Not Given DAILY [facility] Metoprolol Tartrate 12.5 mg 01/23/24 21:00 01/27/24 08:22 Metoprolol Tartrate 25 Mg Tablet PO 12.5 mg BID@0900,2100 [facility] Administration Morphine Sulfate 1 mg 01/25/24 21:17 01/27/24 10:49 Morphine 4 Mg/Ml Sdv 1 Ml IVP 1 mg Q3H PRN Administration SEVERE PAIN Non-Formulary Medication 50 mg 01/20/24 09:00 01/27/24 10:38 Topiramate PO Not Given DAILY [facility] Oxycodone HCl 15 mg 01/19/24 10:22 01/27/24 08:20 Oxycodone 5 Mg Ir Tab/Cap PO 15 mg QID PRN Administration pain scale 6-10 Pantoprazole Sodium 40 mg 01/19/24 09:41 01/27/24 08:[address] 40 Mg Tablet PO 40 mg DAILY [facility] Administration Polyethylene Glycol 17 gm 01/21/24 11:00 01/27/24 08:32 Polyethylene Glycol 3350 Pkt 17 Gm PO Not Given DAILY [facility] Senna/Docusate Sodium 1 tab 01/21/24 18:00 01/27/24 08:21 Sennosides-Docusate Tablet PO 1 tab BID [facility] Administration Tizanidine HCl 4 mg 01/19/24 10:04 01/27/24 08:27 Tizanidine 4 Mg Tablet PO 4 mg Q6H PRN Administration muscle spasticity Additional Medication Information Current Medications Acetaminophen (Acetaminophen 325 Mg Tablet) 650 mg PO Q6H PRN PRN Reason: Mild/Mod Pain Or Temp >/= 101 Last Admin: 01/25/24 01:15 Dose: 650 mg Albuterol Sulfate (Albuterol 2.5 Mg/3 Ml Neb) 2.5 mg INHALATION Q6H.RESP PRN PRN Reason: SHORTNESS OF BREATH Last Admin: 01/23/24 05:09 Dose: 2.5 mg Amlodipine Besylate (Amlodipine 10 Mg Tablet) 10 mg PO DAILY [facility] Last Admin: 01/27/24 08:21 Dose: 10 mg Apixaban (Apixaban 5 Mg Tablet) 5 mg PO BID@0900,2100 [facility] Last Admin: 01/27/24 08:23 Dose: 5 mg Aspirin (Aspirin 81 Mg Ec Tablet) 81 mg PO DAILY [facility] Last Admin: 01/27/24 08:22 Dose: 81 mg Atorvastatin Calcium (Atorvastatin 40 Mg Tablet) 20 mg PO BEDTIME [facility] Last Admin: 01/26/24 20:40 Dose: 20 mg Cyanocobalamin (Cyanocobalamin 1,000 Mcg/Ml Sdv) 1,000 mcg IM DAILY [facility] Last Admin: 01/27/24 08:23 Dose: 1,000 mcg Cyclobenzaprine HCl (Cyclobenzaprine 10 Mg Tablet) 5 mg PO TID PRN PRN Reason: MUSCLE SPASMS Last Admin: 01/26/24 19:22 Dose: 5 mg Fentanyl (Fentanyl 25 Mcg Patch) 1 patch TRANSDERMA Q72H [facility] Last Admin: 01/26/24 15:22 Dose: 1 patch Hydralazine HCl (Hydralazine 25 Mg Tablet) 75 mg PO TID [facility] Last Admin: 01/27/24 08:22 Dose: 75 mg Cefazolin Sodium 2,000 mg/ (Sodium Chloride) 50 mls @ 100 mls/hr IV Q8H [facility]; Protocol Last Admin: 01/27/24 08:23 Dose: 100 mls/hr Isosorbide Mononitrate (Isosorbide Mononitrate Er 30 Mg Tablet) 30 mg PO BID [facility] Last Admin: 01/27/24 08:22 Dose: 30 mg Lisinopril (Lisinopril 20 Mg Tablet) 20 mg PO DAILY [facility] Last Admin: 01/21/24 09:28 Dose: Not Given Metoprolol Tartrate (Metoprolol Tartrate 25 Mg Tablet) 12.5 mg PO BID@0900,2100 [facility] Last Admin: 01/27/24 08:22 Dose: 12.5 mg Morphine Sulfate (Morphine 4 Mg/Ml Sdv 1 Ml) 1 mg IVP Q3H PRN PRN Reason: SEVERE PAIN Last Admin: 01/27/24 05:52 Dose: 1 mg Naloxone HCl (Naloxone 0.4 Mg/Ml Sdv) 0.1 mg IVP Q2M PRN PRN Reason: OPIATERV Non-Formulary Medication (Topiramate) 50 mg PO DAILY [facility] Last Admin: 01/26/24 08:36 Dose: Not Given Ondansetron HCl (Ondansetron 2 Mg/Ml Sdv 2 Ml) 4 mg IVP Q8H PRN PRN Reason: vomiting, or N/V if npo Oxycodone HCl (Oxycodone 5 Mg Ir Tab/Cap) 15 mg PO QID PRN PRN Reason: pain scale 6-10 Last Admin: 01/27/24 08:20 Dose: 15 mg Pantoprazole Sodium (Pantoprazole Dr 40 Mg Tablet) 40 mg PO DAILY [facility] Last Admin: 01/27/24 08:22 Dose: 40 mg Polyethylene Glycol (Polyethylene Glycol 3350 Pkt 17 Gm) 17 gm PO DAILY [facility] Last Admin: 01/27/24 08:32 Dose: Not Given Senna/Docusate Sodium (Sennosides-Docusate Tablet) 1 tab PO BID [facility] Last Admin: 01/27/24 08:21 Dose: 1 tab Tizanidine HCl (Tizanidine 4 Mg Tablet) 4 mg PO Q6H PRN PRN Reason: muscle spasticity Last Admin: 01/27/24 08:27 Dose: 4 mg PFSH Anesthesia Medical History Stenosis of cervical spine with myelopathy Renal cyst, left Tricuspid valve regurgitation Mitral valve regurgitation Shortness of breath HTN (hypertension), benign Hyperlipidemia GERD (gastroesophageal reflux disease) Cervical disc disorder with myelopathy of mid-cervical region CRPS (complex regional pain syndrome type I) last stellate ganglion block was in 2012. 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 L2-L3, L3-L4, L4-L5, and L5-S1 fusion/fixation 1986 [facility] L4-L5, L5-S1 decompression 05/1977 L5-S1 decompression S/P thymectomy 1984 AGE 15 MYASTHENIA GRAVIS S/P bladder repair ANTERIOR VAG REPAIR WITH ELEVATE VAG MESH, POSTERIOR REPAIR AND CYSTOSCOPY DR SYLV[facility]. 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 Data Anesthesia 01/27/24 06:44 01/27/24 06:44 Short CBC 01/25/24 01/27/24 Range/Units 18:52 06:44 WBC 20.49 H 15.37 H (3.29-11.43) 10^3/uL Hgb 13.60 12.30 (11.27-16.99) g/dL Hct 43.3 36.9 (36-47) % MCV 91.5 87.9 (85-98) fl Plt Count 139 L 151 L (157-399) 10^3/cmm Neut % (Auto) 87.2 82.1 % Neut # (Auto) 17.85 H 12.61 H (1.8-7.7) 10^3/uL BMP 01/25/24 01/27/24 18:52 06:44 Sodium 134 L 133 L Potassium 4.4 4.5 Chloride 95 L 94 L Carbon Dioxide 28 29 BUN 22 26 H Creatinine 0.5 0.6 Glucose 165 H 91 Calcium 7.9 L 7.8 L Microbiology 01/26/24 20:24 Blood Culture - Preliminary Blood SPECIMEN COLLECTED 01/26/24 20:20 Blood Culture - Preliminary Blood SPECIMEN COLLECTED 01/20/24 15:38 Blood Culture - Final Blood Staphylococcus aureus 01/21/24 12:40 Blood Culture - Final Blood NO GROWTH AFTER 5 DAYS 01/21/24 12:35 Blood Culture - Final Blood NO GROWTH AFTER 5 DAYS Cardiac Studies: 2 Echocardiogram 01/19/24 Echocardiogram Ultrasound 10/11/20 Sestamibi Stress Test (Cardiology) 01/18
--- NOTE | 2024-01-27 12:35 | W.PM.OPSUD ---
Surgery/Procedure H&P Update DATE OF PROCEDURE: January 27, 2024 DATE H&P PERFORMED: 01/23/24 H&P UPDATE INFORMATION: I have reviewed H&P completed within last 30 days, I have examined patient prior to procedure and No changes to prior documentation PREOP DIAGNOSIS: Gm positive bacteremia PRIMARY INDICATION FOR PROCEDURE: R/O endocarditis PLANNED PROCEDURE: Operation Date: 01/27/24 12:30 Proposed Procedures p CHARLIE(Not Applicable) - Chrissie Barker MD
--- NOTE | 2024-01-27 12:36 | PC.OT ---
OT TX ATTEMPTED @ 1150. PT OFF THE FLOOR TO CHARLIE PROCEDURE. WILL ATTEMPT OT TX AGAIN LATER IF POSSIBLE.
--- NOTE | 2024-01-27 13:25 | ANE.PACU2 ---
Inpatient post-anesthesia follow up: Airway intact: Yes Vital signs: Temperature 97.6 F Pulse Rate 75 Respiratory Rate 18 Blood Pressure 134/64 Pulse Oximetry 97 Oxygen Delivery Me thod [ Nasal Cannula Current Rate & Del omid] Oxygen Delivery Me thod Nasal Cannula Oxygen Flow Rate [ Current Rate 2 & Delivery] Oxygen Flow Rate 2 Fraction of Inspir ed Oxygen Hydration adequate: Yes Nausea and vomiting: No Pain level: 1 Mental status: Baseline
--- NOTE | 2024-01-27 13:45 | PC.NURSE ---
Pt arrives from GI lab. Walks to bed with standby assist. Lovett out per orders. Tolerated well.
[2024-01-27] MEDS: cyclobenzaprine 10 mg Tablet 5 MG PO ×2 (15:16→20:42)
--- NOTE | 2024-01-27 15:22 | P.PN_ITS ---
Subjective 2 Subjective: Hospital course, labs appreciated. Patient sitting comfortably in chair. Continues to complain of neck pain going down the back and to right shoulder. Denies of having any nausea or vomiting. Has remained afebrile. Has remained hemodynamically stable. Vitals/I&O/Wt Last Vital Signs Temp 97 F L 01/27/24 14:00 Pulse 78 01/27/24 14:00 Resp 18 01/27/24 15:17 BP 138/67 01/27/24 14:00 Pulse Ox 92 01/27/24 14:00 O2 Del Method Nasal Cannula 01/27/24 14:00 O2 Flow Rate 2 01/27/24 13:22 01/27/24 01/27/24 01/27/24 06:59 14:59 22:59 Intake Total 290 / 1640 685 / 685 Output Total 750 / 1750 Balance -460 / -110 685 / 685 Weight last 48 hrs Weight 74.117 kg Weight 69.853 kg Physical Exam 2 Narrative: General: No acute distress, AO x3, anxious, in mild distress because of neck pain on nasal cannula HEENT: PERRLA, pupils bilaterally equal and reactive Chest: Normal vesicular breath sounds, no added sounds, equal good air entry bilaterally CVS: S1-S2 regular, soft pansystolic murmur at apex radiating to anterior midline, fourth intercostal space left retrosternal radiating to pericardium 2/6, no tachycardia, no gallops, no rubs Abdomen: Soft, nontender, no organomegaly, bowel sounds present Neuro: No focal deficits, no facial deformity, AO x3, power 5/5 in all limbs Data 01/27/24 06:44 01/27/24 06:44 Micro: Microbiology 01/26/24 20:24 Blood Culture - Preliminary Blood SPECIMEN COLLECTED 01/26/24 20:20 Blood Culture - Preliminary Blood SPECIMEN COLLECTED 01/20/24 15:38 Blood Culture - Final Blood Staphylococcus aureus 01/21/24 12:40 Blood Culture - Final Blood NO GROWTH AFTER 5 DAYS 01/21/24 12:35 Blood Culture - Final Blood NO GROWTH AFTER 5 DAYS A&P Assessment and plan (1) Bacteremia due to methicillin susceptible Staphylococcus aureus (MSSA): Appreciate ID recommendations. Last culture from 01/20 so far negative. Concerns for infectious synovitis on MRI at cervical disc. Appreciate orthopedic recommendations for medical management for now. Continue to follow-up with blood cultures. If remains afebrile will plan for PICC line placement in next 24 hours Plan for CHARLIE today to rule out infective endocarditis. Continue with IV cefazolin every 8 hourly. Most likely patient with antibiotics for overall 6 weeks going forward. (2) Infectious synovitis: (3) Pulmonary embolism: Seen on CTA. Bilateral scattered. Echocardiogram ruled out right heart strain. Finish 7-day course of full dose Lovenox. Continue with Eliquis 5 mg twice daily. Patient will most likely need anticoagulation going forward given recurrent history of thromboembolism. Oxygen supplementation keeping saturation over 92%. Will need home O2 evaluation prior to discharge. Qualifiers: Acute cor pulmonale presence: unspecified Chronicity: acute Pulmonary embolism type: unspecified Qualified Code(s): I26.99 - Other pulmonary embolism without acute cor pulmonale (4) Cervical disc disorder with myelopathy of mid-cervical region: Follows up with orthopedic surgery as an outpatient. Was recommended surgical correction but patient has been hesitant. Most likely in setting of infectious synovitis. Continue with home pain medication of oral morphine and fentanyl patch. Patient would benefit with outpatient physical therapy. (5) Chest pain: Does complain of exertional chest pain in the past. Currently chest heaviness. Found to have elevated cycle of troponin. Appreciate cardiology recommendations. Stress test concerning for mild jesenia-infarct ischemia. Given no further chest pain plan for medical management for now. Continue with aspirin, statin. Appreciate echocardiogram, lipid panel, A1c. (6) Non-STEMI (non-ST elevated myocardial infarction): (7) Mitral valve regurgitation: Past history. Currently euvolemic. Echocardiogram as above. Qualifiers: Cardiac valve disease etiology: nonrheumatic Qualified Code(s): I34.0 - Nonrheumatic mitral (valve) insufficiency (8) HTN (hypertension), benign: Goal blood pressure less than 140/90 mmHg. Continue with home dose of amlodipine, Coreg, Imdur, lisinopril. Uptitrate as for goal blood pressure. (9) Systolic and diastolic CHF, acute: (10) Hypertension: Plan Full code N.p.o. for CHARLIE. Cardiac diet post CHARLIE. Full dose Lovenox will be sufficient for DVT prophylaxis Protonix for PUD prophylaxis Discharge plan: Patient lives by herself. Currently having severe cervical radiculopathy in setting of infectious synovitis. Will also need 3 times a day cefazolin. Patient would benefit from SNF placement. She is agreeable. Did peer to peer regarding the same and has been improved. Attestations 2 Medical Necessity Statement*: Requires further hospitalization for management of MSSA bacteremia, in setting of infectious synovitis of cervical disc, pulmonary embolism in a patient with history of CAD was admitted with chest pain while outpatient antibiotics and safe discharge planning is sought. Diagnoses Bacteremia due to methicillin susceptible Staphylococcus aureus (MSSA) R78.81; B95.61 Infectious synovitis M65.10 Acute pulmonary embolism, unspecified pulmonary embolism type, unspecified whether acute cor pulmonale present I26.99 Acute cor pulmonale presence: unspecified Chronicity: acute Pulmonary embolism type: unspecified Cervical disc disorder with myelopathy of mid-cervical region M50.020 Chest pain R07.9 Non-STEMI (non-ST elevated myocardial infarction) I21.4 Nonrheumatic mitral valve regurgitation I34.0 Cardiac valve disease etiology: nonrheumatic HTN (hypertension), benign I10 Systolic and diastolic CHF, acute I50.41 Hypertension I10
--- NOTE | 2024-01-27 15:44 | PC.SOCIAL ---
IMM Updated Updated pt on IMM. No questions voiced. Provided pt a copy. Initialed, dated, & timed copy in chart.
[2024-01-27] MEDS: atorvastatin 40 mg Tablet 20 MG PO (20:37)
[2024-01-28] VITALS (12 sets, daily range): BP systolic 116–161; BP diastolic 52–78; PULSE 72–101; RESP 16–18; TEMP 36.4–37.7; O2SAT 90–95
[2024-01-28] MEDS: ceFAZolin 2,000 MG in sodium chloride 0.9% (plus) 50 ML 100 MG IV ×3 (01:08→17:12)
[2024-01-28] MEDS: oxyCODONE 5 mg IR Tab/Cap 15 MG PO ×4 (01:36→17:11)
[2024-01-28 05:54] LABS: Basophils % 0.1 %; Eosinophils # 0.2 10^3/uL (0.0-0.8); Eosinophils % 1.2 %; Lymphocytes % 6.8 %; Mean Corpuscular HGB Conc 32.2 g/dL (30-55); Mean Corpuscular Hemoglobin 28.3 pg (27-33); Mean Platelet Volume 10.8 fL (7.4-10.4); Monocytes # 0.8 10^3/uL (0.2-0.9); Monocytes % 5.5 %; Neutrophils % 84.8 %; Nucleated Red Blood Cells % 0 %; Platelet Count 179 10^3/cmm (157-399); Red Blood Count 4.66 10^6/uL (3.85-5.65); Red Cell Distribution Width 13.1 % (12.1-15.1); White Blood Count 14.06 10^3/uL (3.29-11.43)
[2024-01-28 06:17] LABS: Alanine Aminotransferase 14 U/L (0-33); Albumin Level 2.6 g/dL (3.5-5.2); Alkaline Phosphatase 79 U/L (35-105); Aspartate Amino Transferase 22 U/L (0-32); Blood Urea Nitrogen 24 mg/dL (8-23); Calcium 8.3 mg/dL (8.5-10.5); Carbon Dioxide 29 mmol/L (22-29); Chloride 97 mmol/L (98-107); Creatinine Clr Calc Pharmacy 55.8809; Globulin 3.5 g/dL (1.3-4.6); Glucose 147 mg/dL (65-115); Osmolality Calculated 291 mOsm/kg (285-295); Sodium 137 mmol/L (136-145); Total Bilirubin 0.6 mg/dL (0.15-1.2); Total Protein 6.1 g/dL (6.6-8.7)
[2024-01-28 06:24] LABS: Anion Gap 15.2 (5-19); Potassium 4.2 mmol/L (3.5-5.1)
[2024-01-28] MEDS: morphine 4 mg/mL SDV 1 mL 1 MG IVP (06:33)
--- NOTE | 2024-01-28 07:45 | P.PN_ITS ---
Subjective 2 Subjective: Infectious disease progress note. CHARLIE was completed. No vegetations noted. Tmax 99.8 Fahrenheit. Remains afebrile. Complains of constipation and abdominal cramps today. Medications: Reviewed: Yes Medication Review Details: Current Medications Acetaminophen (Acetaminophen 325 Mg Tablet) 650 mg PO Q6H PRN PRN Reason: Mild/Mod Pain Or Temp >/= 101 Last Admin: 01/25/24 01:15 Dose: 650 mg Albuterol Sulfate (Albuterol 2.5 Mg/3 Ml Neb) 2.5 mg INHALATION Q6H.RESP PRN PRN Reason: SHORTNESS OF BREATH Last Admin: 01/23/24 05:09 Dose: 2.5 mg Amlodipine Besylate (Amlodipine 10 Mg Tablet) 10 mg PO DAILY [facility] Last Admin: 01/27/24 08:21 Dose: 10 mg Apixaban (Apixaban 5 Mg Tablet) 5 mg PO BID@0900,2100 [facility] Last Admin: 01/27/24 08:23 Dose: 5 mg Aspirin (Aspirin 81 Mg Ec Tablet) 81 mg PO DAILY [facility] Last Admin: 01/27/24 08:22 Dose: 81 mg Atorvastatin Calcium (Atorvastatin 40 Mg Tablet) 20 mg PO BEDTIME [facility] Last Admin: 01/26/24 20:40 Dose: 20 mg Cyanocobalamin (Cyanocobalamin 1,000 Mcg/Ml Sdv) 1,000 mcg IM DAILY [facility] Last Admin: 01/27/24 08:23 Dose: 1,000 mcg Cyclobenzaprine HCl (Cyclobenzaprine 10 Mg Tablet) 5 mg PO TID PRN PRN Reason: MUSCLE SPASMS Last Admin: 01/26/24 19:22 Dose: 5 mg Fentanyl (Fentanyl 25 Mcg Patch) 1 patch TRANSDERMA Q72H [facility] Last Admin: 01/26/24 15:22 Dose: 1 patch Hydralazine HCl (Hydralazine 25 Mg Tablet) 75 mg PO TID [facility] Last Admin: 01/27/24 08:22 Dose: 75 mg Cefazolin Sodium 2,000 mg/ (Sodium Chloride) 50 mls @ 100 mls/hr IV Q8H [facility]; Protocol Last Admin: 01/27/24 08:23 Dose: 100 mls/hr Isosorbide Mononitrate (Isosorbide Mononitrate Er 30 Mg Tablet) 30 mg PO BID [facility] Last Admin: 01/27/24 08:22 Dose: 30 mg Lisinopril (Lisinopril 20 Mg Tablet) 20 mg PO DAILY [facility] Last Admin: 01/21/24 09:28 Dose: Not Given Metoprolol Tartrate (Metoprolol Tartrate 25 Mg Tablet) 12.5 mg PO BID@0900,2100 [facility] Last Admin: 01/27/24 08:22 Dose: 12.5 mg Morphine Sulfate (Morphine 4 Mg/Ml Sdv 1 Ml) 1 mg IVP Q3H PRN PRN Reason: SEVERE PAIN Last Admin: 01/27/24 05:52 Dose: 1 mg Naloxone HCl (Naloxone 0.4 Mg/Ml Sdv) 0.1 mg IVP Q2M PRN PRN Reason: OPIATERV Non-Formulary Medication (Topiramate) 50 mg PO DAILY [facility] Last Admin: 01/26/24 08:36 Dose: Not Given Ondansetron HCl (Ondansetron 2 Mg/Ml Sdv 2 Ml) 4 mg IVP Q8H PRN PRN Reason: vomiting, or N/V if npo Oxycodone HCl (Oxycodone 5 Mg Ir Tab/Cap) 15 mg PO QID PRN PRN Reason: pain scale 6-10 Last Admin: 01/27/24 08:20 Dose: 15 mg Pantoprazole Sodium (Pantoprazole Dr 40 Mg Tablet) 40 mg PO DAILY [facility] Last Admin: 01/27/24 08:22 Dose: 40 mg Polyethylene Glycol (Polyethylene Glycol 3350 Pkt 17 Gm) 17 gm PO DAILY [facility] Last Admin: 01/27/24 08:32 Dose: Not Given Senna/Docusate Sodium (Sennosides-Docusate Tablet) 1 tab PO BID [facility] Last Admin: 01/27/24 08:21 Dose: 1 tab Tizanidine HCl (Tizanidine 4 Mg Tablet) 4 mg PO Q6H PRN PRN Reason: muscle spasticity Last Admin: 01/27/24 08:27 Dose: 4 mg Vitals/I&O/Wt Last Vital Signs Temp 98.6 F 01/28/24 05:08 Pulse 99 01/28/24 05:08 Resp 18 01/28/24 06:33 BP 159/66 01/28/24 05:08 Pulse Ox 94 01/28/24 05:08 O2 Del Method Nasal Cannula 01/27/24 18:27 O2 Flow Rate 1 01/27/24 22:00 01/27/24 01/28/24 01/28/24 22:59 06:59 14:59 Intake Total 650 / 1335 290 / 1625 Output Total 975 / 975 Balance 650 / 1335 -685 / 650 Weight last 48 hrs Weight 71.668 kg Weight 74.117 kg Physical Exam 2 Narrative: General: No acute distress, AO x3 HEENT: PERRLA, pupils bilaterally equal and reactive, pallors not present Chest: Normal vesicular breath sounds, no added sounds, equal good air entry bilaterally CVS: S1-S2 regular, no murmurs, no tachycardia, no gallops, no rubs Abdomen: Soft, nontender, no organomegaly, bowel sounds present Neuro: No focal deficits, no facial deformity, AO x3, power 5/5 in all limbs Data 01/29/24 05:58 01/29/24 05:58 Micro: Microbiology 01/26/24 20:24 Blood Culture - Preliminary Blood NEGATIVE TO DATE 01/26/24 20:20 Blood Culture - Preliminary Blood NEGATIVE TO DATE NAME: Emma Navarrete LOC: [facility] #: [id number] AGE/SX: 78/F ROOM: 260 R E01/19/[address]: Mateus Hart MD : 1945 BED: 1 D IS: 01/29/24 FAX #: STATUS: DIS IN TLOC: Spec #: [id number] Brandee: 01/21/24-1240 Status: COMP Req #: [id number] Recd: 01/21/24-[address]: Jasmyne Best MD Src: Blood SpDesc: Ordered: Bcult Procedure Result Verified Site Blood Culture Final 01/26/24-1299 NO GROWTH AFTER 5 DAYS Blood Culture Preliminary (changed) 01/22/24-1299 NEGATIVE TO DATE Blood Culture Preliminary (changed) 01/21/24-1306 SPECIMEN COLLECTED NAME: Emma Navarrete LOC: [facility] U #: [id number] AGE/SX: 78/F ROOM: 260 R E01/19/[address]: Mateus Hart MD : 1945 BED: 1 D IS: 01/29/24 FAX #: STATUS: DIS IN TLOC: Spec #: [id number] Brandee: 01/20/24-153 Status: COMP Req #: [id number] Recd: 01/20/24-[address]: Jasmyne Best MD Src: Blood SpDesc: Ordered: Bcult Procedure Result Verified Site Blood Culture Final 01/26/24-1559 4 OF 4 BOTTLES POSITIVE DIRECT GRAM STAIN: GRAM POSITIVE COCCI IN CLUSTERS SENSITIVITIES ON [id number] Organism 1 Staphylococcus aureus Growth 4 BOTTLES Gram Stain Charge Charge for Gram Stain CRITICAL RESULT YES/NO: YES CRITICAL CALLED BY: LISA TO AND READ BACK BY: JOSIE DATE: 01/21/24 TIME: 601 Blood Culture Preliminary (changed) 01/22/24-1246 4 OF 4 BOTTLES POSITIVE DIRECT GRAM STAIN: GRAM POSITIVE COCCI IN CLUSTERS RESULTS TO FOLLOW Organism 1 Coag positive Staphylococcus Growth 4 BOTTLES CRITICAL RESULT YES/NO: YES CRITICAL CALLED BY: LISA TO AND READ BACK BY: JOSIE DATE: 01/21/24 TIME: 601 Blood Culture Preliminary (changed) 01/21/24-1412 4 OF 4 BOTTLES POSITIVE DIRECT GRAM STAIN: GRAM POSITIVE COCCI IN CLUSTERS RESULTS TO FOLLOW CRITICAL RESULT YES/NO: YES CRITICAL CALLED BY: LISA TO AND READ BACK BY: JOSIE DATE: 01/21/24 TIME: 601 Blood Culture Preliminary (changed) 01/21/24-1356 3 OF 4 BOTTLES POSITIVE DIRECT GRAM STAIN: GRAM POSITIVE COCCI IN CLUSTERS RESULTS TO FOLLOW CRITICAL RESULT YES/NO: YES CRITICAL CALLED BY: LISA TO AND READ BACK BY: JOSIE DATE: 01/21/24 TIME: 601 Blood Culture Preliminary (changed) 01/21/24-0837 2 OF 4 BOTTLES POSITIVE DIRECT GRAM STAIN: GRAM POSITIVE COCCI IN CLUSTERS RESULTS TO FOLLOW CRITICAL RESULT YES/NO: YES CRITICAL CALLED BY: LISA TO AND READ BACK BY: JOSIE DATE: 01/21/24 TIME: 601 Blood Culture Preliminary (changed) 01/20/24-1615 SPECIMEN COLLECTED NAME: Emma Navarrete Holly LOC: [facility] #: [id number] AGE/SX: 78/F ROOM: 260 R E01/19/[address]: Mateus Hart MD : 1945 BED: 1 D IS: 01/29/24 FAX #: STATUS: DIS IN TLOC: Spec #: [id number] Brandee: 01/20/24-1538 Status: COMP Req #: [id number] Recd: 01/20/24-[address]: Jasmyne Best MD Src: Blood SpDesc: Ordered: Bcult Procedure Result Verified Site Blood Culture Final 01/23/24-1059 4 OF 4 BOTTLES POSITIVE DIRECT GRAM STAIN: GRAM POSITIVE COCCI IN CLUSTERS RESULTS TO FOLLOW Organism 1 Staphylococcus aureus Growth 4 BOTTLES Gram Stain Charge Charge for Gram Stain CRITICAL RESULT YES/NO: YES CRITICAL CALLED BY: LISA TO AND READ BACK BY: JOSIE DATE: 01/21/24 TIME: 601 S aureus M.I.C. RX --------- ------ * Amoxicillin/Clavulanate <=4/2 S * Ampicillin/Sulbactam <=8/4 S * Ceftriaxone <=8 S * Ciprofloxacin <=1 S * Clindamycin <=0.5 S * Erythromycin <=0.5 S * Gentamicin <=4 S * Levofloxacin <=1 S * Linezolid 4 S * Oxacillin <=0.25 S * Penicillin <=0.03 S * Rifampin <=1 S * Tetracycline <=4 S * Trimethoprim/Sulfamethoxazole <=0.5/9.5 S Vancomycin 2 S Daptomycin 1 S Blood Culture Preliminary (changed) 01/22/24-1246 4 OF 4 BOTTLES POSITIVE DIRECT GRAM STAIN: GRAM POSITIVE COCCI IN CLUSTERS RESULTS TO FOLLOW Organism 1 Coag positive Staphylococcus Growth 4 BOTTLES Gram Stain Charge Charge for Gram Stain CRITICAL RESULT YES/NO: YES CRITICAL CALLED BY: LISA TO AND READ BACK BY: JOSIE DATE: 01/21/24 TIME: 601 Blood Culture Preliminary (changed) 01/21/24-1412 4 OF 4 BOTTLES POSITIVE DIRECT GRAM STAIN: GRAM POSITIVE COCCI IN CLUSTERS RESULTS TO FOLLOW Gram Stain Charge Charge for Gram Stain CRITICAL RESULT YES/NO: YES CRITICAL CALLED BY: LISA TO AND READ BACK BY: JOSIE DATE: 01/21/24 TIME: 601 Blood Culture Preliminary (changed) 01/21/24-1355 3 OF 4 BOTTLES POSITIVE DIRECT GRAM STAIN: GRAM POSITIVE COCCI IN CLUSTERS RESULTS TO FOLLOW Gram Stain Charge Charge for Gram Stain CRITICAL RESULT YES/NO: YES CRITICAL CALLED BY: LISA TO AND READ BACK BY: JOSIE DATE: 01/21/24 TIME: 06 Blood Culture Preliminary (changed) 01/21/24-601 2 OF 4 BOTTLES POSITIVE DIRECT GRAM STAIN: GRAM POSITIVE COCCI IN CLUSTERS RESULTS TO FOLLOW CRITICAL RESULT YES/NO: YES CRITICAL CALLED BY: LISA TO AND READ BACK BY: JOSIE DATE: 01/21/24 TIME: 601 Blood Culture Preliminary (changed) 01/20/24-1614 SPECIMEN COLLECTED [facility] [address] [place] [address] DR. BOZENA ARANDA, SAFETY ENGINEER [employer] NAME: Emma Navarrete LOC: [facility] U #: [id number] AGE/SX: 78/F ROOM: 260 R E01/19/[address]: Mateus Hart MD : 1945 BED: 1 D IS: 01/29/24 FAX #: STATUS: DIS IN TLOC: Spec #: [id number] Brandee: 01/20/24 Status: COMP Req #: [id number] Recd: 01/20/24-[address]: Jasmyne Best MD Src: Urine Cath SpDesc: Ordered: Procedure Result Verified Site Urine Culture Final 01/22/24-161 Organism 1 Staphylococcus aureus [place] Count >100,000 CFU/ml DAY 2 CRITICAL RESULT YES/NO: YES CRITICAL CALLED BY: JAMES TO AND READ BACK BY: SIS DATE: 01/22/24 TIME: 1613 S aureus M.I.C. RX --------- ------ * Amoxicillin/Clavulanate <=4/2 S * Ampicillin <=2 R * Ampicillin/Sulbactam <=8/4 S * Ceftriaxone <=8 S * Ciprofloxacin <=1 S * Gentamicin <=4 S * Levofloxacin <=1 S * Linezolid 4 S * Nitrofurantoin <=32 S * Oxacillin <=0.25 S * Penicillin <=0.03 R * Rifampin <=1 S * Tetracycline <=4 S * Trimethoprim/Sulfamethoxazole <=0.5/9.5 S Vancomycin 2 S Daptomycin 1 S Urine Culture Preliminary (changed) 01/21/24-810 A&P Assessment and plan (1) Bacteremia due to methicillin susceptible Staphylococcus aureus (MSSA): MSSA bacteremia of unclear primary source No h/o IVDU MRI c spine with Periarticular and soft tissue enhancement about the RIGHT C2-3, C3-4, and C4-5 facets compatible with infectious or inflammatory synovitis - however given recovery of MSSA from Blood cx and surrounding epidural enhancement, favor infectious etiology MRI lumbar spine withoit dsigns of discitis or osteomyelitis CTA with PE H/o MVR and TVR- CHARLIE withotu signs of gross vegetations Blood cx from 01/20 and 01/25 thus far negative to date Last T max 99.8 No surgical intervention recommended per orthopedics. Plan: continue organism directed therapy with Cefazolin 2 g iv every 8 hrs Recommend total treatment duration to be 6 weeks until March 03, 2024 Course further dependent on results of pending studies, radiological improvement over the next 6 weeks, clinical response While on the above antibiotics obtain weekly CBC LFT creatinine and CRP to be faxed over to the infectious disease clinic. Repeat MRI in the next 4 to 6 weeks prior to discontinuation of antibiotics. Counseled to return to emergency room in case of fever more than 101, worsening pain, any neurological deficits developing. Follow-up in infectious disease clinic in 1 month. (2) Mitral valve regurgitation: Qualifiers: Cardiac valve disease etiology: nonrheumatic Qualified Code(s): I34.0 - Nonrheumatic mitral (valve) insufficiency (3) Tricuspid valve regurgitation: Qualifiers: Cardiac valve disease etiology: nonrheumatic Qualified Code(s): I36.1 - Nonrheumatic tricuspid (valve) insufficiency (4) Pulmonary embolism: Qualifiers: Acute cor pulmonale presence: unspecified Chronicity: acute Pulmonary embolism type: unspecified Qualified Code(s): I26.99 - Other pulmonary embolism without acute cor pulmonale (5) S/P lumbar spinal fusion: (6) Cervical spondylosis with radiculopathy: (7) Infectious synovitis: Attestations 2 Medical Necessity Statement*: Per admitting attending Coding Level of Care Code Acute Code for Chg Fwd Diagnoses Bacteremia due to methicillin susceptible Staphylococcus aureus (MSSA) R78.81; B95.61 Nonrheumatic mitral valve regurgitation I34.0 Cardiac valve disease etiology: nonrheumatic Nonrheumatic tricuspid valve regurgitation I36.1 Cardiac valve disease etiology: nonrheumatic Acute pulmonary embolism, unspecified pulmonary embolism type, unspecified whether acute cor pulmonale present I26.99 Acute cor pulmonale presence: unspecified Chronicity: acute Pulmonary embolism type: unspecified S/P lumbar spinal fusion Z98.1 Cervical spondylosis with radiculopathy M47.22 Infectious synovitis M65.10
[2024-01-28] MEDS: sennosides-docusate Tablet 1 TAB PO ×2 (08:15→17:12)
[2024-01-28] MEDS: apixaban 5 mg Tablet PO ×2 (08:15→20:16)
[2024-01-28] MEDS: cyanocobalamin 1,000 mcg/mL SDV 1000 MCG IM (08:15)
[2024-01-28] MEDS: tizanidine 4 mg Tablet PO (08:15)
[2024-01-28] MEDS: isosorbide mononitrate ER 30 mg Tablet PO ×2 (08:15→17:11)
[2024-01-28] MEDS: lisinopril 20 mg Tablet PO (08:15)
[2024-01-28] MEDS: metoprolol tartrate 25 mg Tablet 12.5 MG PO ×2 (08:15→20:14)
[2024-01-28] MEDS: polyethylene glycol 3350 Pkt 17 gm PO (08:16)
[2024-01-28] MEDS: aspirin 81 mg EC Tablet PO (08:16)
[2024-01-28] MEDS: hyDRALAzine 25 mg Tablet 75 MG PO ×3 (08:16→20:15)
[2024-01-28] MEDS: amlodipine 10 mg Tablet PO (08:16)
[2024-01-28] MEDS: pantoprazole DR 40 mg Tablet PO (08:16)
--- NOTE | 2024-01-28 08:45 | PC.NURSE ---
EMAIL OPERATIONS MANAGER obtains BP of 206/82. This RN assesses pt and a BP of 161/74 noted. Pt titrated off oxygen with saturation of 94%RA.
--- NOTE | 2024-01-28 10:53 | XR_ITS ---
WS: [id number] Exam: XR acute abdomen series [id number] Date/Time of Exam: 01/28/2024 11:03 AM Reason For Exam: Constipated AP portable chest. Comparison 01/23/2024. Heart size is smaller. Chronic plaque atelectasis in the RIG HT base with chronic elevation of the RIGHT diaphragm. No pneumothorax. No pleural effusion. The medi astinum is normal in contour. Bony structures are intact. Status post median sternotomy. Flat and erect abdomen. No bowel obstruction or pneumoperitoneum. Scattered gas in both large and sma ll bowel loops suggesting mild ileus. Status post cholecystectomy. Postop changes in the lumbar spine and bilateral hip replacements. IMPRESSION1. No acute cardiopulmonary finding. The heart is smaller. Chronic RIGHT basal plaque atele ctasis. 2. Mild ileus. No acute abdominal process noted.
[2024-01-28] MEDS: magnesium hydroxide 30 mL UDC PO (12:09)
[2024-01-28 12:14] LABS: Adenovirus Not Detected (NOT DETECT); Chlamydia Pneumoniae Not Detected (NOT DETECT); Coronavirus 229E,HKU1,NL63,OC4 Not Detected (NOT DETECT); Human Metapneumovirus Not Detected (NOT DETECT); Human Rhinovirus/Enterovirus Not Detected (NOT DETECT); Influenza A Not Detected (NOT DETECT); Influenza A H1 Not Detected (NOT DETECT); Influenza A H1-2009 Not Detected (NOT DETECT); Influenza A H3 Not Detected (NOT DETECT); Influenza B Not Detected (NOT DETECT); Mycoplasma Pneumoniae Not Detected (NOT DETECT); Parainfluenza Virus Type 1 Not Detected (NOT DETECT); Parainfluenza Virus Type 2 Not Detected (NOT DETECT); Parainfluenza Virus Type 3 Not Detected (NOT DETECT); Parainfluenza Virus Type 4 Not Detected (NOT DETECT); Respiratory Syncytial Virus A Not Detected (NOT DETECT); Respiratory Syncytial Virus B Not Detected (NOT DETECT); SARS-COV-2 Not Detected (NOT DETECT)
--- NOTE | 2024-01-28 14:48 | P.PN_ITS ---
Subjective 2 Subjective: No acute events overnight. Tmax of 99.8 Fahrenheit last night. Patient complaining of constipation. Otherwise states she is feeling better. Seen sitting up in recliner. Has remained hemodynamically stable otherwise. Continues to remain on room air. Vitals/I&O/Wt Last Vital Signs Temp 97.5 F L 01/28/24 11:27 Pulse 72 01/28/24 11:27 Resp 18 01/28/24 11:27 BP 116/58 01/28/24 11:27 Pulse Ox 91 01/28/24 11:27 O2 Del Method Room Air 01/28/24 11:27 O2 Flow Rate 1 01/28/24 08:38 01/27/24 01/28/24 01/28/24 22:59 06:59 14:59 Intake Total 650 / 1335 290 / 1625 1010 / 1010 Output Total 975 / 975 200 / 200 Balance 650 / 1335 -685 / 650 810 / 810 Weight last 48 hrs Weight 71.668 kg Weight 74.117 kg Physical Exam 2 Narrative: General: No acute distress, AO x3, anxious, in mild distress because of neck pain on nasal cannula HEENT: PERRLA, pupils bilaterally equal and reactive Chest: Normal vesicular breath sounds, no added sounds, equal good air entry bilaterally CVS: S1-S2 regular, soft pansystolic murmur at apex radiating to anterior midline, fourth intercostal space left retrosternal radiating to pericardium 2/6, no tachycardia, no gallops, no rubs Abdomen: Soft, nontender, no organomegaly, bowel sounds present Neuro: No focal deficits, no facial deformity, AO x3, power 5/5 in all limbs Data 01/28/24 05:41 01/28/24 05:41 Micro: Microbiology 01/26/24 20:24 Blood Culture - Preliminary Blood NEGATIVE TO DATE 01/26/24 20:20 Blood Culture - Preliminary Blood NEGATIVE TO DATE A&P Assessment and plan (1) Bacteremia due to methicillin susceptible Staphylococcus aureus (MSSA): Appreciate ID recommendations. Last culture from 01/20 so far negative. Concerns for infectious synovitis on MRI at cervical disc. Appreciate orthopedic recommendations for medical management for now. Continue to follow-up with blood cultures. If remains afebrile will plan for PICC line placement in next 24 hours Plan for CHARLIE today to rule out infective endocarditis. Continue with IV cefazolin every 8 hourly. Most likely patient with antibiotics for overall 6 weeks going forward. (2) Infectious synovitis: (3) Pulmonary embolism: Seen on CTA. Bilateral scattered. Echocardiogram ruled out right heart strain. Finish 7-day course of full dose Lovenox. Continue with Eliquis 5 mg twice daily. Patient will most likely need anticoagulation going forward given recurrent history of thromboembolism. Oxygen supplementation keeping saturation over 92%. Will need home O2 evaluation prior to discharge. Qualifiers: Acute cor pulmonale presence: unspecified Chronicity: acute Pulmonary embolism type: unspecified Qualified Code(s): I26.99 - Other pulmonary embolism without acute cor pulmonale (4) Cervical disc disorder with myelopathy of mid-cervical region: Follows up with orthopedic surgery as an outpatient. Was recommended surgical correction but patient has been hesitant. Most likely in setting of infectious synovitis. Continue with home pain medication of oral morphine and fentanyl patch. Patient would benefit with outpatient physical therapy. (5) Chest pain: Does complain of exertional chest pain in the past. Currently chest heaviness. Found to have elevated cycle of troponin. Appreciate cardiology recommendations. Stress test concerning for mild jesenia-infarct ischemia. Given no further chest pain plan for medical management for now. Continue with aspirin, statin. Appreciate echocardiogram, lipid panel, A1c. (6) Non-STEMI (non-ST elevated myocardial infarction): (7) Mitral valve regurgitation: Past history. Currently euvolemic. Echocardiogram as above. Qualifiers: Cardiac valve disease etiology: nonrheumatic Qualified Code(s): I34.0 - Nonrheumatic mitral (valve) insufficiency (8) HTN (hypertension), benign: Goal blood pressure less than 140/90 mmHg. Continue with home dose of amlodipine, Coreg, Imdur, lisinopril. Uptitrate as for goal blood pressure. (9) Systolic and diastolic CHF, acute: (10) Hypertension: Plan Full code N.p.o. for CHARLIE. Cardiac diet post CHARLIE. Full dose Lovenox will be sufficient for DVT prophylaxis Protonix for PUD prophylaxis Plan for the day: Continue with IV cefazolin. 99.8 Fahrenheit fever overnight. Could be in setting of inflammation from synovitis versus PE. Continue with Eliquis 5 mg twice daily. Continue to follow blood cultures. If blood culture from 06/23 remains negative and patient remains afebrile plan for PICC line in a.m. tomorrow. Plan for Motrin every 12 hourly for 1 day. CHARLIE results appreciated. Goal blood pressure less than 140/90 mmHg. Blood pressure seems stable for now. Continue with amlodipine 10 mg oral daily, lisinopril 20 mg oral daily, metoprolol 12.5 mg twice daily. Discharge plan: Patient lives by herself. Currently having severe cervical radiculopathy in setting of infectious synovitis. Will also need 3 times a day cefazolin. Patient would benefit from SNF placement. She is agreeable. Did peer to peer regarding the same and has been improved. Attestations 2 Medical Necessity Statement*: Requires further hospitalization for management of MSSA bacteremia and the patient was admitted with pulmonary embolism while outpatient antibiotics are set up Diagnoses Bacteremia due to methicillin susceptible Staphylococcus aureus (MSSA) R78.81; B95.61 Infectious synovitis M65.10 Acute pulmonary embolism, unspecified pulmonary embolism type, unspecified whether acute cor pulmonale present I26.99 Acute cor pulmonale presence: unspecified Chronicity: acute Pulmonary embolism type: unspecified Cervical disc disorder with myelopathy of mid-cervical region M50.020 Chest pain R07.9 Non-STEMI (non-ST elevated myocardial infarction) I21.4 Nonrheumatic mitral valve regurgitation I34.0 Cardiac valve disease etiology: nonrheumatic HTN (hypertension), benign I10 Systolic and diastolic CHF, acute I50.41 Hypertension I10
[2024-01-28] MEDS: ibuprofen 200 mg Tablet 400 MG PO ×2 (15:45→20:15)
[2024-01-28] MEDS: cyclobenzaprine 10 mg Tablet 5 MG PO (15:45)
--- NOTE | 2024-01-28 17:57 | PC.NURSE ---
Pt requires less pain medication this shift, and gets up multiple times to the commode. SCDs refused due to hindrance with multiple transfers.
--- NOTE | 2024-01-28 18:05 | PC.NURSE ---
Urine collected; however, concerns about fecal contamination d/t multiple bowel movements throughout this shift. Dr. Hart notified. Orders for straight cath given.
--- NOTE | 2024-01-28 18:38 | PC.NURSE ---
Straight cath completed. Sterile technique used. Tolerates procedure well.
[2024-01-28 19:29] LABS: Urine Appearance Cloudy (CLEAR); Urine Color Yellow (Yellow); pH Urine 7 (5-7)
[2024-01-28 19:30] LABS: Add Urine Microscopic? YES; Bilirubin Urine Neg (Negative); Blood Urine 3+ (Negative); Glucose Urine UA 1+ (Normal); Ketones Urine Negative (Negative); Leukocyte Esterase Urine 1+ (Negative); Nitrate Urine Negative (Negative); Protein Urine 1+ (Negative); Urobilinogen Urine Norm (Negative)
[2024-01-28 19:37] LABS: RBC Urine >100 /hpf (0-2); WBC Urine 25-40 /hpf (0-5)
[2024-01-28 19:38] LABS: Add Urine Culture? Yes; Bacteria Urine TRACE /hpf
[2024-01-28] MEDS: atorvastatin 40 mg Tablet 20 MG PO (20:15)
[2024-01-29] VITALS (9 sets, daily range): BP systolic 101–183; BP diastolic 58–84; PULSE 77–103; RESP 16–19; TEMP 36.4–37.1; O2SAT 90–92
[2024-01-29] MEDS: ceFAZolin 2,000 MG in sodium chloride 0.9% (plus) 50 ML 100 MG IV ×2 (00:49→13:50)
[2024-01-29] MEDS: oxyCODONE 5 mg IR Tab/Cap 15 MG PO ×3 (01:30→13:50)
[2024-01-29] MEDS: cyclobenzaprine 10 mg Tablet 5 MG PO ×2 (04:19→12:25)
[2024-01-29 06:43] LABS: Basophils % 0.1 %; Eosinophils # 0.3 10^3/uL (0.0-0.8); Eosinophils % 1.8 %; Hematocrit 43.6 % (36-47); Lymphocytes # 1.7 10^3/uL (0.8-4.8); Lymphocytes % 11.3 %; Mean Corpuscular HGB Conc 32.3 g/dL (30-55); Mean Corpuscular Volume 89.7 fl (85-98); Mean Platelet Volume 11.5 fL (7.4-10.4); Monocytes # 0.9 10^3/uL (0.2-0.9); Monocytes % 6.4 %; Neutrophils # 11.63 10^3/uL (1.8-7.7); Neutrophils % 79.4 %; Nucleated Red Blood Cells % 0 %; Platelet Count 228 10^3/cmm (157-399); Red Blood Count 4.86 10^6/uL (3.85-5.65); Red Cell Distribution Width 13.1 % (12.1-15.1); White Blood Count 14.63 10^3/uL (3.29-11.43)
[2024-01-29 07:00] LABS: Alanine Aminotransferase 10 U/L (0-33); Albumin Level 2.8 g/dL (3.5-5.2); Alkaline Phosphatase 83 U/L (35-105); Anion Gap 13.9 (5-19); Aspartate Amino Transferase 25 U/L (0-32); Blood Urea Nitrogen 17 mg/dL (8-23); Calcium 8.6 mg/dL (8.5-10.5); Carbon Dioxide 31 mmol/L (22-29); Chloride 93 mmol/L (98-107); Creatinine Clr Calc Pharmacy 55.8809; Globulin 3.9 g/dL (1.3-4.6); Glucose 90 mg/dL (65-115); Osmolality Calculated 279 mOsm/kg (285-295); Potassium 3.9 mmol/L (3.5-5.1); Sodium 134 mmol/L (136-145); Total Bilirubin 0.5 mg/dL (0.15-1.2); Total Protein 6.7 g/dL (6.6-8.7)
[2024-01-29] MEDS: isosorbide mononitrate ER 30 mg Tablet PO ×2 (09:28→17:48)
[2024-01-29] MEDS: ibuprofen 200 mg Tablet 400 MG PO ×2 (09:28→16:01)
[2024-01-29] MEDS: metoprolol tartrate 25 mg Tablet 12.5 MG PO (09:29)
[2024-01-29] MEDS: hyDRALAzine 25 mg Tablet 75 MG PO ×2 (09:29→16:01)
[2024-01-29] MEDS: polyethylene glycol 3350 Pkt 17 gm PO (09:29)
[2024-01-29] MEDS: tizanidine 4 mg Tablet PO ×2 (09:30→17:48)
[2024-01-29] MEDS: pantoprazole DR 40 mg Tablet PO (09:30)
[2024-01-29] MEDS: sennosides-docusate Tablet 1 TAB PO ×2 (09:31→17:48)
[2024-01-29] MEDS: apixaban 5 mg Tablet PO (09:31)
[2024-01-29] MEDS: amlodipine 10 mg Tablet PO (09:31)
[2024-01-29] MEDS: lisinopril 20 mg Tablet PO (09:31)
[2024-01-29] MEDS: aspirin 81 mg EC Tablet PO (09:32)
[2024-01-29] MEDS: cyanocobalamin 1,000 mcg/mL SDV 1000 MCG IM (09:32)
--- NOTE | 2024-01-29 11:10 | PC.SOCIAL ---
IMM Updated Updated pt on IMM. No questions voiced. Provided pt a copy. Initialed, dated, & timed copy in chart.
--- NOTE | 2024-01-29 11:41 | XR_ITS ---
WS: [id number] Exam: XR chest 1V portable [id number] Date/Time of Exam: 01/29/2024 11:41 AM Reason For Exam: post PICC insertion Comparison 01/28/2024. A right-sided PICC line has been placed and the ends at the cavoatrial junction in satisfactory locat ion. There is cardiac enlargement and increasing pulmonary vascular congestion suspicious for CHF. No pleural effusion or pneumothorax. Bony structures are intact. Signs of median sternotomy. XR/XR chest 1V portable [id number] IMPRESSION: 1. PICC line appearing to end in the region of the cavoatrial junction. 2. Cardiac enlargement with increasing pulmonary vascular congestion suspicious for low-grade CHF.
--- NOTE | 2024-01-29 11:53 | P.DS_ITS ---
Discharge Providers Date of Admission: 01/19/24 06:05 Date of Discharge: January 29, 2024 Attending Provider at Admission: Geovanna Cheung MD Attending Provider at Discharge: Mateus Hart MD Consults: Cardiology: Dr. Barker/ Orthopedics: Dr. Barahona ID: Dr. Cheung Primary Care Provider: Raven Peres MD Diagnoses at Discharge Discharge Diagnosis (1) Bacteremia due to methicillin susceptible Staphylococcus aureus (MSSA): Status: Acute (2) Infectious synovitis: Status: Acute (3) Pulmonary embolism: Status: Acute Qualifiers: Acute cor pulmonale presence: unspecified Chronicity: acute Pulmonary embolism type: unspecified Qualified Code(s): I26.99 - Other pulmonary embolism without acute cor pulmonale (4) Cervical disc disorder with myelopathy of mid-cervical region: Status: Chronic (5) Chest pain: Status: Acute (6) Non-STEMI (non-ST elevated myocardial infarction): Status: Acute (7) Mitral valve regurgitation: Status: Acute Qualifiers: Cardiac valve disease etiology: nonrheumatic Qualified Code(s): I34.0 - Nonrheumatic mitral (valve) insufficiency (8) HTN (hypertension), benign: Status: Acute (9) Systolic and diastolic CHF, acute: Status: Acute (10) Hypertension: Status: Acute Reason for Visit Reason for Visit: neck pain Hospital Course Hospital Course Emma Navarrete is a 78 year old female with past medical history of hypertension, hyperlipidemia, moderate mitral valve regurgitation, mild to moderate tricuspid regurgitation, history of blood clot in the past, being followed up with [facility] surgery for neck pain initially came to the ER because of neck pain along with difficulty in breathing which has been getting worse over last 2 to 3 days. In the ER she was found to have scattered pulmonary embolism hence hospital service was consulted for further management. Patient currently denies any difficulty in breathing, nausea or vomiting. Saturating more than 95% on 1.5 L of oxygen supplementation. She also complains of chest pressure and chest pain on exertion which gets better with rest. Patient was admitted to the hospital further evaluation and management of pulmonary embolism. Given her elevated troponin and exertional chest pain she underwent cardiac stress test which showed an EF of around 45% along with very mild alicia-infarct ischemia. Echocardiogram was done which ruled out right-sided strain but showed an EF of 45 to 50% with grade 1 diastolic dysfunction. Given no active chest pain was decided to continue with medical management. Patient continued to have extensive pain in her neck for which she continues to follow- up with orthopedic surgery as an outpatient. Her blood cultures came back positive for MSSA on admission along with urine cultures also been positive for MSSA. Given concerns for bacteremia she underwent extensive workup including CHARLIE which ruled out infective endocarditis and MRI of the back which was concerning for possible synovitis of C-spine without any abscess. The decision was made to treat her medically. Her repeat blood culture from 01/25 and 01/20 are so far negative. For safe discharge planning she has been discharged to SNF for further rehabitation along with IV antibiotics for next 6 weeks. She will be on IV cefazolin 3 times a day for next 6 weeks stable 03/03. While being on antibiotic she will need to have CBC, LFT, creatinine and CRP drawn weekly which will be followed up with ID clinic. She will need weekly PICC line dressings. PICC line should be removed at the end of IV antibiotic course. She will follow-up with orthopedic team, ID team as outpatient. She needs to take Eliquis 5 mg twice daily going forward for rest of her life. Physical Exam Narrative: General: No acute distress, AO x3, anxious, in mild distress because of neck pain on nasal cannula HEENT: PERRLA, pupils bilaterally equal and reactive Chest: Normal vesicular breath sounds, no added sounds, equal good air entry bilaterally CVS: S1-S2 regular, soft pansystolic murmur at apex radiating to anterior midline, fourth intercostal space left retrosternal radiating to pericardium 2/6, no tachycardia, no gallops, no rubs Abdomen: Soft, nontender, no organomegaly, bowel sounds present Neuro: No focal deficits, no facial deformity, AO x3, power 5/5 in all limbs Discharge Data Studies Completed and Pending Completed Studies During Hospitalization Category Date Time Status CT abdomen pelvis wo con [id number] Urgent Cat Scan 01/21/24 12:[address] angio chest PE protcl [id number] Urgent Cat Scan 01/19/24 03:[address] cervical spin wo con* [id number] Urgent Cat Scan 01/20/24 13:18 Completed CTA head neck [CT angio headneck* [id number]] Stat Cat Scan 01/19/24 03:06 Completed Sestamibi Stress Test Request Routine Exams 01/19/24 13:31 Completed XR acute abdomen series [id number] Routine Exams 01/28/24 10:53 Completed XR chest 1V portable [id number] Routine Exams 01/21/24 08:00 Completed XR chest 1V portable [id number] Stat Exams 01/19/24 02:32 Completed XR chest 1V portable [id number] Stat Exams 01/23/24 09:46 Completed MR cervical spine w con [id number] Routine MRI 01/24/24 08:00 Completed MR cervical spine wo [MR cervical spin wo con* [id number]] MRI 01/21/24 12:02 Completed Stat MR lumbar spine wo con* [id number] Stat MRI 01/21/24 12:02 Completed NM bryson perf SPECT r/s* [id number] Routine Nuc Med 01/20/24 13:31 Completed CV. echo complete* [id number] Stat Ultrasound 01/19/24 07:26 Completed CHARLIE [CV. echo transesophageal [id number]] Routine Ultrasound 01/27/24 08:55 Completed Pending at discharge Category Date Time Status CXRP [XR chest 1V portable [id number]] Routine Exams 01/29/24 11:41 Ordered Blood Culture Stat Lab 01/25/24 15:20 Results [facility] ANGUS Profile Routine Lab 01/19/24 13:33 Results Sputum Culture and Gram Stain Stat Lab 01/20/24 14:45 Uncollected Urine Culture Routine Lab 01/28/24 18:30 Received Radiology Impressions Chest CTA 01/19/24 03:06 IMPRESSION: Small scattered bilateral pulmonary emboli. ADDENDUM: 01/19/24 0556 THIS REPORT CONTAINS FINDINGS THAT MAY BE CRITICAL TO PATIENT CARE. The findings were verbally communicated via telephone conference with NASEEM REYES at 5:54 AM CDT on 01/19/2024. The findings were acknowledged and understood. Head/Neck CTA 01/19/24 03:06 IMPRESSION: 1. Negative for intracranial large arterial vessel occlusion. 2. Negative for acute intracranial pathology. IMPRESSION: 1. Mild severity bilateral carotid artery stenosis estimated less than 50%. 2. Negative for vascular occlusion in the neck. REFERENCES: NASCET CRITERIA. The degree of stenosis in the cervical segment of the internal carotid artery is based on NASCET criteria. Normal is no stenosis. Mild is less than 50% stenosis. Moderate is 50-69% stenosis. Severe is 70% to 99% stenosis. Total occlusion is no detectable patent lumen. Cervical Spine CT 01/20/24 13:18 IMPRESSION: 1. No cervical spine fracture. 2. Multilevel facet joint arthropathy and foraminal stenoses. Most significant stenosis at C4-5 through C6-7. 3. Mild straightening of the normal cervical lordosis. 4. Mild progression of degenerative spondylosis since 2019. Lumbar Spine MRI 01/21/24 12:02 IMPRESSION: 1. No evidence of epidural abscess. 2. No evidence of discitis or osteomyelitis. 3. Chronic spondylitic changes described above similar to the prior studies. Abdomen/Pelvis CT 01/21/24 12:07 IMPRESSION: 1. Right lower lobe consolidation that may represent atelectasis or in the appropriate clinical setting, pneumonia. 2. Small bilateral pleural fluid collections. 3. No acute intra-abdominal finding. 4. Small gas bubbles scattered through the subcutaneous adipose tissue of the ventral abdominal wall suggestive of injection sites. ADDENDUM: 01/21/242020 Bilateral hip arthroplasties projects artifact over the lower pelvis. Chest X-Ray 01/23/24 09:46 IMPRESSION: 1. Cardiac enlargement with increased pulmonary vascularity. 2. Chronic plaque atelectasis in the RIGHT base. Cervical Spine MRI 01/24/24 08:00 IMPRESSION: Some images are limited due to motion. 1. No evidence of drainable abscess or fluid collection. No evidence of epidural abscess. Small amount of epidural enhancement in the upper cervical spine. Recommend continued surveillance. 2. No evidence of discitis. 3. Alicia-articular enhancement about the RIGHT C2-3 C3-4 and C4-5 facets compatible with infectious or inflammatory synovitis as seen on the recent MRI. 4. No other new findings. Microbiology 01/26/24 20:24 Blood Blood Culture - Preliminary NEGATIVE TO DATE 01/26/24 20:20 Blood Blood Culture - Preliminary NEGATIVE TO DATE 01/20/24 15:38 Blood Blood Culture - Final Staphylococcus aureus 01/21/24 12:40 Blood Blood Culture - Final NO GROWTH AFTER 5 DAYS 01/21/24 12:35 Blood Blood Culture - Final NO GROWTH AFTER 5 DAYS 01/20/24 15:38 Blood Blood Culture - Final Staphylococcus aureus 01/20/24 15:30 Urine Catheterized Urine Culture - Final Staphylococcus aureus Echocardiogram CONCLUSIONS LV systolic fucntion is normal with EF of 45-50% Grade 1 diastolic dysfunction Mild to moderate mitral regurgitation Mild tricuspid regurgitation Compared to prior echocardiogram from 2020, patient now has mild to moderate mitral regurgitation. LV systolic function is the same as before. Linwood Chung MD (Electronically Signed) Final Date: 19 January 2024 Laboratory Results WBC 14.63 10^3/uL (3.29-11.43) H 01/29/24 05:58 RBC 4.86 10^6/uL (3.85-5.65) 01/29/24 05:58 Hgb 14.10 g/dL (11.27-16.99) 01/29/24 05:58 Hct 43.6 % (36-47) 01/29/24 05:58 MCV 89.7 fl (85-98) 01/29/24 05:58 MCH 29.0 pg (27-33) 01/29/24 05:58 MCHC 32.3 g/dL (30-55) 01/29/24 05:58 RDW 13.1 % (12.1-15.1) 01/29/24 05:58 Plt Count 228 10^3/cmm (157-399) 01/29/24 05:58 MPV 11.5 fL (7.4-10.4) H 01/29/24 05:58 Neut % (Auto) 79.4 % 01/29/24 05:58 Lymph % (Auto) 11.3 % 01/29/24 05:58 Gregg % (Auto) 6.4 % 01/29/24 05:58 Eos % (Auto) 1.8 % 01/29/24 05:58 Baso % (Auto) 0.1 % 01/29/24 05:58 Neut # (Auto) 11.63 10^3/uL (1.8-7.7) H 01/29/24 05:58 Lymph # (Auto) 1.7 10^3/uL (0.8-4.8) 01/29/24 05:58 Gregg # (Auto) 0.9 10^3/uL (0.2-0.9) 01/29/24 05:58 Eos # (Auto) 0.3 10^3/uL (0.0-0.8) 01/29/24 05:58 Baso # (Auto) 0.0 10^3/uL (0.0-0.1) 01/29/24 05:58 Nucleated RBC % (auto) 0 % 01/29/24 05:58 Nucleated RBCs # 0.0 /100WBC 01/29/24 05:58 ESR 33 mm/hr (0-15) H 01/20/24 04:48 D-Dimer 8.79 ug/mLFEU (0-0.59) H 01/19/24 02:14 Sodium 134 mmol/L (136-145) L 01/29/24 05:58 Potassium 3.9 mmol/L (3.5-5.1) 01/29/24 05:58 Chloride 93 mmol/L (98-107) L 01/29/24 05:58 Carbon Dioxide 31 mmol/L (22-29) H 01/29/24 05:58 Anion Gap 13.9 (5-19) 01/29/24 05:58 BUN 17 mg/dL (8-23) 01/29/24 05:58 Creatinine 0.5 mg/dL (0.5-0.9) 01/29/24 05:58 GFR Calculation Not Reportable 01/29/24 05:58 Glucose 90 mg/dL (65-115) 01/29/24 05:58 Estimat Average Glucose 123 01/19/24 02:14 Hemoglobin A1c 5.9 % (4.0-6.0) 01/19/24 02:14 Calculated Osmolality 279 mOsm/kg (285-295) L 01/29/24 05:58 Lactic Acid 1.3 mmol/L (0.5-2.2) 01/20/24 15:38 Calcium 8.6 mg/dL (8.5-10.5) 01/29/24 05:58 Magnesium 1.7 mg/dL (1.7-2.3) 01/27/24 06:44 Iron 15 ug/dL (37-145) L 01/19/24 04:06 TIBC 174 mcg/dl 01/19/24 04:06 % Saturation 8.6 % (20-50) L 01/19/24 04:06 Unsat Iron Binding 159 ug/dL (112-347) 01/19/24 04:06 Total Bilirubin 0.5 mg/dL (0.15-1.2) 01/29/24 05:58 AST 25 U/L (0-32) 01/29/24 05:58 ALT 10 U/L (0-33) 01/29/24 05:58 Alkaline Phosphatase 83 U/L (35-105) 01/29/24 05:58 Troponin T Baseline 26 ng/L (0-10) H 01/19/24 02:14 Troponin T 120 Minute 64.67 ng/L (0-10) H 01/19/24 04:06 Delta Troponin T 38.67 ABS# (0-10) H* 01/19/24 04:06 Troponin T Hi Sens 6Hr 105.0 ng/L (0-10) H 01/19/24 08:22 Troponin T Hi Sens 6Hr Delta 79.0 ng/L (0-12) H* 01/19/24 08:22 C-Reactive Protein 324.9 mg/L (0.0-4.9) H 01/20/24 04:48 NT-Pro-B Natriuret Pep 4818 pg/mL (0-450) H 01/19/24 02:14 Total Protein 6.7 g/dL (6.6-8.7) 01/29/24 05:58 Albumin 2.8 g/dL (3.5-5.2) L 01/29/24 05:58 Globulin 3.9 g/dL (1.3-4.6) 01/29/24 05:58 Triglycerides 118 mg/dL (0-150) 01/20/24 04:48 Cholesterol 128 mg/dL (0-200) 01/20/24 04:48 LDL Cholesterol, Calc 73 mg/dL (50-129) 01/20/24 04:48 Total VLDL Cholesterol 24 mg/dL (0-30) 01/20/24 04:48 HDL Cholesterol 31 mg/dL (60-100) L 01/20/24 04:48 Cholesterol/HDL Ratio 4.13 mg/dL (0.0-4.40) 01/20/24 04:48 Vitamin B12 202 pg/mL (232-1245) L 01/19/24 04:06 Folate 2.0 ng/mL (4.8-37.3) L 01/20/24 04:48 Procalcitonin 0.29 ng/mL (0-0.5) 01/19/24 04:06 TSH 3.32 uIU/mL (0.27-4.20) 01/19/24 04:06 Urine Color Yellow (Yellow) 01/28/24 18:30 Urine Appearance Cloudy (CLEAR) A 01/28/24 18:30 Urine pH 7 (5-7) 01/28/24 18:30 Ur Specific [place] 1.010 (1.005-1.030) 01/28/24 18:30 Urine Protein 1+ (Negative) H 01/28/24 18:30 Urine Glucose (UA) 1+ (Normal) H 01/28/24 18:30 Urine Ketones Negative (Negative) 01/28/24 18: Urine Blood 3+ (Negative) H 01/28/24 18:30 Urine Nitrate Negative (Negative) 01/28/24 18:30 Urine Bilirubin Neg (Negative) 01/28/24 18:30 Urine Urobilinogen Norm mg/dL (Negative) 01/28/24 18:30 Ur Leukocyte Esterase 1+ (Negative) H 01/28/24 18:30 Urine RBC >100 /hpf (0-2) 01/28/24 18:30 Urine WBC 25-40 /hpf (0-5) H 01/28/24 18:30 Ur Squamous Epith Cells 5-10 /hpf (0-5) H 01/28/24 18:30 Ur Transition Epith Cell 5-10 /hpf 01/28/24 18:30 Amorphous Sediment Not Reportable 01/28/24 18:30 Urine Bacteria Trace /hpf (NONE) 01/28/24 18:30 Urine Mucus None /hpf 01/28/24 18:30 Vancomycin Trough 7.0 ug/mL (10-15) L 01/23/24 21:13 DARYL-1 Antibody <1.0 neg AI (<1.0 NEG) 01/20/24 04:48 SS-A/Ro IgG Antibody <1.0 neg AI (<1.0 NEG) 01/20/24 04:48 SS-B/La IgG Antibody <1.0 neg AI (<1.0 NEG) 01/20/24 04:48 Scl-70 Scleroderma Ab <1.0 neg AI (<1.0 NEG) 01/20/24 04:48 Anti-ds DNA IgG Ab <1 IU/mL 01/20/24 04:48 Adenovirus (PCR) Not detected (NOT DETECT) 01/28/24 10:15 C. pneumoniae DNA (PCR) Not detected (NOT DETECT) 01/28/24 10:15 Coronavirus 229E (PCR) Not detected (NOT DETECT) 01/28/24 10:15 Human Metapneumovir PCR Not detected (NOT DETECT) 01/28/24 10:15 Influenza A (H1) PCR Not detected (NOT DETECT) 01/28/24 10:15 Influ A (H1/09) PCR Not detected (NOT DETECT) 01/28/24 10:15 Influenza A (H3) PCR Not detected (NOT DETECT) 01/28/24 10:15 Influenza Type A (PCR) Not detected (NOT DETECT) 01/28/24 10:15 Influenza Type B (PCR) Not detected (NOT DETECT) 01/28/24 10:15 M. pneumoniae (PCR) Not detected (NOT DETECT) 01/28/24 10:15 Parainfluenza 1 (PCR) Not detected (NOT DETECT) 01/28/24 10:15 Parainfluenza 2 (PCR) Not detected (NOT DETECT) 01/28/24 10:15 Parainfluenza 3 (PCR) Not detected (NOT DETECT) 01/28/24 10:15 Parainfluenza 4 (PCR) Not detected (NOT DETECT) 01/28/24 10:15 RSV Type A (PCR) Not detected (NOT DETECT) 01/28/24 10:15 RSV Type B (PCR) Not detected (NOT DETECT) 01/28/24 10:15 Entero/Rhino (PCR) Not detected (NOT DETECT) 01/28/24 10:15 SARS-CoV-2 (PCR) Not detected (NOT DETECT) 01/28/24 10:15 Vitals Last Vital Signs Temp 98.0 F 01/29/24 07:37 Pulse 87 01/29/24 08:23 Resp 16 01/29/24 08:23 BP 183/84 01/29/24 07:37 Pulse Ox 91 01/29/24 08:23 O2 Del Method Room Air 01/29/24 08:23 O2 Flow Rate 1 01/28/24 08:38 Discharge Plan Discharge Patient Disposition: Xfer SNF Condition: Stable Prescriptions: New atorvastatin 40 mg Tablet 20 mg PO BEDTIME Qty: 30 0RF lisinopril 20 mg Tablet 40 mg PO DAILY Qty: 60 0RF hydralazine 25 mg Tablet 75 mg PO TID 30 Days Qty: 270 0RF aspirin 81 mg Tablet,Delayed Release (Dr/Ec) 81 mg PO DAILY Qty: 30 0RF amlodipine 10 mg Tablet 10 mg PO DAILY Qty: 30 0RF metoprolol tartrate 25 mg Tablet 25 mg PO BID@0900,2100 Qty: 60 0RF polyethylene glycol 3350 17 gram Powder In Packet 17 g PO DAILY Qty: 30 0RF Stool Softener-Laxative 8.6-50 mg Tablet 1 tab PO BID Qty: 20 0RF pantoprazole 40 mg Tablet,Delayed Release (Dr/Ec) 40 mg PO DAILY Qty: 30 0RF topiramate 50 mg Capsule,Extended Release 24hr 50 mg PO DAILY Qty: 30 0RF Eliquis 5 mg Tablet 5 mg PO BID@0900,2100 Qty: 60 0RF cyanocobalamin (vitamin B-12) 5,000 mcg capsule 5,000 mcg PO DAILY Qty: 30 0RF Continued Colace 100 mg capsule 100 mg PO BID PRN (Reason: Constipation) (DME) Tricia Joy See Rx Instructions .Route .MEDSUPPLY Rx Instructions: As directed isosorbide mononitrate 30 mg tablet extended release 24 hr 30 mg PO BID Qty: 180 3RF tizanidine 4 mg tablet 4 mg PO Q6H PRN (Reason: muscle spasticity) Qty: 20 0RF Rx Instructions: do not exceed 3 doses per 24 hrs diclofenac sodium 75 mg tablet,delayed release (DR/EC) 75 mg PO Q12H PRN (Reason: pain) Qty: 20 0RF morphine 15 mg Tablet 15 mg PO Q8H PRN (Reason: Pain) cyclobenzaprine 5 mg tablet 5 mg PO TID PRN (Reason: MUSCLE SPASMS) Discontinued prednisone 20 mg tablet 20 mg PO TID Qty: 15 0RF Rx Instructions: TAKE 1 TABLET BY MOUTH 3 TIMES DAILY FOR 3 DAYS, 1 TABLET TWICE DAILY FOR 2 DAYS, THEN 1 TABLET DAILY FOR 2 DAYS. Discharge Orders: Discharge Order (Routine); Ordered 01/29/24 Ordered By: Mateus Hart Referrals: [facility] [Outside] Raven Peres MD [Primary Care Provider] - 1 week Musa Barahona DO [Physician] - 02/27/24 11:00 am () Geovanna Cheung MD [Hospitalist] - 1 month (We have notified your physician's clinic of the need for a follow-up appointment to be scheduled. If you have not heard from them within the next 2 business days, please call them directly. ) Discharge Diet: Cardiac Discharge Activity: Resume usual activity and Increase activity as tolerated Patient Instructions: Cefazolin (By injection), Apixaban (By mouth), Opioid Safety Activity Restrictions/Additional Instructions: IV cefazolin 3 times a day for next 6 weeks. Last day on 03/03. Weekly PICC line dressing changes. Weekly CBC, liver function test, creatinine, CRP to be followed by ID clinic. PICC line should be removed after completion of IV antibiotic course. Follow-up with orthopedics and ID on set appointment. Follow-up with a primary care provider in the next 1 week. Increase physical activity as possible. Discharge Attestations Time Spent in Discharge Care*: greater than 30 min Specific Discharge Activities: educating patient, educating and/or supporting family/caregiver, discussing with pcp/other providers, discussing with case ernst nguyen/social workers/dc planners, documenting/other paperwork and evaluating patient/reviewing data Status at Discharge: Cognitive status at discharge: cognitively intact , Behavioral status at discharge: cooperative , Functional status at discharge: uses cane/walker , Overall status at discharge: patient is progressing back to baseline Quality Metrics Clinical Quality Measures [ No reported AMI, CVA or VTE this stay] Coding Level of Care Code 63384 Total time (in minutes) for Discharge: 65 Diagnoses Bacteremia due to methicillin susceptible Staphylococcus aureus (MSSA) R78.81; B95.61 Infectious synovitis M65.10 Acute pulmonary embolism, unspecified pulmonary embolism type, unspecified whether acute cor pulmonale present I26.99 Acute cor pulmonale presence: unspecified Chronicity: acute Pulmonary embolism type: unspecified Cervical disc disorder with myelopathy of mid-cervical region M50.020 Chest pain R07.9 Non-STEMI (non-ST elevated myocardial infarction) I21.4 Nonrheumatic mitral valve regurgitation I34.0 Cardiac valve disease etiology: nonrheumatic HTN (hypertension), benign I10 Systolic and diastolic CHF, acute I50.41 Hypertension I10
[2024-01-29] MEDS: haloperidol inj 5 mg/mL INJ 1 mL 1 MG IM (12:03)
--- NOTE | 2024-01-29 13:00 | PICC.NOTE ---
Single lumen PICC placed to right basilic vein. Referred to vascular access nurse for PICC placement due to need for IV antibiotics >14 days. Risks and benefits discussed and informed consent obtained from patient. Right arm assessed with right basilic vein measuring 5.0 mm, straight, and apparent best choice for placement. Using sterile technique and MST, right basilic vein accessed x 1 stick. Mid-arm circumference measured 10 cm from right AC 25 cm. Trimmed cath 36 cm with 0 cm external length noted. CXR shows tip in cavoatrial junction, in good position for use per radiologist. Line secured with stat-lock. Insertion site covered with Biopatch and TSM. Report given to bedside nurse, TRACIE Han.
[2024-01-29] MEDS: fentaNYL 25 mcg Patch 1 PATCH TRANSDERMA (16:00)
== END 2024-01-29 17:30 | disposition skilled nursing facility (03) | DRG 557 ==
LOC: ER 07:24 → CSU 08:33 → ICU 01-20 16:01 → MEDSURG 01-23 17:33
PROVIDERS: Internal Medicine; Internal Medicine Cardiovascular Disease; Admitting Provider Student in an Organized Health Care Education/Training Program; Emergency Provider Emergency Medicine; PCP Family Medicine; Visit Provider Student in an Organized Health Care Education/Training Program
PROC: B24BZZZ Ultrasonography of Heart with Aorta (ICD-10-PCS; CPT 93312; principal; 2024-01-27 12:30)
DX: M65.10 Other infective (teno)synovitis, unspecified site (principal); I21.4 Non-ST elevation (NSTEMI) myocardial infarction; I26.99 Other pulmonary embolism without acute cor pulmonale; I50.41 Acute combined systolic (congestive) and diastolic (congestive) heart failure; M47.12 Other spondylosis with myelopathy, cervical region; G89.29 Other chronic pain; I08.1 Rheumatic disorders of both mitral and tricuspid valves; I11.0 Hypertensive heart disease with heart failure; E78.2 Mixed hyperlipidemia; K21.9 Gastro-esophageal reflux disease without esophagitis; M47.22 Other spondylosis with radiculopathy, cervical region; G62.9 Polyneuropathy, unspecified; Z96.643 Presence of artificial hip joint, bilateral; B95.61 Methicillin susceptible Staphylococcus aureus infection as the cause of diseases classified elsewhere; K59.00 Constipation, unspecified; Z11.52 Encounter for screening for COVID-19; Z98.1 Arthrodesis status; Z87.891 Personal history of nicotine dependence
CPT/HCPCS: 36415; 36573; 51702; 70496; 70498; 71045; 71275; 72125; 72141; 72142; 72148; 74022; 74176; 78452; 80048; 80053; 80061; 80202; 81001; 82607; 82746; 83036; 83540; 83550; 83605; 83735; 83880; 84145; 84443; 84484; 85025; 85378; 85651; 86140; 86225; 86235; 87040; 87077; 87086; 87186; 87205; 87486; 87581; 87633; 93005; 93017; 93306; 93312; 93320; 93325; 94640; 94664; 96372; 96374; 96375; 96376; 97110; 97162; 97167; 97530; 97535; 99284; 99285; A9500; J0360; J0690; J1100; J1170; J1630; J1650; J1885; J1940; J2270; J2360; J2405; J2543; J2704; J2785; J3370; J3420; J3490; J7030; J7040; J7050; J7613; Q9967

== ENCOUNTER 2024-02-01 16:54 | Emergency (ER) | payer MEDICARE, SELFPAY ==
[2024-02-01 16:55] VITALS: BP 171/73; PULSE 107; RESP 16; TEMP 36.8; O2SAT 93; BMI 26.4
[2024-02-01 17:05] VITALS: BP 160/71; PULSE 105; RESP 16; O2SAT 92
--- NOTE | 2024-02-01 17:08 | W.ED.EPISTAX ---
HPI - Epistaxis General: Chief complaint: Epistaxis Stated complaint: NOSE BLEED; BACK PAIN Time Seen by Provider: 02/01/24 16:56 History of Present Illness: 78-year-old female comes in today for complaints of nosebleed. Patient has been having some intermittent nosebleeds on the left side for the last couple of weeks. Patient also comes in for some complaints of back pain. 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 Patient is presently on Eliquis also due to some pulmonary emboli. No active bleeding is noted at this time. Patient's pain is managed by morphine. Patient appears nontoxic. Patient appears in mild pain. Review of Systems General: Reports: 10 or more systems reviewed and unremarkable except in HPI and below ENMT: Reports: epistaxis Musc: Reports: back pain PFSH ED PFSH: Medical History Stenosis of cervical spine with myelopathy Renal cyst, left Tricuspid valve regurgitation Mitral valve regurgitation Shortness of breath HTN (hypertension), benign Hyperlipidemia GERD (gastroesophageal reflux disease) Cervical disc disorder with myelopathy of mid-cervical region CRPS (complex regional pain syndrome type I) last stellate ganglion block was in 2012. 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. 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 Physical Exam Const: COMMON NORMALS: alert HENMT: COMMON NORMALS: normocephalic HEAD & SCALP: normocephalic NOSE: Epistaxis present bilaterally dried blood present MOUTH: Normal oral and palatal mucosa present THROAT: posterior oropharynx normal Neck/C-Spine: COMMON NORMALS: full ROM Resp: COMMON NORMALS: normal respiratory effort and clear to auscultation bilaterally AUSCULTATION: clear to auscultation bilaterally Cardio: COMMON NORMALS: regular rate and regular rhythm RATE: regular rate RHYTHM: regular rhythm GI: COMMON NORMALS: Soft to palpation and non-tender PALPATION: Yes Soft to palpation Back/Pelvis: COMMON NORMALS: thoracic and lumbar spine normal to inspection Extremity: COMMON NORMALS: full ROM Neuro: SENSORIUM/ORIENTATION: Yes alert Skin: COMMON NORMALS: turgor normal GENERAL SKIN EXAM: turgor normal Course Vital Signs: Vital signs: Vital Signs Temperature 98.3 F 02/01/24 16:55 Pulse Rate 100 02/01/24 17:32 Respiratory Rate 18 02/01/24 17:41 Blood Pressure 154/61 02/01/24 17:32 Pulse Oximetry 92 02/01/24 17:41 Oxygen Delivery Me thod Room Air 02/01/24 17:32 MDM - Epistaxis Medical Decision Making 78-year-old female comes in today for complaints of nosebleed and back pain. Patient was just released from the hospital to the [facility] nursing center for intervertebral infection of the cervical spine which was found to be MRSA. Patient is being treated with cefazolin IV. Patient reports poor humidity in her room which she believes is causing her nasal passages to be dry and her to have more of a nosebleed. No active bleeding is noted at this time. There is dried blood in both nostrils. Posterior pharynx appears normal. Differential diagnosis anemia, epistaxis, chronic back pain, use of anticoagulant medication, adverse drug effect. CBC CMP were unremarkable. CRP had improvement from last exam. Sed rate is unremarkable. Patient had no active bleeding. Patient be kept on Afrin for the next 3 days. Encouraged the use of Vaseline or saline spray to help with nasal mucosal dryness. Patient was given a dose of morphine for breakthrough back pain. Patient will continue with routine care as directed. Return to ED for new concerns or worsening symptoms. Lab Data 02/01/24 17:17 02/01/24 17:17 Laboratory Results WBC 8.94 10^3/uL (3.29-11.43) 02/01/24 17:17 RBC 4.16 10^6/uL (3.85-5.65) 02/01/24 17:17 Hgb 12.10 g/dL (11.27-16.99) 02/01/24 17:17 Hct 37.9 % (36-47) 02/01/24 17:17 MCV 91.1 fl (85-98) 02/01/24 17:17 MCH 29.1 pg (27-33) 02/01/24 17:17 MCHC 31.9 g/dL (30-55) 02/01/24 17:17 RDW 13.2 % (12.1-15.1) 02/01/24 17:17 Plt Count 250 10^3/cmm (157-399) 02/01/24 17:17 MPV 10.3 fL (7.4-10.4) 02/01/24 17:17 Neut % (Auto) 72.8 % 02/01/24 17:17 Lymph % (Auto) 14.0 % 02/01/24 17:17 Throckmorton % (Auto) 10.5 % 02/01/24 17:17 Eos % (Auto) 2.1 % 02/01/24 17:17 Baso % (Auto) 0.2 % 02/01/24 17:17 Neut # (Auto) 6.50 10^3/uL (1.8-7.7) 02/01/24 17:17 Lymph # (Auto) 1.3 10^3/uL (0.8-4.8) 02/01/24 17:17 Throckmorton # (Auto) 0.9 10^3/uL (0.2-0.9) 02/01/24 17:17 Eos # (Auto) 0.2 10^3/uL (0.0-0.8) 02/01/24 17:17 Baso # (Auto) 0.0 10^3/uL (0.0-0.1) 02/01/24 17:17 Nucleated RBC % (auto) 0 % 02/01/24 17:17 Nucleated RBCs # 0.0 /100WBC 02/01/24 17:17 ESR 28 mm/hr (0-15) H 02/01/24 17:17 PT 14.50 SECONDS (12.1-14.9) 02/01/24 17:17 INR 1.10 (0.8-1.2) 02/01/24 17:17 APTT 33.5 SECONDS (23.9-36.7) 02/01/24 17:17 Sodium 134 mmol/L (136-145) L 02/01/24 17:17 Potassium 3.5 mmol/L (3.5-5.1) 02/01/24 17:17 Chloride 97 mmol/L (98-107) L 02/01/24 17:17 Carbon Dioxide 26 mmol/L (22-29) 02/01/24 17:17 Anion Gap 14.5 (5-19) 02/01/24 17:17 BUN 17 mg/dL (8-23) 02/01/24 17:17 Creatinine 0.6 mg/dL (0.5-0.9) 02/01/24 17:17 GFR Calculation Not Reportable 02/01/24 17:17 Glucose 106 mg/dL (65-115) 02/01/24 17:17 Calculated Osmolality 280 mOsm/kg (285-295) L 02/01/24 17:17 Calcium 8.5 mg/dL (8.5-10.5) 02/01/24 17:17 Total Bilirubin 0.4 mg/dL (0.15-1.2) 02/01/24 17:17 AST 26 U/L (0-32) 02/01/24 17:17 ALT < 5 U/L (0-33) 02/01/24 17:17 Alkaline Phosphatase 78 U/L (35-105) 02/01/24 17:17 C-Reactive Protein 139.2 mg/L (0.0-4.9) H 02/01/24 17:17 Total Protein 6.8 g/dL (6.6-8.7) 02/01/24 17:17 Albumin 2.9 g/dL (3.5-5.2) L 02/01/24 17:17 Globulin 3.9 g/dL (1.3-4.6) 02/01/24 17:17 No radiology studies performed this visit Discharge Plan Discharge Patient Disposition: Home Clinical Impression: Acute anterior epistaxis, Lumbar stenosis with neurogenic claudication Condition: Stable Prescriptions: New Saline Nasal 0.65 % aerosol,spray 2 spray intranasal Q2H PRN (Reason: dry nasal passages) Qty: 44 0RF Afrin (oxymetazoline) 0.05 % spray,non-aerosol 2 spray intranasal BID PRN (Reason: nasal congestion, epistaxis) 3 Days Qty: 15 0RF Vaseline Gel 1 applic topical BID PRN (Reason: dry nasal passages) Qty: 113 0RF No Action Colace 100 mg capsule 100 mg PO BID PRN (Reason: Constipation) (DME) Tricia Joy See Rx Instructions .Route .MEDSUPPLY Rx Instructions: As directed isosorbide mononitrate 30 mg tablet extended release 24 hr 30 mg PO BID Qty: 180 3RF tizanidine 4 mg tablet 4 mg PO Q6H PRN (Reason: muscle spasticity) Qty: 20 0RF Rx Instructions: do not exceed 3 doses per 24 hrs diclofenac sodium 75 mg tablet,delayed release (DR/EC) 75 mg PO Q12H PRN (Reason: pain) Qty: 20 0RF morphine 15 mg Tablet 15 mg PO Q8H PRN (Reason: Pain) cyclobenzaprine 5 mg tablet 5 mg PO TID PRN (Reason: MUSCLE SPASMS) atorvastatin 40 mg Tablet 20 mg PO BEDTIME Qty: 30 0RF lisinopril 20 mg Tablet 40 mg PO DAILY Qty: 60 0RF hydralazine 25 mg Tablet 75 mg PO TID 30 Days Qty: 270 0RF aspirin 81 mg Tablet,Delayed Release (Dr/Ec) 81 mg PO DAILY Qty: 30 0RF amlodipine 10 mg Tablet 10 mg PO DAILY Qty: 30 0RF metoprolol tartrate 25 mg Tablet 25 mg PO BID@0900,2100 Qty: 60 0RF polyethylene glycol 3350 17 gram Powder In Packet 17 g PO DAILY Qty: 30 0RF Stool Softener-Laxative 8.6-50 mg Tablet 1 tab PO BID Qty: 20 0RF pantoprazole 40 mg Tablet,Delayed Release (Dr/Ec) 40 mg PO DAILY Qty: 30 0RF topiramate 50 mg Capsule,Extended Release 24hr 50 mg PO DAILY Qty: 30 0RF Eliquis 5 mg Tablet 5 mg PO BID@0900,2100 Qty: 60 0RF cyanocobalamin (vitamin B-12) 5,000 mcg capsule 5,000 mcg PO DAILY Qty: 30 0RF Discharge Orders: Discharge ED (Routine); Ordered 02/01/24 Ordered By: Aj Oro Referrals: Raven Peres MD [Primary Care Provider] - Discharge Diet: Usual diet Discharge Activity: Increase activity as tolerated Patient Instructions: Epistaxis - Adult Activity Restrictions/Additional Instructions: Avoid picking the nose. Use Afrin spray 2 sprays twice a day to the nostrils for the next 3 days to help constrict the vessels and resolve the nosebleed. Use saline nasal spray as needed for nasal dryness. Use Vaseline 2-3 times a day to the nasal passages to help with irritation. Do not use Vaseline if using oxygen. Return to ER for new concerns. Follow-up with primary care in 3 to 5 days. Coding Level of Care Code ED Transmitter Tester for Papi Brody
[2024-02-01 17:28] LABS: Basophils % 0.2 %; Eosinophils # 0.2 10^3/uL (0.0-0.8); Eosinophils % 2.1 %; Hematocrit 37.9 % (36-47); Lymphocytes # 1.3 10^3/uL (0.8-4.8); Mean Corpuscular HGB Conc 31.9 g/dL (30-55); Mean Corpuscular Hemoglobin 29.1 pg (27-33); Mean Corpuscular Volume 91.1 fl (85-98); Mean Platelet Volume 10.3 fL (7.4-10.4); Monocytes # 0.9 10^3/uL (0.2-0.9); Monocytes % 10.5 %; Neutrophils % 72.8 %; Nucleated Red Blood Cells % 0 %; Platelet Count 250 10^3/cmm (157-399); Red Blood Count 4.16 10^6/uL (3.85-5.65); Red Cell Distribution Width 13.2 % (12.1-15.1); White Blood Count 8.94 10^3/uL (3.29-11.43)
[2024-02-01 17:31] LABS: Erythrocyte Sedimentation Rate 28 mm/hr (0-15)
[2024-02-01 17:32] VITALS: BP 154/61; PULSE 100; RESP 18; O2SAT 90
[2024-02-01 17:41] VITALS: RESP 18; O2SAT 92
[2024-02-01 17:41] LABS: Partial Thromboplastin Time 33.5 SECONDS (23.9-36.7)
[2024-02-01] MEDS: morphine 4 mg/mL SDV 1 mL IM (17:41)
[2024-02-01] MEDS: oxymetazoline 0.05% Nasal Spray 15 mL 2 SPRAY NOSTRIL-B (17:43)
[2024-02-01 17:45] LABS: Alanine Aminotransferase < 5 U/L (0-33); Albumin Level 2.9 g/dL (3.5-5.2); Alkaline Phosphatase 78 U/L (35-105); Anion Gap 14.5 (5-19); Aspartate Amino Transferase 26 U/L (0-32); Blood Urea Nitrogen 17 mg/dL (8-23); C Reactive Protein 139.2 mg/L (0.0-4.9); Calcium 8.5 mg/dL (8.5-10.5); Carbon Dioxide 26 mmol/L (22-29); Chloride 97 mmol/L (98-107); Creatinine Clr Calc Pharmacy 54.3625; Globulin 3.9 g/dL (1.3-4.6); Glucose 106 mg/dL (65-115); Osmolality Calculated 280 mOsm/kg (285-295); Potassium 3.5 mmol/L (3.5-5.1); Sodium 134 mmol/L (136-145); Total Bilirubin 0.4 mg/dL (0.15-1.2); Total Protein 6.8 g/dL (6.6-8.7)
--- NOTE | 2024-02-01 18:54 | PC.NURSE ---
PT REPORTS HAVING NO MONEY TO PAY FOR CAR TENDER, STATES SHE HAS NO FAMILY OR FRIENDS THAT CAN TAKE HER BACK TO [facility], [facility] CALLED AND THEY HAVE NO TRANSPORTATION UNTILL SATURDAY, SPOKE TO A DAVON AT [facility] FOR SPOKE TO THEIR BILLING AND STATED THEY WOULD COVER COST FOR CAR TENDER AND IT'S OKAY TO BILL [facility] FOR PT. [facility] STATES THEY ARE SENDING OVER A EMPLOYEE TO RIDE BACK WITH PT TO [facility]. PT AWARE.
== END 2024-02-01 19:22 | disposition home or self-care (01) ==
PROVIDERS: Emergency Provider Nurse Practitioner Family; PCP Family Medicine
DX: R04.0 Epistaxis (principal); M48.062 Spinal stenosis, lumbar region with neurogenic claudication; Z79.82 Long term (current) use of aspirin; Z79.01 Long term (current) use of anticoagulants; Z87.891 Personal history of nicotine dependence; I10 Essential (primary) hypertension; E78.5 Hyperlipidemia, unspecified
CPT/HCPCS: 36415; 80053; 85025; 85610; 85651; 85730; 86140; 96372; 99284; J2270

== ENCOUNTER 2024-02-14 17:00 | Emergency (ER) | payer MEDICARE, SELFPAY ==
[2024-02-14 17:02] VITALS: BP 157/76; PULSE 105; RESP 18; TEMP 36.7; O2SAT 94
--- NOTE | 2024-02-14 17:10 | ED_ITS ---
HPI - General Adult 2 General: Chief complaint: General Medical Stated complaint: nosebleed History of Present Illness: HPI: Patient with recurrent epistaxis on apixaban twice daily. Has been compliant with her apixaban. Has been seen in the emergency department previously for epistaxis. States she had an episode of bleeding that lasted approximately an hour prior to arrival. States has been bleeding on and off. She can normally arrest the bleeding with pressure on her nose as she did this time. She arrives in the emergency department not having blood since EMS picked her up. No lightheadedness, chest pain, shortness of breath. Did not fall and hit her head. ROS: 10 systems reviewed and otherwise unrema rkable except for those noted in HPI. Physical Exam: Triage vital signs reviewed General: No acute distress, cooperative and comfortable HEENT: Normocephalic, atraumatic, external ears normal, moist mucous membranes, PERRLA. No oozing of blood from the naris bilaterally, no nasal septal hematoma, no other facial trauma, dried blood in the posterior oropharynx. Chest: Normal inspection, equal rise and fall, no edema Respiratory: Normal respiratory effort, no atypical respiratory sounds GI: Non-tender to palpation, non-distended, Extremities: Moving all 4 extremities easily, no deformities Neuro: No meningeal signs, motor function in the room without abnormalities, sensation intact Skin: No rashes, bruising, warm, dry Procedures: N/A MDM: Considered diagnoses include but are not limited to digital trauma, sentinel bleed, potential for posterior epistaxis, coagulopathy. Vital signs nonactionable. Based on history, exam, and any results no emergent condition identified. Patient without recurrence of her epistaxis. Advised on conservative management at home. Consulted otolaryngology Dr. Fitzpatrick for recommendations. He recommends antibiotic prophylaxis and packing. Put anterior Rhino Rocket in with 6 mL of air. Bleeding remains stopped. Patient already on broad-spectrum 3 times daily infusions for sepsis and does not require further antibiotic treatment. Do not favor arterial sphenopalatine bleed given physical exam and lack of continued bleeding. Patient educated about reasons to return to the emergency department including signs of ongoing or changing condition. Advised to make an appointment with primary care or to establish care with a primary care provider to review all results from this encounter. This note was written with assistance of dictation software. Contact author for any clarification of typos. Basil Melissa MD [facility] ED 2 PFS: Medical History Stenosis of cervical spine with myelopathy Renal cyst, left Tricuspid valve regurgitation Mitral valve regurgitation Shortness of breath HTN (hypertension), benign Hyperlipidemia GERD (gastroesophageal reflux disease) Cervical disc disorder with myelopathy of mid-cervical region CRPS (complex regional pain syndrome type I) last stellate ganglion block was in 2012. 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 Course 2 Vital Signs: Vital signs: Vital Signs Temperature 98.0 F 02/14/24 17:02 Pulse Rate 105 H 02/14/24 17:02 Respiratory Rate 18 02/14/24 17:02 Blood Pressure 157/76 02/14/24 17:02 Pulse Oximetry 94 02/14/24 17:02 Oxygen Delivery Me thod Room Air 02/14/24 17:02 MDM - General Adult Medical Decision Making see mdm Lab Data 02/14/24 17:24 Laboratory Results Hgb 9.80 g/dL (11.27-16.99) L 02/14/24 17:24 Hct 31.0 % (36-47) L 02/14/24 17:24 PT 16.50 SECONDS (12.1-14.9) H 02/14/24 17:24 INR 1.29 (0.8-1.2) H 02/14/24 17:24 APTT 46.0 SECONDS (23.9-36.7) H 02/14/24 17:24 No radiology studies performed this visit Discharge Plan Discharge Patient Disposition: Home Clinical Impression: Acute anterior epistaxis Condition: Stable Prescriptions: No Action Colace 100 mg capsule 100 mg PO BID PRN (Reason: Constipation) (DME) Tricia Joy See Rx Instructions .Route .MEDSUPPLY Rx Instructions: As directed isosorbide mononitrate 30 mg tablet extended release 24 hr 30 mg PO BID Qty: 180 3RF Saline Nasal 0.65 % aerosol,spray 2 spray intranasal Q2H PRN (Reason: dry nasal passages) Qty: 44 0RF Vaseline Gel 1 applic topical BID PRN (Reason: dry nasal passages) Qty: 113 0RF tizanidine 4 mg tablet 4 mg PO Q6H PRN (Reason: muscle spasticity) Qty: 20 0RF Rx Instructions: do not exceed 3 doses per 24 hrs diclofenac sodium 75 mg tablet,delayed release (DR/EC) 75 mg PO Q12H PRN (Reason: pain) Qty: 20 0RF morphine 15 mg Tablet 15 mg PO Q8H PRN (Reason: Pain) cyclobenzaprine 5 mg tablet 5 mg PO TID PRN (Reason: MUSCLE SPASMS) atorvastatin 40 mg Tablet 20 mg PO BEDTIME Qty: 30 0RF lisinopril 20 mg Tablet 40 mg PO DAILY Qty: 60 0RF hydralazine 25 mg Tablet 75 mg PO TID 30 Days Qty: 270 0RF aspirin 81 mg Tablet,Delayed Release (Dr/Ec) 81 mg PO DAILY Qty: 30 0RF amlodipine 10 mg Tablet 10 mg PO DAILY Qty: 30 0RF metoprolol tartrate 25 mg Tablet 25 mg PO BID@0900,2100 Qty: 60 0RF polyethylene glycol 3350 17 gram Powder In Packet 17 g PO DAILY Qty: 30 0RF Stool Softener-Laxative 8.6-50 mg Tablet 1 tab PO BID Qty: 20 0RF pantoprazole 40 mg Tablet,Delayed Release (Dr/Ec) 40 mg PO DAILY Qty: 30 0RF topiramate 50 mg Capsule,Extended Release 24hr 50 mg PO DAILY Qty: 30 0RF Eliquis 5 mg Tablet 5 mg PO BID@0900,2100 Qty: 60 0RF cyanocobalamin (vitamin B-12) 5,000 mcg capsule 5,000 mcg PO DAILY Qty: 30 0RF Discharge Orders: Discharge ED (Routine); Ordered 02/14/24 Ordered By: Basil Melissa Referrals: Raven Peres MD [Primary Care Provider] - Lauro José MD [Physician] - (ER consult, recurrent epistaxis and resultant anemia) Patient Instructions: Opioid Safety, Pain Management Coding Level of Care Code ED Network Field Engineer for Papi Brody
[2024-02-14 17:44] LABS: INR 1.29 (0.8-1.2)
--- NOTE | 2024-02-14 18:59 | W.ED.GENADLT ---
HPI - General Adult General: Chief complaint: General Medical Stated complaint: nosebleed PFSH ED PFSH: Medical History Stenosis of cervical spine with myelopathy Renal cyst, left Tricuspid valve regurgitation Mitral valve regurgitation Shortness of breath HTN (hypertension), benign Hyperlipidemia GERD (gastroesophageal reflux disease) Cervical disc disorder with myelopathy of mid-cervical region CRPS (complex regional pain syndrome type I) last stellate ganglion block was in 2012. 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 L2-L3, L3-L4, L4-L5, and L5-S1 fusion/fixation 1986 [facility] L4-L5, L5-S1 decompression 05/1977 L5-S1 decompression S/P thymectomy 1983 AGE 15 MYASTHENIA GRAVIS S/P bladder repair ANTERIOR VAG REPAIR WITH ELEVATE VAG MESH, POSTERIOR REPAIR AND CYSTOSCOPY DR SYLVIA [facility]. 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 Course Vital Signs: Vital signs: Vital Signs Temperature 98.0 F 02/14/24 17:02 Pulse Rate 105 H 02/14/24 17:02 Respiratory Rate 18 02/14/24 17:02 Blood Pressure 157/76 02/14/24 17:02 Pulse Oximetry 94 02/14/24 17:02 Oxygen Delivery Me thod Room Air 02/14/24 17:02 MDM - General Adult Lab Data 02/14/24 17:24 Laboratory Results Hgb 9.80 g/dL (11.27-16.99) L 02/14/24 17:24 Hct 31.0 % (36-47) L 02/14/24 17:24 PT 16.50 SECONDS (12.1-14.9) H 02/14/24 17:24 INR 1.29 (0.8-1.2) H 02/14/24 17:24 APTT 46.0 SECONDS (23.9-36.7) H 02/14/24 17:24 No radiology studies performed this visit Discharge Plan Discharge Patient Disposition: Home Clinical Impression: Acute anterior epistaxis Condition: Stable Prescriptions: No Action Colace 100 mg capsule 100 mg PO BID PRN (Reason: Constipation) (DME) Tricia Joy See Rx Instructions .Route .MEDSUPPLY Rx Instructions: As directed isosorbide mononitrate 30 mg tablet extended release 24 hr 30 mg PO BID Qty: 180 3RF Saline Nasal 0.65 % aerosol,spray 2 spray intranasal Q2H PRN (Reason: dry nasal passages) Qty: 44 0RF Vaseline Gel 1 applic topical BID PRN (Reason: dry nasal passages) Qty: 113 0RF tizanidine 4 mg tablet 4 mg PO Q6H PRN (Reason: muscle spasticity) Qty: 20 0RF Rx Instructions: do not exceed 3 doses per 24 hrs diclofenac sodium 75 mg tablet,delayed release (DR/EC) 75 mg PO Q12H PRN (Reason: pain) Qty: 20 0RF morphine 15 mg Tablet 15 mg PO Q8H PRN (Reason: Pain) cyclobenzaprine 5 mg tablet 5 mg PO TID PRN (Reason: MUSCLE SPASMS) atorvastatin 40 mg Tablet 20 mg PO BEDTIME Qty: 30 0RF lisinopril 20 mg Tablet 40 mg PO DAILY Qty: 60 0RF hydralazine 25 mg Tablet 75 mg PO TID 30 Days Qty: 270 0RF aspirin 81 mg Tablet,Delayed Release (Dr/Ec) 81 mg PO DAILY Qty: 30 0RF amlodipine 10 mg Tablet 10 mg PO DAILY Qty: 30 0RF metoprolol tartrate 25 mg Tablet 25 mg PO BID@0900,2100 Qty: 60 0RF polyethylene glycol 3350 17 gram Powder In Packet 17 g PO DAILY Qty: 30 0RF Stool Softener-Laxative 8.6-50 mg Tablet 1 tab PO BID Qty: 20 0RF pantoprazole 40 mg Tablet,Delayed Release (Dr/Ec) 40 mg PO DAILY Qty: 30 0RF topiramate 50 mg Capsule,Extended Release 24hr 50 mg PO DAILY Qty: 30 0RF Eliquis 5 mg Tablet 5 mg PO BID@0900,2100 Qty: 60 0RF cyanocobalamin (vitamin B-12) 5,000 mcg capsule 5,000 mcg PO DAILY Qty: 30 0RF Discharge Orders: Discharge ED (Routine); Ordered 02/14/24 Ordered By: Basil Melissa Referrals: Raven Peres MD [Primary Care Provider] - Lauro José MD [Physician] - (ER consult, recurrent epistaxis and resultant anemia) Discharge Diet: Advance as tolerated Discharge Activity: Resume usual activity Patient Instructions: Opioid Safety, Pain Management Coding Level of Care Code ED Boring Machine Feeder for Papi Brody
--- NOTE | 2024-02-14 19:11 | PC.NURSE ---
Called report to [facility]- Spoke with Malik. To keep rhino rocket in place until she sees Dr José.
[2024-02-14 19:49] VITALS: BP 136/69; PULSE 105; RESP 16; O2SAT 93
== END 2024-02-14 19:52 | disposition home or self-care (01) ==
PROVIDERS: Emergency Provider General Practice; PCP Family Medicine
DX: R04.0 Epistaxis (principal); Z79.82 Long term (current) use of aspirin; Z79.01 Long term (current) use of anticoagulants; Z87.891 Personal history of nicotine dependence; I10 Essential (primary) hypertension; E78.5 Hyperlipidemia, unspecified
CPT/HCPCS: 36415; 85014; 85018; 85610; 85730; 99283

== ENCOUNTER → 2024-02-27 11:15 | Outpatient (BNVA) | payer MEDICARE, SELFPAY | PROVIDERS: PCP Family Medicine; Visit Provider Orthopaedic Surgery | DX: M54.2 Cervicalgia (principal); M47.892 Other spondylosis, cervical region | CPT/HCPCS: 72040; 99214 ==

== ENCOUNTER 2024-03-17 16:05 | Outpatient (CLI) | payer MEDICARE, SELFPAY ==
--- NOTE | 2024-03-17 16:00 | MR_ITS ---
WS: [id number] MRI CERVICAL SPINE with and without contrast HISTORY: follow up infectious synovitis COMPARISON: 01/24/2024, 01/21/2024 Technique: Multiplanar, multisequence noncontrast imaging of the cervical spine. Postcontrast MultiHa nce 15 mL. Straightening and slight reversal of the normal cervical lordosis centered at C5-6. Previously described facet joint synovitis with periarticular edema on the RIGHT at C2-3, C3-4 and C4 -5 has significantly improved. The inflammatory changes described in the LEFT paravertebral soft tiss ues have resolved. There is now moderate edema residual at the RIGHT C2-3 facet joint. There is andrew nued enhancement and synovitis involving the RIGHT C2-3 and C3-4 facet joints and adjacent soft tissu es. There is no focal abscess or collection. Craniocervical junction, C1 and C2 relationship, odontoid process and soft tissues are normal. C2-C3: Mild increased T2 signal and enhancement surrounding the RIGHT facet joint. Mild foraminal angelo rowing due to osteophytes. C3-C4: Mild facet joint synovitis with improvement since the prior exam. Osteophytic ridging and mild foraminal stenosis. C4-C5: Mild osteophytic ridging. Mild foraminal narrowing. C5-C6: Osteophytic ridging with a central disc protrusion. Moderate to severe LEFT and moderate RIGHT foraminal stenosis. Mild central stenosis. C6-C7: Osteophytic ridging is asymmetric to the LEFT. Mild central with severe LEFT and moderate RIGH T foraminal stenosis. C7-T1: Mild osteophytic ridging and facet joint arthritis. Mild bilateral foraminal stenosis. No discitis or osteomyelitis. MR/MR cervical spine wo/w [id number] IMPRESSION: 1. Significant improvement in the recently described facet joint synovitis and periventricular edema on the RIGHT at C2-3, C3-4 and C4-5. There is still edmundo a and enhancement but moderate improvement. 2. Left-sided soft tissue inflammation in the upper cervical region has resolv ed. 3. No abscess. No discitis or osteomyelitis. 4. Multilevel facet joint arthropathy as described above with no change since 01/24/2024. Continued levels of foraminal stenosis.
[2024-03-17] MEDS: gadobenate dimeglumine 20 mL vial IV (16:27)
== END 2024-03-17 16:06 | disposition home or self-care (01) ==
LOC: RAD 16:07
PROVIDERS: PCP Family Medicine; Visit Provider Student in an Organized Health Care Education/Training Program
DX: M65.18 Other infective (teno)synovitis, other site (principal); R78.81 Bacteremia; M25.78 Osteophyte, vertebrae; M48.02 Spinal stenosis, cervical region; M50.222 Other cervical disc displacement at C5-C6 level; M48.03 Spinal stenosis, cervicothoracic region
CPT/HCPCS: 72156; A9577

== ENCOUNTER 2024-03-29 14:00 | Emergency (ER) | payer MEDICARE, SELFPAY ==
[2024-03-29] VITALS (7 sets, daily range): BP systolic 99–139; BP diastolic 47–74; PULSE 88–111; RESP 16–26; TEMP 36.3; O2SAT 94–98; BMI 24.0
--- NOTE | 2024-03-29 15:06 | W.ED.EXTPRO ---
HPI - Extremity Problem General: Chief complaint: Extremity Problem,Nontraumatic Stated complaint: Leg pain, Low back pain Time Seen by Provider: 03/29/24 15:03 History of Present Illness: 78-year-old female comes in today for complaints of restless legs, diarrhea stools. Patient states that she has recently been released from the [place] [facility] after a long stay in the hospital due to a pain of the neck and was ruled out cardiac vascular disease but was found to have bacteremia and a urinary tract infection. Patient at that time also had an MRI that ruled out any signs of abscess in the neck. Patient today states that for the last week she has had increased difficulty with restless legs at night. Patient was seen on Saturday at urgent care and had lab work drawn but does not know the results. Patient came in today after having diarrhea last night and talking with her [facility] health nurse. Patient appears nontoxic. Patient does report some increased back pain. Patient does also state that she has been without her routine morphine for her pain at home for about 1 week. Related Data Home Medications Medication Instructions Recorded Confirmed docusate sodium 100 mg capsule 100 mg PO BID PRN Constipation 09/09/20 02/27/24 (Colace) [place] J 06/11/22 02/27/24 morphine 15 mg immediate release 15 mg PO Q8H PRN Pain 01/19/24 02/27/24 tablet cyclobenzaprine 5 mg tablet 5 mg PO TID PRN MUSCLE SPASMS 01/20/24 02/27/24 Previous Rx's Medication Instructions Recorded isosorbide mononitrate 30 mg 30 mg PO BID #180 tabs 10/29/22 tablet,extended release 24 hr diclofenac sodium 75 mg 75 mg PO Q12H PRN pain #20 tabs 01/17/24 tablet,delayed release tizanidine 4 mg tablet 4 mg PO Q6H PRN muscle spasticity 01/17/24 #20 tabs amlodipine 10 mg tablet 10 mg PO DAILY #30 tabs 01/29/24 apixaban 5 mg tablet (Eliquis) 5 mg PO BID@0900,2100 #60 tabs 01/29/24 aspirin 81 mg tablet,delayed 81 mg PO DAILY #30 tabs 01/29/24 release atorvastatin 40 mg tablet 20 mg (1/2 x 40 mg) PO BEDTIME #30 01/29/24 tabs cyanocobalamin (vitamin B-12) 5,000 mcg PO DAILY #30 caps 01/29/24 5,000 mcg capsule lisinopril 20 mg tablet 40 mg (2 x 20 mg) PO DAILY #60 tabs 01/29/24 metoprolol tartrate 25 mg tablet 25 mg PO BID@0900,2100 #60 tabs 01/29/24 pantoprazole 40 mg tablet,delayed 40 mg PO DAILY #30 tabs 01/29/24 release polyethylene glycol 3350 17 gram 17 g PO DAILY #30 ea 01/29/24 oral powder packet sennosides 8.6 mg-docusate sodium 1 tab PO BID #20 tabs 01/29/24 50 mg tablet (Stool Softener-Laxative) topiramate 50 mg capsule,extended 50 mg PO DAILY #30 caps 01/29/24 release 24 hr sodium chloride 0.65 % nasal spray 2 spray intranasal Q2H PRN dry 02/01/24 aerosol (Saline Nasal) nasal passages #44 mL white petrolatum (Vaseline jelly, 1 applic topical BID PRN dry nasal 02/01/24 topical) passages #113 grams Allergies Allergy/AdvReac Type Severity Reaction Status Date / Time oxycodone [From Xtamp[facility] ER] Allergy bad taste Verified 03/29/24 14:31 in mouth Review of Systems General: Reports: 10 or more systems reviewed and unremarkable except in HPI and below GI: Reports: diarrhea Musc: Reports: back pain and other (Restless legs) PFSH ED PFSH: Medical History Hypertension Stenosis of cervical spine with myelopathy Renal cyst, left Tricuspid valve regurgitation Mitral valve regurgitation Shortness of breath Hyperlipidemia GERD (gastroesophageal reflux disease) Cervical disc disorder with myelopathy of mid-cervical region CRPS (complex regional pain syndrome type I) last stellate ganglion block was in 2012. 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 L2-L3, L3-L4, L4-L5, and L5-S1 fusion/fixation 1986 [facility] L4-L5, L5-S1 decompression 05/1977 L5-S1 decompression S/P thymectomy 1984 AGE 15 MYASTHENIA GRAVIS S/P bladder repair ANTERIOR VAG REPAIR WITH ELEVATE VAG MESH, POSTERIOR REPAIR AND CYSTOSCOPY DR [facility]. 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 Physical Exam Const: COMMON NORMALS: alert HENMT: COMMON NORMALS: normocephalic HEAD & SCALP: normocephalic Neck/C-Spine: COMMON NORMALS: full ROM CERVICAL SPINE: No Cervical spine tenderness Chest: COMMONS NORMALS: normal inspection of the chest Resp: COMMON NORMALS: normal respiratory effort and clear to auscultation bilaterally AUSCULTATION: clear to auscultation bilaterally Cardio: COMMON NORMALS: regular rate and regular rhythm RATE: regular rate RHYTHM: regular rhythm GI: COMMON NORMALS: Soft to palpation PALPATION: Yes Soft to palpation : COMMON NORMALS: Yes no CVA tenderness BLADDER/KIDNEY EXAM: Yes no CVA tenderness Back/Pelvis: COMMON NORMALS: no CVA tenderness Extremity: COMMON NORMALS: full ROM NARRATIVE EXTREMITY EXAM: Strong pedal pulses bilaterally Neuro: SENSORIUM/ORIENTATION: Yes alert Skin: COMMON NORMALS: turgor normal GENERAL SKIN EXAM: turgor normal Course Vital Signs: Vital signs: Vital Signs Temperature 97.4 F L 03/29/24 14:27 Pulse Rate 93 03/29/24 17:00 Respiratory Rate 16 03/29/24 15:30 Blood Pressure 139/73 03/29/24 17:00 Pulse Oximetry 97 03/29/24 17:00 Oxygen Delivery Me thod Room Air 03/29/24 17:00 MDM - Extremity (Nontraumatic) Medical Decision Making 78-year-old female comes in today for complaints of low back pain and restless legs. Patient appears nontoxic. Patient appears in no acute distress. Respirations are even lungs are clear to auscultation. Patient has palpable tenderness at L5-S1 of her lower back. Abdomen is soft and nontender. Vital signs are normal. Differential diagnosis includes but not limited to exacerbation of chronic back pain, adverse drug effect, withdrawal from opiate medication. Viral syndrome, malingering. Patient been without her morphine that she takes routinely for her chronic back pain for about 3 to 5 days. Patient states that she just has not had time to call for refills and had recently been discharged from the [place] [facility] and had some leftover medication so she was using that until she can follow-up with her primary care. Patient ran out about 3 to 5 days ago and since then she has had increased restless legs. Patient appears nontoxic. Laboratory values were unremarkable. Urinalysis was clean. Believe patient might be having some physiologic withdrawal symptoms from longstanding opiates she had been on. Patient was given 4 mg of morphine for her back pain which seemed to help her restless legs. Patient was given 2 tablets of hydrocodone and instructed to follow-up with her primary care in the morning for refills of her routine medication. Patient states understanding and agreed to plan. Patient was stable and discharged home. Lab Data 03/29/24 15:17 03/29/24 15:17 Laboratory Results WBC 9.19 10^3/uL (3.29-11.43) 03/29/24 15:17 RBC 4.87 10^6/uL (3.85-5.65) 03/29/24 15:17 Hgb 13.20 g/dL (11.27-16.99) 03/29/24 15:17 Hct 42.1 % (36-47) 03/29/24 15:17 MCV 86.4 fl (85-98) 03/29/24 15:17 MCH 27.1 pg (27-33) 03/29/24 15:17 MCHC 31.4 g/dL (30-55) 03/29/24 15:17 RDW 13.4 % (12.1-15.1) 03/29/24 15:17 Plt Count 549 10^3/cmm (157-399) H 03/29/24 15:17 MPV 10.6 fL (7.4-10.4) H 03/29/24 15:17 Neut % (Auto) 52.5 % 03/29/24 15:17 Lymph % (Auto) 35.8 % 03/29/24 15:17 [place] % (Auto) 7.2 % 03/29/24 15:17 Eos % (Auto) 3.4 % 03/29/24 15:17 Baso % (Auto) 0.8 % 03/29/24 15:17 Neut # (Auto) 4.83 10^3/uL (1.8-7.7) 03/29/24 15:17 Lymph # (Auto) 3.3 10^3/uL (0.8-4.8) 03/29/24 15:17 Milam # (Auto) 0.7 10^3/uL (0.2-0.9) 03/29/24 15:17 Eos # (Auto) 0.3 10^3/uL (0.0-0.8) 03/29/24 15:17 Baso # (Auto) 0.1 10^3/uL (0.0-0.1) 03/29/24 15:17 Nucleated RBC % (auto) 0 % 03/29/24 15:17 Nucleated RBCs # 0.0 /100WBC 03/29/24 15:17 Sodium 137 mmol/L (136-145) 03/29/24 15:17 Potassium 4.1 mmol/L (3.5-5.1) 03/29/24 15:17 Chloride 103 mmol/L (98-107) 03/29/24 15:17 Carbon Dioxide 20 mmol/L (22-29) L 03/29/24 15:17 Anion Gap 18.1 (5-19) 03/29/24 15:17 BUN 18 mg/dL (8-23) 03/29/24 15:17 Creatinine 0.7 mg/dL (0.5-0.9) 03/29/24 15:17 GFR Calculation Not Reportable 03/29/24 15:17 Glucose 133 mg/dL (65-115) H 03/29/24 15:17 Calculated Osmolality 288 mOsm/kg (285-295) 03/29/24 15:17 Calcium 9.5 mg/dL (8.5-10.5) 03/29/24 15:17 Total Bilirubin 0.3 mg/dL (0.15-1.2) 03/29/24 15:17 AST 18 U/L (0-32) 03/29/24 15:17 ALT 10 U/L (0-33) 03/29/24 15:17 Alkaline Phosphatase 112 U/L (35-105) H 03/29/24 15:17 Total Protein 7.3 g/dL (6.6-8.7) 03/29/24 15:17 Albumin 4.0 g/dL (3.5-5.2) 03/29/24 15:17 Globulin 3.3 g/dL (1.3-4.6) 03/29/24 15:17 Lipase 52 U/L (13-60) 03/29/24 15:17 Urine Color Yellow (Yellow) 03/29/24 17:51 Urine Appearance Cloudy (CLEAR) A 03/29/24 17:51 Urine pH 7.0 (5-7) 03/29/24 17:51 Ur Specific [place] 1.015 (1.005-1.030) 03/29/24 17:51 Urine Protein Trace (Negative) A 03/29/24 17:51 Urine Glucose (UA) Negative (Normal) 03/29/24 17:51 Urine Ketones Negative (Negative) 03/29/24 17:51 Urine Blood Non-haemolysed trace (Negative) 03/29/24 17:51 Urine Nitrate Negative (Negative) 03/29/24 17:51 Urine Bilirubin Negative (Negative) 03/29/24 17:51 Urine Urobilinogen 1.0 mg/dL (Negative) 03/29/24 17:51 Ur Leukocyte Esterase Negative (Negative) 03/29/24 17:51 Urine RBC 11-20 /hpf (0-2) H 03/29/24 17:51 Urine WBC 0-5 /hpf (0-5) 03/29/24 17:51 Ur Squamous Epith Cells 0-5 /hpf (0-5) 03/29/24 17:51 Amorphous Sediment Not Reportable 03/29/24 17:51 Urine Bacteria None seen /hpf (NONE) 03/29/24 17:51 Hyaline Casts 9.07 /lpf 03/29/24 17:51 No radiology studies performed this visit Discharge Plan Discharge Patient Disposition: Home Clinical Impression: Restless leg syndrome Diarrhea Qualifiers: Diarrhea type: unspecified type Qualified Code(s): R19.7 - Diarrhea, unspecified Back pain Qualifiers: Back pain location: low back pain Chronicity: chronic Back pain laterality: unspecified Sciatica presence: unspecified whether sciatica present Qualified Code(s): M54.50 - Low back pain, unspecified Condition: Stable Prescriptions: No Action Colace 100 mg capsule 100 mg PO BID PRN (Reason: Constipation) (DME) Tricia Joy See Rx Instructions .Route .MEDSUPPLY Rx Instructions: As directed isosorbide mononitrate 30 mg tablet extended release 24 hr 30 mg PO BID Qty: 180 3RF Saline Nasal 0.65 % aerosol,spray 2 spray intranasal Q2H PRN (Reason: dry nasal passages) Qty: 44 0RF Vaseline Gel 1 applic topical BID PRN (Reason: dry nasal passages) Qty: 113 0RF tizanidine 4 mg tablet 4 mg PO Q6H PRN (Reason: muscle spasticity) Qty: 20 0RF Rx Instructions: do not exceed 3 doses per 24 hrs diclofenac sodium 75 mg tablet,delayed release (DR/EC) 75 mg PO Q12H PRN (Reason: pain) Qty: 20 0RF morphine 15 mg Tablet 15 mg PO Q8H PRN (Reason: Pain) cyclobenzaprine 5 mg tablet 5 mg PO TID PRN (Reason: MUSCLE SPASMS) atorvastatin 40 mg Tablet 20 mg PO BEDTIME Qty: 30 0RF lisinopril 20 mg Tablet 40 mg PO DAILY Qty: 60 0RF aspirin 81 mg Tablet,Delayed Release (Dr/Ec) 81 mg PO DAILY Qty: 30 0RF amlodipine 10 mg Tablet 10 mg PO DAILY Qty: 30 0RF metoprolol tartrate 25 mg Tablet 25 mg PO BID@0900,2100 Qty: 60 0RF polyethylene glycol 3350 17 gram Powder In Packet 17 g PO DAILY Qty: 30 0RF Stool Softener-Laxative 8.6-50 mg Tablet 1 tab PO BID Qty: 20 0RF pantoprazole 40 mg Tablet,Delayed Release (Dr/Ec) 40 mg PO DAILY Qty: 30 0RF topiramate 50 mg Capsule,Extended Release 24hr 50 mg PO DAILY Qty: 30 0RF Eliquis 5 mg Tablet 5 mg PO BID@0900,2100 Qty: 60 0RF cyanocobalamin (vitamin B-12) 5,000 mcg capsule 5,000 mcg PO DAILY Qty: 30 0RF Discharge Orders: Discharge ED (Routine); Ordered 03/29/24 Ordered By: Aj Oro Referrals: Raven Peres MD [Primary Care Provider] - Discharge Diet: Usual diet Discharge Activity: Increase activity as tolerated Patient Instructions: Opioid Safety, Pain Management Activity Restrictions/Additional Instructions: Follow-up with primary care for further evaluation and treatment. Return to ER for worsening symptoms such as fever greater than 100.4, blood in vomit or stool, or new concerns. Coding Level of Care Code ED Scalp Specialist for Papi Brody
[2024-03-29] MEDS: morphine 4 mg/mL SDV 1 mL IM (15:30)
[2024-03-29 15:36] LABS: Basophils # 0.1 10^3/uL (0.0-0.1); Basophils % 0.8 %; Eosinophils # 0.3 10^3/uL (0.0-0.8); Eosinophils % 3.4 %; Hematocrit 42.1 % (36-47); Lymphocytes # 3.3 10^3/uL (0.8-4.8); Lymphocytes % 35.8 %; Mean Corpuscular HGB Conc 31.4 g/dL (30-55); Mean Corpuscular Hemoglobin 27.1 pg (27-33); Mean Corpuscular Volume 86.4 fl (85-98); Mean Platelet Volume 10.6 fL (7.4-10.4); Monocytes # 0.7 10^3/uL (0.2-0.9); Monocytes % 7.2 %; Neutrophils # 4.83 10^3/uL (1.8-7.7); Neutrophils % 52.5 %; Nucleated Red Blood Cells % 0 %; Platelet Count 549 10^3/cmm (157-399); Red Blood Count 4.87 10^6/uL (3.85-5.65); Red Cell Distribution Width 13.4 % (12.1-15.1); White Blood Count 9.19 10^3/uL (3.29-11.43)
[2024-03-29 15:52] LABS: Alanine Aminotransferase 10 U/L (0-33); Alkaline Phosphatase 112 U/L (35-105); Anion Gap 18.1 (5-19); Aspartate Amino Transferase 18 U/L (0-32); Blood Urea Nitrogen 18 mg/dL (8-23); Calcium 9.5 mg/dL (8.5-10.5); Carbon Dioxide 20 mmol/L (22-29); Chloride 103 mmol/L (98-107); Globulin 3.3 g/dL (1.3-4.6); Glucose 133 mg/dL (65-115); Lipase 52 U/L (13-60); Osmolality Calculated 288 mOsm/kg (285-295); Potassium 4.1 mmol/L (3.5-5.1); Sodium 137 mmol/L (136-145); Total Bilirubin 0.3 mg/dL (0.15-1.2); Total Protein 7.3 g/dL (6.6-8.7)
[2024-03-29] MEDS: sodium chloride 0.9% 500 ML 999 ML IV (16:30)
[2024-03-29 17:57] LABS: Charge for UA Resulting for Rev
[2024-03-29 18:01] LABS: Bilirubin Urine Negative (Negative); Blood Urine Non-haemolysed trace (Negative); Glucose Urine UA Negative (Normal); Ketones Urine Negative (Negative); Leukocyte Esterase Urine Negative (Negative); Nitrate Urine Negative (Negative); Protein Urine Trace (Negative); Specific Gravity, Urine 1.015 (1.005-1.030); Urine Appearance Cloudy (CLEAR); Urine Color Yellow (Yellow)
[2024-03-29 18:04] LABS: Bacteria Urine None Seen /hpf; Hyaline Casts Urine 9.07 /lpf; Squamous Epithelial Cell Urine 0-5 /hpf (0-5); WBC Urine 0-5 /hpf (0-5)
[2024-03-29 18:14] LABS: UA Slide Review UA Slide Review Perf
== END 2024-03-29 18:36 | disposition home or self-care (01) ==
PROVIDERS: Emergency Provider Nurse Practitioner Family; PCP Family Medicine
DX: G25.81 Restless legs syndrome (principal); R19.7 Diarrhea, unspecified; M54.50 Low back pain, unspecified; Z79.82 Long term (current) use of aspirin; Z79.01 Long term (current) use of anticoagulants; I10 Essential (primary) hypertension; E78.5 Hyperlipidemia, unspecified
CPT/HCPCS: 36415; 51701; 51798; 80053; 81003; 81015; 83690; 85025; 96372; 99284; J2270; J7040

== ENCOUNTER → 2024-03-31 08:39 | Outpatient (BNVA) | payer MEDICARE, SELFPAY | PROVIDERS: PCP Family Medicine; Visit Provider Student in an Organized Health Care Education/Training Program | DX: R19.7 Diarrhea, unspecified (principal); M65.10 Other infective (teno)synovitis, unspecified site; R78.81 Bacteremia; B95.61 Methicillin susceptible Staphylococcus aureus infection as the cause of diseases classified elsewhere; I95.9 Hypotension, unspecified | CPT/HCPCS: 99205 ==

== ENCOUNTER 2024-03-31 16:30 | Outpatient (CLI) | payer MEDICARE, SELFPAY ==
[2024-03-31 18:21] LABS: C.Diff PCR (Lab) NEGATIVE (Negative)
== END 2024-03-31 16:31 | disposition home or self-care (01) ==
LOC: LAB 16:34
PROVIDERS: PCP Family Medicine; Visit Provider Student in an Organized Health Care Education/Training Program
DX: R19.7 Diarrhea, unspecified (principal)
CPT/HCPCS: 87493

== ENCOUNTER 2024-03-31 23:23 | Emergency (ER) | payer MEDICARE, SELFPAY ==
[2024-03-31 23:25] VITALS: BP 101/59; PULSE 114; RESP 16; TEMP 36.7; O2SAT 97; BMI 23.2
--- NOTE | 2024-03-31 23:46 | XRR_ITS ---
PROCEDURE INFORMATION: Exam: XR Chest Exam date and time: 03/31/2024 11:55 PM Age: 78 years old Clinical indication: Shortness of breath; Additional info: Weakness/hypotension TECHNIQUE: Imaging protocol: Radiologic exam of the chest. Views: 1 view. COMPARISON: CR XR chest 1V portable [id number] 01/29/2024 1:06 PM FINDINGS: Lungs: Unremarkable. No consolidation. Pleural spaces: Unremarkable. No pleural effusion. No pneumothorax. Heart/Mediastinum: Unremarkable. No cardiomegaly. Vasculature: Advanced diffuse vascular calcification noted. Bones/joints: Sternotomy wires. Organs: Absent gallbladder. XR/XR chest 1V portable [id number] IMPRESSION: No acute findings.
--- NOTE | 2024-03-31 23:47 | ED_ITS ---
Documented by User: JAYA Hayes 03/31/24 23:55 HPI - Female Genitourinary 2 General: Chief complaint: Urogenital-Female Stated complaint: having teouble with bp Time Seen by Provider: 03/31/24 23:33 Source: patient Mode of arrival: ambulatory Limitations: no limitations History of Present Illness: Patient is a 78-year-old female presenting to the emergency department complaining of 2 to 4 days of intermittent diarrhea and overall feeling weak. Of note she was in the hospital for multiple weeks earlier this summer with bacteremia and was on 6 weeks of IV cefazolin, states she had multiple PEs at that time and subsequent infection in her spine. She has since had follow-ups that have been showing improvement of her hospitalization conditions, however today with a routine follow-up visit with Dr. Cheung, infectious disease, she was noted to be hypotensive at approximately 90/60. She was recommended to go to the emergency department at that time however declined as she had a subsequent follow-up with her primary care provider to discuss blood pressure issues. She has been on lisinopril chronically however was stopped on her amlodipine today, arrives with a blood pressure 101/59. Also of note she is afebrile but is tachycardic at this time. She states that she has felt weak since being discharged from the hospital at the end of February, and does feel dehydrated. She is also reporting some symptoms of a urinary tract infection such as dysuria, however is denying any abdominal pain or nausea/vomiting. She states that she was supposed to have a stool culture performed, however did not have this done. Reports chronic back pain. No other symptoms or pertinent historical factors reported this time. MD elicited complaint: dysuria and UTI Pertinent past history: other (Bacteremia this summer, required lengthy stay in hospital on IV antibiotics) Onset (ago): day(s) Vaginal discharge: none Vaginal bleeding: none Exacerbating factors: none Relieving factors: none Associated symptoms: Deny abdominal pain, headache(s) or nausea Related Data Home Medications Medication Instructions Recorded Confirmed docusate sodium 100 mg capsule 100 mg PO BID PRN Constipation 09/09/20 03/31/24 (Colace) Tricia J 06/11/22 03/31/24 morphine 15 mg immediate release 15 mg PO Q8H PRN Pain 01/19/24 03/31/24 tablet cyclobenzaprine 5 mg tablet 5 mg PO TID PRN MUSCLE SPASMS 01/20/24 03/31/24 Previous Rx's Medication Instructions Recorded isosorbide mononitrate 30 mg 30 mg PO BID #180 tabs 10/29/22 tablet,extended release 24 hr diclofenac sodium 75 mg 75 mg PO Q12H PRN pain #20 tabs 01/17/24 tablet,delayed release amlodipine 10 mg tablet 10 mg PO DAILY #30 tabs 01/29/24 apixaban 5 mg tablet (Eliquis) 5 mg PO BID@0900,2100 #60 tabs 01/29/24 aspirin 81 mg tablet,delayed 81 mg PO DAILY #30 tabs 01/29/24 release atorvastatin 40 mg tablet 20 mg (1/2 x 40 mg) PO BEDTIME #30 01/29/24 tabs cyanocobalamin (vitamin B-12) 5,000 mcg PO DAILY #30 caps 01/29/24 5,000 mcg capsule lisinopril 20 mg tablet 40 mg (2 x 20 mg) PO DAILY #60 tabs 01/29/24 metoprolol tartrate 25 mg tablet 25 mg PO BID@0900,2100 #60 tabs 01/29/24 pantoprazole 40 mg tablet,delayed 40 mg PO DAILY #30 tabs 01/29/24 release polyethylene glycol 3350 17 gram 17 g PO DAILY #30 ea 01/29/24 oral powder packet sennosides 8.6 mg-docusate sodium 1 tab PO BID #20 tabs 01/29/24 50 mg tablet (Stool Softener-Laxative) topiramate 50 mg capsule,extended 50 mg PO DAILY #30 caps 01/29/24 release 24 hr sodium chloride 0.65 % nasal spray 2 spray intranasal Q2H PRN dry 02/01/24 aerosol (Saline Nasal) nasal passages #44 mL white petrolatum (Vaseline jelly, 1 applic topical BID PRN dry nasal 02/01/24 topical) passages #113 grams ciprofloxacin HCl 500 mg tablet 500 mg PO BID 10 days #20 tabs 04/01/24 (Cipro) Allergies Allergy/AdvReac Type Severity Reaction Status Date / Time oxycodone [From Xtampza ER] Allergy bad taste Verified 03/31/24 08:54 in mouth Review of Systems 2 General: Reports: 10 or more systems reviewed and unremarkable except in HPI and below Const: Reports: fatigue and malaise; Denies: fever(s), chills, change in appetite, change in weight or diaphoresis ENMT: Denies: throat pain or hoarseness Card: Reports: other (Hypotension); Denies: chest pain, palpitations or lightheadedness Resp: Denies: dyspnea, productive cough or wheezing GI: Reports: diarrhea; Denies: abdominal pain, nausea, vomiting, constipation, bloating, change in stool character or hematochezia : Reports: dysuria; Denies: flank pain, difficulty voiding, urinary frequency, urinary urgency or hematuria Musc: Denies: neck pain or back pain Skin/Breast: Denies: rash or new lesions Neuro: Denies: headache(s) or dizziness PFSH ED 2 PFSH: Medical History Hypertension Stenosis of cervical spine with myelopathy Renal cyst, left Tricuspid valve regurgitation Mitral valve regurgitation Shortness of breath Hyperlipidemia GERD (gastroesophageal reflux disease) Cervical disc disorder with myelopathy of mid-cervical region CRPS (complex regional pain syndrome type I) last stellate ganglion block was in 2012. 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 L2-L3, L3-L4, L4-L5, and L5-S1 fusion/fixation 1986 [facility] L4-L5, L5-S1 decompression 05/1977 L5-S1 decompression S/P thymectomy 1983 AGE 15 MYASTHENIA GRAVIS S/P bladder repair ANTERIOR VAG REPAIR WITH ELEVATE VAG MESH, POSTERIOR REPAIR AND CYSTOSCOPY DR SYLVIA [facility]. 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 Physical Exam 2 Const: COMMON NORMALS: no acute distress, patient oriented x3 and no limitations GENERAL APPEARANCE: cooperative, comfortable and well developed ORIENTATION/CONSCIOUSNESS: Yes awake, Yes oriented to person, Yes oriented to place and Yes oriented to time HENMT: COMMON NORMALS: normocephalic, atraumatic, hearing grossly normal bilaterally and moist oral mucous membranes HEAD & SCALP: normocephalic and atraumatic Eye: COMMON NORMALS: Equal, round and reactive pupils present, EOMs intact bilaterally and conjunctivae normal CONJUNCTIVA: Yes conjunctivae normal P UPIL: Yes Equal, round and reactive pupils present Neck/C-Spine: COMMON NORMALS: full ROM, supple and no JVD Resp: COMMON NORMALS: normal respiratory effort, No retractions, No use of accessory muscles and clear to auscultation bilaterally AUSCULTATION: clear to auscultation bilaterally Cardio: COMMON NORMALS: no JVD, regular rhythm, No clicks present (Cardio), No murmurs present (Cardio) and No rub (Cardio) RATE: tachycardic RHYTHM: r egular rhythm GI: COMMON NORMALS: Normal to inspection, nondistended, normoactive bowel sounds present, Soft to palpation and non-tender AUSCULTATION: Yes normoactive bowel sounds PALPATION: Yes Soft to palpation RECTAL EXAM: d eferred Back/Pelvis: COMMON NORMALS: thoracic and lumbar spine normal to inspection, no thoracic nor lumbar tenderness and thoraco-lumbar ROM normal Extremity: COMMON NORMALS: normal to inspection, full ROM and capillary refill normal Neuro: COMMON NORMALS: patient oriented x3, moves all extremities, no focal motor deficits and no sensory deficits noted SENSORIUM/ORIENTATION: Yes oriented to person, Yes oriented to place and Yes oriented to time Psych: COMMON NORMALS: mental status grossly normal and Normal thought process present THOUGHT PROCESS: Normal thought process present Skin: COMMON NORMALS: no rashes or lesions noted GENERAL SKIN EXAM: no rashes or lesions noted Course 2 Vital Signs: Vital signs: Vital Signs Temperature 98.1 F 03/31/24 23:25 Pulse Rate 112 H 04/01/24 00:31 Respiratory Rate 16 04/01/24 01:28 Blood Pressure 137/63 04/01/24 00:31 Pulse Oximetry 92 04/01/24 01:28 Oxygen Delivery Me thod Room Air 04/01/24 00:31 MDM - Female Lab Data 03/31/24 23:53 03/31/24 23:53 Radiology Impressions Chest X-Ray 03/31/24 23:46 IMPRESSION: No acute findings. Abdomen/Pelvis CT 04/01/24 01:25 IMPRESSION: 1. There is mild oytv-szffhqv-qotz-right hydroureter, with massive streak artifact in the pelvis from hip arthroplasties. These may obscure subtle ureteral calculi. There are numerous pelvic phleboliths present, which complicate interpretation, with additional evidence of cystitis. These findings have all increased from 01/21/2024, and there may be a component of reflux as well. Follow with urology. 2. Postop and other chronic findings. Laboratory Results WBC 12.13 10^3/uL (3.29-11.43) H 03/31/24 23:53 RBC 4.31 10^6/uL (3.85-5.65) 03/31/24 23:53 Hgb 11.60 g/dL (11.27-16.99) 03/31/24 23:53 Hct 37.2 % (36-47) 03/31/24 23:53 MCV 86.3 fl (85-98) 03/31/24 23:53 MCH 26.9 pg (27-33) L 03/31/24 23:53 MCHC 31.2 g/dL (30-55) 03/31/24 23:53 RDW 13.5 % (12.1-15.1) 03/31/24 23:53 Plt Count 385 10^3/cmm (157-399) 03/31/24 23:53 MPV 10.6 fL (7.4-10.4) H 03/31/24 23:53 Neut % (Auto) 65.9 % 03/31/24 23:53 Lymph % (Auto) 23.6 % 03/31/24 23:53 Lewis % (Auto) 7.0 % 03/31/24 23:53 Eos % (Auto) 2.8 % 03/31/24 23:53 Baso % (Auto) 0.4 % 03/31/24 23:53 Neut # (Auto) 7.99 10^3/uL (1.8-7.7) H 03/31/24 23:53 Lymph # (Auto) 2.9 10^3/uL (0.8-4.8) 03/31/24 23:53 Lewis # (Auto) 0.9 10^3/uL (0.2-0.9) 03/31/24 23:53 Eos # (Auto) 0.3 10^3/uL (0.0-0.8) 03/31/24 23:53 Baso # (Auto) 0.1 10^3/uL (0.0-0.1) 03/31/24 23:53 Nucleated RBC % (auto) 0 % 03/31/24 23:53 Nucleated RBCs # 0.0 /100WBC 03/31/24 23:53 Sodium 136 mmol/L (136-145) 03/31/24 23:53 Potassium 3.5 mmol/L (3.5-5.1) 03/31/24 23:53 Chloride 102 mmol/L (98-107) 03/31/24 23:53 Carbon Dioxide 19 mmol/L (22-29) L 03/31/24 23:53 Anion Gap 18.5 (5-19) 03/31/24 23:53 BUN 20 mg/dL (8-23) 03/31/24 23:53 Creatinine 0.8 mg/dL (0.5-0.9) 03/31/24 23:53 GFR Calculation Not Reportable 03/31/24 23:53 Glucose 136 mg/dL (65-115) H 03/31/24 23:53 Calculated Osmolality 287 mOsm/kg (285-295) 03/31/24 23:53 Lactic Acid 1.4 mmol/L (0.5-2.2) 03/31/24 23:53 Calcium 9.1 mg/dL (8.5-10.5) 03/31/24 23:53 Total Bilirubin 0.4 mg/dL (0.15-1.2) 03/31/24 23:53 AST 15 U/L (0-32) 03/31/24 23:53 ALT 11 U/L (0-33) 03/31/24 23:53 Alkaline Phosphatase 114 U/L (35-105) H 03/31/24 23:53 C-Reactive Protein 17.5 mg/L (0.0-4.9) H 03/31/24 23:53 Total Protein 6.8 g/dL (6.6-8.7) 03/31/24 23:53 Albumin 3.9 g/dL (3.5-5.2) 03/31/24 23:53 Globulin 2.9 g/dL (1.3-4.6) 03/31/24 23:53 Urine Color Yellow (Yellow) 04/01/24 00:19 Urine Appearance Turbid (CLEAR) A 04/01/24 00:19 Urine pH 8.0 (5-7) A 04/01/24 00:19 Ur Specific [place] 1.017 (1.005-1.030) 04/01/24 00:19 Urine Protein 3+ (Negative) A 04/01/24 00:19 Urine Glucose (UA) Negative (Normal) 04/01/24 00:19 Urine Ketones Negative (Negative) 04/01/24 00:19 Urine Blood 3+ (Negative) A 04/01/24 00:19 Urine Nitrate Negative (Negative) 04/01/24 00:19 Urine Bilirubin Negative (Negative) 04/01/24 00:19 Urine Urobilinogen 0.2 mg/dL (Negative) 04/01/24 00:19 Ur Leukocyte Esterase 3+ (Negative) A 04/01/24 00:19 Urine RBC >100 /hpf (0-2) H 04/01/24 00:19 Urine WBC >100 /hpf (0-5) H 04/01/24 00:19 Ur Squamous Epith Cells 0-5 /hpf (0-5) 04/01/24 00:19 Amorphous Sediment Not Reportable 04/01/24 00:19 Urine Bacteria Exceeds /hpf (NONE) 04/01/24 00:19 Hyaline Casts 2.14 /lpf 04/01/24 00:19 SARS-CoV-2 Ag (Rapid) negative (Negative) 04/01/24 00:10 Discharge Plan Discharge Patient Disposition: Home Clinical Impression: Urinary tract infection Qualifiers: Urinary tract infection type: acute cystitis Hematuria presence: with hematuria Qualified Code(s): N30.01 - Acute cystitis with hematuria Condition: Stable Prescriptions: New Cipro 500 mg tablet 500 mg PO BID 10 Days Qty: 20 0RF Discontinued tizanidine 4 mg tablet 4 mg PO Q6H PRN (Reason: muscle spasticity) Qty: 20 0RF Rx Instructions: do not exceed 3 doses per 24 hrs No Action Colace 100 mg capsule 100 mg PO BID PRN (Reason: Constipation) (DME) Tricia Joy See Rx Instructions .Route .MEDSUPPLY Rx Instructions: As directed isosorbide mononitrate 30 mg tablet extended release 24 hr 30 mg PO BID Qty: 180 3RF Saline Nasal 0.65 % aerosol,spray 2 spray intranasal Q2H PRN (Reason: dry nasal passages) Qty: 44 0RF Vaseline Gel 1 applic topical BID PRN (Reason: dry nasal passages) Qty: 113 0RF diclofenac sodium 75 mg tablet,delayed release (DR/EC) 75 mg PO Q12H PRN (Reason: pain) Qty: 20 0RF morphine 15 mg Tablet 15 mg PO Q8H PRN (Reason: Pain) cyclobenzaprine 5 mg tablet 5 mg PO TID PRN (Reason: MUSCLE SPASMS) atorvastatin 40 mg Tablet 20 mg PO BEDTIME Qty: 30 0RF lisinopril 20 mg Tablet 40 mg PO DAILY Qty: 60 0RF aspirin 81 mg Tablet,Delayed Release (Dr/Ec) 81 mg PO DAILY Qty: 30 0RF amlodipine 10 mg Tablet 10 mg PO DAILY Qty: 30 0RF metoprolol tartrate 25 mg Tablet 25 mg PO BID@0900,2100 Qty: 60 0RF polyethylene glycol 3350 17 gram Powder In Packet 17 g PO DAILY Qty: 30 0RF Stool Softener-Laxative 8.6-50 mg Tablet 1 tab PO BID Qty: 20 0RF pantoprazole 40 mg Tablet,Delayed Release (Dr/Ec) 40 mg PO DAILY Qty: 30 0RF topiramate 50 mg Capsule,Extended Release 24hr 50 mg PO DAILY Qty: 30 0RF Eliquis 5 mg Tablet 5 mg PO BID@0900,2100 Qty: 60 0RF cyanocobalamin (vitamin B-12) 5,000 mcg capsule 5,000 mcg PO DAILY Qty: 30 0RF Discharge Orders: Discharge ED (Routine); Ordered 04/01/24 Ordered By: Josh To Referrals: Raven Peres MD [Primary Care Provider] - Discharge Diet: As Directed Discharge Activity: Increase activity as tolerated Patient Instructions: Urinary Tract Infection in Older Adults (ED) Activity Restrictions/Additional Instructions: Please drink plenty of fluids at home. Take antibiotics as prescribed. Please follow-up with your primary care provider in the next couple of days as discussed. If you develop any onset of back or abdominal pain, high fevers, or other concerning symptoms please return to the emergency department for reevaluation. Coding Level of Care Code ED Branch Service Representative for Chg Fwd Documented by User: Reza Terrell MD 04/01/24 02:26 HPI - Female Genitourinary 2 General: Chief complaint: Urogenital-Female Stated complaint: having teouble with bp Time Seen by Provider: 03/31/24 23:33 Related Data Home Medications Medication Instructions Recorded Confirmed docusate sodium 100 mg capsule 100 mg PO BID PRN Constipation 09/09/20 03/31/24 (Colace) [place] J 06/11/22 03/31/24 morphine 15 mg immediate release 15 mg PO Q8H PRN Pain 01/19/24 03/31/24 tablet cyclobenzaprine 5 mg tablet 5 mg PO TID PRN MUSCLE SPASMS 01/20/24 03/31/24 Previous Rx's Medication Instructions Recorded isosorbide mononitrate 30 mg 30 mg PO BID #180 tabs 10/29/22 tablet,extended release 24 hr diclofenac sodium 75 mg 75 mg PO Q12H PRN pain #20 tabs 01/17/24 tablet,delayed release amlodipine 10 mg tablet 10 mg PO DAILY #30 tabs 01/29/24 apixaban 5 mg tablet (Eliquis) 5 mg PO BID@0900,2100 #60 tabs 01/29/24 aspirin 81 mg tablet,delayed 81 mg PO DAILY #30 tabs 01/29/24 release atorvastatin 40 mg tablet 20 mg (1/2 x 40 mg) PO BEDTIME #30 01/29/24 tabs cyanocobalamin (vitamin B-12) 5,000 mcg PO DAILY #30 caps 01/29/24 5,000 mcg capsule lisinopril 20 mg tablet 40 mg (2 x 20 mg) PO DAILY #60 tabs 01/29/24 metoprolol tartrate 25 mg tablet 25 mg PO BID@0900,2100 #60 tabs 01/29/24 pantoprazole 40 mg tablet,delayed 40 mg PO DAILY #30 tabs 01/29/24 release polyethylene glycol 3350 17 gram 17 g PO DAILY #30 ea 01/29/24 oral powder packet sennosides 8.6 mg-docusate sodium 1 tab PO BID #20 tabs 01/29/24 50 mg tablet (Stool Softener-Laxative) topiramate 50 mg capsule,extended 50 mg PO DAILY #30 caps 01/29/24 release 24 hr sodium chloride 0.65 % nasal spray 2 spray intranasal Q2H PRN dry 02/01/24 aerosol (Saline Nasal) nasal passages #44 mL white petrolatum (Vaseline jelly, 1 applic topical BID PRN dry nasal 02/01/24 topical) passages #113 grams ciprofloxacin HCl 500 mg tablet 500 mg PO BID 10 days #20 tabs 04/01/24 (Cipro) Allergies Allergy/AdvReac Type Severity Reaction Status Date / Time oxycodone [From Xtampza ER] Allergy bad taste Verified 03/31/24 08:54 in mouth PFSH ED 2 PFSH: Medical History Hypertension Stenosis of cervical spine with myelopathy Renal cyst, left Tricuspid valve regurgitation Mitral valve regurgitation Shortness of breath Hyperlipidemia GERD (gastroesophageal reflux disease) Cervical disc disorder with myelopathy of mid-cervical region CRPS (complex regional pain syndrome type I) last stellate ganglion block was in 2012. 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 I had staffed the patient with [facility]. I have reviewed all of the labs. Patient does appear to have a urinary tract infection. Nurse informed me the patient is having some left flank pain. We did go ahead with the CT scan. No obvious stones. Patient was given morphine for pain emergency department. Patient was subsequently discharged in stable condition with prescription for ciprofloxacin. Follow-up with primary care provider in 1 week for recheck. Lab Data 03/31/24 23:53 03/31/24 23:53 Radiology Impressions Chest X-Ray 03/31/24 23:46 IMPRESSION: No acute findings. Abdomen/Pelvis CT 04/01/24 01:25 IMPRESSION: 1. There is mild qvqn-qoeuzuh-xxcb-right hydroureter, with massive streak artifact in the pelvis from hip arthroplasties. These may obscure subtle ureteral calculi. There are numerous pelvic phleboliths present, which complicate interpretation, with additional evidence of cystitis. These findings have all increased from 01/21/2024, and there may be a component of reflux as well. Follow with urology. 2. Postop and other chronic findings. Laboratory Results WBC 12.13 10^3/uL (3.29-11.43) H 03/31/24 23:53 RBC 4.31 10^6/uL (3.85-5.65) 03/31/24 23:53 Hgb 11.60 g/dL (11.27-16.99) 03/31/24 23:53 Hct 37.2 % (36-47) 03/31/24 23:53 MCV 86.3 fl (85-98) 03/31/24 23:53 MCH 26.9 pg (27-33) L 03/31/24 23:53 MCHC 31.2 g/dL (30-55) 03/31/24 23:53 RDW 13.5 % (12.1-15.1) 03/31/24 23:53 Plt Count 385 10^3/cmm (157-399) 03/31/24 23:53 MPV 10.6 fL (7.4-10.4) H 03/31/24 23:53 Neut % (Auto) 65.9 % 03/31/24 23:53 Lymph % (Auto) 23.6 % 03/31/24 23:53 Lewis % (Auto) 7.0 % 03/31/24 23:53 Eos % (Auto) 2.8 % 03/31/24 23:53 Baso % (Auto) 0.4 % 03/31/24 23:53 Neut # (Auto) 7.99 10^3/uL (1.8-7.7) H 03/31/24 23:53 Lymph # (Auto) 2.9 10^3/uL (0.8-4.8) 03/31/24 23:53 Lewis # (Auto) 0.9 10^3/uL (0.2-0.9) 03/31/24 23:53 Eos # (Auto) 0.3 10^3/uL (0.0-0.8) 03/31/24 23:53 Baso # (Auto) 0.1 10^3/uL (0.0-0.1) 03/31/24 23:53 Nucleated RBC % (auto) 0 % 03/31/24 23:53 Nucleated RBCs # 0.0 /100WBC 03/31/24 23:53 Sodium 136 mmol/L (136-145) 03/31/24 23:53 Potassium 3.5 mmol/L (3.5-5.1) 03/31/24 23:53 Chloride 102 mmol/L (98-107) 03/31/24 23:53 Carbon Dioxide 19 mmol/L (22-29) L 03/31/24 23:53 Anion Gap 18.5 (5-19) 03/31/24 23:53 BUN 20 mg/dL (8-23) 03/31/24 23:53 Creatinine 0.8 mg/dL (0.5-0.9) 03/31/24 23:53 GFR Calculation Not Reportable 03/31/24 23:53 Glucose 136 mg/dL (65-115) H 03/31/24 23:53 Calculated Osmolality 287 mOsm/kg (285-295) 03/31/24 23:53 Lactic Acid 1.4 mmol/L (0.5-2.2) 03/31/24 23:53 Calcium 9.1 mg/dL (8.5-10.5) 03/31/24 23:53 Total Bilirubin 0.4 mg/dL (0.15-1.2) 03/31/24 23:53 AST 15 U/L (0-32) 03/31/24 23:53 ALT 11 U/L (0-33) 03/31/24 23:53 Alkaline Phosphatase 114 U/L (35-105) H 03/31/24 23:53 C-Reactive Protein 17.5 mg/L (0.0-4.9) H 03/31/24 23:53 Total Protein 6.8 g/dL (6.6-8.7) 03/31/24 23:53 Albumin 3.9 g/dL (3.5-5.2) 03/31/24 23:53 Globulin 2.9 g/dL (1.3-4.6) 03/31/24 23:53 Urine Color Yellow (Yellow) 04/01/24 00:19 Urine Appearance Turbid (CLEAR) A 04/01/24 00:19 Urine pH 8.0 (5-7) A 04/01/24 00:19 Ur Specific [place] 1.017 (1.005-1.030) 04/01/24 00:19 Urine Protein 3+ (Negative) A 04/01/24 00:19 Urine Glucose (UA) Negative (Normal) 04/01/24 00:19 Urine Ketones Negative (Negative) 04/01/24 00:19 Urine Blood 3+ (Negative) A 04/01/24 00:19 Urine Nitrate Negative (Negative) 04/01/24 00:19 Urine Bilirubin Negative (Negative) 04/01/24 00:19 Urine Urobilinogen 0.2 mg/dL (Negative) 04/01/24 00:19 Ur Leukocyte Esterase 3+ (Negative) A 04/01/24 00:19 Urine RBC >100 /hpf (0-2) H 04/01/24 00:19 Urine WBC >100 /hpf (0-5) H 04/01/24 00:19 Ur Squamous Epith Cells 0-5 /hpf (0-5) 04/01/24 00:19 Amorphous Sediment Not Reportable 04/01/24 00:19 Urine Bacteria Exceeds /hpf (NONE) 04/01/24 00:19 Hyaline Casts 2.14 /lpf 04/01/24 00:19 SARS-CoV-2 Ag (Rapid) negative (Negative) 04/01/24 00:10 All radiology interpretation(s) finalized by discharge Discharge Plan Discharge Patient Disposition: Home Clinical Impression: Urinary tract infection Qualifiers: Urinary tract infection type: acute cystitis Hematuria presence: with hematuria Qualified Code(s): N30.01 - Acute cystitis with hematuria Condition: Stable Prescriptions: New Cipro 500 mg tablet 500 mg PO BID 10 Days Qty: 20 0RF Discontinued tizanidine 4 mg tablet 4 mg PO Q6H PRN (Reason: muscle spasticity) Qty: 20 0RF Rx Instructions: do not exceed 3 doses per 24 hrs No Action Colace 100 mg capsule 100 mg PO BID PRN (Reason: Constipation) (DME) Tricia Joy See Rx Instructions .Route .MEDSUPPLY Rx Instructions: As directed isosorbide mononitrate 30 mg tablet extended release 24 hr 30 mg PO BID Qty: 180 3RF Saline Nasal 0.65 % aerosol,spray 2 spray intranasal Q2H PRN (Reason: dry nasal passages) Qty: 44 0RF Vaseline Gel 1 applic topical BID PRN (Reason: dry nasal passages) Qty: 113 0RF diclofenac sodium 75 mg tablet,delayed release (DR/EC) 75 mg PO Q12H PRN (Reason: pain) Qty: 20 0RF morphine 15 mg Tablet 15 mg PO Q8H PRN (Reason: Pain) cyclobenzaprine 5 mg tablet 5 mg PO TID PRN (Reason: MUSCLE SPASMS) atorvastatin 40 mg Tablet 20 mg PO BEDTIME Qty: 30 0RF lisinopril 20 mg Tablet 40 mg PO DAILY Qty: 60 0RF aspirin 81 mg Tablet,Delayed Release (Dr/Ec) 81 mg PO DAILY Qty: 30 0RF amlodipine 10 mg Tablet 10 mg PO DAILY Qty: 30 0RF metoprolol tartrate 25 mg Tablet 25 mg PO BID@0900,2100 Qty: 60 0RF polyethylene glycol 3350 17 gram Powder In Packet 17 g PO DAILY Qty: 30 0RF Stool Softener-Laxative 8.6-50 mg Tablet 1 tab PO BID Qty: 20 0RF pantoprazole 40 mg Tablet,Delayed Release (Dr/Ec) 40 mg PO DAILY Qty: 30 0RF topiramate 50 mg Capsule,Extended Release 24hr 50 mg PO DAILY Qty: 30 0RF Eliquis 5 mg Tablet 5 mg PO BID@0900,2100 Qty: 60 0RF cyanocobalamin (vitamin B-12) 5,000 mcg capsule 5,000 mcg PO DAILY Qty: 30 0RF Discharge Orders: Discharge ED (Routine); Ordered 04/01/24 Ordered By: Josh To Referrals: Raven Peres MD [Primary Care Provider] - Discharge Diet: As Directed Discharge Activity: Increase activity as tolerated Patient Instructions: Urinary Tract Infection in Older Adults (ED) Activity Restrictions/Additional Instructions: Please drink plenty of fluids at home. Take antibiotics as prescribed. Please follow-up with your primary care provider in the next couple of days as discussed. If you develop any onset of back or abdominal pain, high fevers, or other concerning symptoms please return to the emergency department for reevaluation. Coding Level of Care Code ED Branch Service Representative for Papi Brody
--- NOTE | 2024-03-31 23:51 | ECG_ITS ---
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 Measurements Intervals [place] Rate: 98 P: 49 CA: 156 QRS: -14 QRSD: 150 T: 112 QT: 393 QTc: 503 Interpretive Statements SINUS RHYTHM WITH OCCASIONAL SUPRAVENTRICULAR PREMATURE COMPLEXES LEFT BUNDLE BRANCH BLOCK [120+ ms QRS DURATION, 80+ ms Q/S IN V1/V2, 85+ ms R IN I/aVL/V5/V6] Compared to ECG 01/19/2024 14:15:11 No significant changes Electronically Signed On 04-01-2024 8:03:53 CDT by Linwood Chung M.D. [id number]
[2024-04-01 00:01] VITALS: PULSE 110; RESP 18; O2SAT 98
[2024-04-01 00:10] LABS: Basophils # 0.1 10^3/uL (0.0-0.1); Basophils % 0.4 %; Eosinophils # 0.3 10^3/uL (0.0-0.8); Eosinophils % 2.8 %; Hematocrit 37.2 % (36-47); Lymphocytes # 2.9 10^3/uL (0.8-4.8); Lymphocytes % 23.6 %; Mean Corpuscular HGB Conc 31.2 g/dL (30-55); Mean Corpuscular Hemoglobin 26.9 pg (27-33); Mean Corpuscular Volume 86.3 fl (85-98); Mean Platelet Volume 10.6 fL (7.4-10.4); Monocytes # 0.9 10^3/uL (0.2-0.9); Neutrophils # 7.99 10^3/uL (1.8-7.7); Neutrophils % 65.9 %; Nucleated Red Blood Cells % 0 %; Platelet Count 385 10^3/cmm (157-399); Red Blood Count 4.31 10^6/uL (3.85-5.65); Red Cell Distribution Width 13.5 % (12.1-15.1); White Blood Count 12.13 10^3/uL (3.29-11.43)
[2024-04-01] MEDS: sodium chloride 0.9% 1,000 ML 999 ML IV (00:17)
[2024-04-01 00:21] VITALS: BP 132/72; PULSE 115; RESP 20; O2SAT 91
[2024-04-01 00:21] LABS: Charge for UA Resulting for Rev
[2024-04-01 00:28] LABS: Bilirubin Urine Negative (Negative); Blood Urine 3+ (Negative); Glucose Urine UA Negative (Normal); Ketones Urine Negative (Negative); Leukocyte Esterase Urine 3+ (Negative); Nitrate Urine Negative (Negative); Protein Urine 3+ (Negative); Specific Gravity, Urine 1.017 (1.005-1.030); Urine Appearance Turbid (CLEAR); Urine Color Yellow (Yellow); Urobilinogen Urine 0.2 mg/dL (Negative)
[2024-04-01 00:31] VITALS: BP 137/63; PULSE 112; RESP 18; O2SAT 93
[2024-04-01 00:33] LABS: Bacteria Urine EXCEEDS /hpf; Hyaline Casts Urine 2.14 /lpf; RBC Urine >100 /hpf (0-2); Squamous Epithelial Cell Urine 0-5 /hpf (0-5); WBC Urine >100 /hpf (0-5)
[2024-04-01 00:33] LABS: Alanine Aminotransferase 11 U/L (0-33); Albumin Level 3.9 g/dL (3.5-5.2); Alkaline Phosphatase 114 U/L (35-105); Anion Gap 18.5 (5-19); Aspartate Amino Transferase 15 U/L (0-32); Blood Urea Nitrogen 20 mg/dL (8-23); C Reactive Protein 17.5 mg/L (0.0-4.9); Calcium 9.1 mg/dL (8.5-10.5); Carbon Dioxide 19 mmol/L (22-29); Chloride 102 mmol/L (98-107); Creatinine Clr Calc Pharmacy 51.3266; Globulin 2.9 g/dL (1.3-4.6); Glucose 136 mg/dL (65-115); Lactic Sepsis W/Reflex 1.4 mmol/L (0.5-2.2); Osmolality Calculated 287 mOsm/kg (285-295); Potassium 3.5 mmol/L (3.5-5.1); Sodium 136 mmol/L (136-145); Total Bilirubin 0.4 mg/dL (0.15-1.2); Total Protein 6.8 g/dL (6.6-8.7)
[2024-04-01 00:35] LABS: SARS Covid-2 Antigen negative (Negative)
[2024-04-01 00:52] LABS: Add Urine Culture? Yes; UA Slide Review UA Slide Review Perf
[2024-04-01] MEDS: cefTRIAXone 1,000 mg SDV 1000 MG IVP (01:17)
--- NOTE | 2024-04-01 01:25 | CTR_ITS ---
PROCEDURE INFORMATION: Exam: CT Abdomen And Pelvis Without Contrast Exam date and time: 04/01/2024 1:37 AM Age: 78 years old Clinical indication: Abdominal pain; Prior surgery; Surgery date: 6+ months; Surgery type: Hysterectomy, choley, oscar hip replacements, back SX; Additional info: Flank pain TECHNIQUE: Imaging protocol: Computed tomography of the abdomen and pelvis without contrast. Radiation optimization: All CT scans at this facility use at least one of these dose optimization techniques: automated exposure control; mA and/or kV adjustment per patient size (includes targeted exams where dose is matched to clinical indication); or iterative reconstruction. COMPARISON: CT abdomen pelvis wo con [id number] 01/21/2024 6:03 PM RADIATION DOSE METRICS: Total DLP (mGy-cm): 449.33 FINDINGS: Lungs: Mild areas of bibasilar scarring. Diaphragm: Small to moderate-sized hiatal hernia. Liver: Unremarkable. No discrete mass. Gallbladder and biliary ducts: Absent gallbladder. Pancreas: Unremarkable with no suspicious mass. No ductal dilation. Spleen: The spleen is not enlarged. No suspicious mass is noted. Adrenal glands: Normal. No mass. Kidneys and ureters: Left extrarenal pelvis likely. Mild bilateral hydroureter. Stomach and bowel: Mild sigmoid diverticulosis. The colon is rather fecal filled. No small bowel obstruction, abscess or free air. Appendix: No evidence of appendicitis. Intraperitoneal space: No abscess or free air. Vasculature: Advanced diffuse vascular calcification noted. Small pelvic phleboliths. Lymph nodes: No enlarged lymph nodes. Urinary bladder: Xzsg-wl-ewlllmkf bladder wall thickening. Reproductive: Absent uterus. Bones/joints: Bilateral hip arthroplasties. L3-L4 disc spacer. Soft tissues: No acute or suspicious finding noted. CT/CT abdomen pelvis wo con [id number] IMPRESSION: 1. There is mild cctg-kvvaegc-qzee-right hydroureter, with massive streak artifact in the pelvis from hip arthroplasties. These may obscure subtle ureteral calculi. There are numerous pelvic phleboliths present, which complicate interpretation, with additional evidence of cystitis. These findings have all increased from 01/21/2024, and there may be a component of reflux as well. Follow with urology. 2. Postop and other chronic findings.
[2024-04-01 01:28] VITALS: RESP 16; O2SAT 92
[2024-04-01] MEDS: morphine 4 mg/mL SDV 1 mL IVP (01:28)
[2024-04-01] MEDS: ondansetron 2 mg/ML SDV 2 mL 4 MG IVP (01:37)
[2024-04-01 02:43] VITALS: BP 123/52; PULSE 87; RESP 18; O2SAT 97
== END 2024-04-01 02:44 | disposition home or self-care (01) ==
PROVIDERS: Physician Assistant; Emergency Provider Emergency Medicine; PCP Family Medicine
DX: N30.01 Acute cystitis with hematuria (principal); Z11.52 Encounter for screening for COVID-19; Z79.82 Long term (current) use of aspirin; Z79.01 Long term (current) use of anticoagulants; E78.5 Hyperlipidemia, unspecified; R19.7 Diarrhea, unspecified
CPT/HCPCS: 36415; 71045; 74176; 80053; 81003; 81015; 83605; 85025; 86140; 87040; 87086; 87186; 87426; 93005; 96361; 96374; 96375; 99285; J0696; J2270; J2405; J7030

== ENCOUNTER 2024-04-05 08:15 | Emergency (ER) | payer MEDICARE, SELFPAY ==
[2024-04-05] VITALS (9 sets, daily range): BP systolic 111–148; BP diastolic 71–86; PULSE 110–128; RESP 17–18; TEMP 36.7; O2SAT 93–100; BMI 23.2
--- NOTE | 2024-04-05 08:18 | CTR_ITS ---
PROCEDURE INFORMATION: Exam: CT Abdomen And Pelvis With Contrast Exam date and time: 04/05/2024 9:04 AM Age: 78 years old Clinical indication: Abdominal pain; Generalized; Prior surgery; Surgery date: 6+ months; Surgery type: Hyst, gb, oscar hips; Additional info: Abd pain/vomiting TECHNIQUE: Imaging protocol: Computed tomography of the abdomen and pelvis with contrast. Radiation optimization: All CT scans at this facility use at least one of these dose optimization techniques: automated exposure control; mA and/or kV adjustment per patient size (includes targeted exams where dose is matched to clinical indication); or iterative reconstruction. Contrast material: OMNIPAQUE 350; Contrast volume: 100 ml; Contrast route: INTRAVENOUS (IV); COMPARISON: CT abdomen pelvis wo con [id number] 04/01/2024 1:37 AM RADIATION DOSE METRICS: Total DLP (mGy-cm): 439.73 FINDINGS: Liver: Normal. No mass. Gallbladder and biliary ducts: Cholecystectomy. Pancreas: Normal. No ductal dilation. Spleen: Normal. No splenomegaly. Adrenal glands: Normal. No mass. Kidneys and ureters: Left renal cyst. Stomach and bowel: Unremarkable. No obstruction. No mucosal thickening. Appendix: No evidence of appendicitis. Intraperitoneal space: Unremarkable. No free air. No significant fluid collection. Vasculature: Unremarkable. No abdominal aortic aneurysm. Lymph nodes: Unremarkable. No enlarged lymph nodes. Urinary bladder: Slight thickening of the wall of the urinary bladder. Reproductive: Hysterectomy. Bones/joints: L 3 4 disc replacement. Bilateral hip replacement. Soft tissues: Unremarkable. CT/CT abdomen pelvis w con* [id number] IMPRESSION: No acute findings. COMMENTS: Consistent with the [employer]'s Incidental Findings Committee white paper (J Am Brandee Radiol 2018): Any incidental renal lesion less than 1 cm or classified as too small to characterize, or any incidental cystic renal lesion characterized as simple-appearing, is likely benign. No follow-up imaging is recommended for these lesions per consensus recommendations based on imaging criteria.
--- NOTE | 2024-04-05 08:24 | ED_ITS ---
HPI - Nausea/Vomiting/Diarrhea 2 General: Chief complaint: Nausea/Vomiting/Diarrhea Stated complaint: N/V Time Seen by Provider: 04/05/24 08:16 Source: patient Mode of arrival: ambulatory History of Present Illness: 78-year-old female who is seen here 3 da ys ago and was diagnosed with UTI she is on Cipro but states that today she started having vomiting states that started this morning. She has been having some abdominal cramping as well starting dysuria denies any fevers denies any worse improved factors Related Data Home Medications Medication Instructions Recorded Confirmed docusate sodium 100 mg capsule 100 mg PO BID PRN Constipation 09/09/20 03/31/24 (Colace) Evans J 06/11/22 03/31/24 morphine 15 mg immediate release 15 mg PO Q8H PRN Pain 01/19/24 03/31/24 tablet cyclobenzaprine 5 mg tablet 5 mg PO TID PRN MUSCLE SPASMS 01/20/24 03/31/24 Previous Rx's Medication Instructions Recorded isosorbide mononitrate 30 mg 30 mg PO BID #180 tabs 10/29/22 tablet,extended release 24 hr diclofenac sodium 75 mg 75 mg PO Q12H PRN pain #20 tabs 01/17/24 tablet,delayed release amlodipine 10 mg tablet 10 mg PO DAILY #30 tabs 01/29/24 apixaban 5 mg tablet (Eliquis) 5 mg PO BID@0900,2100 #60 tabs 01/29/24 aspirin 81 mg tablet,delayed 81 mg PO DAILY #30 tabs 01/29/24 release atorvastatin 40 mg tablet 20 mg (1/2 x 40 mg) PO BEDTIME #30 01/29/24 tabs cyanocobalamin (vitamin B-12) 5,000 mcg PO DAILY #30 caps 01/29/24 5,000 mcg capsule lisinopril 20 mg tablet 40 mg (2 x 20 mg) PO DAILY #60 tabs 01/29/24 metoprolol tartrate 25 mg tablet 25 mg PO BID@0900,2100 #60 tabs 01/29/24 pantoprazole 40 mg tablet,delayed 40 mg PO DAILY #30 tabs 01/29/24 release polyethylene glycol 3350 17 gram 17 g PO DAILY #30 ea 01/29/24 oral powder packet sennosides 8.6 mg-docusate sodium 1 tab PO BID #20 tabs 01/29/24 50 mg tablet (Stool Softener-Laxative) topiramate 50 mg capsule,extended 50 mg PO DAILY #30 caps 01/29/24 release 24 hr sodium chloride 0.65 % nasal spray 2 spray intranasal Q2H PRN dry 02/01/24 aerosol (Saline Nasal) nasal passages #44 mL white petrolatum (Vaseline jelly, 1 applic topical BID PRN dry nasal 02/01/24 topical) passages #113 grams ciprofloxacin HCl 500 mg tablet 500 mg PO BID 10 days #20 tabs 04/01/24 (Cipro) ondansetron 4 mg disintegrating 4 mg PO Q6H PRN nausea and 04/05/24 tablet vomiting #14 tabs Allergies Allergy/AdvReac Type Severity Reaction Status Date / Time oxycodone [From Xtampza ER] Allergy bad taste Verified 03/31/24 08:54 in mouth PFSH ED 2 PFSH: Medical History Hypertension Stenosis of cervical spine with myelopathy Renal cyst, left Tricuspid valve regurgitation Mitral valve regurgitation Shortness of breath Hyperlipidemia GERD (gastroesophageal reflux disease) Cervical disc disorder with myelopathy of mid-cervical region CRPS (complex regional pain syndrome type I) last stellate ganglion block was in 2012. 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 L2-L3, L3-L4, L4-L5, and L5-S1 fusion/fixation [address] 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 Physical Exam 2 Const: COMMON NORMALS: no acute distress, patient oriented x3 and healthy appearing HENMT: COMMON NORMALS: normocephalic and atraumatic HEAD & SCALP: n ormocephalic and atraumatic Eye: COMMON NORMALS: Equal, round and reactive pupils present and EOMs intact bilaterally PUPIL: Yes Equal, round and reactive pupils present Neck/C-Spine: COMMON NORMALS: full ROM and supple Chest: COMMONS NORMALS: normal inspection of the chest and normal palpation of entire chest wall Resp: COMMON NORMALS: normal respiratory effort, No retractions, No use of accessory muscles and clear to auscultation bilaterally AUSCULTATION: clear to auscultation bilaterally Cardio: COMMON NORMALS: regular rate, regular rhythm and No murmurs present (Cardio) RATE: regular rate RHYTHM: regular rhythm GI: COMMON NORMALS: Normal to inspection, nondistended, normoactive bowel sounds present, Soft to palpation, non-tender and no masses PALPATION: Yes Soft to palpation Extremity: COMMON NORMALS: normal to inspection and full ROM Neuro: COMMON NORMALS: patient oriented x3, moves all extremities and no focal motor deficits Psych: COMMON NORMALS: mental status grossly normal, Normal thought process present and cooperative THOUGHT PROCESS: Normal thought process present Skin: COMMON NORMALS: no rashes or lesions noted and no wounds GENERAL SKIN EXAM: no rashes or lesions noted Course 2 Vital Signs: Vital signs: Vital Signs Temperature 98.0 F 04/05/24 08:17 Pulse Rate 110 H 04/05/24 12:00 Respiratory Rate 17 04/05/24 12:00 Blood Pressure 148/86 04/05/24 12:00 Pulse Oximetry 94 04/05/24 12:00 Oxygen Delivery Me thod Room Air 04/05/24 08:17 MDM - Nausea/Vomiting/Diarrhea Medical Decision Making Patient presents with vomiting feels much improved after IV fluids and Zofran her heart rate is improved as well blood work scans all normal she is stable for discharge she is follow-up with PCP return if worsening. Medical Records I reviewed the patient's medical records. Lab Data I reviewed the patient's lab results. 04/05/24 08:28 04/05/24 08:28 Radiology Impressions Abdomen/Pelvis CT 04/05/24 08:18 IMPRESSION: No acute findings. COMMENTS: Consistent with the [employer]'s Incidental Findings Committee white paper (J Am Brandee Radiol 2018): Any incidental renal lesion less than 1 cm or classified as too small to characterize, or any incidental cystic renal lesion characterized as simple-appearing, is likely benign. No follow-up imaging is recommended for these lesions per consensus recommendations based on imaging criteria. Laboratory Results WBC 10.22 10^3/uL (3.29-11.43) 04/05/24 08:28 RBC 5.11 10^6/uL (3.85-5.65) 04/05/24 08:28 Hgb 13.80 g/dL (11.27-16.99) 04/05/24 08:28 Hct 44.5 % (36-47) 04/05/24 08:28 MCV 87.1 fl (85-98) 04/05/24 08:28 MCH 27.0 pg (27-33) 04/05/24 08:28 MCHC 31.0 g/dL (30-55) 04/05/24 08:28 RDW 13.4 % (12.1-15.1) 04/05/24 08:28 Plt Count 461 10^3/cmm (157-399) H 04/05/24 08:28 MPV 10.2 fL (7.4-10.4) 04/05/24 08:28 Neut % (Auto) 86.3 % 04/05/24 08:28 Lymph % (Auto) 7.8 % 04/05/24 08:28 [place] % (Auto) 3.6 % 04/05/24 08:28 Eos % (Auto) 1.5 % 04/05/24 08:28 Baso % (Auto) 0.5 % 04/05/24 08:28 Neut # (Auto) 8.82 10^3/uL (1.8-7.7) H 04/05/24 08:28 Lymph # (Auto) 0.8 10^3/uL (0.8-4.8) 04/05/24 08:28 [place] # (Auto) 0.4 10^3/uL (0.2-0.9) 04/05/24 08:28 Eos # (Auto) 0.2 10^3/uL (0.0-0.8) 04/05/24 08:28 Baso # (Auto) 0.1 10^3/uL (0.0-0.1) 04/05/24 08:28 Nucleated RBC % (auto) 0 % 04/05/24 08:28 Nucleated RBCs # 0.0 /100WBC 04/05/24 08:28 Sodium 136 mmol/L (136-145) 04/05/24 08:28 Potassium 4.5 mmol/L (3.5-5.1) 04/05/24 08:28 Chloride 97 mmol/L (98-107) L 04/05/24 08:28 Carbon Dioxide 23 mmol/L (22-29) 04/05/24 08:28 Anion Gap 20.5 (5-19) H 04/05/24 08:28 BUN 15 mg/dL (8-23) 04/05/24 08:28 Creatinine 0.6 mg/dL (0.5-0.9) 04/05/24 08:28 GFR Calculation Not Reportable 04/05/24 08: Glucose 165 mg/dL (65-115) H 04/05/24 08:28 Calculated Osmolality 287 mOsm/kg (285-295) 04/05/24 08:28 Calcium 9.4 mg/dL (8.5-10.5) 04/05/24 08:28 Total Bilirubin 0.3 mg/dL (0.15-1.2) 04/05/24 08:28 AST 24 U/L (0-32) 04/05/24 08:28 ALT 17 U/L (0-33) 04/05/24 08:28 Alkaline Phosphatase 116 U/L (35-105) H 04/05/24 08:28 Total Protein 7.9 g/dL (6.6-8.7) 04/05/24 08:28 Albumin 4.0 g/dL (3.5-5.2) 04/05/24 08:28 Globulin 3.9 g/dL (1.3-4.6) 04/05/24 08:28 Lipase 30 U/L (13-60) 04/05/24 08:28 Urine Color Yellow (Yellow) 04/05/24 10:06 Urine Appearance Clear (CLEAR) 04/05/24 10:06 Urine pH 7.5 (5-7) 04/05/24 10:06 Ur Specific [place] 1.033 (1.005-1.030) H 04/05/24 10:06 Urine Protein Negative (Negative) 04/05/24 10:06 Urine Glucose (UA) Negative (Normal) 04/05/24 10:06 Urine Ketones Negative (Negative) 04/05/24 10:06 Urine Blood Negative (Negative) 04/05/24 10:06 Urine Nitrate Negative (Negative) 04/05/24 10:06 Urine Bilirubin Negative (Negative) 04/05/24 10:06 Urine Urobilinogen 0.2 mg/dL (Negative) 04/05/24 10:06 Ur Leukocyte Esterase Negative (Negative) 04/05/24 10:06 Urine RBC 0-2 /hpf (0-2) 04/05/24 10:06 Urine WBC 0-5 /hpf (0-5) 04/05/24 10:06 Ur Squamous Epith Cells 0-5 /hpf (0-5) 04/05/24 10:06 Amorphous Sediment Not Reportable 04/05/24 10:06 Urine Bacteria None seen /hpf (NONE) 04/05/24 10:06 Hyaline Casts 0.40 /lpf 04/05/24 10:06 All radiology interpretation(s) finalized by discharge Discharge Plan Discharge Patient Disposition: Home Clinical Impression: Vomiting Condition: Stable Prescriptions: New ondansetron 4 mg tablet,disintegrating 4 mg PO Q6H PRN (Reason: nausea and vomiting) Qty: 14 0RF No Action Colace 100 mg capsule 100 mg PO BID PRN (Reason: Constipation) (DME) Tricia Joy See Rx Instructions .Route .MEDSUPPLY Rx Instructions: As directed isosorbide mononitrate 30 mg tablet extended release 24 hr 30 mg PO BID Qty: 180 3RF Saline Nasal 0.65 % aerosol,spray 2 spray intranasal Q2H PRN (Reason: dry nasal passages) Qty: 44 0RF Vaseline Gel 1 applic topical BID PRN (Reason: dry nasal passages) Qty: 113 0RF Cipro 500 mg tablet 500 mg PO BID 10 Days Qty: 20 0RF diclofenac sodium 75 mg tablet,delayed release (DR/EC) 75 mg PO Q12H PRN (Reason: pain) Qty: 20 0RF morphine 15 mg Tablet 15 mg PO Q8H PRN (Reason: Pain) cyclobenzaprine 5 mg tablet 5 mg PO TID PRN (Reason: MUSCLE SPASMS) atorvastatin 40 mg Tablet 20 mg PO BEDTIME Qty: 30 0RF lisinopril 20 mg Tablet 40 mg PO DAILY Qty: 60 0RF aspirin 81 mg Tablet,Delayed Release (Dr/Ec) 81 mg PO DAILY Qty: 30 0RF amlodipine 10 mg Tablet 10 mg PO DAILY Qty: 30 0RF metoprolol tartrate 25 mg Tablet 25 mg PO BID@0900,2100 Qty: 60 0RF polyethylene glycol 3350 17 gram Powder In Packet 17 g PO DAILY Qty: 30 0RF Stool Softener-Laxative 8.6-50 mg Tablet 1 tab PO BID Qty: 20 0RF pantoprazole 40 mg Tablet,Delayed Release (Dr/Ec) 40 mg PO DAILY Qty: 30 0RF topiramate 50 mg Capsule,Extended Release 24hr 50 mg PO DAILY Qty: 30 0RF Eliquis 5 mg Tablet 5 mg PO BID@0900,2100 Qty: 60 0RF cyanocobalamin (vitamin B-12) 5,000 mcg capsule 5,000 mcg PO DAILY Qty: 30 0RF Discharge Orders: Discharge ED (Routine); Ordered 04/05/24 Ordered By: Doris Huang Referrals: Raven Peres MD [Primary Care Provider] - 4-7 days Discharge Diet: Advance as tolerated Discharge Activity: Resume usual activity Patient Instructions: Acute Nausea and Vomiting (ED) Coding Level of Care Code ED Apartment Leasing Manager for Papi Brody
[2024-04-05 08:35] LABS: Basophils # 0.1 10^3/uL (0.0-0.1); Basophils % 0.5 %; Eosinophils # 0.2 10^3/uL (0.0-0.8); Eosinophils % 1.5 %; Hematocrit 44.5 % (36-47); Lymphocytes # 0.8 10^3/uL (0.8-4.8); Lymphocytes % 7.8 %; Mean Corpuscular Volume 87.1 fl (85-98); Mean Platelet Volume 10.2 fL (7.4-10.4); Monocytes # 0.4 10^3/uL (0.2-0.9); Monocytes % 3.6 %; Neutrophils # 8.82 10^3/uL (1.8-7.7); Neutrophils % 86.3 %; Nucleated Red Blood Cells % 0 %; Platelet Count 461 10^3/cmm (157-399); Red Blood Count 5.11 10^6/uL (3.85-5.65); Red Cell Distribution Width 13.4 % (12.1-15.1); White Blood Count 10.22 10^3/uL (3.29-11.43)
[2024-04-05] MEDS: sodium chloride 0.9% 1,000 ML 999 ML IV ×2 (08:41→11:22)
[2024-04-05] MEDS: ondansetron 2 mg/ML SDV 2 mL 4 MG IVP (08:45)
[2024-04-05 08:55] LABS: Alanine Aminotransferase 17 U/L (0-33); Alkaline Phosphatase 116 U/L (35-105); Anion Gap 20.5 (5-19); Aspartate Amino Transferase 24 U/L (0-32); Blood Urea Nitrogen 15 mg/dL (8-23); Calcium 9.4 mg/dL (8.5-10.5); Carbon Dioxide 23 mmol/L (22-29); Chloride 97 mmol/L (98-107); Creatinine Clr Calc Pharmacy 51.3266; Globulin 3.9 g/dL (1.3-4.6); Glucose 165 mg/dL (65-115); Lipase 30 U/L (13-60); Osmolality Calculated 287 mOsm/kg (285-295); Potassium 4.5 mmol/L (3.5-5.1); Sodium 136 mmol/L (136-145); Total Bilirubin 0.3 mg/dL (0.15-1.2); Total Protein 7.9 g/dL (6.6-8.7)
[2024-04-05] MEDS: iohexol 350 mg/mL 500 mL Btl (per mL) IV (09:12)
[2024-04-05 10:27] LABS: Charge for UA Resulting for Rev
[2024-04-05 10:29] LABS: Bilirubin Urine Negative (Negative); Blood Urine Negative (Negative); Glucose Urine UA Negative (Normal); Ketones Urine Negative (Negative); Leukocyte Esterase Urine Negative (Negative); Nitrate Urine Negative (Negative); Protein Urine Negative (Negative); Urine Appearance Clear (CLEAR); Urine Color Yellow (Yellow); Urobilinogen Urine 0.2 mg/dL (Negative); pH Urine 7.5 (5-7)
[2024-04-05 10:34] LABS: Bacteria Urine None Seen /hpf; RBC Urine 0-2 /hpf (0-2); Squamous Epithelial Cell Urine 0-5 /hpf (0-5); WBC Urine 0-5 /hpf (0-5)
[2024-04-05 10:50] LABS: Specific Gravity, Urine 1.033 (1.005-1.030)
[2024-04-05] MEDS: morphine 4 mg/mL SDV 1 mL IVP (11:27)
--- NOTE | 2024-04-05 11:42 | ECG_ITS ---
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 Measurements Intervals [place] Rate: 123 P: 0 [place]: 176 QRS: -14 QRSD: 146 T: 97 QT: 351 QTc: 502 Interpretive Statements SINUS TACHYCARDIA LEFT BUNDLE BRANCH BLOCK [120+ ms QRS DURATION, 80+ ms Q/S IN V1/V2, 85+ ms R IN I/aVL/V5/V6] Compared to ECG 03/31/2024 23:51:43 Sinus rhythm no longer present Electronically Signed On 04-05-2024 14:28:20 CDT by Linwood Chung M.D. [id number]
[2024-04-05] MEDS: labetalol 5 mg/mL SDV 20mL 10 MG IVP (11:57)
== END 2024-04-05 12:47 | disposition home or self-care (01) ==
PROVIDERS: Emergency Provider Emergency Medicine; PCP Family Medicine
DX: R11.11 Vomiting without nausea (principal); Z79.82 Long term (current) use of aspirin; Z79.01 Long term (current) use of anticoagulants; I10 Essential (primary) hypertension; E78.5 Hyperlipidemia, unspecified
CPT/HCPCS: 74177; 80053; 81003; 81015; 83690; 85025; 93005; 96361; 96374; 96375; 99285; J2270; J2405; J3490; J7030

== ENCOUNTER → 2024-06-01 15:49 | Outpatient (BNVA) | payer MEDICARE, SELFPAY | PROVIDERS: PCP Family Medicine; Visit Provider Internal Medicine Cardiovascular Disease | DX: I47.10 Supraventricular tachycardia, unspecified (principal); I10 Essential (primary) hypertension; I34.0 Nonrheumatic mitral (valve) insufficiency | CPT/HCPCS: 99214 ==

== ENCOUNTER 2024-11-16 21:00 | Inpatient (IN) | payer MEDICARE, SELFPAY ==
[2024-11-16] VITALS (8 sets, daily range): BP systolic 155–177; BP diastolic 70–105; PULSE 68–78; RESP 17–27; TEMP 36.3; O2SAT 96–99; BMI 26.2
--- NOTE | 2024-11-16 21:12 | XRR_ITS ---
PROCEDURE INFORMATION: Exam: XR Chest Exam date and time: 11/16/2024 9:15 PM Age: 79 years old Clinical indication: Shortness of breath; Additional info: SOB TECHNIQUE: Imaging protocol: Radiologic exam of the chest. Views: 1 view. COMPARISON: CR XR chest 1V portable [id number] 03/31/2024 11:55 PM FINDINGS: Lungs: Mild right lower lung zone linear densities compatible with atelectasis or scarring. No consolidation. Pleural spaces: No substantial pleural effusion or pneumothorax. Heart/Mediastinum: Unremarkable. No cardiomegaly. Bones/joints: Degenerative changes along the spine and shoulders. Prior median sternotomy. XR/XR chest 1V portable [id number] IMPRESSION: No acute findings.
--- NOTE | 2024-11-16 21:14 | ECG_ITS ---
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 Measurements Intervals [place] Rate: 70 P: 58 NE: 181 QRS: 2 QRSD: 172 T: 120 QT: 475 QTc: 513 Interpretive Statements SINUS RHYTHM POSSIBLE LEFT ATRIAL ENLARGEMENT [-0.1mV P-WAVE IN V1/V2] LEFT BUNDLE BRANCH BLOCK [120+ ms QRS DURATION, 80+ ms Q/S IN V1/V2, 85+ ms R IN I/aVL/V5/V6] Compared to ECG 04/05/2024 11:55:58 Sinus tachycardia no longer present Electronically Signed On 11-18-2024 21:38:51 CDT by Chrissie Barker M.D. [id number] [id number]
[2024-11-16 21:18] LABS: ABG PCO2 44.3 mmHg (35-45); ABG PH Result 7.28 (7.35-7.45); Arterial Blood Gas Hematocrit 42.5 % (37-47); Blood Gas Sample Site Brachial, right; Blood Gas Sample Type Arterial; Carboxyhemoglobin 0.8 %THgb (0.4-20.1); HCO3 ABG 20.7 mmol/L (22-26); HGB O2 Sat 97.2 % (95-100); Methemoglobin 1.1 % (0.4-1.5); Oxygen Device BIPAP; PO2 FiO2 Ratio Arterial Blood 342; Total Hemoglobin 13.9 g/dL (12-16)
[2024-11-16 21:19] LABS: Basophils # 0.1 10^3/uL (0.0-0.1); Basophils % 0.7 %; Eosinophils # 0.7 10^3/uL (0.0-0.8); Eosinophils % 6.6 %; Hematocrit 45.8 % (36-47); Lymphocytes # 5.6 10^3/uL (0.8-4.8); Lymphocytes % 49.6 %; Mean Corpuscular HGB Conc 30.3 g/dL (30-55); Mean Corpuscular Hemoglobin 25.8 pg (27-33); Mean Corpuscular Volume 85.1 fl (85-98); Mean Platelet Volume 11.3 fL (7.4-10.4); Monocytes # 1.5 10^3/uL (0.2-0.9); Monocytes % 13.1 %; Neutrophils # 3.32 10^3/uL (1.8-7.7); Neutrophils % 29.7 %; Nucleated Red Blood Cells % 0 %; Platelet Count 339 10^3/cmm (157-399); Red Blood Count 5.38 10^6/uL (3.85-5.65); Red Cell Distribution Width 14.2 % (12.1-15.1)
--- NOTE | 2024-11-16 21:21 | ED_ITS ---
HPI - SOB/Dyspnea 2 General: Chief Complaint: Upper Respiratory Infection Stated Complaint: sob Time Seen by Provider: 11/16/24 21:05 History of Present Illness: HPI Narrative: Patient is a 71-year-old female from home seen for rapid onset shortness of breath and what she describes as raspiness. She states that she was doing fine throughout the day when all of a sudden she became short of breath. She denies concomitant chest pain, nausea, vomiting, or other infectious symptoms. She states that she did feel as if she might pass out. On arrival, EMS found her to be at 80% oxygen saturation on room air and placed on BiPAP. With BiPAP she feels much better. 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 She has no other acute complaints. Related Data Home Medications ?Medication ?Instructions ?Recorded ?Confirmed docusate sodium 100 mg capsule 100 mg PO BID PRN Const ipation 09/09/20 06/01/24 (Colace) [place] 06/11/22 06/01/24 morphine 15 mg immediate release 15 mg PO Q8H PRN Pain 01/19/24 06/01/24 tablet cyclobenzaprine 5 mg tablet 5 mg PO TID PRN MUSCLE SPA SMS 01/20/24 06/01/24 Previous Rx's ?Medication ?Instructions ?Recorded isosorbide mononitrate 30 mg 30 mg PO BID #180 tabs tablet,extended release 24 hr diclofenac sodium 75 mg 75 mg PO Q12H PRN pain #20 t abs 01/17/24 tablet,delayed release amlodipine 10 mg tablet 10 mg PO DAILY #30 tabs 01/04 01/26 apixaban 5 mg tablet (Eliquis) 5 mg PO BID@0900,2100 # 60 tabs 01/29/24 atorvastatin 40 mg tablet 20 mg (1/2 x 40 mg) PO BEDTI ME #30 01/29/24 tabs cyanocobalamin (vitamin B-12) 5,000 mcg PO DAILY #30 c aps 01/29/24 5,000 mcg capsule lisinopril 20 mg tablet 40 mg (2 x 20 mg) PO DAILY # 60 tabs 01/29/24 metoprolol tartrate 25 mg tablet 25 mg PO BID@0900,210 0 #60 tabs 06/26/24 pantoprazole 40 mg tablet,delayed 40 mg PO DAILY #30 t abs 01/29/24 release polyethylene glycol 3350 17 gram 17 g PO DAILY #30 ea 01/29/24 oral powder packet sennosides 8.6 mg-docusate sodium 1 tab PO BID #20 tab s 01/29/24 50 mg tablet (Stool Softener-Laxative) topiramate 50 mg capsule,extended 50 mg PO DAILY #30 c aps 01/29/24 release 24 hr sodium chloride 0.65 % nasal spray 2 spray intranasal Q2H PRN dry 02/01/24 aerosol (Saline Nasal) nasal passages #44 mL white petrolatum (Vaseline jelly, 1 applic topical BID PRN dry nasal 02/01/24 topical) passages #113 grams ondansetron 4 mg disintegrating 4 mg PO Q6H PRN nausea and 04/05/24 tablet vomiting #14 tabs Allergies Allergy/AdvReac Type Severity Reaction Status Date / Time oxycodone (From Xtampza ER) Allergy bad taste Verified 11/16/24 21:07 in mouth [facility] ED 2 PFSH: Medical History (Updated 11/17/24 @ 01:10 by Shaheen Boland MD) Moderate mitral regurgitation HTN (hypertension) with goal to be determined SVT (supraventricular tachycardia) Hypertension Stenosis of cervical spine with myelopathy Renal cyst, left Tricuspid valve regurgitation Mitral valve regurgitation Shortness of breath Hyperlipidemia GERD (gastroesophageal reflux disease) Cervical disc disorder with myelopathy of mid-cervical region CRPS (complex regional pain syndrome type I) last stellate ganglion block was in 2012. 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 No tachypnea. Speaking in full sentences. Mild rhonchi ) and No use of accessory muscles Cardio: COMMON NORMALS: regular rate, regular rhythm and No murmurs present (Cardio) RATE: regular rate RHYTHM: regular rhythm GI: COMMON NORMALS: Normal to inspection, nondistended, normoactive bowel sounds present, Soft to palpation and non-tender PALPATION: Yes Soft to palpation Neuro: COMMON NORMALS: patient oriented x3 SENSORIUM/ORIENTATION: Yes alert Skin: COMMON NORMALS: no rashes or lesions noted GENERAL SKIN EXAM: no rashes or lesions noted Course 2 Vital Signs: Vital signs: Vital Signs Temperature 97.4 F L 11/16/24 21:00 Pulse Rate 68 11/17/24 00:36 Respiratory Rate 19 H 11/17/24 00:15 Blood Pressure 173/87 11/17/24 00:36 Pulse Oximetry 97 11/17/24 00:36 Oxygen Delivery Me thod Nasal Cannula 11/17/24 00:15 Oxygen Flow Rate 2 11/16/24 23:04 Fraction of Inspir ed Oxygen 40 11/16/24 21:05 MDM - SOB/Dyspnea Medical Decision Making In summary, patient is a previously well 79-year-old female from home seen for sudden onset shortness of breath, lightheadedness, diaphoresis, and nausea which occurred at home at rest. They called 911 and EMS found her to have an oxygen saturation in the low 80s and placed on BiPAP and brought her to the hospital. On arrival, oxygen saturation was in the mid 90s on BiPAP which was eventually weaned to 2 L nasal cannula. She is currently anticoagulated on Eliquis and has had PEs in the past. CTA did not show evidence of new PE, however did show mild bilateral pleural effusions. BNP is somewhat elevated. Troponin initially was normal but had a significant delta increase at the 2-hour josep. EKG does not show obvious ST segment changes commensurate with myocardial infarction. I am uncertain of the etiology of her symptoms but she will be admitted to the hospitalist service for further observation and care and consideration for further diagnostics. Lab Data 11/16/24 20:51 11/16/24 20:51 Labs/Radiology: Radiology Impressions Chest X-Ray 11/16/24 21:12 IMPRESSION: No acute findings. Chest CTA 11/16/24 23:25 IMPRESSION: 1. No evidence of acute pulmonary emboli. Stable chronic focal web-like filling defect at basal segmental right lower lobe artery. 2. Brzqh-ubiiuqy-ixdc-left dependent reticulation and ground-glass attenuation may represent atelectasis, possibly edema given additional finding of smooth interlobular septal thickening suggestive of interstitial edema. Difficult to entirely exclude infectious or inflammatory process. 3. Minimal bilateral pleural effusions. 4. Bilateral mosaic attenuation is nonspecific, may be seen in the setting of small airways disease or possibly on the basis of chronic thromboembolic pulmonary hypertension. 5. Additional chronic and incidental findings as above. Laboratory Results WBC 11.20 10^3/uL (3.29-11.43) 11/16/24 20:51 RBC 5.38 10^6/uL (3.85-5.65) 11/16/24 20:51 Hgb 13.90 g/dL (11.27-16.99) 11/16/24 20:51 Hct 45.8 % (36-47) 11/16/24 20:51 MCV 85.1 fl (85-98) 11/16/24 20:51 MCH 25.8 pg (27-33) L 11/16/24 20:51 MCHC 30.3 g/dL (30-55) 11/16/24 20:51 RDW 14.2 % (12.1-15.1) 11/16/24 20:51 Plt Count 339 10^3/cmm (157-399) 11/16/24 20:51 MPV 11.3 fL (7.4-10.4) H 11/16/24 20:51 Neut % (Auto) 29.7 % 11/16/24 20:51 Lymph % (Auto) 49.6 % 11/16/24 20:51 [place] % (Auto) 13.1 % 11/16/24 20:51 Eos % (Auto) 6.6 % 11/16/24 20:51 Baso % (Auto) 0.7 % 11/16/24 20: Neut # (Auto) 3.32 10^3/uL (1.8-7.7) 11/16/24 20:51 Lymph # (Auto) 5.6 10^3/uL (0.8-4.8) H 11/16/24 20:51 [place] # (Auto) 1.5 10^3/uL (0.2-0.9) H 11/16/24 20:51 Eos # (Auto) 0.7 10^3/uL (0.0-0.8) 11/16/24 20:51 Baso # (Auto) 0.1 10^3/uL (0.0-0.1) 11/16/24 20:51 Nucleated RBC % (auto) 0 % 11/16/24 20: Nucleated RBCs # 0.0 /100WBC 11/16/24 20:51 Specimen Type Arterial 11/16/24 21:07 Sample Site Brachial, right 11/16/24 21:07 ABG pH 7.28 (7.35-7.45) L 11/16/24 21:07 ABG pCO2 44.3 mmHg (35-45) 11/16/24 21:07 ABG pO2 137.0 mmHg (80.0-100.0) H 11/16/24 21:07 ABG PO2/FiO2 Ratio 342 11/16/24 21:07 ABG HCO3 20.7 mmol/L (22-26) L 11/16/24 21:07 ABG Base Excess -6.0 mmol/L (-2.0-2.0) L 11/16/24 21:07 [place] Test N/a 11/16/24 21:07 Hematocrit 42.5 % (37-47) 11/16/24 21:07 Hgb O2 Saturation 97.2 % (95-100) 11/16/24 21:07 Carboxyhemoglobin 0.8 %THgb (0.4-20.1) 11/16/24 21:07 Methemoglobin 1.1 % (0.4-1.5) 11/16/24 21:07 Total Hemoglobin 13.9 g/dL (12-16) 11/16/24 21:07 O2 Delivery Device Bipap 11/16/24 21:07 FiO2 40.0 % 11/16/24 21:07 Furnace Operator Oil Or Gas ID [email or web address] 11/16/24 21:07 Sodium 139 mmol/L (136-145) 11/16/24 20:51 Potassium 3.9 mmol/L (3.5-5.1) 11/16/24 20:51 Chloride 104 mmol/L (98-107) 11/16/24 20:51 Carbon Dioxide 20 mmol/L (22-29) L 11/16/24 20:51 Anion Gap 18.9 (5-19) 11/16/24 20:51 BUN 20 mg/dL (8-23) 11/16/24 20:51 Creatinine 0.9 mg/dL (0.5-0.9) 11/16/24 20:51 GFR Calculation Not Reportable 11/16/24 20:51 Glucose 170 mg/dL (65-115) H 11/16/24 20:51 Calculated Osmolality 295 mOsm/kg (285-295) 11/16/24 20:51 Calcium 8.5 mg/dL (8.5-10.5) 11/16/24 20:51 Total Bilirubin 0.3 mg/dL (0.15-1.2) 11/16/24 20:51 AST 20 U/L (0-32) 11/16/24 20:51 ALT 13 U/L (0-33) 11/16/24 20:51 Alkaline Phosphatase 120 U/L (35-105) H 11/16/24 20:51 Troponin T Baseline 9 ng/L (0-10) 11/16/24 21:07 Troponin T 120 Minute 19.91 ng/L (0-10) H 11/16/24 23:13 Delta Troponin T 10.91 ABS# (0-10) H* 11/16/24 23:13 NT-Pro-B Natriuret Pep 1548 pg/mL (0-450) H 11/16/24 20:51 Total Protein 7.8 g/dL (6.6-8.7) 11/16/24 20:51 Albumin 4.5 g/dL (3.5-5.2) 11/16/24 20:51 Globulin 3.3 g/dL (1.3-4.6) 11/16/24 20:51 Urine Color Yellow (Yellow) 11/16/24 22:50 Urine Appearance Clear (CLEAR) 11/16/24 22:50 Urine pH 5 (5-7) 11/16/24 22:50 Ur Specific [place] 1.025 (1.005-1.030) 11/16/24 22:50 Urine Protein 3+ (Negative) A 11/16/24 22:50 Urine Glucose (UA) Norm (Normal) 11/16/24 22:50 Urine Ketones Negative (Negative) 11/16/24 22:50 Urine Blood Neg (Negative) 11/16/24 22:50 Urine Nitrate Negative (Negative) 11/16/24 22:50 Urine Bilirubin Neg (Negative) 11/16/24 22:50 Urine Urobilinogen Norm mg/dL (Negative) 11/16/24 22:50 Ur Leukocyte Esterase Negative (Negative) 11/16/24 22:50 Urine RBC 0-2 /hpf (0-2) 11/16/24 22:50 Urine WBC 6-10 /hpf (0-5) 11/16/24 22:50 Ur Squamous Epith Cells 6-10 /hpf (0-5) 11/16/24 22:50 Amorphous Sediment Not Reportable 11/16/24 22:50 Urine Bacteria None seen /hpf (NONE) 11/16/24 22:50 Hyaline Casts 11.16 /lpf 11/16/24 22:50 Fine Granular Casts 0-4 /lpf H 11/16/24 22:50 All radiology interpretation(s) finalized by discharge EKG Data EKG 1: Interpretation: EKG: Time?2113?interpreted by me: Sinus rhythm, rate of 70, left bundle branch block pattern with negative Sgarbossa criteria. QTc = 495. EKG 2: Interpretation: Repeat EKG at 2310?sinus rhythm, left bundle branch block pattern with negative Sgarbossa criteria, rate of 68, no T wave inversions, QTc = 491 Discharge Plan Discharge Patient Disposition: Placed in Observation Clinical Impression: Shortness of breath, Elevated troponin, Bilateral pleural effusion, Hypoxia Coding Level of Care Code ED Winchman/Crane Operator for Papi Brody
[2024-11-16 21:40] LABS: Troponin(5th) Baseline 9 ng/L (0-10)
[2024-11-16 21:40] LABS: Alanine Aminotransferase 13 U/L (0-33); Albumin Level 4.5 g/dL (3.5-5.2); Anion Gap 18.9 (5-19); Aspartate Amino Transferase 20 U/L (0-32); Blood Urea Nitrogen 20 mg/dL (8-23); Calcium 8.5 mg/dL (8.5-10.5); Carbon Dioxide 20 mmol/L (22-29); Chloride 104 mmol/L (98-107); Creatinine Clr Calc Pharmacy 47.4079; Globulin 3.3 g/dL (1.3-4.6); Glucose 170 mg/dL (65-115); NT Pro B Type Natriuretic Pept 1548 pg/mL (0-450); Osmolality Calculated 295 mOsm/kg (285-295); Potassium 3.9 mmol/L (3.5-5.1); Sodium 139 mmol/L (136-145); Total Bilirubin 0.3 mg/dL (0.15-1.2); Total Protein 7.8 g/dL (6.6-8.7)
[2024-11-16 21:48] LABS: Slide Review Slide Review Perform
--- NOTE | 2024-11-16 22:20 | PC.NURSE ---
pt taken off bipap and placed on 2l NC at this time
[2024-11-16 22:35] LABS: Alkaline Phosphatase 120 U/L (35-105)
--- NOTE | 2024-11-16 23:10 | ECG_ITS ---
[facility]: 2024-11[facility]16 Pat Name: Emma Navarrete Department: Room: [facility] Gender: Female Online Marketing Coordinator: : 1945 Requested By: Marcio Martinez Order Number: [id number] Mahendra MD: Chrissie Barker M.D. Measurements Intervals [place] Rate: 68 P: 66 GA: 168 QRS: -3 QRSD: 157 T: 130 QT: 474 QTc: 506 Interpretive Statements SINUS RHYTHM POSSIBLE LEFT ATRIAL ENLARGEMENT [-0.1mV P-WAVE IN V1/V2] LEFT BUNDLE BRANCH BLOCK [120+ ms QRS DURATION, 80+ ms Q/S IN V1/V2, 85+ ms R IN I/aVL/V5/V6] Compared to ECG 11/16/2024 21:14:06 No significant changes Electronically Signed On 11-18-2024 21:53:13 CDT by Chrissie Barker M.D. [id number]
[2024-11-16 23:14] LABS: Bacteria Urine None Seen /hpf; Hyaline Casts Urine 11.16 /lpf; RBC Urine 0-2 /hpf (0-2)
--- NOTE | 2024-11-16 23:25 | CTR_ITS ---
PROCEDURE INFORMATION: Exam: CTA Chest With Contrast Exam date and time: 11/16/2024 11:59 PM Age: 79 years old Clinical indication: Shortness of breath; Additional info: Sudden onset SOB, hypoxia, HX of pe TECHNIQUE: Imaging protocol: Computed tomographic angiography of the chest with contrast. Exam focused on the arteries. 3D rendering (Not supervised by radiologist): MIP and/or 3D reconstructed images were created by the technologist. Radiation optimization: All CT scans at this facility use at least one of these dose optimization techniques: automated exposure control; mA and/or kV adjustment per patient size (includes targeted exams where dose is matched to clinical indication); or iterative reconstruction. Contrast material: OMNI 350; Contrast volume: 100 ml; Contrast route: INTRAVENOUS (IV); COMPARISON: 1. CT angio chest PE protcl [id number] 01/19/2024 3:53 AM 2. CR (CHEST, ) 11/16/2024 9:15 PM RADIATION DOSE METRICS: Total DLP (mGy-cm): 430.52 FINDINGS: Pulmonary arteries: Pulmonary arterial dilatation with the main trunk measuring 3.4 cm. No evidence of acute pulmonary emboli. Stable chronic focal web-like filling defect at basal segmental right lower lobe artery seen to advantage on coronal image 95 of series 7. Aorta: Moderate systemic atherosclerotic calcification without aortic aneurysm. Contrast bolus not timed to evaluate systemic arterial bed. Lungs: Mild bilateral mosaic attenuation similar to prior. Mild smooth interlobular septal thickening greatest in the right upper lung suggestive of edema. Gjyqh-tclyhbm-mvgd-left dependent reticulation and ground-glass attenuation. No dense consolidation or mass. Right upper lobe calcified granuloma. Pleural spaces: Minimal bilateral pleural effusions. No pneumothorax. Heart: Borderline left ventricular and left atrial dilatation, stable. No pericardial effusion. Coronary arteries: Moderate coronary artery calcification. Lymph nodes: Calcified mediastinal lymph nodes in keeping with sequela of old granulomatous disease. Diaphragm: Jngi-rh-kvccjmjh hiatal hernia. Gallbladder and biliary ducts: Prior cholecystectomy. Bones/joints: No acute fracture. Degenerative changes along the spine and shoulders. Soft tissues: Unremarkable. CT/CT angio chest PE protcl [id number] IMPRESSION: 1. No evidence of acute pulmonary emboli. Stable chronic focal web-like filling defect at basal segmental right lower lobe artery. 2. Iinid-ugrdfmt-hpxa-left dependent reticulation and ground-glass attenuation may represent atelectasis, possibly edema given additional finding of smooth interlobular septal thickening suggestive of interstitial edema. Difficult to entirely exclude infectious or inflammatory process. 3. Minimal bilateral pleural effusions. 4. Bilateral mosaic attenuation is nonspecific, may be seen in the setting of small airways disease or possibly on the basis of chronic thromboembolic pulmonary hypertension. 5. Additional chronic and incidental findings as above.
[2024-11-16 23:35] LABS: Troponin 5 2HR 19.91 ng/L (0-10)
[2024-11-16 23:38] LABS: Protein Urine 3+ (Negative); Specific Gravity, Urine 1.025 (1.005-1.030); Urine Appearance Clear (CLEAR); Urine Color Yellow (Yellow); pH Urine 5 (5-7)
[2024-11-16 23:39] LABS: Add Urine Microscopic? YES; Bilirubin Urine Neg (Negative); Blood Urine Neg (Negative); Fine Granular Casts Urine 0-4 /lpf; Glucose Urine UA Norm (Normal); Ketones Urine Negative (Negative); Leukocyte Esterase Urine Negative (Negative); Nitrate Urine Negative (Negative); UA Slide Review UA Slide Review Perf; Urobilinogen Urine Norm (Negative)
[2024-11-16 23:41] LABS: Troponin 5 2HR Delta 10.91 ABS# (0-10)
[2024-11-17] VITALS (247 sets, daily range): BP systolic 91–187; BP diastolic 51–114; PULSE 57–114; RESP 12–32; TEMP 36.3–37; O2SAT 87–99; BMI 27.5
[2024-11-17] MEDS: iohexol 350 mg/mL 500 mL Btl (per mL) IV (00:14)
--- NOTE | 2024-11-17 01:39 | USCV_ITS ---
Emma Navarrete Age: 79 Gender: F : 1945 Exam Date: 11/17/2024 03:01 Ordering Phys: Marcio Martinez MD Technologist: OLIMPIA [place] [facility] [place]: nstemi paroxysmal SOB, hypoxic in 80% range, patient has a prior history of pulmonary emboli BP: 173 / 87 HR: 68 Rhythm: Sinus Technical Quality: Adequate MEASUREMENTS (Male / Female) Normal Values 2D ECHO LV Diastolic Diameter PLAX 5.8 cm 4.2 - 5.9 / 3.9 - 5.3 cm IVS Diastolic Thickness 1.5 cm 0.6 - 1.0 / 0.6 - 0.9 cm IVS Systolic Thickness 2.3 cm LVPW Diastolic Thickness 0.8 cm 0.6 - 1.0 / 0.6 - 0.9 cm LVPW Systolic Thickness 0.9 cm LVOT Diameter 1.9 cm LV Ejection Fraction 2D Teich 39.5 % LV Ejection Fraction MOD 4C 43.9 % LV Ejection Fraction MOD 2C 32.2 % LV Ejection Fraction 2C AL 31.6 % LA Diameter 4.8 cm LA Sys Volume AL 70.7 cm cubed LA Sys Volume Index AL 40.6 cm cubed/m squared Aorta at Sinotubular Diameter 2.8 cm IVC Diameter 1.1 cm M-MODE LA Ao Ratio MM 1.7 AV Cusp Separation MM 1.8 cm DOPPLER AV Peak Velocity 139.0 cm/s LVOT Peak Velocity 99.0 cm/s AV Area Cont Eq vti 2.2 cm squared AV Area Cont Eq pk 2.1 cm squared MV Peak Velocity 94.0 cm/s MV Area PHT 4.8 cm squared Mitral E to A Ratio 0.8 TV Peak Velocity 231.0 cm/s TR Peak Velocity 236.0 cm/s TR Peak Gradient 22.3 mmHg TV Peak E Velocity 56.0 cm/s PV Peak Velocity 95.0 cm/s FINDINGS Left Ventricle Diffuse hypokinesis of the left ventricle with ejection fraction of 43%mild left ventricular hypertrophy.Grade I/IV diastolic dysfunction (abnormal relaxation filling pattern), normal to mildly elevated filling pressures. Right Ventricle The right ventricle is normal in size and function. Right Atrium The right atrium is normal in size. Left Atrium Moderately increased left atrial size. Mitral Valve Thickened mitral valve. Mild mitral annular calcification. Moderately severe mitral valve regurgitation. Aortic Valve Thickened aortic valve. Tricuspid Valve Trace to mild tricuspid valve regurgitation. Pulmonic Valve No gross abnormalities noted Pericardium Normal pericardium without effusion. Aorta . Normal aortic annulus size. IVC Normal inferior vena cava. CONCLUSIONS Diffuse hypokinesis of the left ventricle with ejection fraction of 43%mild left ventricular hypertrophy.Grade I/IV diastolic dysfunction (abnormal relaxation filling pattern), normal to mildly elevated filling pressures. Moderately increased left atrial size. Thickened mitral valve. Mild mitral annular calcification. Moderately severe mitral valve regurgitation. Thickened aortic valve. Trace to mild tricuspid valve regurgitation. Estimated pulmonary artery peak systolic pressure 26 mmHg There is no pericardial effusion. There are no intracardiac masses. Compared to study from 01/19/2024 there is some worsening of the mitral regurgitation and the systolic function Dr Chrissie Barker MD [facility] (Electronically Signed) Final Date: 17 November 2024 18:21 S
--- NOTE | 2024-11-17 01:46 | P.HP_ITS ---
Providers/Chief Complaint 2 Admitting Physician: Marcio Martinez MD Primary Care Provider: Raven Peres MD Chief Complaint: sob History of Present Illness Emma Navarrete is a 79 year old female with a past medical history of SVT, history of pulmonary embolism, mild to moderate tricuspid valve regurg, moderate mitral valve regurg who presents [facility] for sudden onset shortness of breath. Patient does see that she lives at home by herself, she has been doing well nothing out of the ordinary, she tells me that tonight, she was on the phone with her daughter, when she got up that she was going to another room, when she had a sudden onset of shortness of breath, she had trouble catching her breath, she was wheezing, no chest pain, no palpitations, no lightheadedness, dizziness, no diaphoresis, her shortness of breath did not improve with rest, so she called a neighbor to check up on her and help take her to the the emergency room, she went outside to the carport wait for her friend, but her shortness of breath progressively worsened, so she called 911, upon arrival EMS placed her on BiPAP, O2 sats of 80% on room air she does not use oxygen at home, in the emergency room she was kept on BiPAP and weaned to nasal cannula, currently on nasal cannula she is quite comfortable, on 2 L, denies any chest pain, palpitations, chills, dizziness, denies any fevers, no cough no reported aspiration Review of Systems 2 Const: Denies: fever(s) Card: Denies: chest pain or palpitations Resp: Reports: dyspnea; Denies: non-productive cough Medications/Allergies Home Medications ?Medication ?Instructions ?Recorded ?Confirmed ?Last Taken ?Type docusate sodium 100 mg capsule 100 mg PO BID PRN Const ipation 09/09/20 06/01/24 Unknown History (Colace) [place] J 06/11/22 06/01/24 Unknown H istory isosorbide mononitrate 30 mg 30 mg PO BID #180 tabs 06/01/24 Unknown Rx tablet,extended release 24 hr diclofenac sodium 75 mg 75 mg PO Q12H PRN pain #20 t abs 01/17/24 06/01/24 Unknown Rx tablet,delayed release morphine 15 mg immediate release 15 mg PO Q8H PRN Pain 01/19/24 06/01/24 Unknown History tablet cyclobenzaprine 5 mg tablet 5 mg PO TID PRN MUSCLE SPA SMS 01/20/24 06/01/24 Unknown History amlodipine 10 mg tablet 10 mg PO DAILY #30 tabs 01/0406/01/24 Unknown Rx apixaban 5 mg tablet (Eliquis) 5 mg PO BID@0900,2100 # 60 tabs 01/29/24 06/01/24 Unknown Rx atorvastatin 40 mg tablet 20 mg (1/2 x 40 mg) PO BEDTI ME #30 01/29/24 06/01/24 Unknown Rx tabs cyanocobalamin (vitamin B-12) 5,000 mcg PO DAILY #30 c aps 01/29/24 06/01/24 Unknown Rx 5,000 mcg capsule lisinopril 20 mg tablet 40 mg (2 x 20 mg) PO DAILY # 60 tabs 01/29/24 06/01/24 Unknown Rx metoprolol tartrate 25 mg tablet 25 mg PO BID@0900,210 0 #60 tabs 01/29/24 06/01/24 Unknown Rx pantoprazole 40 mg tablet,delayed 40 mg PO DAILY #30 t abs 01/29/24 06/01/24 Unknown Rx release polyethylene glycol 3350 17 gram 17 g PO DAILY #30 ea 01/29/24 06/01/24 Unknown Rx oral powder packet sennosides 8.6 mg-docusate sodium 1 tab PO BID #20 tab s 01/29/24 06/01/24 Unknown Rx 50 mg tablet (Stool Softener-Laxative) topiramate 50 mg capsule,extended 50 mg PO DAILY #30 c aps 01/29/24 06/01/24 Unknown Rx release 24 hr sodium chloride 0.65 % nasal spray 2 spray intranasal Q2H PRN dry 02/01/24 06/01/24 Unknown Rx aerosol (Saline Nasal) nasal passages #44 mL white petrolatum (Vaseline jelly, 1 applic topical BID PRN dry nasal 02/01/24 06/01/24 Unknown Rx topical) passages #113 grams ondansetron 4 mg disintegrating 4 mg PO Q6H PRN nausea and 04/05/24 06/01/24 Unknown Rx tablet vomiting #14 tabs Allergies Allergy/AdvReac Type Severity Reaction Status Date / Time oxycodone (From Xtampza ER) Allergy bad taste Verified 11/16/24 21:07 in mouth PFSH Acute 2 PFSH: Medical History Moderate mitral regurgitation HTN (hypertension) with goal to be determined SVT (supraventricular tachycardia) Hypertension Stenosis of cervical spine with myelopathy Renal cyst, left Tricuspid valve regurgitation Mitral valve regurgitation Shortness of breath Hyperlipidemia GERD (gastroesophageal reflux disease) Cervical disc disorder with myelopathy of mid-cervical region CRPS (complex regional pain syndrome type I) last stellate ganglion block was in 2012. 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 L2-L3, L3-L4, L4-L5, and L5-S1 fusion/fixation 1986 [facility] L4-L5, L5-S1 decompression 05/1977 L5-S1 decompression S/P thymectomy 1983 AGE 15 MYASTHENIA GRAVIS S/P bladder repair ANTERIOR VAG REPAIR WITH ELEVATE VAG MESH, POSTERIOR REPAIR AND CYSTOSCOPY DR [facility]. 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 Vitals/I&O/Wt Last Vital Signs Temp 97.4 F L 11/16/24 21:00 Pulse 68 11/17/24 00:36 Resp 19 H 11/17/24 00:15 BP 173/87 11/17/24 00:36 Pulse Ox 97 11/17/24 00:36 O2 Del Method Nasal Cannula 11/17/24 00:15 O2 Flow Rate 2 11/16/24 23:04 FiO2 40 11/16/24 21:05 11/16/24 11/16/24 11/17/24 14:59 22:59 06:59 Intake Total 0 / 0 Balance 0 / 0 Weight last 48 hrs Weight 67.132 kg Physical Exam 2 Const: COMMON NORMALS: no acute distress and patient oriented x3 HENMT: COMMON NORMALS: normocephalic HEAD & SCALP: normocephalic Eye: COMMON NORMALS: Equal, round and reactive pupils present and EOMs intact bilaterally Resp: COMMON NORMALS: normal respiratory effort, No retractions, No use of accessory muscles and clear to auscultation bilaterally AUSCULTATION: c rackles and wheezes Cardio: COMMON NORMALS: no JVD, regular rate, regular rhythm, S1 normal heart sound present and S2 normal heart sound present RATE: regular rate RHYTHM: regular rhythm HEART SOUNDS: S1 normal heart sound present and S2 normal heart sound present GI: COMMON NORMALS: Normal to inspection, nondistended, normoactive bowel sounds present, Soft to palpation and non-tender Extremity: COMMON NORMALS: no calf tenderness and no pedal edema Neuro: COMMON NORMALS: patient oriented x3, CN's II-XII intact bilaterally and moves all extremities Psych: COMMON NORMALS: mental status grossly normal Data 11/16/24 20:51 11/16/24 20:51 A&P Assessment and plan (1) Acute hypoxic respiratory failure: (2) Non-STEMI (non-ST elevated myocardial infarction): (3) Pneumonia: (4) Pulmonary edema: Plan Acute hypoxic respiratory failure - Etiology unclear? - Possibly acute flash pulmonary edema - Does have NSTEMI, potentially cardiac event? - Also concern for pneumonia given CT scans findings as below CT/CT angio chest PE protcl [id number] IMPRESSION: 1. No evidence of acute pulmonary emboli. Stable chronic focal web-like filling defect at basal segmental right lower lobe artery. 2. Xtsrp-[id number]-ojsf-left dependent reticulation and ground-glass attenuation may represent atelectasis, possibly edema given additional finding of smooth interlobular septal thickening suggestive of interstitial edema. Difficult to entirely exclude infectious or inflammatory process. 3. Minimal bilateral pleural effusions. 4. Bilateral mosaic attenuation is nonspecific, may be seen in the setting of small airways disease or possibly on the basis of chronic thromboembolic pulmonary hypertension. 5. Additional chronic and incidental findings as above. Plan - Monitor in ICU -BiPAP as needed - Serial EKGs, start troponins, telemetry monitoring - Cardiac echo - Blood cultures, CRP, Pro-Adonis, respiratory viral panel, lactic acid - Lasix 40 IV milligrams once - Heparin drip - Aspirin, Statin, metoprolol - Start Zosyn -start vancomycin - Sputum cultures, MRSA nares -DuoNeb, budesonide - Will monitor clinical status closely - Full code - Lovenox for DVT prophylaxis PDMP PDMP Reviewed: Not Reviewed Attestations 2 Medical Necessity Statement*: Patient requires hospitalization, inpatient, greater than 2 midnights for acute hypoxic respiratory failure, NSTEMI, pulm edema, pneumonia Diagnoses Acute hypoxic respiratory failure J96.01 Non-STEMI (non-ST elevated myocardial infarction) I21.4 Pneumonia J18.9 Pulmonary edema J81.1
[2024-11-17 02:23] LABS: Erythrocyte Sedimentation Rate 11 mm/hr (0-15)
[2024-11-17 02:34] LABS: Procalcitonin 0.03 ng/mL (0-0.5)
[2024-11-17 02:48] LABS: Reflex Lactate Order REFLEX LACTIC ORDERD
[2024-11-17] MEDS: pantoprazole 40 mg SDV IVP (03:27)
[2024-11-17] MEDS: FUROsemide 10 mg/mL SDV 4mL 40 MG IVP (03:27)
[2024-11-17] MEDS: heparin 5,000 unit/mL INJ 1 mL IVP (03:28)
[2024-11-17] MEDS: aspirin 81 mg EC Tablet PO ×2 (03:29→08:46)
[2024-11-17] MEDS: piperacillin-tazobactam 3.375 GM in sodium chloride 0.9% (plus) 50 ML IV ×3 (03:29→19:59)
[2024-11-17] MEDS: heparin drip 25,000 UNIT/500 ML PREMIX 20 UNIT IV (03:30)
[2024-11-17] MEDS: VANCOMYCIN ADD-Vantage 1,000 MG in 0.9% NaCl ADD-Vantage 250 ML 250 MG IV (03:42)
[2024-11-17 03:47] LABS: Basophils % 0.6 %; Eosinophils # 0.2 10^3/uL (0.0-0.8); Eosinophils % 2.9 %; Lymphocytes # 1.3 10^3/uL (0.8-4.8); Lymphocytes % 19.6 %; Mean Corpuscular Hemoglobin 25.7 pg (27-33); Mean Corpuscular Volume 85.7 fl (85-98); Mean Platelet Volume 11.3 fL (7.4-10.4); Monocytes # 0.7 10^3/uL (0.2-0.9); Monocytes % 10.7 %; Neutrophils # 4.32 10^3/uL (1.8-7.7); Neutrophils % 66.2 %; Nucleated Red Blood Cells % 0 %; Platelet Count 246 10^3/cmm (157-399); Red Blood Count 5.02 10^6/uL (3.85-5.65); White Blood Count 6.53 10^3/uL (3.29-11.43)
[2024-11-17] MEDS: ipratropium-albuterol 3 mL Neb INHALATION ×2 (04:06→07:33)
[2024-11-17 04:07] LABS: Alanine Aminotransferase 15 U/L (0-33); Albumin Level 4.4 g/dL (3.5-5.2); Alkaline Phosphatase 115 U/L (35-105); Anion Gap 17.7 (5-19); Aspartate Amino Transferase 20 U/L (0-32); Blood Urea Nitrogen 17 mg/dL (8-23); Carbon Dioxide 22 mmol/L (22-29); Chloride 105 mmol/L (98-107); Creatinine Clr Calc Pharmacy 54.5665; Globulin 2.8 g/dL (1.3-4.6); Glucose 118 mg/dL (65-115); Osmolality Calculated 293 mOsm/kg (285-295); Potassium 4.7 mmol/L (3.5-5.1); Sodium 140 mmol/L (136-145); Total Bilirubin 0.3 mg/dL (0.15-1.2); Total Protein 7.2 g/dL (6.6-8.7)
[2024-11-17 04:08] LABS: Troponin 5 6HR 31.32 ng/L (0-10)
[2024-11-17 04:11] LABS: Lactic Acid level (Lactate) 1.7 mmol/L (0.5-2.2)
[2024-11-17 04:14] LABS: Troponin 5 6HR Delta 22.32 ng/L (0-12)
[2024-11-17 04:15] LABS: Thyroid Stimulating Hormone 1.99 uIU/mL (0.27-4.20)
[2024-11-17 05:55] LABS: Estmated Average Glucose 128; Hemoglobin A1C 6.1 % (4.0-6.0)
--- NOTE | 2024-11-17 06:23 | PHA.VACGOAL ---
Vancomycin Goal - Goal Vancomycin Goal:: 15-20 mg/L Vancomycin Indication:: Pneumonia - Therapy Current therapy:: Pip/Tazo Day of therpy:: Day []of [] . Actual body weight (kg): 155 lb 6.814 oz - Data Labs: WBC 6.53 10^3/uL (3.29-11.43) 11/17/24 03:15 RBC 5.02 10^6/uL (3.85-5.65) 11/17/24 03:15 Hgb 12.90 g/dL (11.27-16.99) 11/17/24 03:15 Hct 43.0 % (36-47) 11/17/24 03:15 MCV 85.7 fl (85-98) 11/17/24 03:15 MCH 25.7 pg (27-33) L 11/17/24 03:15 MCHC 30.0 g/dL (30-55) 11/17/24 03:15 RDW 14.0 % (12.1-15.1) 11/17/24 03:15 Sodium 140 mmol/L (136-145) 11/17/24 03:15 Potassium 4.7 mmol/L (3.5-5.1) 11/17/24 03:15 Chloride 105 mmol/L (98-107) 11/17/24 03:15 Carbon Dioxide 22 mmol/L (22-29) 11/17/24 03:15 Anion Gap 17.7 (5-19) 11/17/24 03:15 BUN 17 mg/dL (8-23) 11/17/24 03:15 Creatinine 0.8 mg/dL (0.5-0.9) 11/17/24 03:15 GFR Calculation Not Reportable 11/17/24 03:15 Last dialysis session:: N/A Treatment plan:: new consult Regimen:: TELEPHARMACY: INITIAL LOADING DOSE OF 1000 MG X 1 MAINTENANCE DOSE SCHEDULED FOR 750 MG Q12H PER DOSING PROTOCOL. Follow up:: WILL CONTINUE TO MONITOR AND FOLLOW UP DAILY
--- OUTSIDE RECORDS SUMMARY | 2024-11-17 06:40 | XMS_ITS | Data Portability ---
Author Organization [facility] Jesse Ley [facility] Address [address] [address] Care Team Providers Care Customer Advisor Specialist Name Role Phone RAVEN GALE Primary Care Provider TEMO BROWN OTHER SIMON MOORE Infectious Disease Assessment No assessment recorded. Plan of Treatment Reminders Order Date Submit Date Provider Last Modified By Organization Details Last Modified Time Details Appointments None recorded. Lab lipid panel, serum 2023 024 [facility], [address], [address], 4 09:33:42 CMP, serum or plasma 2023 024 [id number] [facility], [address], [address], 4 09:33:42 Referral None recorded. Procedures None recorded. Surgeries None recorded. Imaging None recorded. Medication Orders pantoprazol e 40 mg tablet,glenn yed release 2024 025 [facility], [facility] [place], [address], 5 17:36:40 isosorbide mononitrate ER 30 mg tablet,exte nded release 24 hr 2024 025 [facility], [address] [place], [address], 5 10:46:19 lisinopril 40 mg tablet 2024 025 [facility], [facility] [place], [address], 5 17:36:38 metoprolol tartrate 50 mg tablet 2024 025 [facility], [address] [place] [address], [address], 5 17:36:38 hydralazine 25 mg tablet 2024 025 [facility], [address] [place] [address], [address], 5 17:36:39 atorvastati n 20 mg tablet 2024 025 [facility], [address] [place] [address], [address], 5 10:46:23 azithromyci n 250 mg tablet 2023 025 [facility], [address] [place] [address], [address], 5 10:01:28 prednisone 20 mg tablet 2023 025 [facility], [address] [place] [address], [address], 5 10:01:30 Eliquis 5 mg tablet 2023 024 [facility], [facility] [place], [address], 5 11:05:53 Patient TargetsNo targets recorded. Patient InstructionsNo instructions recorded. Reason for Referral None Reported. Results Created Date Observation Date Name Description Value Unit Range Abnormal Flag Note LastModifiedBy Organization Detail LastModifiedTime 03/27/20 24 03/27/2024 CBC WBC 8.3 x10 4.0-10 .5 Not Available [facility] [address], [place], [address], 03/27/2024 09:44:02 03/27/20 24 03/27/2024 CBC RBC 4.25 x10 3.50-5 .50 Not Available [facility] [address] [facility] 1, [place], [address], 03/27/2024 09:44:02 03/27/20 24 03/27/2024 CBC HGB 12.2 g/dL 12.0-1 6.0 Not Available [facility] [address] [facility] 1, [place], [address], 03/27/2024 09:44:02 03/27/20 24 03/27/2024 CBC HCT 36.0 % 37.0-4 7.0 low Not Available [facility] [address] [facility] 1, [place], [address], 03/27/2024 09:44:02 03/27/20 24 03/27/2024 CBC MCV 84.6 fL 80.0-9 9.9 Not Available [facility] [address] [facility] 1, [place], [address], 03/27/2024 09:44:02 03/27/2003/27/2024 CBC MCH 28.6 pg 27.0-3 2.0 Not Available [facility] [address] [facility] 1, [place], [address], 03/27/2024 09:44:02 03/27/20 24 03/27/2024 CBC MCHC 33.8 g/dL 32.0-3 6.0 Not Available [facility] [address] [facility] 1, [place], [address], 03/27/2024 09:44:02 03/27/20 24 03/27/2024 CBC RDW 14.5 % 11.5-1 4.5 Not Available [facility] [address] [facility] 1, [place], [address], 03/27/2024 09:44:02 03/27/20 24 03/27/2024 CBC plt 420.7 x10 140.0- 451.0 Not Available [facility] [address] [facility] 1, [place], [address], 03/27/2024 09:44:02 03/27/20 24 03/27/2024 CBC lymphocytes % 27.0 % 20.0-5 0.0 Not Available [facility] [address] [facility] 1, [place], [address], 03/27/2024 09:44:02 03/27/20 24 03/27/2024 CBC granulcytes % 57.4 % 30.0-7 0.0 Not Available [facility] [address] [facility] 1, [place], [address], 03/27/2024 09:44:02 03/27/20 24 03/27/2024 CBC monocytes % 7.8 % 2.0-16 .0 Not Available [facility] [address] [facility] 1, [place], [address], 03/27/2024 09:44:02 03/27/20 24 03/27/2024 CBC granulcytes# 4.8 x10 Not Lauren ilable [facility] [address] [facility] 1, [place], [address], 03/27/2024 09:44:02 03/27/20 24 03/27/2024 CBC lymphocytes # 2.3 x10 Not Available [facility] [address] [facility] 1, [place], [address], 03/27/2024 09:44:02 03/27/20 24 03/27/2024 CBC monocytes # 0.7 x10 Not Avai lable [facility] [address] [facility] 1, [place], [address], 03/27/2024 09:44:02 03/27/20 24 03/27/2024 CMP (FEMA LE) glucose 111.0 mg/dL 60.0-9 9.0 high Not Available [facility] [address] [facility] 1, [place], [address], 03/27/2024 10:21:09 03/27/20 24 03/27/2024 CMP (FEMA LE) BUN (blood urea nitrogen) 19.0 mg/dL 10.0-2 6.0 Not Available [facility] [address] [facility] 1, [place], [address], 03/27/2024 10:21:09 03/27/20 24 03/27/2024 CMP (FEMA LE) creatinine (serum) 0.7 mg/dL 0.4-1. 5 Not Available [facility] [facility], [place], [address], 03/27/2024 10:21:09 03/27/20 24 03/27/2024 CMP (FEMA LE) BUN/creatini ne ratio 28.79 ratio Not Available [facility] [address] Ale[address] [facility] 1, [place], [address], 03/27/2024 10:21:09 03/27/20 24 03/27/2024 CMP (FEMA LE) eGFR calculated 92.3 Not Available [facility] [address] [facility] 1, [place], [address], 03/27/2024 10:21:09 03/27/20 24 03/27/2024 CMP (FEMA LE) total protein 7.6 g/dL 6.0-8. 5 Not Available [facility] [address] [facility] 1, [place], [address], 03/27/2024 10:21:09 03/27/20 24 03/27/2024 CMP (FEMA LE) total bilirubin 0.3 mg/dL 0.2-1. 3 Not Available [facility] [address] [place] [address] [facility] 1, [place], [address], 03/27/2024 10:21:09 03/27/20 24 03/27/2024 CMP (FEMA LE) albumin 4.2 g/dL 3.5-5. 5 Not Available [facility] [address] [place] [address] [facility] 1, [place], [address], 03/27/2024 10:21:09 03/27/20 24 03/27/2024 CMP (FEMA LE) globulin 3.4 calc Not Available [facility] [address] [place] [address] [facility] 1, [place], [address], 03/27/2024 10:21:09 03/27/20 24 03/27/2024 CMP (FEMA LE) AST (SGOT) 25.0 U/L 0.0-46 .0 Not Available [facility] [address] [place] [address] [facility] 1, [place], [address], 03/27/2024 10:21:09 03/27/20 24 03/27/2024 CMP (FEMA LE) altv (SGPT) 15.0 U/L 13.0-6 9.0 normal Not Available [facility] [address] [facility] 1, [place], [address], 03/27/2024 10:21:09 03/27/20 24 03/27/2024 CMP (FEMA LE) A/G ratio 1.2 ratio Not Available [facility] [address] [facility] 1, [place], [address], 03/27/2024 10:21:09 03/27/20 24 03/27/2024 CMP (FEMA LE) ALP phos 98.0 U/L 30.0-1 40.0 normal Not Available [facility] [address] [facility] 1, [place], [address], 03/27/2024 10:21:09 03/27/20 24 03/27/2024 CMP (FEMA LE) calcium 9.7 mg/dL 8.4-10 .5 Not Available [facility] [address] [facility] 1, [place], [address], 03/27/2024 10:21:09 03/27/20 24 03/27/2024 CMP (FEMA LE) sodium 139.0 mmol/ L 136.0- 145.0 Not Available [facility] [address] [facility] [address], [place], [address], 03/27/2024 10:21:09 03/27/20 24 03/27/2024 CMP (FEMA LE) potassium 4.3 mmol/ L 3.5-5. 1 Not Available [facility] [address] [facility] 1, [place], [address], 03/27/2024 10:21:09 03/27/20 24 03/27/2024 CMP (FEMA LE) chloride 106.0 mmol/ L 98.0-1 10.0 normal Not Available [facility] [address] [facility] [address], [place], [address], 03/27/2024 10:21:09 03/27/20 24 03/27/2024 CMP (FEMA LE) C02 28.0 mmol/ L 22.0-3 1.0 Not Available [facility] [address] [facility] 1, [place], [address], 03/27/2024 10:21:09 03/27/20 24 03/27/2024 CMP (FEMA LE) anion gap 5.0 calc Not Available [facility] [address] [facility] [address], [place], [address], 03/27/2024 10:21:09 03/27/20 24 03/27/2024 CMP (FEMA LE) osmolality 289.9 calc Not Available [facility] [address] [facility] 1, [place], [address], 03/27/2024 10:21:09 03/27/20 24 03/28/2024 MAGNE SIUM magnesium 2.1 mg/dL 1.5-2. 5 normal Not Available [employer] [facility] [address] [place], [address], 03/28/2024 05:23:04 Result Notes None recorded. Problems Name Problem SNOMED Code Status Onset Date Resolution Date Notes Provider Name and Address Organization Details Recorded Time Hyperten sive urgency 698554463 Completed 202210/13/2024 Removal Reason: resolved MANDI METZ, [facility] [address] [place], [address] [place], [place] [address] 5 16:38:39 Migraine 39444666 Active 2022 [facility] 08:33:13 Hypercho lesterol emia 63046005 Active 2022 [facility] 08:33:22 Hyperten sive disorder 92387218 Active 2022 [facility]wey [facility] 3 08:33:31 Osteopor osis 74400087 Active 2023 DARYL dewey [facility], [place] 4 08:28:17 Chronic pain 85324209 Active 2023 EMMA dewey [facility], [place] 4 11:10:06 Sepsis due to methicil juan-sens itive Staphylo coccus aureus 31705645261 107 Completed 202310/13/2024 Removal Reason: resolved MANDI METZ, [facility] [address] [place] [address], [id number], [facility], MaribelCMonika 5 16:38:47 History of pulmonar y embolus 282725709 Active 2023 went through er and admitted to [facility] on January 2024-Feb EMMA dewey [facility], L.LMonikaCMonika 4 11:10:46 History of sepsis 68677518422 9100 Active 2023 EMMA dewey [facility], KervinLMonikaCMonika 4 11:11:26 Osteomye litis 29515876 Active 2023 EMMA dewey [facility], KervinLMonikaCMonika 4 11:16:40 Problem Notes None recorded. Procedures Surgical History Date Name Laterality Status Provider Name and Address Organization Details Recorded Time 09/20/19 24 screening for osteoporosis completed DARYL WALTER [facility], KervinLJose 09/23/2023 08:29:06 09/20/19 24 MRI of orbit, face and neck completed [facility] 09/23/2023 08:33:41 05/28/20 22 mammography completed [facility] DE LA ROSA [facility] 04/11/2023 10:21:46 08/05/19 20 cholecystectomy completed [facility], LJuanCMonika 04/11/2023 10:19:56 08/05/19 13 operation on urinary bladder completed [facility], LJuanCMonika 04/11/2023 10:20:41 08/05/19 10 Colonoscopy completed [facility], [place] 04/11/2023 10:22:57 Tubal Ligation completed [facility], [place] 04/11/2023 10:18:14 total replacement of hip completed [facility], [place] 04/11/2023 10:18:27 excision of thymus completed [facility], [place] 04/11/2023 10:18:46 reduction mammoplasty completed [facility], [place] 04/11/2023 10:19:14 Hysterectomy completed [facility], [place] 04/11/2023 10:19:38 Laparoscopy completed [facility], [place] 04/11/2023 10:20:58 Imaging Results None recorded. Procedure Notes None recorded. Medical Equipment None Reported. Allergies No known drug allergies Medications Name Sig Start Date Stop Date Status Note LastModified by Organization Details LastModified Time cefazolin 1 gram solution for injection 03/11 completed Not Available Not Available Not Available carvedilo l 25 mg tablet 04/04 completed Not Available Not Available Not Available clonidine HCl 0.1 mg tablet Take 1 tablet by oral route. 03/26 completed Not Available Not Available Not Available atorvasta tin 20 mg tablet Take 1 tablet every day by oral route. 2024 active Not Available Not Available Not Avai lable Normal Saline Flush 0.9 % injection syringe 03/11 completed Not Available Not Available Not Available atorvasta tin 10 mg tablet 03/11 completed Not Available Not Available Not Available azithromy stephanie 250 mg tablet TAKE 2 TABLETS BY MOUTH TODAY, THEN TAKE 1 TABLET DAILY ON DAYS 2-5 10/02 completed Not Available Not Available Not Available tizanidin e 4 mg tablet TAKE ONE TABLET BY MOUTH EVERY 6 HOURS NEEDED FOR muscle SPASMS. DO not exceed THREE doses PER 24 hours 03/11 completed Not Available Not Available Not Available lisinopri l 20 mg tablet 03/11 completed Not Available Not Available Not Available prednison e 20 mg tablet TAKE 1 TABLET BY MOUTH EVERY DAY 10/02 completed Not Available Not Available Not Available isosorbid e mononitra te ER 30 mg tablet,ex tended release 24 hr Take 1 tablet twice a day by oral route. 2024 active Not Available Not Available Not Avai lable cyanocoba melvin (vit B-12) 1,000 mcg tablet 03/11 completed Not Available Not Available Not Available hydralazi ne 25 mg tablet TAKE 1 TABLET BY MOUTH THREE TIMES DAILY active Not Available Not Available No t Available amlodipin e 5 mg tablet 04/04 completed Not Available Not Available Not Available ciproflox acin 500 mg tablet TAKE ONE TABLET BY MOUTH TWICE DAILY FOR 10 DAYS 04/08 completed Not Available Not Available Not Available morphine ER 30 mg tablet,ex tended release 04/[address] Busby // Pain manageme nt Not Available Not Available Not Available aspirin 81 mg tablet,de layed release TAKE ONE TABLET BY MOUTH EVERY DAY 04/14 completed Paused on 04/08/24 VO Not Available Not Available Not Available oxycodone 15 mg tablet 04/04 completed Not Available Not Available Not Available Zofran 4 mg tablet as needed 08/15 completed ER; 0; Recorded 09/22/19 23 8:31AM by Katlyn Hagan, Office Visit; Not Available Not Available Not Available Deep Sea Nasal 0.65 % spray aerosol 03/11 completed Not Available Not Available Not Available amlodipin e 10 mg tablet Take 1 tablet every day by oral route. 04/08 completed Not Available Not Available Not Available pantopraz ole 40 mg tablet,de layed release TAKE 1 TABLET BY MOUTH EVERY DAY active Not Available Not Available No t Available triamcino lone acetonide 0.1 % topical ointment Apply 1 applicat ion twice a day by topical route as needed. 03/11 completed Not Available Not Available Not Available metoprolo l tartrate 50 mg tablet TAKE 1 TABLET BY MOUTH TWICE DAILY STOP 25MG DOSE active Not Available Not Available No t Available docusate sodium 100 mg capsule as needed active Not Available Not Available No t Available gabapenti n 300 mg capsule 04/04 completed Not Available Not Available Not Available diclofena c sodium 75 mg tablet,de layed release Take 1 tablet twice a day by oral route. active Not Available Not Available No t Available morphine ER 15 mg tablet,ex tended release 1 BY MOUTH EVERY 8 HOURS NEEDED BREAK THROUGH PAIN 02/10 completed Not Available Not Available Not Available hydrochlo rothiazid e 25 mg tablet 1/2 tab po daily 08/15 completed Not Available Not Available Not Available gabapenti n 100 mg capsule TAKE 1 CAPSULE BY MOUTH EVERY 8 HOURS 04/04 completed Not Available Not Available Not Available sodium chloride 0.9 % intraveno us solution 03/11 completed Not Available Not Available Not Available dexametha sone sodium phosphate 4 mg/mL injection solution Inject 1 mL every day by intramus cular route for 1 day. 02/01 completed Not Available Not Available Not Available morphine 15 mg soluble tablet Take 1 tablet 3 times a day by oral route. 03/11 completed Not Available Not Available Not Available ketorolac 60 mg/2 mL intramusc ular solution Inject 2 mL every day by intramus cular route for 1 day. 02/01 completed Not Available Not Available Not Available morphine 15 mg immediate release tablet TAKE 1 TABLET BY MOUTH EVERY 8 HOURS NEEDED FOR 30 DAYS max of THREE PER day active Not Available Not Available No t Available lisinopri l 40 mg tablet TAKE 1 TABLET BY MOUTH EVERY DAY active Not Available Not Available No t Available ondansetr on 4 mg disintegr ating tablet TAKE ONE TABLET BY MOUTH EVERY 6 HOURS NEEDED FOR NAUSEA AND FOR VOMITING 04/14 completed Not Available Not Available Not Available doxycycli ne hyclate 100 mg tablet 04/04 completed Not Available Not Available Not Available davin marshtu m topical jelly 03/11 completed Not Available Not Available Not Available Ventolin HFA 90 mcg/actua tion aerosol inhaler 04/04 completed Not Available Not Available Not Available Laxative (bisacody l) 5 mg tablet,de layed release 04/08 completed Not Available Not Available Not Available cyclobenz aprine 5 mg tablet Take 1 tablet 3 times a day by oral route as needed for 10 days. 04/14 completed Not Available Not Available Not Available metoprolo l tartrate 25 mg tablet TAKE 1 TABLET BY MOUTH TWICE DAILY active Not Available Not Available No t Available topiramat e 50 mg tablet TAKE 1 TABLET AT BEDTIME FOR 5 DAYS THEN 2 TABS AT BEDTIME AND ONE TAB IN THE MORNING 10/02 completed Not Available Not Available Not Available atorvasta tin daily 04/04 completed [id number]; Recorded 02/21/20 22 8:15AM by Adalberto Tyson (Authori zed through Raven Gale MD), Refill Request; Mail Order Quantity : 90 Tablet; Mail Order Days: 90 Days; Refill Quantity : 0; Not Available Not Available Not Available oxycodone four times daily 04/04 completed 0; Recorded 09/22/19 23 8:31AM by Katlyn Hagan, Office Visit; Not Available Not Available Not Available carvedilo l in am and 1 tab in pm 04/04 completed qs; [id number]; Recorded 12/12/19 22 8:55AM by Adalberto Tyson (Authori zed through Raven Gale MD), Annotati on/Adden dum; Mail Order Quantity : 45 Tablet; Mail Order Days: 30 Days; Refill Quantity : 145; Tablet; Not Available Not Available Not Available lisinopri l two times daily 04/04 completed [address]; Recorded 04/17/20 22 2:10PM by Adalberto Tyson (Authori zed through Raven Gale MD), Annotati on/Adden dum; Mail Order Quantity : 180 Tablet; Mail Order Days: 90 Days; Refill Quantity : 0; Not Available Not Available Not Available gabapenti n q 8 prn 04/04 completed ER; 0; Recorded 09/22/19 23 8:31AM by Katlyn Hagan, Office Visit; Not Available Not Available Not Available heparin, porcine (PF) 100 unit/mL intraveno us syringe 03/11 completed Not Available Not Available Not Available Nasal Decongest ant (oxymetaz oline) 0.05 % spray 03/11 completed Not Available Not Available Not Available oxycodone 10 mg tablet 04/04 completed Not Available Not Available Not Available diclofena c 1 % topical gel 08/15 completed Not Available Not Available Not Available amlodipin e besylate (bulk) daily 04/04 completed Recorded 09/22/19 23 8:31AM by Katlyn Hagan, Office Visit; Refill Quantity : 30; Tablet; Not Available Not Available Not Available Aerochamb er Plus Flow-Vu 04/11 completed Not Available Not Available Not Available cyanocoba melvin (vit B-12) 5,000 mcg disintegr ating tablet 03/11 completed Not Available Not Available Not Available Eliquis 5 mg tablet TAKE 1 TABLET BY MOUTH TWICE DAILY active Not Available Not Available No t Available Eliquis 2.5 mg tablet 03/11 completed Not Available Not Available Not Available Stimulant Laxative Plus 8.6 mg-50 mg tablet TAKE ONE TABLET BY MOUTH TWICE DAILY 04/08 completed Not Available Not Available Not Available aspirin 81 mg capsule Take 1 capsule every day by oral route. 03/26 completed Not Available Not Available Not Available cefazolin 2 gram intraveno us solution 03/11 completed Not Available Not Available Not Available Vitals Date Recorded Body height Body mass index (BMI) Body weight Body temperature Oxygen saturation Oxygen saturation in Arterial blood by Pulse oximetry Heart rate Systolic blood pressure Diastolic blood pressure Provider Name and Address Organization Details Last Updated DateTime 4 160.02 cm 23.4 kg/m2 36574.1 9 g 97.8 [degF] 97 % 97 % 83 /min 112 mm[Hg] 70 mm[Hg] MEMA DE LA ROSA [facility], L.CMonika 4 10:42:42 Date Recorded Body height Body mass index (BMI) Body weight Body temperature Oxygen saturation Oxygen saturation in Arterial blood by Pulse oximetry Heart rate Systolic blood pressure Diastolic blood pressure Provider Name and Address Organization Details Last Updated DateTime 4 160.02 cm 24.1 kg/m2 28363.5 6 g 98.2 [degF] 96 % 96 % 142 /min 130 mm[Hg] 70 mm[Hg] DARYL WALTER [facility] 4 10:07:25 Date Recorded Body height Provider Name an d Address Organization Details Last Updated DateTime 06/11/2024 160.02 cm Sidra Ji [facility] 06/11/2024 13:50:51 Date Recorded Body mass index (BMI) Body weight Oxygen saturation Oxygen saturation in Arterial blood by Pulse oximetry Heart rate Respiratory rate Body temperature Systolic blood pressure Diastolic blood pressure Provider Name and Address Organization Details Last Updated DateTime 4 25.5 kg/m2 38209.3 g 96 % 96 % 86 /min 20 /min 97.6 [degF] 132 mm[Hg] 82 mm[Hg] Kellylucius Kent [facility] 4 13:59:34 Date Recorded Body height Body mass index (BMI) Body weight Oxygen saturation Oxygen saturation in Arterial blood by Pulse oximetry Heart rate Respiratory rate Body temperature Systolic blood pressure Diastolic blood pressure Provider Name and Address Organization Details Last Updated DateTime 5 160.02 cm 26.7 kg/m2 52600.4 5 g 97 % 97 % 69 /min 16 /min 98.2 [degF] 140 mm[Hg] 90 mm[Hg] Sidra Ji [facility] 5 09:42:59 Date Recorded Body height Body mass index (BMI) Body weight Body temperature Oxygen saturation Oxygen saturation in Arterial blood by Pulse oximetry Heart rate Systolic blood pressure Diastolic blood pressure Provider Name and Address Organization Details Last Updated DateTime 5 160.02 cm 27.3 kg/m2 28193.2 2 g 97.3 [degF] 97 % 97 % 67 /min 140 mm[Hg] 88 mm[Hg] EMMA DE LA ROSA [facility], LMonikaL.C. 5 11:59:51 Social History Question Answer Notes LastModified by Organizat ion Details LastModified Time Tobacco Smoking Status Former Smoker EMMA DE LA ROSA zuleima [facility], LMonikaLMonikaC. 04/11/2023 10:18:01 What Is Your Level Of Alcohol Consumption? None Information not available 04/11/2023 What Was The Date Of Your Most Recent Tobacco Screening? 03/27/2024 [email or web address] Information not available 03/27/2024 Do You Use Any Illicit Or Recreational Drugs? No [email or web address] Information not available 04/11/2023 Sex: Unknown Functional Status None recorded. Mental Status None recorded. Family History Nothing Reported Notes:Brain Cancer: Mother C VA: Mother : Father, Mother Lung Cancer: Mother Myocardial infarction: Father Medical History Condition Response Coronary Artery Disease N Other N Gout N Kidney Stones N Blood Diseases N Hyperthyroidism N Breast Cancer N Blood Transfusion N Hypothyroidism N Lung Disease N COPD N Depression N Defects or Inherited Disease N Developmental or Behavioral Disorders N Breast Problem N Difficulty Swallowing N Anesthesia Complications N Meniere's disease N Anxiety Disorder N Muscle, Joint, or Bone Problems N Vision or Eye Problems N Arthritis N Infertility N Polyps N Cancer N Stroke N Varicosities N Endometriosis N Bladder or Kidney Problems N High Cholesterol N Liver Disease N Fibromyalgia N Headaches N Kidney Disease N Allergies/Hayfever N Heart Problems N Ear or Hearing Problems N Hospitalizations N Thyroid Problems N GI Problems N ADD/ADHD N Skin Problems N Eating Disorder N Anemia N Constipation N Mental Illness N Ovarian Cancer N Diabetes N Bedwetting N Seizures/Epilepsy N Tuberculosis N Eczema N Diverticulitis N Abuse/Domestic Violence N Asthma N Reflux/GERD N Hepatitis N Heart Disease N Pulmonary Embolism N Chronic Ear Infections N Pre-Eclampsia N Hypertension Y Chicken Pox N Autism Spectrum Disorder (ASD) N Osteoporosis N Thrombophilias N Gynecological HistoryNo gynecological history recorded. Obstetrics History GPAL:G 4 P 4 0 0 4 Type Value Full Term 4 Induced 0 Spontaneous 0 Living 4 Total 4 Immunizations Vaccine Type Date Status Note Provider Nam e and Address Organization Details Recorded Time COVID-19, mRNA, LNP-S, PF, 30 mcg/0.3 mL dose 1 completed Jade dewey [facility], MaribelCMonika 03/27/2024 08:45:19 COVID-19, mRNA, LNP-S, PF, 100 mcg/0.5mL dose or 50 mcg/0.25mL dose 1 completed Jade dewey [facility], LMonikaLMonikaCMonika 03/27/2024 08:45:19 COVID-19, mRNA, LNP-S, PF, 100 mcg/0.5mL dose or 50 mcg/0.25mL dose 1 completed Jade dewey [facility], LMonikaLMonikaCMonika 03/27/2024 08:45:19 Influenza, split virus, trivalent, preservative 7 completed Not Available [facility] 03/02/2023 02:51:35 Influenza, split virus, trivalent, preservative 6 completed Not Available [facility] 03/02/2023 02:51:35 pneumococcal polysaccharide PPV23 6 completed Not Available [facility] 03/02/2023 02:51:35 COVID-19, mRNA, LNP-S, PF, 30 mcg/0.3 mL dose 1 completed Jade dewey [facility], KervinLMonikaCMonika 03/27/2024 08:45:19 COVID-19, mRNA, LNP-S, PF, 30 mcg/0.3 mL dose 1 completed Jade dewey [facility], LMonikaLMonikaCMonika 03/27/2024 08:45:19 Past Encounters Encounter ID Performer Location Encounter Start Date Encounter Closed Date Diagnosis/Indication Diagnosis SNOMED-CT Code Diagnosis ICD10 Code Diagnosis Note [id number] QING NAGEL PA-C [facility] ([facility]) [address] [place] [address] 12/24/2022 09:26:31 12/24/2022 11:08:53 Rib pain 555676831 R07.81 no fx seen on xray. waiting overreadIc e. heat compressio n. OTC tylenol PRN [id number] Matt Ferguson MD [facility] ([facility]) [address] [place] [id number] 04/04/2023 09:37:32 04/04/2023 15:33:37 Hypertensive urgency 151256593 I16.0 Patient was given 3 doses of clonidine and blood pressure was monitored. The patient had good response by the third dose. Not make changes to blood pressure medication at this time given the fact that it was normal 2 days ago. We will provide a prescripti on for clonidine use as needed we will have her follow-up with PCP for reevaluati on of blood pressure and any necessary adjustment to medication s. [id number] Raven Gale MD [facility] ([facility]) [address] [place] [id number] 04/11/2023 10:04:49 04/19/2023 18:41:06 Hypercholesterolemia 19541370 E78.00 Essential hypertension 14774876 I10 Labile. Continue the lisinopril and add hydrochlor othiazide. The patient will record her blood pressures once in the morning and once in the evening and report back with her log in 2 weeks. Eczema 31139884 L30.9 She requests refill of a cream that she had from a long time ago for her itchy ears [id number] Raven Gale MD [facility] ([facility]) [address] [place] [id number] 04/25/2023 10:03:51 04/25/2023 11:35:53 Essential hypertension 38845669 I10 HCTZ 12.5mg. well controlled with home log. cont the CTZ, pt may stop her BP log and check prn [id number] Raven Gale MD [facility] ([facility]) [address] [place] [id number] 08/15/2023 11:19:39 08/15/2023 14:08:00 Hypercholesterolemia 87978713 E78.00 controlled Essential hypertension 45092201 I10 contorlled . Multiple joint pain 3567 8005 M25.50 pt sees pm and is on morphine but says her pain is not controlled . Neck pain 42763294 M54.2 Pain of ri ght shoulder joint 2436357304 5847557 M25.922 [id number] QING NAGEL PA-C [facility] ([facility]) [address] [place] [id number] 5 01/16/2024 08:04:17 01/16/2024 08:53:25 Muscle spasm of cervical muscle of neck 2426624402 04 M62.838 Heat. stretch. has Morphin at home. Add Tylenol. If persists talk to PCP about pain tx referal for injections . [id number] Quincy Edmonds DO [facility] ([facility]) [address] [place] [id number] 5 01/30/2024 11:00:47 01/30/2024 17:44:25 Hospital inpatient stay within past 30 days [id number] 106 Z76.89 Sepsis due to methicillin-sensitive Staphylococcus aureus 9711548470 5107 A41.01 Pulmonary embolism 23784 003 I26.99 Pulmonary hypertension 23992122 I27.20 [id number] QING NAGEL PA-C [facility] ([facility]) [address] [place] [id number] 02/05/2024 14:28:07 02/21/2024 17:24:19 Bleeding from nose 647950848 R04.0 SEPTICEMIA NNO Osteomyeli tis of vertebra 579950978 M46.20 DECREASED CRP 124 down from >250 in the hospitalOn IV antibiotic s x 6 weeks. Sepsis 07237374 A41.9 MRSA [id number] Quincy Edmonds DO [facility] ([facility]) [address] [place] [id number] 5 02/18/2024 08:30:07 02/18/2024 17:01:18 Hypertensive disorder 50788523 I10 Bleeding from nose 83167 6005 R04.0 [id number] Quincy Edmonds DO [facility] ([facility]) [address] [place] [id number] 5 02/27/2024 12:14:29 02/27/2024 15:53:19 Hypertensive disorder 73207108 I10 Chronic pain 61554554 G8 9.29 Pulmonary embolism 75802 003 I26.99 Sepsis due to methicillin-sensitive Staphylococcus aureus 4100535781 5107 A41.01 [id number] Raven Gale MD [facility] ([facility]) [address] [place] [phone] 5 03/11/2024 10:09:50 03/11/2024 13:10:59 Hospital inpatient stay within past 30 days [id number] 106 Z76.89 Patient believes that both her PT and home health were already ordered and that she should be hearing from PT sometime this week. She is receiving home health already through [facility]. Pulmonary embolism 63275 003 I26.99 recently in [facility]. has been taking it. took the last eliquis last night.... Sepsis due to methicillin-sensitive Staphylococcus aureus 0720451406 5107 A41.01 no more antibiotic s, PICC has been removed. Osteomyelitis 17526906 M 86.9 Status post antibiotic s. ID - she needs to make appt with Skye for follow-up. She has the office informatio n. Chronic pain 95792067 G8 9.29 [id number] MAMTA LUNDBERG APRN [facility] ([facility]) [address] [place] [id number] 03/27/2024 08:41:15 03/27/2024 11:01:48 Cramp in lower leg associated with rest 418291878 G47.62 [id number] Raven Gale MD [facility] ([facility]) [address] [place] [id number] 5 03/31/2024 11:07:27 03/31/2024 13:01:07 Low blood pressure 95800874 I95.9 Secondary to dehydratio n, illness , lack of appetite. For now I will have the patient stop the amlodipine . Viral gastroenteritis 11 9632918 A08.4 I suspect the patient has a viral gastroente ritis causing her diarrhea and lack of appetite. Today is really only the second day so I recommend continue to push clear fluids and bland diet as tolerated. This will likely be self-limit ing. Chronic back pain 610767 002 G89.29 Patient had abnormal MRI in October. She states that her back pain has been worsening since then and she needs a repeat MRI. She had been working with Dr. Barahona on this. I defer to him. I had recommende d referral to neurosurge ry however patient declined since she was working with Dr. Barahona. [id number] Raven Gale MD [facility] ([facility]) [address] [place] [id number] 04/08/2024 10:27:39 04/08/2024 13:10:38 Acute urinary tract infection 432578931 N39.0 Dx through the ER, she was given 10 days of antibiotic . She has completed about 7 days. She had a repeat visit to the ER with a clear urinalysis . Her abdominal pain has worsened significan tly since being on the antibiotic . Advised pt to stop antibiotic as I believe her infection has been treated. 04/08/2024 Nausea and vomiting 1693 2000 R11.2 We are trying to review the patient's patients but she is not a very good historian on what she is and is not taking. She thinks she may be taking the aspirin which I advised her to stop given her nausea and vomiting. She should bring in a bag of all of her medication s so that we can review them and see what other medicines we can cut down on. I am hopeful that stopping the antibiotic and the aspirin will improve her stomach situation. 04/08/2024 [id number] Raven Gale MD [facility] ([facility]) [address] [place] [address] [id number] 5 04/14/2024 09:56:29 04/14/2024 13:18:12 Essential hypertension 02305995 I10 controlled . Medication monitoring 39 3574796 Z51.81 We updated her medication s to the best of our ability today. 04/14/24. Hyperlipidemia 96174327 E78.5 Overdue for lab work Tachycardia 0710895 R00. 0 pt says she is in pain, pulse by palpation currently 96. . History of pulmonary embolus 022363451 Z86.498 [id number] Matt Ferguson MD [facility] ([facility]) [address] [place] [address] [id number] 5 06/11/2024 13:49:58 06/15/2024 11:51:25 Acute bronchitis 81782625 J20.9 Given the patient's current symptoms, I would recommend treatment for atypical infections . Also start steroids given her difficulty breathing. Not likely to be related to PE as she is on Eliquis. [id number] YADY TA [facility] ([facility]) [address] [place] [phone] 5 10/02/2024 09:27:54 10/02/2024 15:14:58 Essential hypertension 21315196 I10 Will increase hydralazin e to TID. Patient to monitor BP BID and with any symptoms. Keep appt to follow up with Dr Gale for BP review. [id number] Raven Gale MD [facility] ([facility]) [address] [place] [address] 10/13/2024 11:42:59 10/21/2024 15:12:57 Renewal of prescription 170093682 Z76.0 Hypercholesterolemia 136 07750 E78.00 Essential hypertension 84503365 I10 We will increase her hydralazin e from 2 times daily to 3 times daily. Patient should follow-up for blood pressure check within 4 weeks. 10/13/2024 Heartburn 31305761 R12 Health Concerns Section Related Observation LastModified by Organization Detai ls LastModified Time None Recorded Concern Status LastModified by Organization Details LastModified Time None Recorded Advance Directives Directive None Recorded Payers Encounter Date Sequence Insurance Name Policy Number Policy Byrnes Covered Member ID Byrnes Member ID Guarantor Name 04/08/2024 1 [employer] (MEDICARE REPLACEMENT/A DVANTAGE - PPO) [id number] Emma Navarrete [id number] Emma Navarrete 04/14/2024 1 [employer] (MEDICARE REPLACEMENT/A DVANTAGE - PPO) [id number] [place] [id number] [place] 06/11/2024 1 [employer] (MEDICARE REPLACEMENT/A DVANTAGE - PPO) [id number] [place] [id number] [place] 10/02/2024 1 [employer] (MEDICARE REPLACEMENT/A DVANTAGE - PPO) [id number] Emma Navarrete [id number] [place] 10/13/2024 1 [employer] (MEDICARE REPLACEMENT/A DVANTAGE - PPO) [id number] Emma Navarrete [id number] Emma Navarrete Notes Date Note Type Note Provider Name and Address Organization Details Recorded Time 04/08/2024 text/html Hospital f/ushe is not feeling well and is not sleeping good I am not feeling very good. I was given nausea medicine at the ER but it is not helping. I am feeling not good, I feel worse now than when I was sick and I do not understand that. I am not having diarrhea but my stomach is not feeling good at all. I am nauseated and I am getting pain on my right lower side. I am trying to drink plenty of fluids but it is probably not enough. I have not been puking but I do feel like I am going to. I have been using a straw to take little sips. The medicine does make me feel slightly worse when I take the antibiotic. I saw 04/01 Raven Gale MD [address] [place] [address], [phone], [facility], L.LMonikaC. 04/09/2024 13:54:22 04/14/2024 text/html pt is here with her meds today.she was not clear on what she was taking or not taking so I asked her to bring them all in so we can update her med list. she did not bring her morphine bottle....she did not bring her eliquis....she says she is taking them both.... n/v has let up, stomach is better since stopping the abx Raven Gale MD [address] [place] [address], [phone], [facility] 04/21/2024 15:25:48 06/11/2024 text/html walk in patientPatient has been wheezing or the last 3 days, chest tightness, O2 dropping to around 90%, headache, Matt Ferguson MD [address] [place] [address], [phone], [facility], L.LMonikaC. 06/14/2024 11:08:56 10/02/2024 text/html walk in patientpatient is here today for high blood pressure readings for the last few days, patient 140's/88- 168-90. Patient's PCP is Dr Gale. Patient said that she can feel that her blood pressure is high it is making her feel like she has anxiety from it. YADY TA [address] [place], [phone], [facility], LMonikaLCorie. 10/02/2024 15:14:10 10/13/2024 text/html Hypertension IM/FMReported bypatient.Quality:he re for check-up Severity:stage 2 (>140/>90 mmHg) Associated Symptoms:no shortness of breath; no palpitations; no tachycardia; no headaches Raven Gale MD [address] [place], [phone], [facility], L.LCorie. 10/21/2024 14:31:48 OBGyn Episode No OBEpisode recorded.
--- OUTSIDE RECORDS SUMMARY | 2024-11-17 06:40 | XMS_ITS ---
Author Organization [facility] Address [address] [place] [address] Care Team Providers Care Registered Safety Engineer Name Role Phone Raven Peres Primary Care Provider Kassandra Perales Unavailable [phone] Hammad Borrero Unavailable [phone] Medications Medication SIG (Take, Route, Frequency, Duration) Notes Start Date End Date Status Morphine Sulfate 15 MG 1 tablet as needed Orally every 8 hours for 30 days As needed Not to exceed 3 per day 09/28/2024 Lana had to reschedule her because Kassandra's schedule is full and so is yours. Can you sign plz. 09/28/2024 10/28/2024 Active Encounters Encounter Location Date Provider Diagnosis [facility] [address] [place] [address] 09/28/2024 Hammad Borrero Chronic pain syndrome G89.4 Assessments Encounter Date Diagnosis (ICD Code) Assessment Notes Treatment Notes Treatment Clinical Notes Section Notes 09/28/2024 Chronic pain syndrome (ICD-10 - G89.4) Plan Of Treatment Medication Medication Name Sig Start Date Stop Date Notes Morphine Sulfate 15 MG 1 tablet as neede d Orally every 8 hours for 30 days 09/28/2024 10/28/2024 09/28/2024 Lana had to reschedule her because Kassandra's schedule is full and so is yours. Can you sign plz. Next Appt Details Provider Name:Kassandra downey, 11/26/2024 08:45:00 AM, [address] [place], [address], Progress Notes * Emma NAVARRETE LDOB:1945 (78 yo F)Acc No.[id number]:09/28/2024 Patient:?Emma NAVARRETE L :1945???Age:78 Y???Sex:Female Address:[address] [place] [address] * Refills? Refill Morphine Sulfate Tablet, 15 MG, Orally, 90 Tablet, 1 tablet as needed, every 8 hours, 30 days, Refills=0 * true * Date:? Generated for Adalid paul/Farida/eTransmitting on:?11/17/2024 06:40 AM CDT
--- OUTSIDE RECORDS SUMMARY | 2024-11-17 06:41 | XMS_ITS | Patient Health Record ---
Author Organization [facility] Address [address] [place] [address] Care Team Providers Care Camera Mechanic Name Role Phone Raven Peres Primary Care Provider UnavailKassandra Sams Unavailable [phone] Migration, Provider Unavailable Unavailable Hammad Borrero Unavailable [phone] Allergies No Known Allergies Results Component Value Reference Range Notes MRI Lumbar Spine w/ + w/o Co [id number] Reviewed date:11/02/2024 02:20:43 PM Interpretation: Performing Lab: Notes/Report: kxc=[id number]&org=iSite skd=[id number] 625&org=iSite Schedule Confirmation Reviewed date:11/02/2024 02:20:56 PM Interpretation: Performing Lab: Notes/Report: MRI Lumbar Spine w/ + w/o Cont MRI Lumbar Spine w/ + w/o Co [id number] Reviewed date:11/02/2024 02:20:35 PM Interpretation: Performing Lab: Notes/Report: See Below For Report MRI Lumbar Spine w/ + w/o Cont Read See Below For Report Tox Results Reviewed date:10/06/2024 10:44:16 AM Interpretation: Performing Lab: Notes/Report: Urine Confirmation Panel (in strument) - [id number] Reviewed date:10/06/2024 10:44:16 AM Interpretation: Performing Lab: Notes/Report: 6-Acetylmorphine 0 <6 ng/mL This test w as developed and its performance characteristics determined by [facility]. It has not been cleared or approved by the U.S. Food and Drug Administration. 7-Aminoclonazepam 0 <60 ng/mL This test was developed and its performance characteristics determined by [facility]. It has not been cleared or approved by the U.S. Food and Drug Administration. Alprazolam 0 <60 ng/mL This test was d eveloped and its performance characteristics determined by [facility]. It has not been cleared or approved by the U.S. Food and Drug Administration. Amphetamine 2 <75 ng/mL This test was d eveloped and its performance characteristics determined by [facility]. It has not been cleared or approved by the U.S. Food and Drug Administration. aOH-Alprazolam 0 <60 ng/mL This test was developed and its performance characteristics determined by [facility]. It has not been cleared or approved by the U.S. Food and Drug Administration. Buprenorphine 0.0 <7.5 ng/mL This test was developed and its performance characteristics determined by [facility]. It has not been cleared or approved by the U.S. Food and Drug Administration. Norbuprenorphine 0.0 <37.5 ng/mL This test w as developed and its performance characteristics determined by [facility]. It has not been cleared or approved by the U.S. Food and Drug Administration. Carisoprodol 0 <75 ng/mL This test was d eveloped and its performance characteristics determined by [facility]. It has not been cleared or approved by the U.S. Food and Drug Administration. Codeine 0 <75 ng/mL This test was d eveloped and its performance characteristics determined by [facility]. It has not been cleared or approved by the U.S. Food and Drug Administration. EDDP 0 <75 ng/mL This test was d eveloped and its performance characteristics determined by [facility]. It has not been cleared or approved by the U.S. Food and Drug Administration. Fentanyl 0 <6 ng/mL This test was d eveloped and its performance characteristics determined by [facility]. It has not been cleared or approved by the U.S. Food and Drug Administration. Hydrocodone 0 <75 ng/mL This test was d eveloped and its performance characteristics determined by [facility]. It has not been cleared or approved by the U.S. Food and Drug Administration. Hydromorphone 0 <75 ng/mL This test was developed and its performance characteristics determined by [facility]. It has not been cleared or approved by the U.S. Food and Drug Administration. Lorazepam 0 <60 ng/mL This test was d eveloped and its performance characteristics determined by [facility]. It has not been cleared or approved by the U.S. Food and Drug Administration. MDMA 0 <75 ng/mL This test was d eveloped and its performance characteristics determined by [facility]. It has not been cleared or approved by the U.S. Food and Drug Administration. Meperidine 0.0 <37.5 ng/mL This test was d eveloped and its performance characteristics determined by [facility]. It has not been cleared or approved by the U.S. Food and Drug Administration. Meprobamate 0 <75 ng/mL This test was d eveloped and its performance characteristics determined by [facility]. It has not been cleared or approved by the U.S. Food and Drug Administration. Methamphetamine 0 <75 ng/mL This test wa s developed and its performance characteristics determined by [facility]. It has not been cleared or approved by the U.S. Food and Drug Administration. Methadone 0 <75 ng/mL This test was d eveloped and its performance characteristics determined by [facility]. It has not been cleared or approved by the U.S. Food and Drug Administration. Morphine 0 <75 ng/mL This test was d eveloped and its performance characteristics determined by [facility]. It has not been cleared or approved by the U.S. Food and Drug Administration. Nordiazepam 0 <60 ng/mL This test was d eveloped and its performance characteristics determined by [facility]. It has not been cleared or approved by the U.S. Food and Drug Administration. Norfentanyl 0 <6 ng/mL This test was d eveloped and its performance characteristics determined by [facility]. It has not been cleared or approved by the U.S. Food and Drug Administration. Normeperidine 0.0 <37.5 ng/mL This test was developed and its performance characteristics determined by [facility]. It has not been cleared or approved by the U.S. Food and Drug Administration. O-desmethyltramadol 0 <75 ng/mL This aristeo t was developed and its performance characteristics determined by [facility]. It has not been cleared or approved by the U.S. Food and Drug Administration. Oxazepam 0 <60 ng/mL This test was d eveloped and its performance characteristics determined by [facility]. It has not been cleared or approved by the U.S. Food and Drug Administration. Oxycodone 0.0 <37.5 ng/mL This test was d eveloped and its performance characteristics determined by [facility]. It has not been cleared or approved by the U.S. Food and Drug Administration. Oxymorphone 0 <75 ng/mL This test was d eveloped and its performance characteristics determined by [facility]. It has not been cleared or approved by the U.S. Food and Drug Administration. Phencyclidine 0.0 <7.5 ng/mL This test was developed and its performance characteristics determined by [facility]. It has not been cleared or approved by the U.S. Food and Drug Administration. Tapentadol 0.0 <37.5 ng/mL This test was d eveloped and its performance characteristics determined by [facility]. It has not been cleared or approved by the U.S. Food and Drug Administration. Temazepam 0 <60 ng/mL This test was d eveloped and its performance characteristics determined by [facility]. It has not been cleared or approved by the U.S. Food and Drug Administration. Tramadol 0 <75 ng/mL This test was d eveloped and its performance characteristics determined by [facility]. It has not been cleared or approved by the U.S. Food and Drug Administration. Norhydrocodone 0 <75 ng/mL This test was developed and its performance characteristics determined by [facility]. It has not been cleared or approved by the U.S. Food and Drug Administration. Noroxycodone 0 <38 ng/mL This test was d eveloped and its performance characteristics determined by [facility]. It has not been cleared or approved by the U.S. Food and Drug Administration. Pregabalin 0 <225 ng/mL This test was d eveloped and its performance characteristics determined by [facility]. It has not been cleared or approved by the U.S. Food and Drug Administration. Gabapentin 0 <225 ng/mL This test was d eveloped and its performance characteristics determined by [facility]. It has not been cleared or approved by the U.S. Food and Drug Administration. Benzoylecgonine 0.0 <37.5 ng/mL This test wa s developed and its performance characteristics determined by [facility]. It has not been cleared or approved by the U.S. Food and Drug Administration. 4-Hydroxy Xylazine 0 <25 ng/mL This test was developed and its performance characteristics determined by [facility]. It has not been cleared or approved by the U.S. Food and Drug Administration. Reason For Referral No Information Medications Medication SIG (Take, Route, Frequency, Duration) Notes Start Date End Date Status Lisinopril *Pick strength-form from [employer] for eRX* Active Topiramate *Pick strength-form from [employer] for eRX* Active atorvastatin *Reorder from [employer] for eRx and Interaction Alerts* Active Morphine Sulfate 15 MG 1 tablet as needed Orally every 8 hours for 30 days As needed Not to exceed 3 per day Fill on 10-29-24 10/02/2024 11/28/2024 Active Isosorbide Mononitrate *Pick strength-form from [employer] for eRX* Active Carvedilol *Pick strength-form from [employer] for eRX* Active Problems Problem Type SNOMED Code ICD Code Onset Dates Problem Status W/U Status Risk Notes Problem 138471366 Chronic pain syndrome (G89.4) Active confirmed Problem Cervical radiculopathy (15418762) Cervical radiculopathy (M54.12) Active confirmed Problem Cervical spondylosis (960819285) Cervical spondylosis (M47.812) Active confirmed Problem 172700694 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) Active confirmed Problem 225862026 Cervical spondylosis with radiculopathy (M47.22) Active confirmed Problem 11644912 Abnormality of gait and mobility (R26.9) Active confirmed Problem 124912937 Lumbar disc disease with radiculopathy (M51.16) Active confirmed Vital Signs Height-cm 160.02 cm 10/01/2024 Weight-kg 67.27 kg 11/28/2023 Height 63.00 in 10/01/2024 Weight 148.00 lbs 11/28/2023 BMI 26 kg/m2 11/28/2023 Encounters Encounter Location Date Provider Diagnosis Migrated_Facility 0 0 11/28/2023 Provider Migration Chronic pain syndrome G89.4 ; Pain in left shoulder M25.512 ; Other spondylosis with radiculopathy, cervical region M47.22 ; Intervertebral disc disorders with radiculopathy, lumbar region M51.16 ; Postlaminectomy syndrome, not elsewhere classified M96.1 ; Unspecified abnormalities of gait and mobility R26.9 and 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 Z79.891 Count Includes [facility] [place] [address] [place] [address] 04/01/2024 Hammad Borrero Count Includes [facility] [place] [address] [place] [address] 04/30/2024 Kassandra Coy Count Includes [facility] [place] [address] [place] [address] 05/27/2024 Hammad Borrero Count Includes [facility] [place] [address] [place] [address] 06/24/2024 Hammad Borrero Chronic pain syndrom e G89.4 ; Cervical radiculopathy M54.12 ; Cervical spondylosis M47.812 ; Lumbar disc disease with radiculopathy M51.16 ; Pain in left shoulder M25.512 and 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 Z79.891 Count Includes [facility] [address] [place] [address] 07/22/2024 Hammad Borrero Chronic pain syndrom e G89.4 ; Cervical radiculopathy M54.12 ; Cervical spondylosis M47.812 ; Lumbar disc disease with radiculopathy M51.16 ; Pain in left shoulder M25.512 and [facility] (current) use of opiate analgesic Z79.891 Count Includes [facility] [address] [place] [address] 10/01/2024 Kassandra Coy Chronic pain syndrom e G89.4 ; Cervical radiculopathy M54.12 ; Cervical spondylosis M47.812 ; Lumbar disc disease with radiculopathy M51.16 ; Pain in left shoulder M25.512 and 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 Z79.891 Migrated_Facility 0 0 05/30/2024 Provider Migration Migrated_Facility 0 0 05/31/2024 Provider Migration Count Includes [facility] [place] [address] [place] [address] 09/28/2024 Hammad Borrero Chronic pain syndrom e G89.4 Count Includes [facility] [place] [address] [place] [address] 09/28/2024 Hammad Borrero Count Includes [facility] [place] [address] [place] [address] 09/28/2024 Hammad Borrero Chronic pain syndrom e G89.4 Count Includes [facility] [place] [address] [place] [address] 10/01/2024 Hammad Borrero Chronic pain syndrom e G89.4 Assessments Encounter Date Diagnosis (ICD Code) Assessment Notes Treatment Notes Treatment Clinical Notes Section Notes 11/28/2023 Chronic pain syndrome (ICD-10 - G89.4) 11/28/2023 Pain in left shoulder (ICD-10 - M25.512) 11/28/2023 Other spondylosis with radiculopathy, cervical region (ICD-10 - M47.22) 11/28/2023 Intervertebral disc disorders with radiculopathy, lumbar region (ICD-10 - M51.16) 11/28/2023 Postlaminectomy syndrome, not elsewhere classified (ICD-10 - M96.1) 11/28/2023 Unspecified abnormalities of gait and mobility (ICD-10 - R26.9) 11/28/2023 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 She has her MRI scheduled for next week so we look forward to reviewing that at her next visit. Otherwise she is doing okay. She has been tolerating the medications fine so we will continue those unchanged and see her back in a month. 10/01/2024 Chronic pain syndrome (ICD-10 - G89.4) 06/24/2024 Cervical radiculopathy (ICD-10 - M54.12) 07/22/2024 Chronic pain syndrome (ICD-10 - G89.4) I had a nice visit with the patient today regarding her chronic pain issues. Overall, she seems to be doing alright. She did get a recent MRI which shows some bilateral foraminal stenosis and some facet arthropathy but overall no severe pathology, which is certainly good. We discussed some interventions again and it sounds like she had a bad experience with an unguided seated epidural several years ago in [place], which has stuck with her. Certainly this is not how we do these but I understand her concerns. We will hold off any changes for now and continue her medications and see her back in 2 months. If she needs any changes prior to that, she'll let us know. 09/28/2024 Chronic pain syndrome (ICD-10 - G89.4) 09/28/2024 Chronic pain syndrome (ICD-10 - G89.4) 10/01/2024 Chronic pain syndrome (ICD-10 - G89.4) I had a nice discussion with the patient today regarding her chronic pain complaints. She continues with persistent yet reasonably stable neck and lower back pain. She states she is doing reasonably well on her current medication regimen. She continues to defer any interventional procedures. She denies any changes in her health since we last seen her any untoward side effects of the medication. She will continue her medication at present level and return to clinic in 2 months to monitor for treatment effectiveness and compliance. RECOMMEND URINE TESTING TODAY Urine drug screening will be performed today to monitor compliance with opioid therapy or to serve as a baseline screen for a patient who may be a candidate for opioid therapy in the future, pending UDS results. We will monitor with in-office testing (rapid testing) today and review the results prior to dispensing prescription. All positive results will be sent for quantitative analysis to ensure accuracy and quantify amounts. Any expected positive results that return negative will also be sent for quantitative analysis. Any questionable read or any medication we cannot test for in the office confidently will be sent for quantitative analysis, as well. Patient has been made aware of this policy and agrees to abide by our urine testing policy. The patient continues with chronic pain requiring treatment to help restore function and improve quality of life. Risks of opioid therapy as well as interaction of opioids with alcohol, illicit drugs, muscle relaxers, and other sedative medications are reviewed briefly with patient again today. The patient has trialed all other reasonable treatment options and uses the medication to alleviate pain in order to remain active and rest with less pain. No clinically relevant medication side effects are noted. Last UDS and [place] [employer] reviewed today. Patient is advised that best long-term goals include increased activity, core strengthening, proper weight management, coping strategies, avoidance of painful triggers, and targeted interventional therapy. We will see the patient for routine follow up in accordance with all clinic policies. We did remind patient today of current guidelines to decrease opioid when possible. We will continue to stress nonopioid treatment. 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 IHammad, personally performed the services described in this documentation , as scribed by Michael Harris, and it is both accurate and complete. 07/22/2024 Other I, Michael Harris, am scribing for Hammad Borrero. I, Hammad Borrero, personally performed the services described in this documentation , as scribed by Michael Harris, and it is both accurate and complete. Plan Of Treatment Future Test Test Name Order Date zzzUrine Drug Screen (confirmation by in strument) - [id number] 10/01/2024 Next Appt Details Provider Name:Kassandra downey, 11/26/2024 08:45:00 AM, [address] [place], [address], Insurance Providers Payer Name Payer Address Payer Phone Subscriber Number Group Number Insured Name Patient Relationship to Insured Coverage Start Date Coverage End Date [employer] Medicare Replacement [address] [address] [place] [address] [id number] Emma Navarrete Self - patient is the insured Medical (General) History Surgical History Surgery Date(Month/Year) thymectomy Since 1961 Hip surgery Since 2009 Knee Surgery Since 2012 Back surgery Since 1999
--- OUTSIDE RECORDS SUMMARY | 2024-11-17 06:41 | XMS_ITS ---
Author Organization [facility] Address [address] [place] [address] Care Team Providers Care Clutch Rebuilder Name Role Phone Raven Peres Primary Care Provider Kassandra Perales [phone] Allergies No Known Allergies REASON FOR VISIT 2 month f/u rescheduled clinic closed weather Medications Medication SIG (Take, Route, Frequency, Duration) Notes Start Date End Date Status Morphine Sulfate 15 MG 1 tablet as needed Orally every 8 hours for 30 days As needed Not to exceed 3 per day fill first script 07/30/2024 or few days early due to holiday fill second script 08/29/2024 or a day early due to weekend fill Active Topiramate *Pick strength-f orm from [facility] for eRX* Active atorvastatin *Reorder from [facility] for eRx and Interaction Alerts* Active Isosorbide Mononitrate *Pick strength-form from [facility] for eRX* Active Car[facility]ilol *[facility]* Active Lisinopril *[facility]* Active Vital Signs Height 63.00 in 10/01/2024 Height-cm 160.02 cm 10/01/2024 Encounters Encounter Location Date Provider Diagnosis [facility] [place] [address] [place] [id number] 10/01/2024 Kassandra Coy Chronic pain syndrom e G89.4 ; Cervical radiculopathy M54.12 ; Cervical spondylosis M47.812 ; Lumbar disc disease with radiculopathy M51.16 ; Pain in left shoulder M25.512 and 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 Last UDS and [place] READING TEACHER reviewed today. Patient is advised that best long-term goals include increased activity, core strengthening, proper weight management, coping strategies, avoidance of painful triggers, and targeted interventional therapy. We will see the patient for routine follow up in accordance with all clinic policies. We did remind patient today of current guidelines to decrease opioid when possible. We will continue to stress nonopioid treatment. 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 Last UDS and [place] READING TEACHER reviewed today. Patient is advised that best long-term goals include increased activity, core strengthening, proper weight management, coping strategies, avoidance of painful triggers, and targeted interventional therapy. We will see the patient for routine follow up in accordance with all clinic policies. We did remind patient today of current guidelines to decrease opioid when possible. We will continue to stress nonopioid treatment. Future Test Test Name Order Date zzzUrine Drug Screen (confirmation by in strument) - 71509 10/01/2024 Next Appt Details Provider Name:Kassandraelieser downey, 11/26/2024 08:45:00 AM, [address] [place], [phone], Progress Notes * Emma NAVARRETE LDOB:1945 (78 yo F)Acc No.[id number]:10/01/2024 Progress Notes Patient:?Emma NAVARRETE L Provider:?SUNITHA BarbosaC :1945???Age:78 Y???Sex:Female D ate:10/01/2024 Address:[address] [place], [place] [id number] Pcp:Raven Peres Subjective: * Chief Complaints: * ???1. 2 month f/u reschedule d clinic closed weather. * HPI: ???Pain Details:?Pain Location?neck, left shoulder, right shgoulder, left knee, lower back.?Quality?Sharp.?Severity of pain at its worst?04/14.?Severity of pain at its best?09/14.?Severity of pain on medication?___, 10.?Severity of average pain?___, 10.?Severity of pain right now?___, 10.?When did you last take your pain medicine?today.?Medication Details:?Do you have a lock box or safe place for medication away from minors and/or others??Yes.?Do you have any leftover pain medication building up at your house??No.?Do you understand that pain medication can be addicting and can cause overdose??Yes.?Do you feel you can REDUCE the amount of medication you take today??No.?Opioid Assessment Tools:?COMM (Current Opioid Misuse Measure)?___, Less than 9 : indicates low risk of abuse behaviors.?Last Urine Drug Screen?05/27/2024 Negative Hydromorphone.?Today's Rapid Urine Drug Screen?None.?[place] Prescription Monitoring Program?found to be consistent with treatment history, reviewed today.?Treatment History:?Test undergone in the past?06/30/2024 L Spine DRTLA.?Past medication you have taken?MSIR 15 mg #90 06/30/2024.?Treatments you have had?None.?Provider Note:? The patient presents today for 2-month follow-up.? She is doing reasonably well on her medication regimen. She continues with immediate release morphine 15 mg 3/day which allows her to function better overall. Last UDS is consistent. UDS was collected today and will be sent to lab for reference. We will review results with patient at next visit.? Pill count is accurate today. PDMP was reviewed and found to be compliant with care. * Medical History:?Medical His tory Verified. * Medications:?Taking atorvast atin , Notes to Pharmacist: *Reorder from [facility] for eRx and Interaction Alerts*, Taking Carvedilol , Notes to Pharmacist: *Pick strength-form from [facility] for eRX*, Taking Isosorbide Mononitrate , Notes to Pharmacist: *Pick strength-form from [facility] for eRX*, Taking Lisinopril , Notes to Pharmacist: *[facility]*, Taking Morphine Sulfate 15 MG Tablet 1 tablet as needed Orally every 8 hours As needed Not to exceed 3 per day, stop date 09/28/2024, Notes to Pharmacist: fill first script 07/30/2024 or few days early due to holiday fill second script 08/29/2024 or a day early due to weekend fill, Taking Topiramate , Notes to Pharmacist: *Pick strength-form from [facility] for eRX* * Allergies:?N.K.D.A. Objective: * Vitals:?Ht: 63.00 in, Ht-cm: 160.02 cm. * Examination: ???General Examination: ?General?patient is well developed, well-nourished, alert and oriented, has good hygiene.?Cervical Spine: ?Palpation of Cervical Spine?stiff, tender.?Palpation of Cervical Facets?reveals pain in C3 - C7 region bilaterally.?Lumbar Spine: ?Lumbar Spine Inspection?reveals no scoliosis, no pectus, no signs of inflammation, and no scar.?Palpation of Lumbar Spine?reveals hyperextension of lumbar spine and bilateral palpitation of lumbar facets reproduces back pain.?Palpation of Lumbar Intervertebral Space (Discs)?there is no pain noted.?Bilateral Palpation of Sacroiliac Joint?reveals no pain.?Palpation of Greater Trochanteric Bursa?reveals no tenderness on both sides.?Musculoskeletal - Low Back Muscles: ?Trigger Points?no palpable trigger points are noted.?Gaenslen's Test?Negative.?Neurological: ?Mental Status?awake, oriented to person, oriented to place, oriented to time, memory intact, mood and affect are normal.?Motor Strength?Left UE strength - Flexors?/5 ?Right UE strength - Flexors?5 ?Left UE strength - Extensors?/5 ?Right UE strength - Extensors?5 ?Left UE Tone?normal ?Right UE Tone?normal ?Left LE strength - Flexors?5/5 ?Right LE strength - Flexors?5/5 ?Left LE strength - Extensors?5/5 ?Right LE strength - Extensors?5/5 ?Left LE Tone?normal ?Right LE Tone?normal? Assessment: * Assessment: 1.?Chronic pain syndrome - G 89.4 (Primary)???2.?Cervical radiculopathy - M54.12???3.?Cervical spondylosis - M47.812???4.?Lumbar disc disease with radiculopathy - M51.16???5.?Pain in left shoulder - M25.512? 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 Plan: * Treatment: 2.?marine oil terminal superintendent (current) use o f opiate analgesic?LAB: Urine Drug Screen (confirmation by instrument) - 63895 (Ordered for 10/01/2024) (Collection Date & Time - 10/01/2024) * Procedure Codes:?71453 DRUG TEST PRSMV CHEM ANLYZR, G0480 DRUG TEST DEF 1-7 CLASSES Forms: * Billing Information: * Visit Code:? 03618 Office Visit, Est Pt., Level 4. Modifiers: 25 * Procedure Codes:? 46903 DRUG TEST PRSMV CHEM ANLYZR. G0480 DRUG TEST DEF 1-7 CLASSES. Care Plan Details* * Sign off status: Completed true * Provider:?DELFINO Barbosa Date:? Generated for Adalid paul/Farida/Abad on:?11/17/2024 06:40 AM CDT History and Physical Notes * HPI (History of Present Illness) Category Sub-Category Detail Notes Category Not es Pain Details Pain Location neck, left shoul jonathon, right shgoulder, left knee, lower back Quality Sharp Severity of pain at its worst 9/10 Severity of pain at its best 2/10 Severity of average pain ___, 10/12 Severity of pain right now ___, 10/12 Severity of pain on medication ___, 10/12 When did you last take your pain medicin e today Medication Details Do you have a lock b ox or safe place for medication away from minors and/or others? Yes Do you have any leftover pain medication building up at your house? No Do you understand that pain medication c an be addicting and can cause overdose? Yes Do you feel you can REDUCE the amount of medication you take today? No Opioid Assessment Tools Last Urine Drug Screen 1 Negative Hydromorphone Today's Rapid Urine Drug Screen None [place] Prescription Monitoring Program found to be consistent with treatment history, reviewed today COMM (Current Opioid Misuse Measure) ___ , Less than 9 : indicates low risk of abuse behaviors Treatment History Test undergone in the past 4 L Spine DRTLA Past medication you have taken MSIR 15 m g #90 06/30/2024 Treatments you have had None Examination Category Sub-Category Detail Notes Category Not es General Examination General patient is w ell developed, well-nourished, alert and oriented, has good hygiene Cervical Spine Palpation of Cervica l Spine stiff, tender Palpation of Cervical Facets reveals chaparro n in C3 - C7 region bilaterally Lumbar Spine Lumbar Spine Inspection reveals no scoliosis, no pectus, no signs of inflammation, and no scar Palpation of Lumbar Spine reveals hypere xtension of lumbar spine and bilateral palpitation of lumbar facets reproduces back pain Palpation of Lumbar Interver tebral Space (Discs) there is no pain noted Bilateral Palpation of Sacroiliac Joint reveals no pain Palpation of Greater Trochanteric Bursa reveals no tenderness on both sides Musculoskeletal - Low Back Muscles Trigger Point s no palpable trigger points are noted Gaenslen's Test Negative Neurological Mental Status awake, oriented to person, oriented to place, oriented to time, memory intact, mood and affect are normal Motor Strength Left UE strength - Flexors: 5/5 Right UE strength - Flexors: 5/5 Left UE strength - Extensors: 5/5 Right UE strength - Extensors: 5/5 Left UE Tone: normal Right UE Tone: normal Left LE strength - Flexors: 5/5 Right LE strength - Flexors: 5/5 Left LE strength - Extensors: 5/5 Right LE strength - Extensors: 5/5 Left LE Tone: normal Right LE Tone: normal
--- OUTSIDE RECORDS SUMMARY | 2024-11-17 06:41 | XMS_ITS | Continuity of Care Document ---
Author Organization [facility] [place] [facility]) Address [address] [place] [address] Problems Condition ICD9 code ICD10 code SNOMED code Start Date End Date S tatus Other spondylosis with radiculopathy, cervical region M47.22 01/29/2024 Active Cervical disc disorder with myelopathy, mid-cervical region, unspecified level M50.020 01/29/2024 Active assisted (current) use of opiate analgesic Z79.891 01/30/2024 Activ e Methicillin susceptible Staphylococcus aureus infection as the cause of diseases classified elsewhere B95.61 01/29/2024 Active Bacteremia R78.81 01/29/2024 Active Difficulty in walking, not elsewhere classified R26.2 01/30/2024 Active Low back pain, unspecified M54.50 01/30/2024 Active Muscle weakness (generalized) M62.81 01/31/2024 Active Other infective (teno)synovitis, unspecified site M65.10 01/29/2024 Active Encounter for adjustment and management of vascular access device Z45.2 01/29/2024 Ac tive Other intervertebral disc displacement, lumbar region M51.26 01/29/2024 Active Other chronic pain G89.29 02/27/2024 Ac tive Other pulmonary embolism without acute cor pulmonale I26.99 01/29/2024 Active long term care phlebotomist (current) use of anticoagulants Z79.01 01/29/2024 Active Non-ST elevation (NSTEMI) myocardial infarction I21.4 01/29/2024 Act matheus assisted (current) use of aspirin Z79.82 01/29/2024 Active Hypertensive heart disease with heart failure I11.0 01/29/2024 Active Personal history of nicotine dependence Z87.891 01/29/2024 Activ e 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 01/29/2024 Active Nonrheumatic mitral (valve) insufficiency I34.0 01/29/2024 Act matheus Nonrheumatic tricuspid (valve) insufficiency I36.1 01/29/2024 Act matheus Pulmonary hypertension, unspecified I27.20 01/30/2024 Active Complex regional pain syndrome I, unspecified G90.50 01/29/2024 A ctive Polyneuropathy, unspecified G62.9 01/29/2024 Active Hyperlipidemia, unspecified E78.5 01/29/2024 Active Gastro-esophageal reflux disease without esophagitis K21.9 01/29/2024 Active Cyst of kidney, acquired N28.1 01/29/2024 Active Unvaccinated for COVID-19 Z28.310 01/29/2024 Active Results No Results Allergies, adverse reactions, alerts Substance Reaction Date Status Type oxycodone 01/29/2024 Non Drug Immunizations Vaccine Route Date Status COVID-19 Vaccine Unassigned Route of Administration Refused Medications Medication Instructions Route Dosage Frequency Start Date Stop Date Indications Status Afrin No Drip(oxymetazol in) (oxymetazoline) 0.05 % mist (Afrin No Drip(oxymetazol in) (oxymetazoline) ) 4 sprays each nostril, nasal, Four Times A Day nasal 1.0 6.0 h 03/04 Active amlodipine 10 mg tablet (amlodipine) 1, oral, Once A Day oral 1.0 1.0 d 03/04 Active aspirin 81 mg tablet,delayed release (DR/EC) (aspirin) 1 tab, oral, Once A Day oral 1.0 1.0 d 03/04 Active atorvastatin 20 mg tablet (atorvastatin) 1, oral, At Bedtime oral 1.0 03/04 Active cefazolin 2 gram recon soln (cefazolin) 2 gram, intravenous, Every 8 Hours intravenou s 1.0 8.0 h 03/04 Active Colace (docusate sodium) 100 mg capsule (Colace (docusate sodium)) 1, oral, Twice A Day - PRN, Clinical Indication: constipation oral 1.0 12.0 h 03/04 Active cyanocobalamin (vitamin B-12) 5,000 mcg capsule (cyanocobalamin (vitamin B-12)) 1, oral, Once A Day oral 1.0 1.0 d 03/04 Active cyclobenzaprine 5 mg tablet (cyclobenzaprin e) 1, oral, Three Times A Day - PRN, Clinical Indication: Muscle Spasm oral 1.0 8.0 h 03/04 Active diclofenac sodium 75 mg tablet,delayed release (DR/EC) (diclofenac sodium) 1, oral, Every 12 Hours - PRN, Clinical Indication: pAIN oral 1.0 12.0 h 03/04 Active Dulcolax (bisacodyl) (bisacodyl) 10 mg suppository (Dulcolax (bisacodyl) (bisacodyl)) 1 suppository, rectal, Once A Day - PRN, Give rectally if can't take p/o, if no results from MOM rectal 1.0 1.0 d 03/04 Active Dulcolax (bisacodyl) (bisacodyl) 5 mg tablet,delayed release (DR/EC) (Dulcolax (bisacodyl) (bisacodyl)) 2 tabs/10mg, oral, Once A Day - PRN, Give if no results from MOM oral 1.0 1.0 d 03/04 Active Eliquis (apixaban) 5 mg tablet (Eliquis (apixaban)) 1, oral, Twice A Day oral 1.0 12.0 h 03/04 Active Fleet Enema (sodium phosphates) 19-7 gram/118 mL enema (Fleet Enema (sodium phosphates)) 1 application, rectal, Once A Day - PRN, Give fleets if no results from MOM and Dulcolax rectal 1.0 1.0 d 03/04 Active hydralazine 25 mg tablet (hydralazine) 3, oral, Three Times A Day oral 1.0 8.0 h 03/04 Active isosorbide mononitrate 30 mg tablet extended release 24 hr (isosorbide mononitrate) 1, oral, Twice A Day oral 1.0 12.0 h 03/04 Active lisinopril 40 mg tablet (lisinopril) 1, oral, Once A Day oral 1.0 1.0 d 03/04 Active metoprolol tartrate 25 mg tablet (metoprolol tartrate) 1, oral, Twice A Day oral 1.0 12.0 h 03/04 Active Milk of Magnesia (magnesium hydroxide) 400 mg/5 mL suspension (Milk of Magnesia (magnesium hydroxide)) 30 ml, oral, Every 72 Hours - PRN, if no BM in 3 daysDO NOT GIVE TO RENAL PATIENTS--GO TO DULCOLAX ORDERS oral 1.0 72.0 h 03/04 Active Miralax (polyethylene glycol 3350) 17 gram/dose powder (Miralax (polyethylene glycol 3350)) 17 gram, oral, Once A Day, Mix with 8 oz water/juice oral 1.0 1.0 d 03/04 Active morphine 15 mg tablet immediate release (morphine) 1 tab, oral, Every 8 Hours - PRN, clinical indication: break through pain oral 1.0 8.0 h 03/04 Active morphine 30 mg tablet extended release (morphine) 1 tab, oral, Twice A Day, clinical indication: severe pain oral 1.0 12.0 h 03/04 Active Normal Saline Flush (sodium chloride 0.9 %) - syringe (Normal Saline Flush (sodium chloride 0.9 %)) 5ml, injection, Every Shift, Flush IV with 5ml NS before and after use(SASH) 1.0 8.0 h 03/04 Active oxymetazoline 0.05 % spray,non-aeros ol (oxymetazoline) 2 spray intranasal, nasal, As Needed, twice a day as needed for dry nasal cavities and nasal bleed nasal 1.0 1.0 d 03/04 Active pantoprazole 40 mg tablet,delayed release (DR/EC) (pantoprazole) 1, oral, Once A Day oral 1.0 1.0 d 03/04 Active petrolatum (mineral oil-hydrophil petrolat) - ointment (petrolatum (mineral oil-hydrophil petrolat)) 1 application topically, topical, As Needed, apply 1 application topically twice daily to nares as needed topical 1.0 1.0 d 03/04 Active Saline Mist (sodium chloride) 0.65 % aerosol,spray (Saline Mist (sodium chloride)) 1 spray each nostril, nasal, Three Times A Day, 1 spray each nostril nasal 1.0 8.0 h 03/04 Active Saline Nasal (sodium chloride) 0.65 % aerosol,spray (Saline Nasal (sodium chloride)) 2 sprays, nasal, As Needed, 2 spray intranasal Q2H as needed nasal 1.0 1.0 d 02/24 Active Saline Nasal (sodium chloride) 0.65 % aerosol,spray (Saline Nasal (sodium chloride)) 2 sprays, nasal, Twice A Day nasal 1.0 12.0 h 03/04 Active Stool Softener-Laxati ve (sennosides-doc usate sodium) 8.6-50 mg tablet (Stool Softener-Laxati ve (sennosides-doc usate sodium)) 1, oral, Twice A Day oral 1.0 12.0 h 03/04 Active topiramate 50 mg capsule,extende d release 24hr (topiramate) 1, oral, Once A Day oral 1.0 1.0 d 03/04 Active Tubersol (tuberculin ppd) 5 tub. unit /0.1 mL solution (Tubersol (tuberculin ppd)) 0.1ml, intradermal, Once - One Time, Administer the morning after admission intraderma l 1.0 03/04 Active Tubersol (tuberculin ppd) 5 tub. unit /0.1 mL solution (Tubersol (tuberculin ppd)) 0.1ml, intradermal, Once - One Time, Administer on the day shift intraderma l 1.0 03/04 Active Tylenol (acetaminophen) 325 mg tablet (Tylenol (acetaminophen) ) 2 tabs/650mg, oral, Every 6 Hours - PRN, as needed for PRN pain/increase d tempMay give rectally if necessary oral 1.0 6.0 h 02/17 Active Tylenol (acetaminophen) 325 mg tablet (Tylenol (acetaminophen) ) 2 tabs/650mg, oral, As Needed, Q6hrs as needed for PRN pain/increase d tempMay give rectally if necessary oral 1.0 1.0 d 03/04 Active Vaseline (white petrolatum) - gel (Vaseline (white petrolatum)) 1 each, topical, Three Times A Day, Apply Vaseline with Qtip to each nostril after saline spray. topical 1.0 8.0 h 03/04 Active Vital Signs Date Vital Result Comment 02/01/2024 10:26 AM Body Weight 149.6 [lb_av] Body Mass Index 26.5 kg/m2 02/26/2024 02:53 PM Body Weight 144.6 [lb_av] Body Mass Index 25.61 kg/m2 03/03/2024 11:57 AM Temperature 97.5 [degF] Oxygen Saturation 90 % Respiratory Rate 16 /min Heart Rate 68 /min Blood Pressure Systolic 140 mm[Hg] Blood Pressure Diastolic 87 mm[Hg] 03/03/2024 03:53 PM Body Height 63 [in_us] 03/02/2024 07:17 PM Oxygen Saturation 90 % 03/04/2024 07:20 AM Temperature 97.5 [degF] Oxygen Saturation 95 % Respiratory Rate 20 /min Heart Rate 108 /min Blood Pressure Systolic 112 mm[Hg] Blood Pressure Diastolic 65 mm[Hg] 03/03/2024 07:11 PM Temperature 97.7 [degF] Oxygen Saturation 94 % Respiratory Rate 20 /min Heart Rate 97 /min Blood Pressure Systolic 151 mm[Hg] Blood Pressure Diastolic 73 mm[Hg] 03/01/2024 09:37 AM Temperature 96.9 [degF] Oxygen Saturation 92 % Respiratory Rate 18 /min Heart Rate 91 /min Blood Pressure Systolic 141 mm[Hg] Blood Pressure Diastolic 69 mm[Hg] 03/02/2024 07:14 PM Temperature 97.9 [degF] Respiratory Rate 20 /min Heart Rate 99 /min Blood Pressure Systolic 112 mm[Hg] Blood Pressure Diastolic 54 mm[Hg] 02/19/2024 12:18 PM Body Weight 148.6 [lb_av] Body Mass Index 26.32 kg/m2 02/12/2024 10:58 AM Body Weight 148.8 [lb_av] Body Mass Index 26.36 kg/m2 02/01/2024 10:13 PM Body Weight 148.2 [lb_av] Body Mass Index 26.25 kg/m2 02/29/2024 08:31 PM Temperature 98 [degF] Oxygen Saturation 95 % Respiratory Rate 20 /min Heart Rate 88 /min Blood Pressure Systolic 132 mm[Hg] Blood Pressure Diastolic 88 mm[Hg] 02/05/2024 01:03 PM Body Weight 149.4 [lb_av] Body Mass Index 26.46 kg/m2 01/29/2024 09:19 PM Body Weight 150 [lb_av] Body Mass Index 26.57 kg/m2 03/02/2024 02:50 AM Temperature 97 [degF] Oxygen Saturation 95 % Respiratory Rate 18 /min Heart Rate 88 /min Blood Pressure Systolic 126 mm[Hg] Blood Pressure Diastolic 88 mm[Hg] 01/31/2024 01:05 PM Body Weight 150.2 [lb_av] Body Mass Index 26.6 kg/m2 02/29/2024 02:12 PM Temperature 97.5 [degF] Oxygen Saturation 93 % Respiratory Rate 18 /min Heart Rate 85 /min Blood Pressure Systolic 119 mm[Hg] Blood Pressure Diastolic 58 mm[Hg] 02/28/2024 09:16 PM Temperature 98.3 [degF] Oxygen Saturation 92 % Respiratory Rate 18 /min Heart Rate 89 /min Blood Pressure Systolic 110 mm[Hg] Blood Pressure Diastolic 58 mm[Hg] 02/03/2024 03:05 PM Body Weight 148.8 [lb_av] Body Mass Index 26.36 kg/m2 01/30/2024 08:15 PM Body Weight 150.4 [lb_av] Body Mass Index 26.64 kg/m2 03/02/2024 09:21 AM Temperature 97.7 [degF] Oxygen Saturation 96 % Respiratory Rate 18 /min Heart Rate 91 /min Blood Pressure Systolic 110 mm[Hg] Blood Pressure Diastolic 45 mm[Hg] Social History Element Description Date Comment Tobacco smoking status NHIS Former smoker Encounters Type CPT Code Date Location Provider Indication s encounter report 01/29/2024 06:2 5 PM - 03/04/2024 10:03 AM Quincy Edmonds DO 01 Advance Directives Directive Description Verification Date Supporting Document(s) Other Directive
--- OUTSIDE RECORDS SUMMARY | 2024-11-17 06:41 | XMS_ITS ---
Author Organization [facility] Address [address] [place] [address] Care Team Providers Care Mimeograph Operator Name Role Phone Raven Peres Primary Care Provider Kassandra Perales Unavailable [phone] Hammad Borrero Unavailable [phone] REASON FOR VISIT refill Medications Medication SIG (Take, Route, Frequency, Duration) Notes Start Date End Date Status Morphine Sulfate 15 MG 1 tablet as needed Orally every 8 hours for 30 days As needed Not to exceed 3 per day Fill on 10-29-24 10/02/2024 11/28/2024 Active Encounters Encounter Location Date Provider Diagnosis [facility] [address] [place] [address] 10/01/2024 Hammad Borrero Chronic pain syndrome G89.4 Assessments Encounter Date Diagnosis (ICD Code) Assessment Notes Treatment Notes Treatment Clinical Notes Section Notes 10/01/2024 Chronic pain syndrome (ICD-10 - G89.4) Plan Of Treatment Medication Medication Name Sig Start Date Stop Date Notes Morphine Sulfate 15 MG 1 tablet as neede d Orally every 8 hours for 30 days 10/02/2024 11/28/2024 Fill on 10-29-24 Next Appt Details Provider Name:Kassandra downey, 11/26/2024 08:45:00 AM, [address] [place], [address], Progress Notes * Emma NAVARRETE LDOB:1945 (78 yo F)Acc No.[id number]:10/01/2024 Patient:?Emma NAVARRETE :1945???Age:78 Y???Sex:Female Address:[address] [place] [address], [address] * Refills? Continue Morphine Sulfate Tablet, 15 MG, Orally, 90 Tablet, 1 tablet as needed, every 8 hours, 30 days, Refills=0 * true * Date:? Generated for Adalid paul/Farida/eTransmitting on:?11/17/2024 06:40 AM CDT
[2024-11-17 06:58] LABS: MRSA PCR OZH (swab) NOT DETECTED (Not Detecte)
[2024-11-17] MEDS: budesonide 0.5 mg/2 mL Neb INHALATION (07:33)
[2024-11-17 07:36] LABS: Adenovirus Not Detected (NOT DETECT); Chlamydia Pneumoniae Not Detected (NOT DETECT); Coronavirus 229E,HKU1,NL63,OC4 Not Detected (NOT DETECT); Human Metapneumovirus Not Detected (NOT DETECT); Human Rhinovirus/Enterovirus Not Detected (NOT DETECT); Influenza A Not Detected (NOT DETECT); Influenza A H1 Not Detected (NOT DETECT); Influenza A H1-2009 Not Detected (NOT DETECT); Influenza A H3 Not Detected (NOT DETECT); Influenza B Not Detected (NOT DETECT); Mycoplasma Pneumoniae Not Detected (NOT DETECT); Parainfluenza Virus Type 1 Not Detected (NOT DETECT); Parainfluenza Virus Type 2 Not Detected (NOT DETECT); Parainfluenza Virus Type 3 Not Detected (NOT DETECT); Parainfluenza Virus Type 4 Not Detected (NOT DETECT); Respiratory Syncytial Virus A Not Detected (NOT DETECT); Respiratory Syncytial Virus B Not Detected (NOT DETECT); SARS-COV-2 Not Detected (NOT DETECT)
--- NOTE | 2024-11-17 08:27 | PC.PHAR ---
Pt moved all her rx's from [facility] to [facility]. Verified all current meds, last fill and day supply with [facility].
[2024-11-17] MEDS: isosorbide mononitrate ER 30 mg Tablet PO ×2 (08:45→17:56)
[2024-11-17] MEDS: lisinopril 20 mg Tablet 40 MG PO (08:46)
[2024-11-17] MEDS: metoprolol tartrate 25 mg Tablet PO ×2 (08:46→21:53)
[2024-11-17 08:56] LABS: Partial Thromboplastin Time 106.9 SECONDS (23.9-36.7)
--- NOTE | 2024-11-17 10:27 | PC.NURSE ---
Verbal orders received from Dr. Webb for 15mg morphine PO BID PRN. Orders also received for troponin series. Orders placed but patient refused to have troponin series drawn.
[2024-11-17] MEDS: morphine IR 15 mg Tablet PO ×2 (11:08→19:58)
--- NOTE | 2024-11-17 15:00 | PM.PN ---
Subjective Subjective: Seen her at bedside this morning. Denies any complaint of shortness of breath or chest pain. Reports feeling better as compared to when she came in. Medications: Reviewed: Yes Vitals/I&O/Wt Last Vital Signs Temp 98.2 F 11/17/24 12:00 Pulse 73 11/17/24 12:00 Resp 16 11/17/24 12:00 BP 129/101 11/17/24 12:00 Pulse Ox 94 11/17/24 12:00 O2 Del Method Room Air 11/17/24 08:00 O2 Flow Rate 2 11/17/24 07:25 FiO2 40 11/16/24 21:05 11/17/24 11/17/24 11/17/24 06:59 14:59 22:59 Intake Total 250 / 250 766.667 / 766.667 Output Total 550 / 550 Balance 250 / 250 216.667 / 216.667 Weight last 48 hrs Weight 70.5 kg Weight 70.5 kg Weight 67.132 kg Physical Exam Const: COMMON NORMALS: no acute distress and patient oriented x3 HENMT: COMMON NORMALS: normocephalic HEAD & SCALP: normocephalic Eye: COMMON NORMALS: Equal, round and reactive pupils present and EOMs intact bilaterally PUPIL: Yes Equal, round and reactive pupils present Neck/C-Spine: COMMON NORMALS: no JVD Resp: COMMON NORMALS: normal respiratory effort, No retractions, No use of accessory muscles and clear to auscultation bilaterally AUSCULTATION: clear to auscultation bilaterally, crackles and wheezes Cardio: COMMON NORMALS: no JVD, regular rate, regular rhythm, S1 normal heart sound present and S2 normal heart sound present RATE: regular rate RHYTHM: regular rhythm HEART SOUNDS: S1 normal heart sound present and S2 normal heart sound present GI: COMMON NORMALS: Normal to inspection, nondistended, normoactive bowel sounds present, Soft to palpation and non-tender PALPATION: Yes Soft to palpation Extremity: COMMON NORMALS: no calf tenderness and no pedal edema Neuro: COMMON NORMALS: patient oriented x3, CN's II-XII intact bilaterally and moves all extremities Psych: COMMON NORMALS: mental status grossly normal Data 11/17/24 03:15 11/17/24 03:15 Micro: Microbiology 11/17/24 03:15 Blood Culture - Preliminary Blood SPECIMEN COLLECTED 11/17/24 00:00 Blood Culture - Preliminary Blood SPECIMEN COLLECTED A&P Assessment and plan (1) Acute hypoxic respiratory failure: (2) Non-STEMI (non-ST elevated myocardial infarction): (3) Pneumonia: (4) Pulmonary edema: Plan Acute hypoxic respiratory failure - Etiology unclear? - Possibly acute flash pulmonary edema - Does have NSTEMI, potentially cardiac event? - Also concern for pneumonia given CT scans findings as below CT/CT angio chest PE protcl [id number] IMPRESSION: 1. No evidence of acute pulmonary emboli. Stable chronic focal web-like filling defect at basal segmental right lower lobe artery. 2. Vozmt-imferaf-loqv-left dependent reticulation and ground-glass attenuation may represent atelectasis, possibly edema given additional finding of smooth interlobular septal thickening suggestive of interstitial edema. Difficult to entirely exclude infectious or inflammatory process. 3. Minimal bilateral pleural effusions. 4. Bilateral mosaic attenuation is nonspecific, may be seen in the setting of small airways disease or possibly on the basis of chronic thromboembolic pulmonary hypertension. 5. Additional chronic and incidental findings as above. Plan - Monitor in ICU -BiPAP as needed - Serial EKGs, start troponins, telemetry monitoring - Cardiac echo - Blood cultures, CRP, Pro-Adonis, respiratory viral panel, lactic acid - Lasix 40 IV milligrams once - Heparin drip - Aspirin, Statin, metoprolol - Start Zosyn -start vancomycin - Sputum cultures, MRSA nares -DuoNeb, budesonide - Will monitor clinical status closely - Full code - Lovenox for DVT prophylaxis 11/17/24 Acute hypoxic respiratory failure likely secondary to flash pulmonary edema Likely NSTEMI Troponins climbing up from 9 to 19-32 Follow-up cardiology consult 2D echo in 01/26 showed EF of 45 to 50%, grade 1 diastolic dysfunction. Pharmacologic stress test was negative. Continue IV vancomycin and Zosyn for now Continue heparin drip. Supplemental oxygen to keep saturation more than 90% PDMP PDMP Reviewed: Not Reviewed Attestations Medical Necessity Statement*: Patient requires hospitalization, inpatient, greater than 2 midnights for acute hypoxic respiratory failure, NSTEMI, pulm edema, and cardiology consult Time Spent in Patient Care: 25 minutes Coding Level of Care Code Acute Code for [facility] Diagnoses Acute hypoxic respiratory failure J96.01 Non-STEMI (non-ST elevated myocardial infarction) I21.4 Pneumonia J18.9 Pulmonary edema J81.1 Time Spent (min) 25
[2024-11-17 15:34] LABS: Partial Thromboplastin Time 69.6 SECONDS (23.9-36.7)
[2024-11-17] MEDS: VANCOMYCIN ADD-Vantage 750 MG in 0.9% NaCl ADD-Vantage 250 ML 250 MG IV (16:43)
--- NOTE | 2024-11-17 17:08 | PM.CONSULT ---
Providers/Reason For Consult Consulting Physician/Specialty*: ZORAIDA Barker MD/cardiology Reason for Consult*: Patient with elevated troponin T/pulmonary embolism/heart failure Requesting Physician: Dr. Webb Attending Physician: [place] Webb MD Primary Care Provider: Raven Peres MD History of Present Illness History of Present Illness Emma Navarrete is a 79 year old female with a history of coronary artery disease, mitral valve regurgitation, LV dysfunction and recurrent pulmonary embolism, is admitted to the hospital through the emergency room where she presented with acute onset of shortness of breath. She was found to be hypoxic with respiratory distress. She was initially treated with BiPAP which was transitioned to oxygen by nasal cannula. She was found to have elevated troponin T and features of congestive heart failure. Cardiology consult is requested for further cardiac evaluation and recommendations. This patient apparently has been at her baseline state of health up until last night when she had this rather sudden onset of shortness of breath associated with some dizziness, nausea, generalized weakness and sweating. According to the patient, prior to this event, she had a long conversation with her daughter on the phone. She did not have any chest pain or chest tightness. As she was walking towards the kitchen, she started having shortness of breath associated with generalized weakness and dizziness. She called her friend to take her to the hospital. While waiting for him, because of the worsening of the symptoms, patient called 911. She was found to be hypoxic with respiratory distress in the field. She was placed on BiPAP. In the emergency room, she was weaned off the BiPAP and was placed on nasal cannula. Currently she is on oxygen by nasal cannula, 2 L/min. Her initial troponin T was 9 with a 2-hour delta of 11 and a 6-hour delta of 22. Her EKG did not reveal any acute ST-T changes. Her CTA of the chest did not reveal any evidence of acute pulmonary embolism. The findings are as follows. Echocardiogram revealed ejection fraction around 43%. This was 45 to 50% in January 2024. She denies any fever or chills. No severe cough She has a history of pulmonary embolism, initially diagnosed in 2013. She had another episode of pulmonary embolism in January of last year. She is on long-term oral anticoagulation. She has been compliant with medications. The last dose of Eliquis was yesterday morning Review of Systems Narrative: CONSTITUTIONAL: No fever or chills. EYES: No blurring of vision or other visual disturbances lately. ENT: No hoarseness of voice, auditory disturbances or sore throat. CARDIOVASCULAR: As mentioned above. RESPIRATORY: As mentioned above GASTROINTESTINAL: No hematemesis or melena. GENITOURINARY: No dysuria or hematuria. INTEGUMENTARY: No skin rashes or history of skin cancer. NEURO: No transient ischemic attacks or amaurosis. PSYCHIATRIC: No history of psychosis or major depression. HEMATOLOGIC: No bleeding disorders or significant anemia. ENDOCRINE: No history of polyuria or polydipsia. MUSCULOSKELETAL: No recent joint pain or swelling. ALLERGY/IMMUNOLOGY: As mentioned above. Medications/Allergies Home Medications ?Medication ?Instructions ?Recorded ?Confirmed ?Last Taken ?Type Tricia Joy 06/11/22 11/17/24 Unknown History isosorbide mononitrate 30 mg 30 mg PO BID #180 tabs 10/29/22 11/17/24 11/16/24 Rx tablet,extended release 24 hr diclofenac sodium 75 mg 75 mg PO Q12H PRN pain #20 tabs 01/17/24 11/17/24 Unknown Rx tablet,delayed release morphine 15 mg immediate release 15 mg PO Q8H PRN Pain 01/19/24 11/17/24 Unknown History tablet apixaban 5 mg tablet (Eliquis) 5 mg PO BID@0900,2100 #60 tabs 01/29/24 11/17/24 11/16/24 Rx cyanocobalamin (vitamin B-12) 5,000 mcg PO DAILY #30 caps 01/29/24 11/17/24 11/16/24 Rx 5,000 mcg capsule pantoprazole 40 mg tablet,delayed 40 mg PO DAILY #30 tabs 01/29/24 11/17/24 11/15/24 Rx release polyethylene glycol 3350 17 gram 17 g PO DAILY #30 ea 01/29/24 11/17/24 Unknown Rx oral powder packet topiramate 50 mg capsule,extended 50 mg PO DAILY #30 caps 01/29/24 11/17/24 11/16/24 Rx release 24 hr sodium chloride 0.65 % nasal spray 2 spray intranasal Q2H PRN dry 02/01/24 11/17/24 Unknown Rx aerosol (Saline Nasal) nasal passages #44 mL atorvastatin 20 mg tablet 20 mg PO BEDTIME 11/17/24 11/17/24 11/15/24 History hydralazine 25 mg tablet 25 mg PO TID 11/17/24 11/17/24 11/16/24 History lisinopril 40 mg tablet 40 mg PO DAILY 11/17/24 11/17/24 11/16/24 History metoprolol tartrate 50 mg tablet 50 mg PO BID 11/17/24 11/17/24 11/16/24 History Allergies Allergy/AdvReac Type Severity Reaction Status Date / Time oxycodone (From Xtampza ER) Allergy bad taste Verified 11/16/24 21:07 in mouth Current Medications Generic Name Dose Route Start Last Admin Trade Name Freq PRN Reason Stop Dose Admin Aspirin 81 mg 11/17/24 02:04 11/17/24 08:46 Aspirin 81 Mg Ec Tablet PO 81 mg DAILY MARIA Administration Heparin Sodium/Sodium Chloride 25,000 unit in 500 mls @ 0 mls/hr 11/17/24 01:45 11/17/24 15:53 Heparin Drip IV 11.92 unit/kg/hr CONT MARIA 16 mls/hr Titration Protocol Per Protocol Piperacillin Sod/Tazobactam 50 mls @ 12.5 mls/hr 11/17/24 02:30 11/17/24 15:27 Sod 3.375 gm/ Sodium Chloride IV Infused Q8H MARIA Infusion Vancomycin HCl 750 mg/ Sodium 250 mls @ 250 mls/hr 11/17/24 15:30 11/17/24 16:43 Chloride IV 250 mls/hr Q12H MARIA Administration Isosorbide Mononitrate 30 mg 11/17/24 09:00 11/17/24 08:45 Isosorbide Mononitrate Er 30 Mg Tablet PO 30 mg BID MARIA Administration Lisinopril 40 mg 11/17/24 09:00 11/17/24 08:46 Lisinopril 20 Mg Tablet PO 40 mg DAILY MARIA Administration Metoprolol Tartrate 25 mg 11/17/24 09:00 11/17/24 08:46 Metoprolol Tartrate 25 Mg Tablet PO 25 mg BID@0900,2100 MARIA Administration Morphine Sulfate 15 mg 11/17/24 10:26 11/17/24 11:08 Morphine Ir 15 Mg Tablet PO 15 mg BID PRN Administration SEVERE PAIN Pantoprazole Sodium 40 mg 11/17/24 02:04 11/17/24 03:27 Pantoprazole 40 Mg Sdv IVP 40 mg Q24H MARIA Administration Polyethylene Glycol 17 gm 11/17/24 09:00 11/17/24 08:47 Polyethylene Glycol 3350 Pkt 17 Gm PO Not Given DAILY MARIA PFSH Acute PFSH: Medical History Moderate mitral regurgitation HTN (hypertension) with goal to be determined SVT (supraventricular tachycardia) Hypertension Stenosis of cervical spine with myelopathy Renal cyst, left Tricuspid valve regurgitation Mitral valve regurgitation Shortness of breath Hyperlipidemia GERD (gastroesophageal reflux disease) Cervical disc disorder with myelopathy of mid-cervical region CRPS (complex regional pain syndrome type I) last stellate ganglion block was in 2012. Rt side Neuropathic peripheral nerve Other intervertebral disc displacement, lumbar region Surgical History Status post laparoscopic cholecystectomy (06/10/20) Status post colonoscopy H/O esophagogastroduodenoscopy S/P hip replacement BILATERAL - TOTAL S/P arthroscopic knee surgery LEFT S/P hysterectomy PARTIAL FOR DYSMENORRHEA S/P tubal ligation S/P reduction mammoplasty S/P lumbar spinal fusion 2001 [facility], [place]. L2-L3, L3-L4, L4-L5, and L5-S1 fusion/fixation 1986 [facility] L4-L5, L5-S1 decompression 05/1977 L5-S1 decompression S/P thymectomy 1983 AGE 15 MYASTHENIA GRAVIS S/P bladder repair ANTERIOR VAG REPAIR WITH ELEVATE VAG MESH, POSTERIOR REPAIR AND CYSTOSCOPY DR SYLVIA HOWELL [facility]. 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 Not in any acute distress. HEENT: No significant pallor, icterus or lymphadenopathy.Oral cavity: There are no mucous membrane lesions. NECK: Trachea appears to be central. No masses noted. No JVD or thyromegaly appreciated. RESPIRATORY: Chest is symmetrical. No intercostals muscle retraction or any accessory muscle activation. There is no chest wall tenderness. Breath sounds are heard bilaterally. No rales or rhonchi heard. No evidence of any consolidation. BREASTS: Deferred. HEART: The heart sounds are normal. No S3 or S4. Systolic murmur grade 4/6 in the mitral area. No diastolic murmurs. No pericardial rub ABDOMEN: No vessel pulsations or distention. No tenderness. No organomegaly appreciated. Bowel sounds are normally heard. : Deferred. RECTAL: Deferred. LYMPHATIC: No lymphadenopathy noted in the neck. EXTREMITIES: No edema or cyanosis. No clubbing. MUSCULOSKELETAL: No acute joint deformities or swelling SKIN: There are no significant rashes or ecchymosis NEUROPSYCHIATRIC: The patient is alert and oriented x3. Appears to be in a good mood. No tremors or rigidity noted. Data 11/18/24 04:27 11/18/24 04:27 Other Labs: Laboratory Last Values WBC 6.53 10^3/uL (3.29-11.43) 11/17/24 03:15 RBC 5.02 10^6/uL (3.85-5.65) 11/17/24 03:15 Hgb 12.90 g/dL (11.27-16.99) 11/17/24 03:15 Hct 43.0 % (36-47) 11/17/24 03:15 MCV 85.7 fl (85-98) 11/17/24 03:15 MCH 25.7 pg (27-33) L 11/17/24 03:15 MCHC 30.0 g/dL (30-55) 11/17/24 03:15 RDW 14.0 % (12.1-15.1) 11/17/24 03:15 Plt Count 246 10^3/cmm (157-399) 11/17/24 03:15 MPV 11.3 fL (7.4-10.4) H 11/17/24 03:15 Neut % (Auto) 66.2 % 11/17/24 03:15 Lymph % (Auto) 19.6 % 11/17/24 03:15 [facility] % (Auto) 10.7 % 11/17/24 03:15 Eos % (Auto) 2.9 % 11/17/24 03:15 Baso % (Auto) 0.6 % 11/17/24 03:15 Neut # (Auto) 4.32 10^3/uL (1.8-7.7) 11/17/24 03:15 Lymph # (Auto) 1.3 10^3/uL (0.8-4.8) 11/17/24 03:15 [facility] # (Auto) 0.7 10^3/uL (0.2-0.9) 11/17/24 03:15 Eos # (Auto) 0.2 10^3/uL (0.0-0.8) 11/17/24 03:15 Baso # (Auto) 0.0 10^3/uL (0.0-0.1) 11/17/24 03:15 Nucleated RBC % (auto) 0 % 11/17/24 03:15 Nucleated RBCs # 0.0 /100WBC 11/17/24 03:15 ESR 11 mm/hr (0-15) 11/17/24 00:00 APTT 69.6 SECONDS (23.9-36.7) H 11/17/24 15:01 Specimen Type Arterial 11/16/24 21:07 Sample Site Brachial, right 11/16/24 21:07 ABG pH 7.28 (7.35-7.45) L 11/16/24 21:07 ABG pCO2 44.3 mmHg (35-45) 11/16/24 21:07 ABG pO2 137.0 mmHg (80.0-100.0) H 11/16/24 21:07 ABG PO2/FiO2 Ratio 342 11/16/24 21:07 ABG HCO3 20.7 mmol/L (22-26) L 11/16/24 21:07 ABG Base Excess -6.0 mmol/L (-2.0-2.0) L 11/16/24 21:07 Homer Test N/a 11/16/24 21:07 Hematocrit 42.5 % (37-47) 11/16/24 21:07 Hgb O2 Saturation 97.2 % (95-100) 11/16/24 21:07 Carboxyhemoglobin 0.8 %THgb (0.4-20.1) 11/16/24 21:07 Methemoglobin 1.1 % (0.4-1.5) 11/16/24 21:07 Total Hemoglobin 13.9 g/dL (12-16) 11/16/24 21:07 O2 Delivery Device Bipap 11/16/24 21:07 FiO2 40.0 % 11/16/24 21:07 Membership Sales Representative ID [email or web address] 11/16/24 21:07 Sodium 140 mmol/L (136-145) 11/17/24 03:15 Potassium 4.7 mmol/L (3.5-5.1) 11/17/24 03:15 Chloride 105 mmol/L (98-107) 11/17/24 03:15 Carbon Dioxide 22 mmol/L (22-29) 11/17/24 03:15 Anion Gap 17.7 (5-19) 11/17/24 03:15 BUN 17 mg/dL (8-23) 11/17/24 03:15 Creatinine 0.8 mg/dL (0.5-0.9) 11/17/24 03:15 GFR Calculation Not Reportable 11/17/24 03:15 Glucose 118 mg/dL (65-115) H 11/17/24 03:15 Estimat Average Glucose 128 11/17/24 03:15 Hemoglobin A1c 6.1 % (4.0-6.0) H 11/17/24 03:15 Calculated Osmolality 293 mOsm/kg (285-295) 11/17/24 03:15 Lactic Acid 5.0 mmol/L (0.5-2.2) H* 11/17/24 00:00 Lactic Acid (Sepsis) 1.7 mmol/L (0.5-2.2) 11/17/24 03:15 Calcium 9.0 mg/dL (8.5-10.5) 11/17/24 03:15 Total Bilirubin 0.3 mg/dL (0.15-1.2) 11/17/24 03:15 AST 20 U/L (0-32) 11/17/24 03:15 ALT 15 U/L (0-33) 11/17/24 03:15 Alkaline Phosphatase 115 U/L (35-105) H 11/17/24 03:15 Troponin T Baseline 9 ng/L (0-10) 11/16/24 21:07 Troponin T 120 Minute 19.91 ng/L (0-10) H 11/16/24 23:13 Delta Troponin T 10.91 ABS# (0-10) H* 11/16/24 23:13 Troponin T Hi Sens 6Hr 31.32 ng/L (0-10) H 11/17/24 03:15 Troponin T Hi Sens 6Hr Delta 22.32 ng/L (0-12) H* 11/17/24 03:15 C-Reactive Protein 3.0 mg/L (0.0-4.9) 11/17/24 00:00 NT-Pro-B Natriuret Pep 1548 pg/mL (0-450) H 11/16/24 20:51 Total Protein 7.2 g/dL (6.6-8.7) 11/17/24 03:15 Albumin 4.4 g/dL (3.5-5.2) 11/17/24 03:15 Globulin 2.8 g/dL (1.3-4.6) 11/17/24 03:15 Procalcitonin 0.03 ng/mL (0-0.5) 11/17/24 00:00 TSH 1.99 uIU/mL (0.27-4.20) 11/17/24 03:15 Urine Color Yellow (Yellow) 11/16/24 22:50 Urine Appearance Clear (CLEAR) 11/16/24 22:50 Urine pH 5 (5-7) 11/16/24 22:50 Ur Specific [place] 1.025 (1.005-1.030) 11/16/24 22:50 Urine Protein 3+ (Negative) A 11/16/24 22:50 Urine Glucose (UA) Norm (Normal) 11/16/24 22:50 Urine Ketones Negative (Negative) 11/16/24 22:50 Urine Blood Neg (Negative) 11/16/24 22:50 Urine Nitrate Negative (Negative) 11/16/24 22:50 Urine Bilirubin Neg (Negative) 11/16/24 22:50 Urine Urobilinogen Norm mg/dL (Negative) 11/16/24 22:50 Ur Leukocyte Esterase Negative (Negative) 11/16/24 22:50 Urine RBC 0-2 /hpf (0-2) 11/16/24 22:50 Urine WBC 6-10 /hpf (0-5) 11/16/24 22:50 Ur Squamous Epith Cells 6-10 /hpf (0-5) 11/16/24 22:50 Amorphous Sediment Not Reportable 11/16/24 22:50 Urine Bacteria None seen /hpf (NONE) 11/16/24 22:50 Hyaline Casts 11.16 /lpf 11/16/24 22:50 Fine Granular Casts 0-4 /lpf H 11/16/24 22:50 Nasal MRSA (PCR) Not detected (Not Detecte) 11/17/24 05:23 Adenovirus (PCR) Not detected (NOT DETECT) 11/17/24 05:23 C. pneumoniae DNA (PCR) Not detected (NOT DETECT) 11/17/24 05:23 Coronavirus 229E (PCR) Not detected (NOT DETECT) 11/17/24 05:23 Human Metapneumovir PCR Not detected (NOT DETECT) 11/17/24 05:23 Influenza A (H1) PCR Not detected (NOT DETECT) 11/17/24 05:23 Influ A (H1/09) PCR Not detected (NOT DETECT) 11/17/24 05:23 Influenza A (H3) PCR Not detected (NOT DETECT) 11/17/24 05:23 Influenza Type A (PCR) Not detected (NOT DETECT) 11/17/24 05:23 Influenza Type B (PCR) Not detected (NOT DETECT) 11/17/24 05:23 M. pneumoniae (PCR) Not detected (NOT DETECT) 11/17/24 05:23 Parainfluenza 1 (PCR) Not detected (NOT DETECT) 11/17/24 05:23 Parainfluenza 2 (PCR) Not detected (NOT DETECT) 11/17/24 05:23 Parainfluenza 3 (PCR) Not detected (NOT DETECT) 11/17/24 05:23 Parainfluenza 4 (PCR) Not detected (NOT DETECT) 11/17/24 05:23 RSV Type A (PCR) Not detected (NOT DETECT) 11/17/24 05:23 RSV Type B (PCR) Not detected (NOT DETECT) 11/17/24 05:23 Entero/Rhino (PCR) Not detected (NOT DETECT) 11/17/24 05:23 SARS-CoV-2 (PCR) Not detected (NOT DETECT) 11/17/24 05:23 Micro: Microbiology 11/17/24 03:15 Blood Culture - Preliminary Blood SPECIMEN COLLECTED 11/17/24 00:00 Blood Culture - Preliminary Blood SPECIMEN COLLECTED Other data: Myocardial perfusion imaging in January 2024 1. 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 2. Small sized area of prior infarct in the LAD territory. 3. LV systolic function is mildly reduced with EF of 45% CT of the chest from 11/17/2023 1. No evidence of acute pulmonary emboli. Stable chronic focal web-like filling defect at basal segmental right lower lobe artery. 2. Esrly-mrpazro-rzat-left dependent reticulation and ground-glass attenuation may represent atelectasis, possibly edema given additional finding of smooth interlobular septal thickening suggestive of interstitial edema. Difficult to entirely exclude infectious or inflammatory process. 3. Minimal bilateral pleural effusions. 4. Bilateral mosaic attenuation is nonspecific, may be seen in the setting of small airways disease or possibly on the basis of chronic thromboembolic pulmonary hypertension. 5. Additional chronic and incidental findings as above. A&P Assessment and plan (1) Acute pulmonary edema: The patient is a clinical presentation is suggestive of an acute pulmonary edema. The etiology, possibly an ischemic event. She seems to have some worsening of the mitral regurgitation. But there is no evidence of any chordal rupture or flail leaflet, based on the thoracic echocardiogram. The elevated troponin T is a history of an acute myocardial injury . (2) Non-STEMI (non-ST elevated myocardial infarction): Elevated troponin T is suggestive of a non-ST elevation myocardial infarction. Hemodynamically the patient is stable. She is on IV heparin. This may be continued. I also may start her on Plavix along with aspirin. The Eliquis is on hold at this time. (3) Mitral valve regurgitation: She seems to have at least moderate to severe mitral regurgitation. This may need to be further evaluated later on. Qualifiers: Cardiac valve disease etiology: nonrheumatic Qualified Code(s): I34.0 - Nonrheumatic mitral (valve) insufficiency (4) Left ventricular systolic dysfunction (LVSD): Patient is LV ejection fraction was 45 to 50% by echocardiogram in January 2024. Currently it is around 43%, based on MOD. Possibility of coronary ischemia causing the worsening systolic function is a consideration. 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 She is on long-term oral anticoagulation. Repeat CT yesterday did not reveal any new PE. Plan Plavix 300 mg p.o. now followed by 75 mg p.o. daily. Continue the heparin and aspirin. Metoprolol 12.5 mg p.o. twice daily In view of the complicated course, an early cardiac catheterization would be appropriate. This was discussed with the patient . Patient is agreeable for further cardiac workup to decide on further management. Keep n.p.o. after midnight. Possible categorization in the morning. Repeat troponin T today to evaluate the trend. Based on the patient's daily progress, further recommendations will be made. Thank you for the opportunity to evaluate this patient and make these recommendations Discussed with Dr. Webb. PDMP PDMP Reviewed: Not Reviewed Coding Level of Care Code 67692 Diagnoses Acute pulmonary edema J81.0 Non-STEMI (non-ST elevated myocardial infarction) I21.4 Nonrheumatic mitral valve regurgitation I34.0 Cardiac valve disease etiology: nonrheumatic Left ventricular systolic dysfunction (LVSD) I51.89 Recurrent pulmonary embolism I26.99
--- NOTE | 2024-11-17 18:20 | PC.NURSE ---
Verbal orders received from Dr. Barker for Troponin to be drawn at the same time as next PTT. Orders placed.
--- NOTE | 2024-11-17 20:30 | PC.NURSE ---
VT episode. Dr. Martinez notified of 7 beat run VT at 2027, while md was on wolf. Vitals stable on monitor at time, patient was sleeping. [place] denies cp or shortness of breath. Resolved spontaneously. Patient's nurse Charles RN, notified after as involved with other patient at the time.
[2024-11-17] MEDS: atorvastatin 40 mg Tablet 20 MG PO (21:52)
[2024-11-17 23:12] LABS: Partial Thromboplastin Time 61.1 SECONDS (23.9-36.7)
[2024-11-17 23:20] LABS: Troponin T (5th) Once 16 ng/L (0-10)
[2024-11-18] VITALS (149 sets, daily range): BP systolic 91–184; BP diastolic 46–100; PULSE 52–82; RESP 13–33; TEMP 36.6–36.9; O2SAT 92–98; BMI 27.5
[2024-11-18] MEDS: piperacillin-tazobactam 3.375 GM in sodium chloride 0.9% (plus) 50 ML IV ×3 (04:09→18:22)
[2024-11-18] MEDS: VANCOMYCIN ADD-Vantage 750 MG in 0.9% NaCl ADD-Vantage 250 ML 250 MG IV (04:10)
[2024-11-18] MEDS: pantoprazole 40 mg SDV IVP (04:13)
[2024-11-18 04:45] LABS: Basophils # 0.1 10^3/uL (0.0-0.1); Basophils % 1.5 %; Eosinophils # 0.5 10^3/uL (0.0-0.8); Eosinophils % 10.5 %; Hematocrit 39.9 % (36-47); Lymphocytes # 1.8 10^3/uL (0.8-4.8); Lymphocytes % 37.6 %; Mean Corpuscular HGB Conc 31.1 g/dL (30-55); Mean Corpuscular Hemoglobin 25.9 pg (27-33); Mean Corpuscular Volume 83.3 fl (85-98); Monocytes # 0.6 10^3/uL (0.2-0.9); Neutrophils # 1.76 10^3/uL (1.8-7.7); Nucleated Red Blood Cells % 0 %; Platelet Count 219 10^3/cmm (157-399); Red Blood Count 4.79 10^6/uL (3.85-5.65); Red Cell Distribution Width 14.3 % (12.1-15.1); White Blood Count 4.76 10^3/uL (3.29-11.43)
[2024-11-18 05:06] LABS: Anion Gap 14.6 (5-19); Blood Urea Nitrogen 21 mg/dL (8-23); Calcium 8.2 mg/dL (8.5-10.5); Carbon Dioxide 24 mmol/L (22-29); Chloride 104 mmol/L (98-107); Creatinine Clr Calc Pharmacy 54.5665; Glucose 92 mg/dL (65-115); Osmolality Calculated 291 mOsm/kg (285-295); Potassium 3.6 mmol/L (3.5-5.1); Sodium 139 mmol/L (136-145)
[2024-11-18 05:10] LABS: Partial Thromboplastin Time 67.7 SECONDS (23.9-36.7)
[2024-11-18] MEDS: sodium chloride 0.9% 1,000 ML 50 ML IV ×2 (05:39→09:09)
[2024-11-18] MEDS: aspirin 325 mg Tablet PO (05:40)
[2024-11-18] MEDS: diphenhydrAMINE 50 mg Capsule PO (05:40)
--- NOTE | 2024-11-18 05:52 | XACV_ITS ---
Exam Room: [facility] Ht: 160 cm Wt: 70 kg BSA: 1.79 m2 Gender: Female : 1945 Any Known Allergies: Other Exam Priority: Routine Procedure(s): Procedure Description: Diagnostic procedure Procedure Description: Left Heart Catheterization Procedure Description: Left ventriculography Procedure Description: Coronary Angiography Mj RESENDEZ; Diagnostic Cath Status: Elective Diagnostic Findings * The left main is a medium caliber vessel with a minimal narrowing distally of around 10%. * The left anterior descending artery is a medium caliber vessel which appears to taper off towards the LV apex. At the takeoff of the first diagonal branch there was a 20 to 30% narrowing. The ostium of the diagonal branch also was found to have minimal disease. The diagonal artery is of equal caliber and appears to bifurcate at the mid segment. One of the bifurcation branches was found to have around 40 to 50% tubular narrowing proximally. The mid LAD was found to have around 40% tubular narrowing. Minimal intimal irregularities were noted in the distal artery. No other significant stenotic lesions. * The left circumflex artery is a medium caliber vessel which was found to have around 20% tubular narrowing near the ostium. The artery then appears to bifurcate, giving off 2 obtuse marginal branches. Minimal intimal irregularities are noted in these branches. No significant stenotic lesions. * The right coronary artery is a medium to large caliber vessel which was found to have mild diffuse irregular narrowing in the proximal to mid segment. The PLV branch of the artery was found to have minimal intimal irregularities. No significant stenotic lesions were noted. Conclusions 1. 79-year-old white female, presenting with sudden onset of shortness of breath with a profuse sweating. She was found to have elevated troponin T and features of acute heart failure. Clinical features are suggestive of non-ST elevation myocardial infarction complicated with heart failure. LV ejection fraction was around 43% by echocardiogram. She also was found to have at least moderate to moderately severe mitral regurgitation. For further evaluation of the patient's coronary status, and a cardiac catheterization was recommended. She underwent left heart catheterization with left and right coronary angiogram and LV angiogram today. The findings are as follows. 2. 1. Mild diffuse coronary artery disease. 2. Diffuse hypokinesia left ventricular ejection fraction around 40%. 3. LVEDP of 18 mmHg.4. Mild mitral regurgitation. 3. Based on the above findings, it was opted to treat her medically. Diagnostic RX Recommendation: medical therapy and/or counseling LV EDP: 18 mmHg Ventriculography Ejection Fraction: 40.0 % Left Ventriculography Findings: * LV gram was performed the [place]ST[place] projection. The LV cavity appeared to be mildly dilated. The study was of suboptimal quality. Diffuse hypokinesia of the left-ventricular was noted. LV ejection fraction around 40%. Mild mitral regurgitation. * . The LVEDP was 18 mmHg. Pressures Phase:Rest AO : 104 / 67 ( 86 ) @ 8:20:00 AM 126 / 78 ( 102 ) @ 8:27:00 AM 169 / 75 ( 114 ) @ 8:35:00 AM 165 / 71 ( 109 ) @ 8:35:00 AM LV : 166 / 1 / 8 @ 8:34:00 AM 167 / 0 / 18 @ 8:35:00 AM 169 / 0 / 23 @ 8:35:00 AM Valves Phase:DefaultPhase AV : 0.0 @ 7:41:14 AM AV Mean Gradient: 0.0 @ 7:41:14 AM Clinical Evaluation EBL: 5mL-10mL Procedural Details Procedure Consent Obtained. Current Diagnosis : Chest Pain. Pre-Procedure Time Out. Identified patient by full name and date of as verbalized by the patient/guarantor. Does the consent match the physician's order: Yes. Accurate & Complete Informed Consent: Yes. Inpatient/Outpatient History & Physical on Chart: Yes. If H&P is completed, is and addenduem needed: No; If yes, is the addendum complete: N/A. Visualize and Verify Site with Patient/Guarantor: N/A. Relevant Radiology Images available: Yes. Pre-op teaching completed and patient verbalized understanding. The risks, benefits, and alternatives of sedation and/or procedure were discussed by physician. The patient agrees to continue. Procedure started. [facility] Clinical Fraility Score: 3: Managing Well. Custom Grinder Indications: Suspected CAD. Chest Pain Symptom Assessment: Typical Angina Symptoms. Correct patient, site and procedure confirmed by cath team. Current diagnosis: Chest Pain. PERRLA. 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 Lungs clear x 5 lobes. IV Site on Arrival: 18 gauge in the right anticubital. IV Fluids: 0.9% NaCl at KVO. 0 mL infused prior to r and d lab technician. Oxygen started at 2liters/min via nasal canula. right groin was prepped with chloroprep then draped in the usual sterile fashion. right radial was prepped with chloroprep then draped in the usual sterile fashion. Physician arrived. Baseline sample Acquired. HR: 78 BPM. Lidocaine 1% infiltrated to the right radial. Arterial access obtained. ACT drawn. Results 157 seconds. Therapeutic limits - pre-heparin administration 90-150 seconds and monitoring heparin during a vascular procedure >250 seconds. A 5 vietnamese Jesse catheter in over wire. Multiple views taken of left coronary artery. Catheter redirected to the RCA. Catheter removed over the exchange wire. A 5 vietnamese JR4 catheter in over wire. Multiple views taken of right coronary artery. Physician review of cine films. Catheter removed over the exchange wire. A 5 vietnamese Angled Pig catheter in over wire. EDP Sample taken: LV 166/1,8; HR: 72 BPM; SpO2: 98%. LV gram performed in [place] @ 10 mL/second for a total of 30 mL. EDP Sample taken: LV 167/-1,18; HR: 71 BPM; SpO2: 98%. Pullback taken: LV 169/0,23; AO 169/75(114); Mean: 0mmHg, Peak to Peak: 0mmHg, SEP: 6sec/min; HR: 72 BPM; SpO2: 98%. Catheter removed over the exchange wire. A TR Band was unsuccessful obtaining hemostatsis at the Right Radial artery insertion site. Post Procedure: Pulses reassessed and unchanged. PERRLA. 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 No VTE prophylaxis required. Medication's Wasted: Heparin = 3000 units. Total IV fluids: 30 mL. Medication's Wasted: Other = Fentanyl 50 mcg Versed 2 mg. Medication's Wasted: Lidocaine 1% = 18 mL. Medication's Wasted: Nitro = 49.8 mcg. Post-op diagnosis: Non-obstructive CAD. Complications: None. Estimated blood loss: 5mL-10mL. Responsiveness - Normal response to verbal stimuli; alert and oriented, PERRLA. Airway - Unaffected, no intervention required; spontaneous ventilation. Circulation: W/N/L, pulses unchanged. Nausea/Vomiting: No. Procedure completed. Patient transferred by bed to ICU. Vital chart was stopped. Access Site Site: Right Radial artery Sheath Size: 6 Fr Hemostasis Method: TR Band Hemostasis Success: Unsuccessful Procedure Medications Start: 7:05 AM Stop: 7:05 AM Medication: Versed Amount: 1 mg Route: I.V. Start: 7:06 AM Stop: 7:06 AM Medication: Fentanyl Amount: 50 mcg Route: I.V. Start: 7:10 AM Stop: 7:10 AM Medication: Versed Amount: 1 mg Route: I.V. Start: 7:15 AM Stop: 7:15 AM Medication: Verapamil Amount: 5 mg Route: I.A. Start: 7:15 AM Stop: 7:15 AM Medication: Nitrogylcerin Amount: 200 mcg Route: I.A. Start: 7:19 AM Stop: 7:19 AM Medication: Heparin Amount: 3000 units Route: I.V. I, the attending physician, have reviewed and verified all procedure medications. Yes, all medications given per verbal order History/Risk Factors Hypertension: Yes Dyslipidemia: Yes Peripheral Arterial Disease (PAD): No Myocardial Infarction (UT): No Obesity: No Renal Disease: No Tobacco Use: Former Prior 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 PCI: No CABG: No Valve Surgery: No Report Signatures Finalized by Dr Chrissie Barker MD [facility] on 11/18/2024 08:10 AM
--- NOTE | 2024-11-18 07:04 | W.PM.OPSUD ---
Surgery/Procedure H&P Update DATE OF PROCEDURE: November 18, 2024 DATE H&P PERFORMED: 11/17/24 H&P UPDATE INFORMATION: I have reviewed H&P completed within last 30 days, I have examined patient prior to procedure and No changes to prior documentation PREOP DIAGNOSIS: ASHD PRIMARY INDICATION FOR PROCEDURE: NSTEMI/acute heart failure PLANNED PROCEDURE: Operation Date: 11/18/24 06:00 Proposed Procedures p Cardiac Catheterization(Left) - Chrissie Barker MD PATIENT REASSESSED PRIOR TO SEDATION, WITH NO CHANGE NOTED: Yes PHYSICAL EXAM: alert, oriented x 3, clear to auscultation bilaterally and regular rate & rhythm AIRWAY EVAL/ANESTHESIA PLAN: normal airway, see other exam findings, ASA III, Monitored Anesthesia, Local Anesthesia, Risks, benefits & alternatives of sedation and/or procedure discussed and Patient agrees to continue as planned
--- NOTE | 2024-11-18 07:06 | P.PN_ITS ---
Subjective 2 Subjective: Patient is feeling okay. No chest pain or chest tightness. Her troponin today is trending down. Her oxygenation has improved and seems to be normal in the room air. Medications: Medication Review Details: Current Medications Acetaminophen (Acetaminophen 325 Mg Tablet) 650 mg PO Q6H PRN PRN Reason: Mild/Mod Pain Or Temp >/= 101 Albuterol/Ipratropium (Ipratropium-Albuterol 3 Ml Neb) 3 ml INHALATION Q4H.RESPIRATORY PRN PRN Reason: SHORTNESS OF BREATH Aspirin (Aspirin 81 Mg Ec Tablet) 81 mg PO DAILY [facility] Last Admin: 11/17/24 08:46 Dose: 81 mg Atorvastatin Calcium (Atorvastatin 40 Mg Tablet) 20 mg PO BEDTIME [facility] Last Admin: 11/17/24 21:52 Dose: 20 mg Budesonide (Budesonide 0.5 Mg/2 Ml Neb) 0.5 mg INHALATION BID.RESPIRATORY PRN PRN Reason: short of breath Heparin Sodium (Porcine) (Heparin 5,000 Unit/Ml Inj 1 Ml) 0 unit IVP PRN PRN; Protocol PRN Reason: Heparin Weight Based Protocol -Subsequent Bolus Heparin Sodium/Sodium Chloride (Heparin Drip) 25,000 unit in 500 mls @ 0 mls/hr IV CONT [facility]; Protocol Last Titration: 11/18/24 06:59 Dose: 0 unit/kg/hr, 0 mls/hr Piperacillin Sod/Tazobactam (Sod 3.375 gm/ Sodium Chloride) 50 mls @ 12.5 mls/hr IV Q8H [facility] Last Admin: 11/18/24 04:09 Dose: 12.5 mls/hr Vancomycin HCl 750 mg/ Sodium (Chloride) 250 mls @ 250 mls/hr IV Q12H [facility] Last Admin: 11/18/24 04:10 Dose: 250 mls/hr Sodium Chloride (Sodium Chloride 0.9%) 1,000 mls @ 50 mls/hr IV .Q20H ONE Stop: 11/19/24 01:59 Last Admin: 11/18/24 05:39 Dose: 50 mls/hr Isosorbide Mononitrate (Isosorbide Mononitrate Er 30 Mg Tablet) 30 mg PO BID [facility] Last Admin: 11/17/24 17:56 Dose: 30 mg Lisinopril (Lisinopril 20 Mg Tablet) 40 mg PO DAILY [facility] Last Admin: 11/17/24 08:46 Dose: 40 mg Metoprolol Tartrate (Metoprolol Tartrate 25 Mg Tablet) 25 mg PO BID@0900,2100 [facility] Last Admin: 11/17/24 21:53 Dose: 25 mg Morphine Sulfate (Morphine Ir 15 Mg Tablet) 15 mg PO BID PRN PRN Reason: SEVERE PAIN Last Admin: 11/17/24 19:58 Dose: 15 mg Naloxone HCl (Naloxone 0.4 Mg/Ml Sdv) 0.1 mg IVP Q2M PRN PRN Reason: OPIATERV Non-Formulary Medication (Topiramate) 50 mg PO DAILY [facility] Ondansetron HCl (Ondansetron 2 Mg/Ml Sdv 2 Ml) 4 mg IVP Q8H PRN PRN Reason: vomiting, or N/V if npo Pantoprazole Sodium (Pantoprazole 40 Mg Sdv) 40 mg IVP Q24H [facility] Last Admin: 11/18/24 04:13 Dose: 40 mg Polyethylene Glycol (Polyethylene Glycol 3350 Pkt 17 Gm) 17 gm PO DAILY [facility] Last Admin: 11/17/24 08:47 Dose: Not Given Vitals/I&O/Wt Last Vital Signs Temp 98.4 F 11/18/24 04:00 Pulse 64 11/18/24 06:00 Resp 24 H 11/18/24 04:40 BP 153/79 11/18/24 04:40 Pulse Ox 93 11/18/24 04:40 O2 Del Method Room Air 11/17/24 08:00 O2 Flow Rate 2 11/17/24 07:25 FiO2 40 11/16/24 21:05 11/17/24 11/18/24 11/18/24 22:59 06:59 14:59 Intake Total 764.8 / 1531.467 291.600 / 1823.067 Output Total 1000 / 1550 Balance -235.2 / -18.533 291.600 / 273.067 Weight last 48 hrs Weight 155 lb 6.814 oz Weight 155 lb 6.814 oz Weight 155 lb 6.814 oz Weight 148 lb Physical Exam 2 Narrative: GENERAL: The patient is alert and oriented times three. Not in any acute distress. HEENT: No significant pallor, icterus or lymphadenopathy.Oral cavity: There are no mucous membrane lesions. NECK: Trachea appears to be central. No masses noted. No JVD or thyromegaly appreciated. RESPIRATORY: Chest is symmetrical. No intercostals muscle retraction or any accessory muscle activation. There is no chest wall tenderness. Breath sounds are heard bilaterally. No rales or rhonchi heard. No evidence of any consolidation. BREASTS: Deferred. HEART: The heart sounds are normal. No S3 or S4. Systolic murmur grade 4/6 in the mitral area. No diastolic murmurs. No pericardial rub ABDOMEN: No vessel pulsations or distention. No tenderness. No organomegaly appreciated. Bowel sounds are normally heard. : Deferred. RECTAL: Deferred. LYMPHATIC: No lymphadenopathy noted in the neck. EXTREMITIES: No edema or cyanosis. No clubbing. MUSCULOSKELETAL: No acute joint deformities or swelling SKIN: There are no significant rashes or ecchymosis NEUROPSYCHIATRIC: The patient is alert and oriented x3. Appears to be in a good mood. No tremors or rigidity noted. Data 11/18/24 04:27 11/18/24 04:27 Other Labs: Laboratory Last Values WBC 4.76 10^3/uL (3.29-11.43) 11/18/24 04:27 RBC 4.79 10^6/uL (3.85-5.65) 11/18/24 04:27 Hgb 12.40 g/dL (11.27-16.99) 11/18/24 04:27 Hct 39.9 % (36-47) 11/18/24 04:27 MCV 83.3 fl (85-98) L 11/18/24 04:27 MCH 25.9 pg (27-33) L 11/18/24 04:27 MCHC 31.1 g/dL (30-55) 11/18/24 04:27 RDW 14.3 % (12.1-15.1) 11/18/24 04:27 Plt Count 219 10^3/cmm (157-399) 11/18/24 04:27 MPV 11.0 fL (7.4-10.4) H 11/18/24 04:27 Neut % (Auto) 37.0 % 11/18/24 04:27 Lymph % (Auto) 37.6 % 11/18/24 04:27 Swisher % (Auto) 13.0 % 11/18/24 04:27 Eos % (Auto) 10.5 % 11/18/24 04:27 Baso % (Auto) 1.5 % 11/18/24 04:27 Neut # (Auto) 1.76 10^3/uL (1.8-7.7) L 11/18/24 04:27 Lymph # (Auto) 1.8 10^3/uL (0.8-4.8) 11/18/24 04:27 Swisher # (Auto) 0.6 10^3/uL (0.2-0.9) 11/18/24 04: Eos # (Auto) 0.5 10^3/uL (0.0-0.8) 11/18/24 04: Baso # (Auto) 0.1 10^3/uL (0.0-0.1) 11/18/24 04: Nucleated RBC % (auto) 0 % 11/18/24 04: Nucleated RBCs # 0.0 /100WBC 11/18/24 04: ESR 11 mm/hr (0-15) 11/17/24 00:00 APTT 67.7 SECONDS (23.9-36.7) H 11/18/24 04:27 Specimen Type Arterial 11/16/24 21:07 Sample Site Brachial, right 11/16/24 21:07 ABG pH 7.28 (7.35-7.45) L 11/16/24 21:07 ABG pCO2 44.3 mmHg (35-45) 11/16/24 21:07 ABG pO2 137.0 mmHg (80.0-100.0) H 11/16/24 21:07 ABG PO2/FiO2 Ratio 342 11/16/24 21:07 ABG HCO3 20.7 mmol/L (22-26) L 11/16/24 21:07 ABG Base Excess -6.0 mmol/L (-2.0-2.0) L 11/16/24 21:07 Homer Test N/a 11/16/24 21:07 Hematocrit 42.5 % (37-47) 11/16/24 21:07 Hgb O2 Saturation 97.2 % (95-100) 11/16/24 21:07 Carboxyhemoglobin 0.8 %THgb (0.4-20.1) 11/16/24 21:07 Methemoglobin 1.1 % (0.4-1.5) 11/16/24 21:07 Total Hemoglobin 13.9 g/dL (12-16) 11/16/24 21:07 O2 Delivery Device Bipap 11/16/24 21:07 FiO2 40.0 % 11/16/24 21:07 Django Developer ID [email or web address] 11/16/24 21:07 Sodium 139 mmol/L (136-145) 11/18/24 04:27 Potassium 3.6 mmol/L (3.5-5.1) 11/18/24 04:27 Chloride 104 mmol/L (98-107) 11/18/24 04:27 Carbon Dioxide 24 mmol/L (22-29) 11/18/24 04:27 Anion Gap 14.6 (5-19) 11/18/24 04:27 BUN 21 mg/dL (8-23) 11/18/24 04:27 Creatinine 0.8 mg/dL (0.5-0.9) 11/18/24 04:27 GFR Calculation Not Reportable 11/18/24 04:27 Glucose 92 mg/dL (65-115) 11/18/24 04:27 Estimat Average Glucose 128 11/17/24 03:15 Hemoglobin A1c 6.1 % (4.0-6.0) H 11/17/24 03:15 Calculated Osmolality 291 mOsm/kg (285-295) 11/18/24 04:27 Lactic Acid 5.0 mmol/L (0.5-2.2) H* 11/17/24 00:00 Lactic Acid (Sepsis) 1.7 mmol/L (0.5-2.2) 11/17/24 03:15 Calcium 8.2 mg/dL (8.5-10.5) L 11/18/24 04:27 Total Bilirubin 0.3 mg/dL (0.15-1.2) 11/17/24 03:15 AST 20 U/L (0-32) 11/17/24 03:15 ALT 15 U/L (0-33) 11/17/24 03:15 Alkaline Phosphatase 115 U/L (35-105) H 11/17/24 03:15 Troponin T 5th Gen ng/L 16 ng/L (0-10) H 11/17/24 22:18 Troponin T Baseline 9 ng/L (0-10) 11/16/24 21:07 Troponin T 120 Minute 19.91 ng/L (0-10) H 11/16/24 23:13 Delta Troponin T 10.91 ABS# (0-10) H* 11/16/24 23:13 Troponin T Hi Sens 6Hr 31.32 ng/L (0-10) H 11/17/24 03:15 Troponin T Hi Sens 6Hr Delta 22.32 ng/L (0-12) H* 11/17/24 03:15 C-Reactive Protein 3.0 mg/L (0.0-4.9) 11/17/24 00:00 NT-Pro-B Natriuret Pep 1548 pg/mL (0-450) H 11/16/24 20:51 Total Protein 7.2 g/dL (6.6-8.7) 11/17/24 03:15 Albumin 4.4 g/dL (3.5-5.2) 11/17/24 03:15 Globulin 2.8 g/dL (1.3-4.6) 11/17/24 03:15 Procalcitonin 0.03 ng/mL (0-0.5) 11/17/24 00:00 TSH 1.99 uIU/mL (0.27-4.20) 11/17/24 03:15 Urine Color Yellow (Yellow) 11/16/24 22:50 Urine Appearance Clear (CLEAR) 11/16/24 22:50 Urine pH 5 (5-7) 11/16/24 22:50 Ur Specific [place] 1.025 (1.005-1.030) 11/16/24 22:50 Urine Protein 3+ (Negative) A 11/16/24 22:50 Urine Glucose (UA) Norm (Normal) 11/16/24 22:50 Urine Ketones Negative (Negative) 11/16/24 22:50 Urine Blood Neg (Negative) 11/16/24 22:50 Urine Nitrate Negative (Negative) 11/16/24 22:50 Urine Bilirubin Neg (Negative) 11/16/24 22:50 Urine Urobilinogen Norm mg/dL (Negative) 11/16/24 22:50 Ur Leukocyte Esterase Negative (Negative) 11/16/24 22:50 Urine RBC 0-2 /hpf (0-2) 11/16/24 22:50 Urine WBC 6-10 /hpf (0-5) 11/16/24 22:50 Ur Squamous Epith Cells 6-10 /hpf (0-5) 11/16/24 22:50 Amorphous Sediment Not Reportable 11/16/24 22:50 Urine Bacteria None seen /hpf (NONE) 11/16/24 22:50 Hyaline Casts 11.16 /lpf 11/16/24 22:50 Fine Granular Casts 0-4 /lpf H 11/16/24 22:50 Nasal MRSA (PCR) Not detected (Not Detecte) 11/17/24 05:23 Adenovirus (PCR) Not detected (NOT DETECT) 11/17/24 05:23 C. pneumoniae DNA (PCR) Not detected (NOT DETECT) 11/17/24 05:23 Coronavirus 229E (PCR) Not detected (NOT DETECT) 11/17/24 05:23 Human Metapneumovir PCR Not detected (NOT DETECT) 11/17/24 05:23 Influenza A (H1) PCR Not detected (NOT DETECT) 11/17/24 05:23 Influ A (H1/09) PCR Not detected (NOT DETECT) 11/17/24 05:23 Influenza A (H3) PCR Not detected (NOT DETECT) 11/17/24 05:23 Influenza Type A (PCR) Not detected (NOT DETECT) 11/17/24 05:23 Influenza Type B (PCR) Not detected (NOT DETECT) 11/17/24 05:23 M. pneumoniae (PCR) Not detected (NOT DETECT) 11/17/24 05:23 Parainfluenza 1 (PCR) Not detected (NOT DETECT) 11/17/24 05:23 Parainfluenza 2 (PCR) Not detected (NOT DETECT) 11/17/24 05:23 Parainfluenza 3 (PCR) Not detected (NOT DETECT) 11/17/24 05:23 Parainfluenza 4 (PCR) Not detected (NOT DETECT) 11/17/24 05:23 RSV Type A (PCR) Not detected (NOT DETECT) 11/17/24 05:23 RSV Type B (PCR) Not detected (NOT DETECT) 11/17/24 05:23 Entero/Rhino (PCR) Not detected (NOT DETECT) 11/17/24 05:23 SARS-CoV-2 (PCR) Not detected (NOT DETECT) 11/17/24 05:23 Micro: Microbiology 11/17/24 03:15 Blood Culture - Preliminary Blood NEGATIVE TO DATE 11/17/24 00:00 Blood Culture - Preliminary Blood NEGATIVE TO DATE A&P Assessment and plan (1) Acute pulmonary edema: The patient is a clinical presentation is suggestive of an acute pulmonary edema. The etiology, possibly an ischemic event. She seems to have some worsening of the mitral regurgitation. But there is no evidence of any chordal rupture or flail leaflet, based on the thoracic echocardiogram. The elevated troponin T is suggestive of an acute myocardial injury . (2) Non-STEMI (non-ST elevated myocardial infarction): Elevated troponin T is suggestive of a non-ST elevation myocardial infarction. Hemodynamically the patient is stable. She is on IV heparin. This may be continued. I also may start her on Plavix along with aspirin. The Eliquis is on hold at this time. For further evaluation of the patient's coronary status, a cardiac catheterization would be appropriate (3) Mitral valve regurgitation: She seems to have at least moderate to severe mitral regurgitation. This may need to be further evaluated later on. Qualifiers: Cardiac valve disease etiology: nonrheumatic Qualified Code(s): I34.0 - Nonrheumatic mitral (valve) insufficiency (4) Left ventricular systolic dysfunction (LVSD): Patient is LV ejection fraction was 45 to 50% by echocardiogram in January 2024. Currently it is around 43%, based on ECHO/MOD. Possibility of coronary ischemia causing the worsening systolic function is a consideration. 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 She is on long-term oral anticoagulation. Repeat CTA of the chest yesterday did not reveal any new PE. Plan I discussed with the patient about the cardiac catheterization. Possible risks, benefits and alternatives were discussed with the patient in detail. The risk of bleeding, hematoma, vascular injury, myocardial infarction, myocardial perforation, malignant cardiac arrhythmias ,CVA, renal failure and other concomitant complications were explained in detail. Patient understood this well and consented to proceed with an angiogram. Will go ahead and schedule this procedure this morning. Based on the results of the angiogram, further recommendations will be made. PDMP PDMP Reviewed: Not Reviewed Attestations 2 Medical Necessity Statement*: Patient requires continued hospital stay for close monitoring and further management Coding Level of Care Code 34829 Diagnoses Acute pulmonary edema J81.0 Non-STEMI (non-ST elevated myocardial infarction) I21.4 Nonrheumatic mitral valve regurgitation I34.0 Cardiac valve disease etiology: nonrheumatic Left ventricular systolic dysfunction (LVSD) I51.89 Recurrent pulmonary embolism I26.99
[2024-11-18] MEDS: lidocaine 1% 5 ML in potassium chloride premix 100 ML 26.25 ML IV (09:06)
[2024-11-18] MEDS: lisinopril 20 mg Tablet 40 MG PO (09:07)
[2024-11-18] MEDS: isosorbide mononitrate ER 30 mg Tablet PO ×2 (09:07→17:30)
[2024-11-18] MEDS: metoprolol tartrate 25 mg Tablet PO ×2 (09:07→19:43)
[2024-11-18] MEDS: aspirin 81 mg EC Tablet PO (09:07)
[2024-11-18] MEDS: sodium chloride 0.9% 1,000 ML 100 ML IV ×2 (09:10→22:59)
--- NOTE | 2024-11-18 09:51 | PC.NURSE ---
Patient requested K-rider to be stopped d/t pain of infusion.
--- NOTE | 2024-11-18 10:46 | PC.NURSE ---
Dr Barker gave verbal orders over the phone to stop PTT labs. Order stopped.
[2024-11-18] MEDS: morphine IR 15 mg Tablet PO ×2 (11:05→22:56)
--- NOTE | 2024-11-18 11:21 | PC.NURSE ---
TR Band removed at 1100. Site dry, no oozing. Patient had no c/o pain or discomfort. 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
--- NOTE | 2024-11-18 11:33 | PC.NURSE ---
Bilateral SCDs placed on patient.
--- NOTE | 2024-11-18 12:48 | PM.PN ---
Subjective Subjective: Senior at bedside this morning. Denies any complaint of chest pain or shortness of breath. Reports feeling better as compared to arrival in the hospital. Medications: Reviewed: Yes Vitals/I&O/Wt Last Vital Signs Temp 98.2 F 11/18/24 08:30 Pulse 67 11/18/24 12:15 Resp 16 11/18/24 12:15 BP 158/79 11/18/24 12:15 Pulse Ox 92 11/18/24 12:00 O2 Del Method Room Air 11/18/24 07:57 O2 Flow Rate 95 11/18/24 12:15 FiO2 40 11/16/24 21:05 11/17/24 11/18/24 11/18/24 22:59 06:59 14:59 Intake Total 764.8 / 1531.467 291.600 / 1823.067 854.25 / 854.25 Output Total 1000 / 1550 300 / 300 Balance -235.2 / -18.533 291.600 / 273.067 554.25 / 554.25 Weight last 48 hrs Weight 70.5 kg Weight 70.5 kg Weight 70.5 kg Weight 67.132 kg Physical Exam Const: COMMON NORMALS: no acute distress and patient oriented x3 HENMT: COMMON NORMALS: normocephalic HEAD & SCALP: normocephalic Eye: COMMON NORMALS: Equal, round and reactive pupils present and EOMs intact bilaterally PUPIL: Yes Equal, round and reactive pupils present Neck/C-Spine: COMMON NORMALS: no JVD Resp: COMMON NORMALS: normal respiratory effort, No retractions, No use of accessory muscles and clear to auscultation bilaterally AUSCULTATION: clear to auscultation bilaterally, crackles and wheezes Cardio: COMMON NORMALS: no JVD, regular rate, regular rhythm, S1 normal heart sound present and S2 normal heart sound present RATE: regular rate RHYTHM: regular rhythm HEART SOUNDS: S1 normal heart sound present and S2 normal heart sound present GI: COMMON NORMALS: Normal to inspection, nondistended, normoactive bowel sounds present, Soft to palpation and non-tender PALPATION: Yes Soft to palpation Extremity: COMMON NORMALS: no calf tenderness and no pedal edema Neuro: COMMON NORMALS: patient oriented x3, CN's II-XII intact bilaterally and moves all extremities Psych: COMMON NORMALS: mental status grossly normal Data 11/18/24 04:27 11/18/24 04:27 Micro: Microbiology 11/17/24 03:15 Blood Culture - Preliminary Blood NEGATIVE TO DATE 11/17/24 00:00 Blood Culture - Preliminary Blood NEGATIVE TO DATE A&P Assessment and plan (1) Acute hypoxic respiratory failure: (2) Non-STEMI (non-ST elevated myocardial infarction): (3) Pneumonia: (4) Pulmonary edema: Plan Emma Navarrete is a 79 year old female with a past medical history of SVT, history of pulmonary embolism, mild to moderate tricuspid valve regurg, moderate mitral valve regurg who presents [facility] for sudden onset shortness of breath Acute hypoxic respiratory failure - Etiology unclear? - Possibly acute flash pulmonary edema - Does have NSTEMI, potentially cardiac event? - Also concern for pneumonia given CT scans findings as below CT/CT angio chest PE protcl [id number] IMPRESSION: 1. No evidence of acute pulmonary emboli. Stable chronic focal web-like filling defect at basal segmental right lower lobe artery. 2. Iljco-icjjboj-seuv-left dependent reticulation and ground-glass attenuation may represent atelectasis, possibly edema given additional finding of smooth interlobular septal thickening suggestive of interstitial edema. Difficult to entirely exclude infectious or inflammatory process. 3. Minimal bilateral pleural effusions. 4. Bilateral mosaic attenuation is nonspecific, may be seen in the setting of small airways disease or possibly on the basis of chronic thromboembolic pulmonary hypertension. 5. Additional chronic and incidental findings as above. Plan - Monitor in ICU -BiPAP as needed - Serial EKGs, start troponins, telemetry monitoring - Cardiac echo - Blood cultures, CRP, Pro-Adonis, respiratory viral panel, lactic acid - Lasix 40 IV milligrams once - Heparin drip - Aspirin, Statin, metoprolol - Start Zosyn -start vancomycin - Sputum cultures, MRSA nares -DuoNeb, budesonide - Will monitor clinical status closely - Full code - Lovenox for DVT prophylaxis #11/17/24 Acute hypoxic respiratory failure likely secondary to flash pulmonary edema Likely NSTEMI Troponins climbing up from 9 --32 Follow-up cardiology consult 2D echo in 01/26 showed EF of 45 to 50%, grade 1 diastolic dysfunction. Pharmacologic stress test was negative. Continue IV vancomycin and Zosyn for now Continue heparin drip. Supplemental oxygen to keep saturation more than 90% #11/18/24 s/p Cath this am. showed mild diffuse disease, not consistent with her symptoms and flash pulmonary edema. ECHO showed CONCLUSIONS Diffuse hypokinesis of the left ventricle with ejection fraction of 43%mild left ventricular hypertrophy.Grade I/IV diastolic dysfunction (abnormal relaxation filling pattern), normal to mildly elevated filling pressures. Moderately increased left atrial size. Thickened mitral valve. Mild mitral annular calcification. Moderately severe mitral valve regurgitation. Thickened aortic valve. Trace to mild tricuspid valve regurgitation. Estimated pulmonary artery peak systolic pressure 26 mmHg There is no pericardial effusion. There are no intracardiac masses. Compared to study from 01/19/2024 there is some worsening of the mitral regurgitation and the systolic function continue heparin drip. follow up cardiology for further recommendations. has lucy saturating well on room air will discontinue iv vancomycin, blood cultures negative so far. [place] [facility] [place] PDMP PDMP Reviewed: Not Reviewed Attestations Medical Necessity Statement*: Patient requires continued hospital stay for close monitoring and further management Time Spent in Patient Care: 20minutes Coding Level of Care Code Acute Code for Chg Fwd Diagnoses Acute hypoxic respiratory failure J96.01 Non-STEMI (non-ST elevated myocardial infarction) I21.4 Pneumonia J18.9 Pulmonary edema J81.1 Time Spent (min) 20
--- NOTE | 2024-11-18 13:25 | PC.NURSE ---
Verbal orders from Dr. Barker at patient bedside for 1 pill of Entresto 24-26 PO BID. Order placed.
--- NOTE | 2024-11-18 14:14 | PC.NURSE ---
Patient went to transferred from ICU 8 to [facility]-surg 250-2. All personal belongings including cell phone, health management consultant, purse, house shoes, and bag of clothing sent with patient to floor. Report called to TRACIE Higgins.
--- NOTE | 2024-11-18 16:51 | PC.NURSE ---
Heparin to be stopped per Dr Barker. Stopped before patient had cardiac cath this morning.
[2024-11-18] MEDS: atorvastatin 40 mg Tablet 20 MG PO (19:43)
[2024-11-19] MEDS: pantoprazole 40 mg SDV IVP (02:12)
[2024-11-19] MEDS: piperacillin-tazobactam 3.375 GM in sodium chloride 0.9% (plus) 50 ML IV (02:12)
[2024-11-19 04:39] VITALS: BP 171/81; PULSE 73; RESP 15; TEMP 36.9; O2SAT 94
[2024-11-19 04:40] VITALS: BMI 27.4
[2024-11-19 05:36] VITALS: PULSE 65
[2024-11-19 07:58] VITALS: BP 161/77; PULSE 69; RESP 16; TEMP 36.6; O2SAT 95
[2024-11-19] MEDS: sodium chloride 0.9% 1,000 ML 100 ML IV (08:17)
[2024-11-19 08:21] VITALS: BP 161/77
[2024-11-19] MEDS: losartan 50 mg Tablet PO (08:21)
[2024-11-19] MEDS: aspirin 81 mg EC Tablet PO (08:21)
[2024-11-19] MEDS: metoprolol tartrate 25 mg Tablet PO (08:21)
[2024-11-19] MEDS: isosorbide mononitrate ER 30 mg Tablet PO (08:21)
[2024-11-19 08:56] VITALS: PULSE 66; RESP 16; O2SAT 96
--- NOTE | 2024-11-19 09:27 | PM.PN ---
Subjective Subjective: The patient is doing okay. She had the cardiac catheterization yesterday and was found to have mild diffuse coronary artery disease. LV ejection fraction was around 40% by LV gram. She was started on losartan yesterday. Lisinopril was discontinued. The plan is to transition her to Entresto. She denies any chest pain or chest tightness. No arrhythmias on the monitor. The blood pressure has been staying in the 150s and 160s since yesterday afternoon. Medications: Medication Review Details: Current Medications Acetaminophen (Acetaminophen 325 Mg Tablet) 650 mg PO Q6H PRN PRN Reason: Mild/Mod Pain Or Temp >/= 101 Al Hydrox/Mg Hydrox/Simethicone (Rylf-Noj-Vacvohfxf-Yin 30 Ml Udc) 30 ml PO Q15M PRN PRN Reason: INDIGESTION Albuterol/Ipratropium (Ipratropium-Albuterol 3 Ml Neb) 3 ml INHALATION Q4H.RESPIRATORY PRN PRN Reason: SHORTNESS OF BREATH Aspirin (Aspirin 81 Mg Ec Tablet) 81 mg PO DAILY [facility] Last Admin: 11/19/24 08:21 Dose: 81 mg Atorvastatin Calcium (Atorvastatin 40 Mg Tablet) 20 mg PO BEDTIME [facility] Last Admin: 11/18/24 19:43 Dose: 20 mg Atropine Sulfate (Atropine 1 Mg/Ml Sdv 1 Ml) 0.5 mg IVP PRN PRN PRN Reason: Symptomatic bradycardia Budesonide (Budesonide 0.5 Mg/2 Ml Neb) 0.5 mg INHALATION BID.RESPIRATORY PRN PRN Reason: short of breath Piperacillin Sod/Tazobactam (Sod 3.375 gm/ Sodium Chloride) 50 mls @ 12.5 mls/hr IV Q8H [facility] Last Infusion: 11/19/24 06:52 Dose: Infused Sodium Chloride (Sodium Chloride 0.9%) 1,000 mls @ 100 mls/hr IV .Q10H [facility] Last Admin: 11/19/24 08:17 Dose: 100 mls/hr Isosorbide Mononitrate (Isosorbide Mononitrate Er 30 Mg Tablet) 30 mg PO BID [facility] Last Admin: 11/19/24 08:21 Dose: 30 mg Losartan Potassium (Losartan 50 Mg Tablet) 50 mg PO DAILY [facility] Last Admin: 11/19/24 08:21 Dose: 50 mg Magnesium Hydroxide (Magnesium Hydroxide 30 Ml Udc) 30 ml PO DAILY PRN PRN Reason: CONSTIPATION Metoprolol Tartrate (Metoprolol Tartrate 25 Mg Tablet) 25 mg PO BID@0900,2100 [facility] Last Admin: 11/19/24 08:21 Dose: 25 mg Morphine Sulfate (Morphine Ir 15 Mg Tablet) 15 mg PO BID PRN PRN Reason: SEVERE PAIN Last Admin: 11/18/24 22:56 Dose: 15 mg Naloxone HCl (Naloxone 0.4 Mg/Ml Sdv) 0.1 mg IVP Q2M PRN PRN Reason: OPIATERV Nitroglycerin (Nitroglycerin 0.4 Mg Sublingual Tablet) 0.4 mg SUBLINGUAL Q5M PRN PRN Reason: CHEST PAIN Non-Formulary Medication (Topiramate) 50 mg PO DAILY [facility] Ondansetron HCl (Ondansetron 2 Mg/Ml Sdv 2 Ml) 4 mg IVP Q8H PRN PRN Reason: vomiting, or N/V if npo Pantoprazole Sodium (Pantoprazole 40 Mg Sdv) 40 mg IVP Q24H [facility] Last Admin: 11/19/24 02:12 Dose: 40 mg Polyethylene Glycol (Polyethylene Glycol 3350 Pkt 17 Gm) 17 gm PO DAILY [facility] Last Admin: 11/19/24 08:21 Dose: Not Given Temazepam (Temazepam 15 Mg Capsule) 15 mg PO BEDTIME PRN PRN Reason: INSOMNIA Vitals/I&O/Wt Last Vital Signs Temp 97.9 F 11/19/24 07:58 Pulse 66 11/19/24 08:56 Resp 16 11/19/24 08:56 BP 161/77 11/19/24 08:21 Pulse Ox 96 11/19/24 08:56 O2 Del Method Room Air 11/19/24 08:56 O2 Flow Rate 98 11/18/24 13:45 FiO2 40 11/16/24 21:05 11/18/24 11/19/24 11/19/24 22:59 06:59 14:59 Intake Total 1370 / 2224.25 450 / 2674.25 2410 / 2410 Output Total 350 / 650 Balance 1370 / 1924.25 100 / 4.25 2410 / 2410 Weight last 48 hrs Weight 155 lb Weight 155 lb 6.814 oz Physical Exam Narrative: GENERAL: The patient is alert and oriented times three. Not in any acute distress. HEENT: No significant pallor, icterus or lymphadenopathy.Oral cavity: There are no mucous membrane lesions. NECK: Trachea appears to be central. No masses noted. No JVD or thyromegaly appreciated. RESPIRATORY: Chest is symmetrical. No intercostals muscle retraction or any accessory muscle activation. There is no chest wall tenderness. Breath sounds are heard bilaterally. No rales or rhonchi heard. No evidence of any consolidation. BREASTS: Deferred. HEART: The heart sounds are normal. No S3 or S4. Systolic murmur grade 4/6 in the mitral area. No diastolic murmurs. No pericardial rub ABDOMEN: No vessel pulsations or distention. No tenderness. No organomegaly appreciated. Bowel sounds are normally heard. : Deferred. RECTAL: Deferred. LYMPHATIC: No lymphadenopathy noted in the neck. EXTREMITIES: No edema or cyanosis. No clubbing. No hematoma bleeding at the arterial puncture site. MUSCULOSKELETAL: No acute joint deformities or swelling SKIN: There are no significant rashes or ecchymosis NEUROPSYCHIATRIC: The patient is alert and oriented x3. Appears to be in a good mood. No tremors or rigidity noted. Data 11/18/24 04:27 11/18/24 04:27 Other Labs: Laboratory Last Values WBC 4.76 10^3/uL (3.29-11.43) 11/18/24 04:27 RBC 4.79 10^6/uL (3.85-5.65) 11/18/24 04:27 Hgb 12.40 g/dL (11.27-16.99) 11/18/24 04:27 Hct 39.9 % (36-47) 11/18/24 04:27 MCV 83.3 fl (85-98) L 11/18/24 04:27 MCH 25.9 pg (27-33) L 11/18/24 04:27 MCHC 31.1 g/dL (30-55) 11/18/24 04:27 RDW 14.3 % (12.1-15.1) 11/18/24 04:27 Plt Count 219 10^3/cmm (157-399) 11/18/24 04:27 MPV 11.0 fL (7.4-10.4) H 11/18/24 04:27 Neut % (Auto) 37.0 % 11/18/24 04:27 Lymph % (Auto) 37.6 % 11/18/24 04:27 [place] % (Auto) 13.0 % 11/18/24 04:27 Eos % (Auto) 10.5 % 11/18/24 04:27 Baso % (Auto) 1.5 % 11/18/24 04:27 Neut # (Auto) 1.76 10^3/uL (1.8-7.7) L 11/18/24 04:27 Lymph # (Auto) 1.8 10^3/uL (0.8-4.8) 11/18/24 04:27 [place] # (Auto) 0.6 10^3/uL (0.2-0.9) 11/18/24 04:27 Eos # (Auto) 0.5 10^3/uL (0.0-0.8) 11/18/24 04:27 Baso # (Auto) 0.1 10^3/uL (0.0-0.1) 11/18/24 04:27 Nucleated RBC % (auto) 0 % 11/18/24 04: Nucleated RBCs # 0.0 /100WBC 11/18/24 04: ESR 11 mm/hr (0-15) 11/17/24 00:00 APTT 67.7 SECONDS (23.9-36.7) H 11/18/24 04:27 Specimen Type Arterial 11/16/24 21:07 Sample Site Brachial, right 11/16/24 21:07 ABG pH 7.28 (7.35-7.45) L 11/16/24 21:07 ABG pCO2 44.3 mmHg (35-45) 11/16/24 21:07 ABG pO2 137.0 mmHg (80.0-100.0) H 11/16/24 21:07 ABG PO2/FiO2 Ratio 342 11/16/24 21:07 ABG HCO3 20.7 mmol/L (22-26) L 11/16/24 21:07 ABG Base Excess -6.0 mmol/L (-2.0-2.0) L 11/16/24 21:07 [place] Test N/a 11/16/24 21:07 Hematocrit 42.5 % (37-47) 11/16/24 21:07 Hgb O2 Saturation 97.2 % (95-100) 11/16/24 21:07 Carboxyhemoglobin 0.8 %THgb (0.4-20.1) 11/16/24 21:07 Methemoglobin 1.1 % (0.4-1.5) 11/16/24 21:07 Total Hemoglobin 13.9 g/dL (12-16) 11/16/24 21:07 O2 Delivery Device Bipap 11/16/24 21:07 FiO2 40.0 % 11/16/24 21:07 Document Restorer ID [email or web address] 11/16/24 21:07 Sodium 139 mmol/L (136-145) 11/18/24 04:27 Potassium 3.6 mmol/L (3.5-5.1) 11/18/24 04:27 Chloride 104 mmol/L (98-107) 11/18/24 04:27 Carbon Dioxide 24 mmol/L (22-29) 11/18/24 04:27 Anion Gap 14.6 (5-19) 11/18/24 04:27 BUN 21 mg/dL (8-23) 11/18/24 04:27 Creatinine 0.8 mg/dL (0.5-0.9) 11/18/24 04:27 GFR Calculation Not Reportable 11/18/24 04:27 Glucose 92 mg/dL (65-115) 11/18/24 04:27 Estimat Average Glucose 128 11/17/24 03:15 Hemoglobin A1c 6.1 % (4.0-6.0) H 11/17/24 03:15 Calculated Osmolality 291 mOsm/kg (285-295) 11/18/24 04:27 Lactic Acid 5.0 mmol/L (0.5-2.2) H* 11/17/24 00:00 Lactic Acid (Sepsis) 1.7 mmol/L (0.5-2.2) 11/17/24 03:15 Calcium 8.2 mg/dL (8.5-10.5) L 11/18/24 04:27 Total Bilirubin 0.3 mg/dL (0.15-1.2) 11/17/24 03:15 AST 20 U/L (0-32) 11/17/24 03:15 ALT 15 U/L (0-33) 11/17/24 03:15 Alkaline Phosphatase 115 U/L (35-105) H 11/17/24 03:15 Troponin T 5th Gen ng/L 16 ng/L (0-10) H 11/17/24 22:18 Troponin T Baseline 9 ng/L (0-10) 11/16/24 21:07 Troponin T 120 Minute 19.91 ng/L (0-10) H 11/16/24 23:13 Delta Troponin T 10.91 ABS# (0-10) H* 11/16/24 23:13 Troponin T Hi Sens 6Hr 31.32 ng/L (0-10) H 11/17/24 03:15 Troponin T Hi Sens 6Hr Delta 22.32 ng/L (0-12) H* 11/17/24 03:15 C-Reactive Protein 3.0 mg/L (0.0-4.9) 11/17/24 00:00 NT-Pro-B Natriuret Pep 1548 pg/mL (0-450) H 11/16/24 20:51 Total Protein 7.2 g/dL (6.6-8.7) 11/17/24 03:15 Albumin 4.4 g/dL (3.5-5.2) 11/17/24 03:15 Globulin 2.8 g/dL (1.3-4.6) 11/17/24 03:15 Procalcitonin 0.03 ng/mL (0-0.5) 11/17/24 00:00 TSH 1.99 uIU/mL (0.27-4.20) 11/17/24 03:15 Urine Color Yellow (Yellow) 11/16/24 22:50 Urine Appearance Clear (CLEAR) 11/16/24 22:50 Urine pH 5 (5-7) 11/16/24 22:50 Ur Specific [place] 1.025 (1.005-1.030) 11/16/24 22:50 Urine Protein 3+ (Negative) A 11/16/24 22:50 Urine Glucose (UA) Norm (Normal) 11/16/24 22:50 Urine Ketones Negative (Negative) 11/16/24 22:50 Urine Blood Neg (Negative) 11/16/24 22:50 Urine Nitrate Negative (Negative) 11/16/24 22:50 Urine Bilirubin Neg (Negative) 11/16/24 22:50 Urine Urobilinogen Norm mg/dL (Negative) 11/16/24 22:50 Ur Leukocyte Esterase Negative (Negative) 11/16/24 22:50 Urine RBC 0-2 /hpf (0-2) 11/16/24 22:50 Urine WBC 6-10 /hpf (0-5) 11/16/24 22:50 Ur Squamous Epith Cells 6-10 /hpf (0-5) 11/16/24 22:50 Amorphous Sediment Not Reportable 11/16/24 22:50 Urine Bacteria None seen /hpf (NONE) 11/16/24 22:50 Hyaline Casts 11.16 /lpf 11/16/24 22:50 Fine Granular Casts 0-4 /lpf H 11/16/24 22:50 Nasal MRSA (PCR) Not detected (Not Detecte) 11/17/24 05:23 Adenovirus (PCR) Not detected (NOT DETECT) 11/17/24 05:23 C. pneumoniae DNA (PCR) Not detected (NOT DETECT) 11/17/24 05:23 Coronavirus 229E (PCR) Not detected (NOT DETECT) 11/17/24 05:23 Human Metapneumovir PCR Not detected (NOT DETECT) 11/17/24 05:23 Influenza A (H1) PCR Not detected (NOT DETECT) 11/17/24 05:23 Influ A (H1/09) PCR Not detected (NOT DETECT) 11/17/24 05:23 Influenza A (H3) PCR Not detected (NOT DETECT) 11/17/24 05:23 Influenza Type A (PCR) Not detected (NOT DETECT) 11/17/24 05:23 Influenza Type B (PCR) Not detected (NOT DETECT) 11/17/24 05:23 M. pneumoniae (PCR) Not detected (NOT DETECT) 11/17/24 05:23 Parainfluenza 1 (PCR) Not detected (NOT DETECT) 11/17/24 05:23 Parainfluenza 2 (PCR) Not detected (NOT DETECT) 11/17/24 05:23 Parainfluenza 3 (PCR) Not detected (NOT DETECT) 11/17/24 05:23 Parainfluenza 4 (PCR) Not detected (NOT DETECT) 11/17/24 05:23 RSV Type A (PCR) Not detected (NOT DETECT) 11/17/24 05:23 RSV Type B (PCR) Not detected (NOT DETECT) 11/17/24 05:23 Entero/Rhino (PCR) Not detected (NOT DETECT) 11/17/24 05:23 SARS-CoV-2 (PCR) Not detected (NOT DETECT) 11/17/24 05:23 A&P Assessment and plan (1) Acute pulmonary edema: Currently resolved. Patient may continue the current management. Blood pressure could be a contributing factor for the acute heart failure. No significant coronary artery disease based on the angiogram. (2) Non-STEMI (non-ST elevated myocardial infarction): The patient had a type II myocardial infarction. So she may be kept on the aspirin. (3) Mitral valve regurgitation: The mitral regurgitation appears to be mild to moderate by LV angiogram. At this point, patient may not require any specific intervention. We might consider a CHARLIE to better evaluate the MR, as an outpatient Qualifiers: Cardiac valve disease etiology: nonrheumatic Qualified Code(s): I34.0 - Nonrheumatic mitral (valve) insufficiency (4) Left ventricular systolic dysfunction (LVSD): The LV ejection fraction patient around 40% based on the angiogram. Consider starting her on Entresto as an outpatient. 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 She is on long-term oral anticoagulation. Repeat CTA of the chest yesterday did not reveal any new PE. May be restarted on the Eliquis Plan If the patient continues to remain stable, may be discharged home today. Need to be seen in the clinic in a week by the nurse practitioner. Consider starting her on Entresto at that time. Appointment with Dr. Edwards in 1 month. PDMP PDMP Reviewed: Not Reviewed Attestations Medical Necessity Statement*: Possible discharge home today Coding Level of Care Code Acute Code for [facility] Fwd Diagnoses Acute pulmonary edema J81.0 Non-STEMI (non-ST elevated myocardial infarction) I21.4 Nonrheumatic mitral valve regurgitation I34.0 Cardiac valve disease etiology: nonrheumatic Left ventricular systolic dysfunction (LVSD) I51.89 Recurrent pulmonary embolism I26.99
--- NOTE | 2024-11-19 10:56 | P.DS_ITS ---
Discharge Providers Date of Admission: 11/17/24 01:55 Date of Discharge: November 19, 2024 Attending Provider at Admission: Marcio Martinez MD Attending Provider at Discharge: [place] Webb MD Primary Care Provider: Raven Peres MD Diagnoses at Discharge Discharge Diagnosis (1) Acute pulmonary edema: Status: Acute (2) Non-STEMI (non-ST elevated myocardial infarction): Status: Acute (3) Mitral valve regurgitation: Status: Acute Qualifiers: Cardiac valve disease etiology: nonrheumatic Qualified Code(s): I34.0 - Nonrheumatic mitral (valve) insufficiency (4) Left ventricular systolic dysfunction (LVSD): Status: Acute (5) Recurrent pulmonary embolism: Status: Acute Reason for Visit Reason for Visit: sob Brief History: Emma Navarrete is a 79 year old female with a past medical history of SVT, history of pulmonary embolism, 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 Patient does see that she lives at home by herself, she has been doing well nothing out of the ordinary, she tells me that tonight, she was on the phone with her daughter, when she got up that she was going to another room, when she had a sudden onset of shortness of breath, she had trouble catching her breath, she was wheezing, no chest pain, no palpitations, no lightheadedness, dizziness, no diaphoresis, her shortness of breath did not improve with rest, so she called a neighbor to check up on her and help take her to the the emergency room, [facility], but her shortness of breath progressively worsened, so she called 911, upon arrival EMS placed her on BiPAP, O2 sats of 80% on room air she does not use oxygen at home, in the emergency room she was kept on BiPAP and weaned to nasal cannula, currently on nasal cannula she is quite comfortable, on 2 L, denies any chest pain, palpitations, chills, dizziness, denies any fevers, no cough no reported aspiration Hospital Course Hospital Course Plan Acute hypoxic respiratory failure - Etiology unclear? - Possibly acute flash pulmonary edema - Does have NSTEMI, potentially cardiac event? - Also concern for pneumonia given CT scans findings as below CT/CT angio chest PE protcl [id number] IMPRESSION: 1. No evidence of acute pulmonary emboli. Stable chronic focal web-like filling defect at basal segmental right lower lobe artery. 2. Tbfby-kulfxbt-gbdq-left dependent reticulation and ground-glass attenuation may represent atelectasis, possibly edema given additional finding of smooth interlobular septal thickening suggestive of interstitial edema. Difficult to entirely exclude infectious or inflammatory process. 3. Minimal bilateral pleural effusions. 4. Bilateral mosaic attenuation is nonspecific, may be seen in the setting of small airways disease or possibly on the basis of chronic thromboembolic pulmonary hypertension. 5. Additional chronic and incidental findings as above. Plan - Monitor in ICU -BiPAP as needed - Serial EKGs, start troponins, telemetry monitoring - Cardiac echo - Blood cultures, CRP, Pro-Adonis, respiratory viral panel, lactic acid - Lasix 40 IV milligrams once - Heparin drip - Aspirin, Statin, metoprolol - Start Zosyn -start vancomycin - Sputum cultures, MRSA nares -DuoNeb, budesonide - Will monitor clinical status closely - Full code - Lovenox for DVT prophylaxis 11/17/24 Acute hypoxic respiratory failure likely secondary to flash pulmonary edema Likely NSTEMI Troponins climbing up from 9 to 19-32 Follow-up cardiology consult 2D echo in 01/26 showed EF of 45 to 50%, grade 1 diastolic dysfunction. Pharmacologic stress test was negative. Continue IV vancomycin and Zosyn for now Continue heparin drip. Supplemental oxygen to keep saturation more than 90% #11/18/24 s/p Cath this am. showed mild diffuse disease, not consistent with her symptoms and flash pulmonary edema. ECHO showed CONCLUSIONS Diffuse hypokinesis of the left ventricle with ejection fraction of 43%mild left ventricular hypertrophy.Grade I/IV diastolic dysfunction (abnormal relaxation filling pattern), normal to mildly elevated filling pressures. Moderately increased left atrial size. Thickened mitral valve. Mild mitral annular calcification. Moderately severe mitral valve regurgitation. Thickened aortic valve. Trace to mild tricuspid valve regurgitation. Estimated pulmonary artery peak systolic pressure 26 mmHg There is no pericardial effusion. There are no intracardiac masses. Compared to study from 01/19/2024 there is some worsening of the mitral regurgitation and the systolic function continue heparin drip. follow up cardiology for further recommendations. has lucy saturating well on room air will discontinue iv vancomycin, blood cultures negative so far. transfer [place] [facility] [place].. She is doing better today, denies any chest pain or SOB.Saturating well on room air. will dischrge her home today and follow up cardiology next week. Physical Exam Const: COMMON NORMALS: no acute distress and patient oriented x3 HENMT: COMMON NORMALS: normocephalic HEAD & SCALP: normocephalic Eye: COMMON NORMALS: Equal, round and reactive pupils present and EOMs intact bilaterally PUPIL: Yes Equal, round and reactive pupils present Neck/C-Spine: COMMON NORMALS: no JVD Resp: COMMON NORMALS: normal respiratory effort, No retractions, No use of accessory muscles and clear to auscultation bilaterally AUSCULTATION: clear to auscultation bilaterally, crackles and wheezes Cardio: COMMON NORMALS: no JVD, regular rate, regular rhythm, S1 normal heart sound present and S2 normal heart sound present RATE: regular rate RHYTHM: regular rhythm HEART SOUNDS: S1 normal heart sound present and S2 normal heart sound present GI: COMMON NORMALS: Normal to inspection, nondistended, normoactive bowel sounds present, Soft to palpation and non-tender PALPATION: Yes Soft to palpation Extremity: COMMON NORMALS: no calf tenderness and no pedal edema Neuro: COMMON NORMALS: patient oriented x3, CN's II-XII intact bilaterally and moves all extremities Psych: COMMON NORMALS: mental status grossly normal Discharge Data Studies Completed and Pending Completed Studies During Hospitalization Category Date Time Status CTA chest [CT angio chest PE protcl [id number]] Stat Cat Scan 11/16/24 23:25 Completed PHARMACY CARE COORDINATOR request for service Routine Exams 11/18/24 05:52 Completed XR chest 1V portable [id number] Stat Exams 11/16/24 21:12 Completed CV. echo complete* [id number] Stat Ultrasound 11/17/24 01:39 Completed Pending at discharge Category Date Time Status Blood Culture Routine Lab 11/17/24 03:15 Results Radiology Impressions Chest X-Ray 11/16/24 21:12 IMPRESSION: No acute findings. Chest CTA 11/16/24 23:25 IMPRESSION: 1. No evidence of acute pulmonary emboli. Stable chronic focal web-like filling defect at basal segmental right lower lobe artery. 2. Kjlgp-cunknnf-frgh-left dependent reticulation and ground-glass attenuation may represent atelectasis, possibly edema given additional finding of smooth interlobular septal thickening suggestive of interstitial edema. Difficult to entirely exclude infectious or inflammatory process. 3. Minimal bilateral pleural effusions. 4. Bilateral mosaic attenuation is nonspecific, may be seen in the setting of small airways disease or possibly on the basis of chronic thromboembolic pulmonary hypertension. 5. Additional chronic and incidental findings as above. Laboratory Results WBC 4.76 10^3/uL (3.29-11.43) 11/18/24 04: RBC 4.79 10^6/uL (3.85-5.65) 11/18/24 04:27 Hgb 12.40 g/dL (11.27-16.99) 11/18/24 04:27 Hct 39.9 % (36-47) 11/18/24 04:27 MCV 83.3 fl (85-98) L 11/18/24 04:27 MCH 25.9 pg (27-33) L 11/18/24 04:27 MCHC 31.1 g/dL (30-55) 11/18/24 04: RDW 14.3 % (12.1-15.1) 11/18/24 04:27 Plt Count 219 10^3/cmm (157-399) 11/18/24 04: MPV 11.0 fL (7.4-10.4) H 11/18/24 04:27 Neut % (Auto) 37.0 % 11/18/24 04:27 Lymph % (Auto) 37.6 % 11/18/24 04:27 [place] % (Auto) 13.0 % 11/18/24 04:27 Eos % (Auto) 10.5 % 11/18/24 04:27 Baso % (Auto) 1.5 % 11/18/24 04:27 Neut # (Auto) 1.76 10^3/uL (1.8-7.7) L 11/18/24 04:27 Lymph # (Auto) 1.8 10^3/uL (0.8-4.8) 11/18/24 04:27 [place] # (Auto) 0.6 10^3/uL (0.2-0.9) 11/18/24 04:27 Eos # (Auto) 0.5 10^3/uL (0.0-0.8) 11/18/24 04:27 Baso # (Auto) 0.1 10^3/uL (0.0-0.1) 11/18/24 04:27 Nucleated RBC % (auto) 0 % 11/18/24 04:27 Nucleated RBCs # 0.0 /100WBC 11/18/24 04:27 ESR 11 mm/hr (0-15) 11/17/24 00:00 APTT 67.7 SECONDS (23.9-36.7) H 11/18/24 04:27 Specimen Type Arterial 11/16/24 21:07 Sample Site Brachial, right 11/16/24 21:07 ABG pH 7.28 (7.35-7.45) L 11/16/24 21:07 ABG pCO2 44.3 mmHg (35-45) 11/16/24 21:07 ABG pO2 137.0 mmHg (80.0-100.0) H 11/16/24 21:07 ABG PO2/FiO2 Ratio 342 11/16/24 21:07 ABG HCO3 20.7 mmol/L (22-26) L 11/16/24 21:07 ABG Base Excess -6.0 mmol/L (-2.0-2.0) L 11/16/24 21:07 [place] Test N/a 11/16/24 21:07 Hematocrit 42.5 % (37-47) 11/16/24 21:07 Hgb O2 Saturation 97.2 % (95-100) 11/16/24 21:07 Carboxyhemoglobin 0.8 %THgb (0.4-20.1) 11/16/24 21:07 Methemoglobin 1.1 % (0.4-1.5) 11/16/24 21:07 Total Hemoglobin 13.9 g/dL (12-16) 11/16/24 21:07 O2 Delivery Device Bipap 11/16/24 21:07 FiO2 40.0 % 11/16/24 21:07 Pole Tester ID [id number] 11/16/24 21:07 Sodium 139 mmol/L (136-145) 11/18/24 04:27 Potassium 3.6 mmol/L (3.5-5.1) 11/18/24 04:27 Chloride 104 mmol/L (98-107) 11/18/24 04:27 Carbon Dioxide 24 mmol/L (22-29) 11/18/24 04:27 Anion Gap 14.6 (5-19) 11/18/24 04:27 BUN 21 mg/dL (8-23) 11/18/24 04:27 Creatinine 0.8 mg/dL (0.5-0.9) 11/18/24 04:27 GFR Calculation Not Reportable 11/18/24 04:27 Glucose 92 mg/dL (65-115) 11/18/24 04:27 Estimat Average Glucose 128 11/17/24 03:15 Hemoglobin A1c 6.1 % (4.0-6.0) H 11/17/24 03:15 Calculated Osmolality 291 mOsm/kg (285-295) 11/18/24 04:27 Lactic Acid 5.0 mmol/L (0.5-2.2) H* 11/17/24 00:00 Lactic Acid (Sepsis) 1.7 mmol/L (0.5-2.2) 11/17/24 03:15 Calcium 8.2 mg/dL (8.5-10.5) L 11/18/24 04:27 Total Bilirubin 0.3 mg/dL (0.15-1.2) 11/17/24 03:15 AST 20 U/L (0-32) 11/17/24 03:15 ALT 15 U/L (0-33) 11/17/24 03:15 Alkaline Phosphatase 115 U/L (35-105) H 11/17/24 03:15 Troponin T 5th Gen ng/L 16 ng/L (0-10) H 11/17/24 22:18 Troponin T Baseline 9 ng/L (0-10) 11/16/24 21:07 Troponin T 120 Minute 19.91 ng/L (0-10) H 11/16/24 23:13 Delta Troponin T 10.91 ABS# (0-10) H* 11/16/24 23:13 Troponin T Hi Sens 6Hr 31.32 ng/L (0-10) H 11/17/24 03:15 Troponin T Hi Sens 6Hr Delta 22.32 ng/L (0-12) H* 11/17/24 03:15 C-Reactive Protein 3.0 mg/L (0.0-4.9) 11/17/24 00:00 NT-Pro-B Natriuret Pep 1548 pg/mL (0-450) H 11/16/24 20:51 Total Protein 7.2 g/dL (6.6-8.7) 11/17/24 03:15 Albumin 4.4 g/dL (3.5-5.2) 11/17/24 03:15 Globulin 2.8 g/dL (1.3-4.6) 11/17/24 03:15 Procalcitonin 0.03 ng/mL (0-0.5) 11/17/24 00:00 TSH 1.99 uIU/mL (0.27-4.20) 11/17/24 03:15 Urine Color Yellow (Yellow) 11/16/24 22:50 Urine Appearance Clear (CLEAR) 11/16/24 22:50 Urine pH 5 (5-7) 11/16/24 22:50 Ur Specific [place] 1.025 (1.005-1.030) 11/16/24 22:50 Urine Protein 3+ (Negative) A 11/16/24 22:50 Urine Glucose (UA) Norm (Normal) 11/16/24 22:50 Urine Ketones Negative (Negative) 11/16/24 22:50 Urine Blood Neg (Negative) 11/16/24 22:50 Urine Nitrate Negative (Negative) 11/16/24 22:50 Urine Bilirubin Neg (Negative) 11/16/24 22:50 Urine Urobilinogen Norm mg/dL (Negative) 11/16/24 22:50 Ur Leukocyte Esterase Negative (Negative) 11/16/24 22:50 Urine RBC 0-2 /hpf (0-2) 11/16/24 22:50 Urine WBC 6-10 /hpf (0-5) 11/16/24 22:50 Ur Squamous Epith Cells 6-10 /hpf (0-5) 11/16/24 22:50 Amorphous Sediment Not Reportable 11/16/24 22:50 Urine Bacteria None seen /hpf (NONE) 11/16/24 22:50 Hyaline Casts 11.16 /lpf 11/16/24 22:50 Fine Granular Casts 0-4 /lpf H 11/16/24 22:50 Nasal MRSA (PCR) Not detected (Not Detecte) 11/17/24 05:23 Adenovirus (PCR) Not detected (NOT DETECT) 11/17/24 05:23 C. pneumoniae DNA (PCR) Not detected (NOT DETECT) 11/17/24 05:23 Coronavirus 229E (PCR) Not detected (NOT DETECT) 11/17/24 05:23 Human Metapneumovir PCR Not detected (NOT DETECT) 11/17/24 05:23 Influenza A (H1) PCR Not detected (NOT DETECT) 11/17/24 05:23 Influ A (H1/09) PCR Not detected (NOT DETECT) 11/17/24 05:23 Influenza A (H3) PCR Not detected (NOT DETECT) 11/17/24 05:23 Influenza Type A (PCR) Not detected (NOT DETECT) 11/17/24 05:23 Influenza Type B (PCR) Not detected (NOT DETECT) 11/17/24 05:23 M. pneumoniae (PCR) Not detected (NOT DETECT) 11/17/24 05:23 Parainfluenza 1 (PCR) Not detected (NOT DETECT) 11/17/24 05:23 Parainfluenza 2 (PCR) Not detected (NOT DETECT) 11/17/24 05:23 Parainfluenza 3 (PCR) Not detected (NOT DETECT) 11/17/24 05:23 Parainfluenza 4 (PCR) Not detected (NOT DETECT) 11/17/24 05:23 RSV Type A (PCR) Not detected (NOT DETECT) 11/17/24 05:23 RSV Type B (PCR) Not detected (NOT DETECT) 11/17/24 05:23 Entero/Rhino (PCR) Not detected (NOT DETECT) 11/17/24 05:23 SARS-CoV-2 (PCR) Not detected (NOT DETECT) 11/17/24 05:23 Vitals Last Vital Signs Temp 97.9 F 11/19/24 07:58 Pulse 66 11/19/24 08:56 Resp 16 11/19/24 08:56 BP 161/77 11/19/24 08:21 Pulse Ox 96 11/19/24 08:56 O2 Del Method Room Air 11/19/24 08:56 O2 Flow Rate 98 11/18/24 13:45 FiO2 40 11/16/24 21:05 Discharge Plan Discharge Patient Disposition: Home Condition: Stable Prescriptions: New losartan 50 mg Tablet 50 mg PO DAILY 30 Days Qty: 30 0RF aspirin 81 mg Tablet,Delayed Release (Dr/Ec) 81 mg PO DAILY 30 Days Qty: 30 0RF spironolactone 25 mg Tablet 25 mg PO DAILY 30 Days Qty: 30 0RF alum-mag hydroxide-simeth [Mag-Al Plus] 200-200-20 mg/5 mL Suspension 30 ml PO Q15M PRN (Reason: Indigestion) 30 Days Qty: 80 0RF metoprolol tartrate 25 mg Tablet 25 mg PO BID@0900,2100 30 Days Qty: 60 0RF ropinirole 0.5 mg tablet 0.5 mg PO DAILY Qty: 20 0RF Continued isosorbide mononitrate 30 mg tablet extended release 24 hr 30 mg PO BID Qty: 180 3RF Saline Nasal 0.65 % aerosol,spray 2 spray intranasal Q2H PRN (Reason: dry nasal passages) Qty: 44 0RF diclofenac sodium 75 mg tablet,delayed release (DR/EC) 75 mg PO Q12H PRN (Reason: pain) Qty: 20 0RF morphine 15 mg Tablet 15 mg PO Q8H PRN (Reason: Pain) polyethylene glycol 3350 17 gram Powder In Packet 17 g PO DAILY Qty: 30 0RF pantoprazole 40 mg Tablet,Delayed Release (Dr/Ec) 40 mg PO DAILY Qty: 30 0RF topiramate 50 mg Capsule,Extended Release 24hr 50 mg PO DAILY Qty: 30 0RF Eliquis 5 mg Tablet 5 mg PO BID@0900,2100 Qty: 60 0RF cyanocobalamin (vitamin B-12) 5,000 mcg capsule 5,000 mcg PO DAILY Qty: 30 0RF atorvastatin 20 mg tablet 20 mg PO BEDTIME hydralazine 25 mg tablet 25 mg PO TID Discontinued metoprolol tartrate 50 mg tablet 50 mg PO BID lisinopril 40 mg tablet 40 mg PO DAILY No Action (DME) Tricia Joy See Rx Instructions .Route .MEDSUPPLY Rx Instructions: As directed Discharge Orders: Discharge Order (Routine); Ordered 11/19/24 Ordered By: [place] Webb Referrals: Raven Peres MD [Primary Care Provider] - Discharge Diet: Cardiac Discharge Activity: Increase activity as tolerated Patient Instructions: Opioid Safety Discharge Attestations Time Spent in Discharge Care*: less than 30 min Status at Discharge: Cognitive status at discharge: cognitively intact , Behavioral status at discharge: cooperative , Quality Metrics Clinical Quality Measures [ No reported AMI, CVA or VTE this stay] Coding Level of Care Code Acute Code for Chg Fwd Diagnoses Acute pulmonary edema J81.0 Non-STEMI (non-ST elevated myocardial infarction) I21.4 Nonrheumatic mitral valve regurgitation I34.0 Cardiac valve disease etiology: nonrheumatic Left ventricular systolic dysfunction (LVSD) I51.89 Recurrent pulmonary embolism I26.99 Time Spent (min) 20
[2024-11-19 11:40] VITALS: BP 156/67; PULSE 67; RESP 16; TEMP 36.5; O2SAT 95
[2024-11-19] MEDS: amlodipine 5 mg Tablet 2.5 MG PO (11:56)
[2024-11-19] MEDS: spironolactone 25 mg Tablet PO (11:56)
== END 2024-11-19 12:58 | disposition home or self-care (01) | DRG 280 ==
LOC: ER 11-17 01:10 → ICU 11-17 02:43 → MEDSURG 11-18 14:16
PROVIDERS: Internal Medicine Cardiovascular Disease; Admitting Provider Family Medicine; Emergency Provider Student in an Organized Health Care Education/Training Program; PCP Family Medicine; Visit Provider Internal Medicine
PROC: B2111ZZ Fluoroscopy of Multiple Coronary Arteries using Low Osmolar Contrast (ICD-10-PCS; principal; 2024-11-18 06:00)
DX: I11.0 Hypertensive heart disease with heart failure (principal); I50.21 Acute systolic (congestive) heart failure; I21.A1 Myocardial infarction type 2; J96.01 Acute respiratory failure with hypoxia; I25.10 Atherosclerotic heart disease of native coronary artery without angina pectoris; I08.1 Rheumatic disorders of both mitral and tricuspid valves; E78.5 Hyperlipidemia, unspecified; K21.9 Gastro-esophageal reflux disease without esophagitis; G62.9 Polyneuropathy, unspecified; Z11.52 Encounter for screening for COVID-19; Z79.01 Long term (current) use of anticoagulants; Z96.643 Presence of artificial hip joint, bilateral; Z87.891 Personal history of nicotine dependence; Z86.711 Personal history of pulmonary embolism; Z82.49 Family history of ischemic heart disease and other diseases of the circulatory system; Z80.1 Family history of malignant neoplasm of trachea, bronchus and lung; Z82.3 Family history of stroke
CPT/HCPCS: 36415; 36600; 71045; 71275; 80048; 80053; 81001; 82805; 83036; 83605; 83880; 84145; 84443; 84484; 85025; 85347; 85651; 85730; 86140; 87040; 87486; 87581; 87633; 92523; 92610; 93005; 93306; 93458; 94640; 94660; 94664; 96365; 96374; 96375; 99152; 99153; 99291; C1769; C1887; C1894; J1644; J1940; J2250; J2470; J2543; J3010; J3370; J3480; J3490; J7030; J7050; J7626; J9999; Q0163; Q9967

== ENCOUNTER → 2024-12-01 07:57 | Outpatient (BNVA) | payer MEDICARE, SELFPAY | PROVIDERS: PCP Family Medicine; Visit Provider Nurse Practitioner Family | DX: I11.0 Hypertensive heart disease with heart failure (principal); I50.41 Acute combined systolic (congestive) and diastolic (congestive) heart failure; I34.0 Nonrheumatic mitral (valve) insufficiency; J81.1 Chronic pulmonary edema; G25.81 Restless legs syndrome; Z87.891 Personal history of nicotine dependence; Z79.01 Long term (current) use of anticoagulants; Z79.82 Long term (current) use of aspirin | CPT/HCPCS: 99214 ==

== ENCOUNTER → 2024-12-17 08:44 | Outpatient (BNVA) | payer MEDICARE, SELFPAY | PROVIDERS: PCP Family Medicine; Visit Provider Nurse Practitioner Family | DX: I11.0 Hypertensive heart disease with heart failure (principal); I50.41 Acute combined systolic (congestive) and diastolic (congestive) heart failure; Z79.899 Other long term (current) drug therapy; I34.0 Nonrheumatic mitral (valve) insufficiency | CPT/HCPCS: 36415; 80048; 80061; 99213 ==

== ENCOUNTER → 2025-02-16 13:36 | Outpatient (BNVA) | payer MEDICARE, SELFPAY | PROVIDERS: PCP Family Medicine; Visit Provider Internal Medicine Cardiovascular Disease | DX: I25.10 Atherosclerotic heart disease of native coronary artery without angina pectoris (principal); I34.0 Nonrheumatic mitral (valve) insufficiency; Z86.711 Personal history of pulmonary embolism; I11.9 Hypertensive heart disease without heart failure; Z79.1 Long term (current) use of non-steroidal anti-inflammatories (NSAID); Z79.82 Long term (current) use of aspirin; Z87.891 Personal history of nicotine dependence | CPT/HCPCS: 99214 ==

== ENCOUNTER → 2025-06-03 12:14 | Outpatient (BNVA) | payer MEDICARE, SELFPAY | PROVIDERS: PCP Family Medicine; Visit Provider Internal Medicine Cardiovascular Disease | DX: I42.8 Other cardiomyopathies (principal); I34.0 Nonrheumatic mitral (valve) insufficiency; I10 Essential (primary) hypertension; I26.99 Other pulmonary embolism without acute cor pulmonale; Z79.01 Long term (current) use of anticoagulants; Z87.891 Personal history of nicotine dependence | CPT/HCPCS: 99214 ==